=== PATIENT | male | born 1950 | race African-American/Black ===

== ENCOUNTER 2024-03-16 18:08 | Inpatient (IN) | payer OTHER ==
--- OUTSIDE RECORDS SUMMARY | 2024-03-16 22:11 | XMS REPORT | Continuity of Care Document ---
Author Name Unknown Address [address] [facility] [place] [address] [facility] Address [address] [facility] [place] [address] Care Team Providers Care Custom Designer Name Role Phone PCP, PATIENT DOES NOT HAVE A Primary Care Physic kevin Unavailable DIMITRIS PERALES Attending Clinician Unavailable ALMA ROSA BRAMBILA Attending Clinician Unavailable ROCIO SHAY K.HPurvi Attending Clinician Unavailnatacha Shay MD, Rocio K.HPurvi Attending Clinician [phone] Doctor Unassigned, [place] Attending Clinician U inessaailGLEN Mendes Attending Clinician Unavailable Glen Moncada Attending Clinician [phone] [facility]_Se[facility]_S Attending Clinician Unavailable Eula Mac RN Attending Clinician Unavailable Chester Alonzo Attending Clinician [phone] LYUDMILA PEDRO Attending Clinician Unavailable Breana Rabago DO Attending Clinician [phone] Erick CHAN, Johan Avendano Attending Clinician [phone] Luci CHAN, Edwin Attending Clinician [phone] Nereyda Lewis MD Attending Clinician [phone] Emmett CHAN, Josue Avendano Attending Clinician Lyudmila Pedro MD Attending Clinician [phone] Ulysses CHAN, Premal G Attending Clinician [phone] Chirag CHAN, Jayme Brooks Attending Clinician [phone] JEREMY PUENTES Admitting Clinician Unavailable [facility]_Seiter_S Admitting Clinician Unavailable JAYME PINEDA Admitting Clinician Unavailab jazzy Pineda MD, Jayme Brooks Admitting Clinician [phone] Payers Payer Name Policy Type Policy Number Effective Date Expirati on Date Source [facility] [id number] 2023 00:00:00 [facility] MEDICARE ADV HMO [id number] 2023 00:00:00 [facility] (MEDICARE REPLACEMENT/ADVANTA GE - PPO) [id number] Problems Condition Name Condition Details Condition Category Status Onset Date Resolution Date Last Treatment Date Treating Clinician Comments Source Hypertensi ve disorder Hypertensi ve Disorder Problem Active 5- 00:00: 00 [facility] Atrial fibrillati on Atrial Fibrillati on Problem Active 5- 00:00: 00 [facility] Gastroesop hageal reflux disease Gastroesop hageal Reflux Disease Problem Active 5- 00:00: 00 [facility] History of cerebrovas cular accident History of Cerebrovas cular Accident Problem Active - 00:00: 00 [facility] History of fall History of Fall Problem Active 5- 00:00: 00 [facility] History of SARS-CoV-2 History of SARS-CoV-2 Problem Active 5- 00:00: 00 [facility] COVID-19 virus infection COVID-19 virus infection Disease Active - 00:00: 00 Overview: Formattin g of this note is different from the original. SARS-CoV- 2 Rapid ID NOW (no units) Date Value Positive (A) [facility] Delirium Delirium Disease Active - 00:00: 00 [facility] Fever due to COVID-19 Fever due to COVID-19 Disease Active - 00:00: 00 [facility] History of stroke History of stroke Disease Active 10-21 00:00: 00 Overview: Formattin g of this note might be different from the original. ?? 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 10/20/20M ultiple areas of moderate to high-grad e stenosis in the distal leftcervi aicha vertebral artery. There are several areas of moderate stenosis ofthe left intracere bral vertebral artery.?M ild to moderate stenosis in the right middle cerebral artery and mildsteno sis of left middle cerebral artery.? [facility] Demand ischemia Demand ischemia Disease Active 10-21 00:00: 00 [facility] YAMILETH (acute kidney injury) YAMILETH (acute kidney injury) Disease Active 10-20 00:00: 00 Overview: Formattin g of this note is different from the original. CREATININ E (mg/dL) Date Value 1 1.59 (H) 1 1.75 (H) Serum creatinin e: 1.59 mg/dL (H) 10/21/20 0316Estim ated creatinin e clearance : 55 mL/min (A) [facility] Pneumonia due to COVID-19 virus Pneumonia due to COVID-19 virus Disease Active 10-20 00:00: 00 [facility] Allergies, Adverse Reactions, Alerts Allergy Name Allergy Type Status Severity Reaction(s) Onset Date Inactive Date Treating Clinician Comments Source NO KNOWN ALLERGIE S Drug Class Active [facility] Social History Social Habit Start Date Stop Date Quantity Comments Source History of tobacco use Passive smoker [facility] Gender identity [facility] Exposure to SARS-CoV-2 (event) Not sure [facility] History of Social function 2023-06-30 00:00:00 2023-06-30 00:00:00 [facility] Tobacco use and exposure 2023-06-30 00:00:00 2023-06-30 00:00:00 Smokeless tobacco non-user [facility] Alcohol intake 2023-06-30 00:00:00 2023-06-30 00:00:00 .29 /d [facility] Sex Ass[birth year] At 1950 00:00:00 1950 00:00:00 [facility] Smoking Status Start Date Stop Date Source Never Smoker [facility] Ex-smoker 2023-06-30 00:00:00 2023-06-30 [facility]00[facility]00 [facility] Ordered Medication Name Filled Medication Name Start Date Stop Date Current Medication? Ordering Clinician Indication Dosage Frequency Signature (SIG) Comments Components Source apixaban 5 mg tablet 07-22 00:00: 00 Yes [id number] 5mg Take 1 tablet by mouth in the morning and 1 tablet in the evening. Indication s: prevention of thromboemb olism in paroxysmal atrial fibrillati on [facility] warfarin 5 mg tablet 2022-07 08:52: 10 Yes [id number] 5mg Take 1 tablet by mouth. 1.5tabs on Mondays 1tab 6x/week [facility] metFORMIN 500 mg 24 hr tablet 2022-07 08:52: 10 Yes [id number] 500mg Take 1 tablet by mouth daily with breakfast. [facility] cloNIDine 0.1 mg tablet 2022-07 08:52: 10 Yes [id number] .1mg Take 1 tablet by mouth in the morning and 1 tablet in the evening. [facility] losartan-hy drochloroth iazide 100-25 mg per tablet 2022-07 08:52: 10 Yes [id number] 1{tbl} Take 1 tablet by mouth in the morning. [facility] hydralAZINE (APRESOLINE ) injection 10 mg 01-27 17:15: 00 01-27 18:20 :00 No 10mg 10 mg, Slow IV Push, ONCE, 1 dose, On Wed01/27/23 at 1215, SAÚL [facility] cloNIDine (CATAPRES) tablet 0.1 mg 01-27 17:15: 00 01-27 18:19 :00 No .1mg 0.1 mg, Oral, ONCE, 1 dose, On Wed01/27/23 at 1215, STAT [facility] aspirin 81 mg chewable tablet 11-09 00:00: 00 Yes [id number] 81mg Take 1 tablet by mouth daily. [facility] diltiazem XR 180 mg 24 hr capsule 11-09 00:00: 00 Yes [id number] 180mg Take 1 capsule by mouth daily. [facility] aspirin 81 mg chewable tablet 11-08 19:01: 15 11-08 00:00 :00 No 81mg Take 81 mg by mouth daily. [facility] diltiazem XR (DILT-XR) capsule 180 mg 11-08 14:00: 00 Yes 180mg 180 mg, Oral, DAILY, First dose (after last modificati on) on Wed11/08/20 at 0900, Until Discontinu ed, Routine [facility] foLIC acid (FOLATE) tablet 1 mg 11-08 14:00: 00 Yes 1mg 1 mg, Oral, DAILY, First dose (after last modificati on) on Wed11/08/20 at 0900, Until Discontinu ed, Routine [facility] aspirin chewable tablet 81 mg 11-08 14:00: 00 Yes 81mg 81 mg, Oral, DAILY, First dose (after last modificati on) on Wed11/08/20 at 0900, Until Discontinu ed, Routine [facility] lactated ringers IV infusion 1,000 mL 11-08 13:30: 00 11-08 13:54 :00 No 1000mL at 200 mL/hr, 1,000 mL, Intravenou s, ONCE, 1 dose, Wed11/08/20 at 0830, Routine [facility] apixaban (ELIQUIS) tablet 5 mg 11-08 01:00: 00 Yes 5mg 5 mg, Oral, BID, First dose (after last modificati on) on [place] 11/07/20 at 2000, Until Discontinu ed, Routine [facility] atorvastati n 80 mg tablet 11-08 00:00: 00 Yes [id number] 80mg Take 1 tablet by mouth at bedtime. [facility] carvediloL 25 mg tablet 11-08 00:00: 00 Yes [id number] 25mg Take 1 tablet by mouth every 12 (twelve) hours. [facility] hydrALAZINE 100 mg tablet 11-08 00:00: 00 Yes [id number] 100mg Take 1 tablet by mouth every 8 (eight) hours. [facility] pantoprazol e 40 mg EC tablet 11-08 00:00: 00 Yes [id number] 40mg Take 1 tablet by mouth 2 (two) times daily. [facility] apixaban 5 mg tablet 11-08 00:00: 00 07-22 00:00 :00 No [id number] 5mg Take 1 tablet by mouth 2 (two) times daily. Indication s: prevention of thromboemb olism in paroxysmal atrial fibrillati on [facility] hydrALAZINE (APRESOLINE ) tablet 100 mg 11-07 19:00: 00 Yes 100mg 100 mg, Oral, Q8H, First dose (after last modificati on) on Wed11/07/20 at 1400, Until Discontinu ed, Routine [facility] lactated ringers IV infusion 1,500 mL 11-07 14:00: 00 11-07 14:51 :00 No 1500mL at 150 mL/hr, 1,500 mL, Intravenou s, ONCE, 1 dose, Wed11/07/20 at 0900, Routine [facility] polyethylen e glycol 3350 powder 17 g 11-06 14:00: 00 Yes 17g 17 g, Oral, DAILY, First dose (after last modificati on) on Wed11/06/20 at 0900, Until Discontinu ed, Routine [facility] atorvastati n (LIPITOR) tablet 80 mg 11-06 02:00: 00 11-07 16:40 :03 No 80mg 80 mg, Enteral, QHS, First dose (after last modificati on) on Wed11/05/20 at 2100, Until Discontinu ed, Routine [facility] amino acids 4.25%-elect rolytes-aicha cium-dextro se 5% (CLINIMIX-E 4.25%/D5W SULF FREE) IV infusion 1,992 mL 11-05 22:00: 00 11-05 21:39 :00 No 1992mL at 83 mL/hr, 1,992 mL, IV Infusion, TPNCONTINU OUS, 1 dose, First dose (after last reorder) on Wed11/05/20 at 1700, Routine [facility] fat emulsion (INTRALIPID ) 20 % infusion 250 mL 11-05 22:00: 00 11-05 21:39 :00 No 250mL at 11 mL/hr, IV Infusion, TPNCONTINU OUS, 1 dose, First dose (after last reorder) on Wed11/05/20 at 1700, Routine [facility] hydrALAZINE (APRESOLINE ) tablet 100 mg 11-05 19:00: 00 11-07 16:40 :03 No 100mg 100 mg, Enteral, Q8H, First dose (after last modificati on) on Wed11/05/20 at 1400, Until Discontinu ed, Routine [facility] diltiazem (CARDIZEM) tablet 60 mg 11-05 17:00: 00 11-07 16:40 :02 No 60mg 60 mg, Enteral, Q6H, First dose (after last modificati on) on Wed11/05/20 at 1200, Until Discontinu ed, Routine [facility] magnesium sulfate in water 2 gram/50 mL (4 %) infusion 2 g 11-05 16:15: 00 11-05 15:23 :00 No 2g 2 g, IV Piggyback, ONCE, 1 dose, Wed11/05/20 at 1115, Routine [facility] KCL (POTASSIUM CHLORIDE) 40 mEq in NaCl 0.9% (NS) piggyback 11-05 16:15: 00 11-05 17:14 :00 No 40meq 40 mEq, IV Piggyback, ONCE, 1 dose, Wed11/05/20 at 1115, 250 mL [facility] foLIC acid (FOLATE) tablet 1 mg 11-05 14:00: 00 11-07 16:40 :03 No 1mg 1 mg, Enteral, DAILY, First dose (after last modificati on) on Wed11/05/20 at 0900, Until Discontinu ed, Routine [facility] aspirin chewable tablet 81 mg 11-05 14:00: 00 11-07 16:40 :03 No 81mg 81 mg, Enteral, DAILY, First dose (after last modificati on) on Wed11/05/20 at 0900, Until Discontinu ed, Routine [facility] apixaban (ELIQUIS) tablet 5 mg 11-05 13:00: 00 11-07 16:40 :03 No 5mg 5 mg, Enteral, BID, First dose (after last modificati on) on Wed11/05/20 at 0800, Until Discontinu ed, Routine [facility] fat emulsion (INTRALIPID ) 20 % infusion 250 mL 11-04 22:00: 00 11-04 22:00 :00 No 250mL at 11 mL/hr, IV Infusion, TPNCONTINU OUS, 1 dose, First dose (after last reorder) on Wed11/04/20 at 1700, Routine [facility] amino acids 4.25%-elect rolytes-aicha cium-dextro se 5% (CLINIMIX-E 4.25%/D5W SULF FREE) IV infusion 1,992 mL 11-04 22:00: 00 11-04 22:00 :00 No 1992mL at 83 mL/hr, 1,992 mL, IV Infusion, TPNCONTINU OUS, 1 dose, First dose (after last reorder) on Wed11/04/20 at 1700, Routine [facility] metoprolol (LOPRESSOR) injection 5 mg 11-04 15:51: 22 Yes 5mg 5 mg, Slow IV Push, PRN, Starting 11/04/20 at 1051, Until Discontinu ed, Routine, For HR > 110, please notify team w/ administra tion. [facility] melatonin (MELATIN) tablet 3 mg 11-04 02:00: 00 Yes 3mg 3 mg, Oral, QHS, First dose on Wed11/03/20 at 2100, Until Discontinu ed, Routine [facility] fat emulsion (INTRALIPID ) 20 % infusion 250 mL 11-03 22:00: 00 11-03 21:56 :00 No 250mL at 11 mL/hr, IV Infusion, TPNCONTINU OUS, 1 dose, First dose (after last reorder) on [place] 11/03/20 at 1700, Routine [facility] amino acids 4.25%-elect rolytes-aicha cium-dextro se 5% (CLINIMIX-E 4.25%/D5W SULF FREE) IV infusion 2,000 mL 11-03 22:00: 00 11-03 22:17 :00 No 2000mL at 83 mL/hr, 2,000 mL, IV Infusion, TPNCONTINU OUS, 1 dose, First dose (after last reorder) on [place] 11/03/20 at 1700, Routine [facility] pantoprazol e (PROTONIX) 40 mg in NaCl 0.9% (NS) 100 mL MINI-BAG 11-03 01:00: 00 11-08 18:02 :26 No 40mg 40 mg, IV Piggyback, Q12H, First dose on 11/02/20 at 2000, Until Discontinu ed, 100 mL [facility] fat emulsion (INTRALIPID ) 20 % infusion 250 mL 11-02 22:00: 00 11-02 20:20 :00 No 250mL at 11 mL/hr, IV Infusion, TPNCONTINU OUS, 1 dose, First dose (after last reorder) on [facility] 11/02/20 at 1700, Routine [facility] amino acids 4.25%-elect rolytes-aicha cium-dextro se 5% (CLINIMIX-E 4.25%/D5W SULF FREE) IV infusion 2,000 mL 11-02 22:00: 00 11-02 20:21 :00 No 2000mL at 83 mL/hr, 2,000 mL, IV Infusion, TPNCONTINU OUS, 1 dose, First dose on Wed11/02/20 at 1700, Routine [facility] hydrALAZINE (APRESOLINE ) tablet 100 mg 11-02 19:00: 00 11-05 11:42 :47 No 100mg 100 mg, Oral, Q8H, First dose (after last modificati on) on Wed11/02/20 at 1400, Until Discontinu ed, Routine [facility] amino acid 4.25%-detro se 5% (CLINIMIX 4.25%/D5W SULFIT FREE) IV infusion 2,000 mL 11-01 22:00: 00 11-02 23:11 :00 No 2000mL at 83 mL/hr, 2,000 mL, IV Infusion, TPNCONTINU OUS, 1 dose, First dose on Wed11/01/20 at 1700, Routine [facility] fat emulsion (INTRALIPID ) 20 % infusion 250 mL 11-01 22:00: 00 11-01 23:10 :00 No 250mL at 11 mL/hr, IV Infusion, TPNCONTINU OUS, 1 dose, First dose on Wed11/01/20 at 1700, Routine [facility] hydrALAZINE (APRESOLINE ) tablet 50 mg 11-01 19:00: 00 11-02 12:52 :42 No 50mg 50 mg, Oral, Q8H, First dose (after last modificati on) on Wed11/01/20 at 1400, Until Discontinu ed, Routine [facility] magnesium sulfate in water 2 gram/50 mL (4 %) infusion 2 g 11-01 15:45: 00 11-01 15:29 :00 No 2g 2 g, IV Piggyback, ONCE, 1 dose, Wed11/01/20 at 1045, Routine [facility] KCL (POTASSIUM CHLORIDE) 40 mEq in NaCl 0.9% (NS) 250 mL piggyback 11-01 13:00: 00 11-01 14:09 :00 No 40meq 40 mEq, IV Piggyback, Q4H, 1 dose, First dose on Wed11/01/20 at 0800, 250 mL [facility] hydrALAZINE (APRESOLINE ) tablet 20 mg 11-01 03:00: 00 11-01 15:37 :30 No 20mg 20 mg, Oral, Q8H, First dose (after last modificati on) on Wed10/31/20 at 2200, Until Discontinu ed, Routine [facility] lactated ringers IV infusion 1,000 mL 10-31 13:30: 00 10-31 15:09 :00 No 1000mL at 75 mL/hr, 1,000 mL, Intravenou s, ONCE, 1 dose, Wed10/31/20 at 0830, Routine [facility] hydrALAZINE (APRESOLINE ) tablet 10 mg 10-30 19:00: 00 10-31 20:51 :57 No 10mg 10 mg, Oral, Q8H, First dose on Wed10/30/20 at 1400, Until Discontinu ed, Routine [facility] diltiazem (CARDIZEM) tablet 60 mg 10-30 17:00: 00 11-05 11:42 :47 No 60mg 60 mg, Oral, Q6H, First dose (after last modificati on) on Wed10/30/20 at 1200, Until Discontinu ed, Routine [facility] diltiazem (CARDIZEM) tablet 30 mg 10-30 14:45: 00 10-30 14:14 :00 No 30mg 30 mg, Oral, ONCE, 1 dose, Wed10/30/20 at 0945, Routine [facility] lisinopriL (PRINIVIL,Z ESTRIL) tablet 10 mg 10-30 14:00: 00 10-30 15:10 :13 No 10mg 10 mg, Oral, DAILY, First dose on Wed10/30/20 at 0900, Until Discontinu ed, Routine [facility] lactated ringers IV infusion 1,000 mL 10-30 13:00: 00 10-30 12:53 :00 No 1000mL at 150 mL/hr, 1,000 mL, Intravenou s, ONCE, 1 dose, Wed10/30/20 at 0800, Routine [facility] thiamine (VITAMIN B1) tablet 500 mg 10-29 19:00: 00 Yes 500mg 500 mg, Oral, TID, First dose on Wed10/29/20 at 1400, Until Discontinu ed, Routine [facility] chlorthalid one (HYGROTON) tablet 25 mg 10-29 16:45: 00 11-05 11:42 :47 No 25mg 25 mg, Oral, DAILY, First dose on Wed10/29/20 at 1145, Until Discontinu ed, Routine [facility] chlorthalid one (HYGROTON) tablet 25 mg 10-28 22:00: 00 10-28 22:48 :00 No 25mg 25 mg, Oral, ONCE, 1 dose, Wed10/28/20 at 1700, Routine [facility] apixaban (ELIQUIS) tablet 5 mg 10-28 17:00: 00 11-05 11:42 :47 No 5mg 5 mg, Oral, BID, First dose on Wed10/28/20 at 1200, Until Discontinu ed, Routine [facility] diltiazem (CARDIZEM) tablet 60 mg 10-28 17:00: 00 10-30 12:14 :18 No 60mg 60 mg, Oral, Q6H, First dose (after last modificati on) on Wed10/28/20 at 1200, Until Discontinu ed, Routine [facility] foLIC acid (FOLATE) tablet 1 mg 10-28 14:00: 00 2021- 04-27 11:42 :47 No 1mg 1 mg, Oral, DAILY, First dose (after last modificati on) on Wed10/28/20 at 0900, Until Discontinu ed, Routine [facility] aspirin chewable tablet 81 mg 10-28 14:00: 00 11-05 11:42 :47 No 81mg 81 mg, Oral, DAILY, First dose (after last modificati on) on Wed10/28/20 at 0900, Until Discontinu ed, Routine [facility] thiamine (VITAMIN B1) tablet 100 mg 10-28 14:00: 00 10-29 14:50 :39 No 100mg 100 mg, Oral, DAILY, First dose (after last modificati on) on Wed10/28/20 at 0900, Until Discontinu ed, Routine [facility] atorvastati n (LIPITOR) tablet 80 mg 10-28 02:00: 00 11-05 11:42 :47 No 80mg 80 mg, Oral, QHS, First dose (after last modificati on) on Wed10/27/20 at 2100, Until Discontinu ed, [facility] carvediloL (COREG) [facility] 25 mg 10-28 01:00: 00 Yes 25mg 25 mg, Oral, Q12H, First dose (after last modificati on) on Wed10/27/20 at 2000, Until Discontinu ed, Routine [facility] NaCl 0.45% (1/2NS) IV infusion 1,000 mL 10-27 22:00: 00 10-28 12:24 :48 No 1000mL at 125 mL/hr, 1,000 mL, IV Infusion, CONTINUOUS , Starting Wed10/27/20 at 1715, Until Wed10/28/20 at 0724, SAÚL [facility] diltiazem (CARDIZEM) tablet 30 mg 10-27 17:00: 00 10-28 12:26 :09 No 30mg 30 mg, Oral, Q6H, First dose on Wed10/27/20 at 1200, Until Discontinu ed, Routine [facility] D5W IV infusion 1,000 mL 10-27 11:45: 00 10-28 12:24 :48 No 1000mL at 150 mL/hr, IV Infusion, CONTINUOUS , Starting 10/27/20 at 0645, Until 10/28/20 at 0724, Routine [facility] thiamine (VITAMIN B1) tablet 100 mg 10-26 14:00: 00 10-27 14:34 :23 No 100mg 100 mg, Enteral, DAILY, First dose (after last modificati on) on 10/26/20 at 0900, Until Discontinu ed, Routine [facility] foLIC acid (FOLATE) tablet 1 mg 10-26 14:00: 00 10-27 14:34 :23 No 1mg 1 mg, Enteral, DAILY, First dose (after last modificati on) on 10/26/20 at 0900, Until Discontinu ed, Routine [facility] aspirin chewable tablet 81 mg 10-26 14:00: 00 10-27 14:34 :23 No 81mg 81 mg, Enteral, DAILY, First dose (after last modificati on) on 10/26/20 at 0900, Until Discontinu ed, Routine [facility] amLODIPine (NORVASC) tablet 10 mg 10-26 14:00: 00 10-27 14:12 :20 No 10mg 10 mg, Enteral, DAILY, First dose (after last modificati on) on 10/26/20 at 0900, Until Discontinu ed, Routine [facility] lactated ringers IV infusion 1,000 mL 10-26 12:45: 00 10-27 11:34 :58 No 1000mL at 100 mL/hr, 1,000 mL, IV Infusion, CONTINUOUS , Starting 10/26/20 at 0745, Until [place] 10/27/20 at 0634, Routine [facility] sodium bicarbonate 150 mEq in D5W 1,000 mL IV Solution 10-26 02:15: 00 10-26 11:40 :16 No IV Infusion, CONTINUOUS , Starting Wed10/25/20 at 2115, Until Wed10/26/20 at 0640, 1,000 mL, at 100 mL/hr [facility] atorvastati n (LIPITOR) tablet 80 mg 10-26 02:00: 00 10-27 14:34 :23 No 80mg 80 mg, Enteral, QHS, First dose (after last modificati on) on Wed10/25/20 at 2100, Until Discontinu ed, Routine [facility] carvediloL (COREG) tablet 25 mg 10-25 22:00: 00 10-27 11:53 :09 No 25mg 25 mg, Oral, BID MEALS, First dose on Wed10/25/20 at 1700, Until Discontinu ed, Routine [facility] sodium bicarbonate 150 mEq in D5W 1,000 mL IV Solution 10-25 20:00: 00 10-26 02:07 :46 No IV Infusion, CONTINUOUS , Starting Wed10/25/20 at 1500, Until Wed10/25/20 at 2107, 1,000 mL, at 150 mL/hr [facility] heparin 25,000 Units/250 mL (Premixed Bag) in 0.45 % NS 10-25 19:53: 54 10-28 16:35 :07 No 1000U/h 1,000 Units/hr (10 mL/hr), IV Infusion, TITRATE, Parameters in Admin. Instr., Starting Wed10/25/20 at 1453
CA UTION - If LMWH given in ER, AVOID bolus and start next dose/drip 12 hrs after ER dosage.&nb sp; M ust program rate using programmab le infusion pump.&nbsp ; Jennifer ck with the ordering provider first prior to any administra tion should the patient be on existing/a dditional anticoagul ant therapy. Rang e, Dosing and Testing: &nbs p;FOR [facility] AND [facility] ONLY &nbs p; - aPTT < 35: & nbsp;Bolus 5000 units, increase rate 300 units/hr&n bsp; - aPTT 35-44:&nbs p; Wood ronna 3000 units, increase rate 200 units/hr&n bsp; - aPTT 45-54:&nbs p; In crease rate 100 units/hr&n bsp; - aPTT 55-85:&nbs p;&nbs p;NO CHANGE&nbs p; - aPTT 86-95:&nbs p; De crease rate 100 units/hr&n bsp; - aPTT 96-120:&nb sp; H old 30 minutes, decrease rate 150 units/hr&n bsp; - aPTT > 120: Hold 60 minutes, decrease rate 200 units/hr&n bsp; Check aPTT 6 hours after initiation , then Q6H after every change, aPTT Q12H once therapeuti c levels are reached.&n bsp; &nbs p; __ &n bsp;FOR [facility] ONLY - aPTT < 40: & nbsp;Bolus 5000 units, increase rate 300 units/hr&n bsp; - aPTT 40-49:&nbs p; Wood ronna 3000 units, increase rate 200 units/hr&n bsp; - aPTT 50-59:&nbs p; In crease rate 100 units/hr&n bsp; - aPTT 60-85:&nbs p; NO CHANGE&nbs p; - aPTT 86-95:&nbs p;&nbs p;Decrease rate 100 units/hr&n bsp; - aPTT 96-120:&nb sp; H old 30 minutes, decrease rate 150 units/hr&n bsp; - aPTT > 120: Hold 60 minutes, decrease rate 200 units/hr&n bsp; Check aPTT 6 hours after initiation , then Q6H after every change, aPTT Q12H once therapeuti c levels are reached.&n bsp; DO NOT ADJUST INITIAL BOLUS OR INITIAL INFUSION RATE.
[facility] metoprolol (LOPRESSOR) injection 5 mg 10-25 19:00: 00 10-25 17:56 :00 No 5mg 5 mg, IV Push, ONCE, 1 dose, Wed10/25/20 at 1400, Routine [facility] NaCl 0.9% (NS) injection 10 mL 10-25 18:54: 32 Yes 10mL 10 mL, Slow IV Push, PRN, Starting Wed10/25/20 at 1354, Until Discontinu ed, Routine, line maintenanc e [facility] lidocaine 1% (PF) (XYLOCAINE) injection 5 mL 10-25 18:54: 32 Yes 5mL 5 mL, Subcutaneo us, PRN, Starting Wed10/25/20 at 1354, Until Discontinu ed, Routine, Local anesthesia [facility] heparin (1,000 unit/mL, 10 mL vial) for Rebolusing 10-25 18:53: 54 10-28 16:35 :01 No 3000U FOR REBOLUSING , Starting Wed10/25/20 at 1353, Until Wed10/28/20 at 1135, Routine
Dosing based on aPTT testing parameters (refer to continuous heparin drip order).
[facility] metoprolol (LOPRESSOR) injection 5 mg 10-25 17:48: 00 10-26 04:32 :00 No 5mg 5 mg, IV Push, PRN, 2 doses, Starting Wed10/25/20 at 1248, Until Wed10/25/20 at 2332, Routine, As directed by physician verbally [facility] NaCl 0.9% (NS) bolus infusion 500 mL 10-25 17:30: 00 10-25 17:23 :00 No 500mL at 999 mL/hr, 500 mL, IV Piggyback, ONCE, 1 dose, Wed10/25/20 at 1230, STAT [facility] amLODIPine (NORVASC) tablet 5 mg 10-25 17:30: 00 10-25 17:24 :00 No 5mg 5 mg, Oral, ONCE, 1 dose, Wed10/25/20 at 1230, Routine [facility] dexamethaso ne (DECADRON PHOSPHATE) 6 mg in NaCl 0.9% (NS) 50 mL piggyback 10-25 17:00: 00 10-30 13:39 :54 No 6mg 6 mg, IV Piggyback, QNOON, First dose on Wed10/25/20 at 1200, Until Discontinu ed, 50 mL [facility] Saline Bubble Study 10-25 15:00: 00 Yes [id number] 6mL 6 mL, Injection, SEE-INSTRU CTIONS, 2 doses, Starting Wed10/25/20 at 1000, Until Discontinu ed, Routine [facility] enoxaparin (LOVENOX) injection 30 mg 10-25 14:00: 00 10-25 19:01 :45 No 30mg 30 mg, Subcutaneo us, DAILY, First dose (after last modificati on) on Wed10/25/20 at 0900, Until Discontinu ed, Routine [facility] amLODIPine (NORVASC) tablet 5 mg 10-25 14:00: 00 10-25 16:16 :43 No 5mg 5 mg, Oral, DAILY, First dose on Wed10/25/20 at 0900, Until Discontinu ed, Routine [facility] thiamine (VITAMIN B1) tablet 100 mg 10-25 14:00: 00 10-25 20:13 :07 No 100mg 100 mg, Oral, DAILY, First dose on Wed10/25/20 at 0900, Until Discontinu ed, Routine [facility] carvediloL (COREG) tablet 12.5 mg 10-24 22:00: 00 10-25 19:51 :30 No 12.5mg 12.5 mg, Oral, BID MEALS, First dose (after last modificati on) on Wed10/24/20 at 1700, Until Discontinu ed, Routine [facility] enoxaparin (LOVENOX) injection 30 mg 10-24 14:00: 00 10-24 15:21 :44 No 30mg 30 mg, Subcutaneo us, DAILY, First dose (after last modificati on) on Wed10/24/20 at 0900, Until Discontinu ed, Routine [facility] NaCl 0.9% (NS) IV infusion 1,000 mL 10-24 13:45: 00 10-24 17:53 :52 No 1000mL at 150 mL/hr, IV Infusion, CONTINUOUS , Starting Wed10/24/20 at 0845, Until Wed10/24/20 at 1253, Routine [facility] atorvastati n (LIPITOR) tablet 80 mg 10-24 02:00: 00 10-25 20:13 :07 No 80mg 80 mg, Oral, QHS, First dose (after last modificati on) on Wed10/23/20 at 2100, Until Discontinu ed, Routine [facility] albuterol (VENTOLIN) inhaler 1 Puff 10-23 21:29: 55 Yes 1{puff} 1 Puff, Inhalation , Q4HPRN, Starting Wed10/23/20 at 1629, Until Discontinu ed, Routine, Wheezing, Shortness of Breath
Is this order for a patient with suspected or confirmed COVID-19 infection? Yes [facility] NaCl 0.9% (NS) bolus infusion 2,000 mL 10-23 17:15: 00 10-23 16:45 :00 No 2000mL at 150 mL/hr, 2,000 mL, IV Piggyback, ONCE, 1 dose, Wed10/23/20 at 1215, STAT [facility] thiamine (VITAMIN B1) 500 mg in NaCl 0.9% (NS) piggyback 10-23 01:00: 00 10-23 16:45 :00 No 500mg IV Piggyback, Q12H, 2 doses, First dose on Wed10/22/20 at 2000, Last dose on Wed10/23/20 at 0800, 50 mL [facility] NaCl 0.9% (NS) bolus infusion 500 mL 10-22 15:30: 00 10-22 17:50 :00 No 500mL at 75 mL/hr, 500 mL, IV Piggyback, ONCE, 1 dose, Wed10/22/20 at 1030, Routine [facility] azithromyci n (ZITHROMAX) tablet 250 mg 10-22 02:30: 00 10-25 02:23 :00 No 250mg 250 mg, Oral, Q24H, 4 doses, First dose on Wed10/21/20 at 2130, Last dose on Wed10/24/20 at 2130, SAÚL
Re ason for Anti-Infec tive: Empiric Therapy for Suspected Infection< br>Empiric Therapy Site: Respirator y
Durat ion of therapy: 72 hours [facility] melatonin (MELATIN) tablet 3 mg 10-22 02:00: 00 11-03 17:40 :22 No 3mg 3 mg, Oral, QHS, First dose on Wed10/21/20 at 2100, Until Discontinu ed, Routine [facility] albuterol (VENTOLIN) inhaler 2 Puff 10-21 23:00: 00 11-06 13:04 :44 No 2{puff} 2 Puff, Inhalation , Q6H, First dose (after last modificati on) on Wed10/21/20 at 1800, Until Discontinu ed, Routine
Is this order for a patient with suspected or confirmed COVID-19 infection? Yes [facility] carvediloL (COREG) tablet 6.25 mg 10-21 22:00: 00 10-24 18:24 :35 No 6.25mg 6.25 mg, Oral, BID MEALS, First dose on Wed10/21/20 at 1700, Until Discontinu ed, Routine [facility] foLIC acid (FOLATE) tablet 1 mg 10-21 14:00: 00 10-25 20:13 :07 No 1mg 1 mg, Oral, DAILY, First dose on Wed10/21/20 at 0900, Until Discontinu ed, Routine [facility] aspirin chewable tablet 81 mg 10-21 14:00: 00 10-25 20:13 :07 No 81mg 81 mg, Oral, DAILY, First dose on Wed10/21/20 at 0900, Until Discontinu ed, Routine [facility] enoxaparin (LOVENOX) injection 40 mg 10-21 14:00: 00 10-24 12:40 :40 No 40mg 40 mg, Subcutaneo us, DAILY, First dose on Wed10/21/20 at 0900, Until Discontinu ed, Routine [facility] thiamine (VITAMIN B1) tablet 100 mg 10-21 14:00: 00 10-22 14:25 :06 No 100mg 100 mg, Oral, DAILY, First dose on Wed10/21/20 at 0900, Until Discontinu ed, Routine [facility] NaCl 0.9% (NS) bolus infusion 1,000 mL 10-21 13:30: 00 10-21 13:24 :00 No 1000mL at 125 mL/hr, 1,000 mL, IV Piggyback, ONCE, 1 dose, Wed10/21/20 at 0830, Routine [facility] famotidine (PEPCID AC) tablet 20 mg 10-21 13:00: 00 11-02 14:09 :56 No 20mg 20 mg, Oral, BID, First dose on Wed10/21/20 at 0800, Until Discontinu ed, Routine [facility] atorvastati n (LIPITOR) tablet 20 mg 10-21 05:15: 00 10-23 12:07 :21 No 20mg 20 mg, Oral, QHS, First dose on Wed10/21/20 at 0015, Until Discontinu ed, Routine [facility] oxazepam (SERAX) capsule 15 mg 10-21 05:13: 30 10-30 14:20 :24 No 15mg 15 mg, Oral, Q4HPRN, Starting Wed10/21/20 at 0013, Until Wed10/30/20 at 0920, Routine, Only while awake for DBP equal to or greater than 100, HR equal to or greater than 100. [facility] ipratropium (ATROVENT HFA) inhaler 1 Puff 10-21 05:00: 00 Yes 1{puff} 1 Puff, Inhalation , Q6H, First dose on Wed10/21/20 at 0000, Until Discontinu ed, Routine
Is this order for a patient with suspected or confirmed COVID-19 infection? Yes [facility] albuterol (VENTOLIN) inhaler 2 Puff 10-21 05:00: 00 10-21 20:45 :46 No 2{puff} 2 Puff, Inhalation , Q4H, First dose on Wed10/21/20 at 0000, Until Discontinu ed, Routine
Is this order for a patient with suspected or confirmed COVID-19 infection? Yes [facility] NaCl 0.9% (NS) bolus infusion 500 mL 10-21 04:15: 00 10-21 06:00 :00 No 500mL at 999 mL/hr, 500 mL, IV Piggyback, ONCE, 1 dose, 10/20/20 at 2315, STAT [facility] azithromyci n (ZITHROMAX) tablet 500 mg 10-21 02:45: 00 10-21 03:32 :00 No 500mg 500 mg, Oral, ONCE, 1 dose, 10/20/20 at 2145, SAÚL
Re ason for Anti-Infec tive: Empiric Therapy for Suspected Infection< br>Empiric Therapy Site: Respirator y
Durat ion of therapy: 72 hours [facility] acetaminoph en (TYLENOL) tablet 650 mg 10-21 02:22: 07 Yes 650mg 650 mg, Oral, Q6HPRN, Starting 10/20/20 at 2122, Until Discontinu ed, Routine, Pain (scale 1-3) [facility] vancomycin 1500 mg in NS 500 mL IV Piggyback RTU 1,500 mg 10-20 23:00: 00 10-21 00:48 :00 No 15mg/kg 1,500 mg (rounded from 1,531.5 mg = 15 mg/kg ?102.1 kg), IV Piggyback, ONCE, 1 dose, 10/20/20 at 1800
Re ason for Anti-Infec tive: Empiric Therapy for Suspected Infection< br>Empiric Therapy Site: Respirator y
Durat ion of therapy: 72 hours [facility] piperacilli n-tazobacta m (ZOSYN) 3.375 g in NaCl 0.9% (NS) 100 mL MINI-BAG 10-20 23:00: 00 10-20 22:42 :00 No 3.375g 3.375 g, IV Piggyback, ONCE, 1 dose, 10/20/20 at 1800, 100 mL
Reas on for Anti-Infec tive: Empiric Therapy for Suspected Infection< br>Empiric Therapy Site: Respirator y
Durat ion of therapy: 72 hours [facility] acetaminoph en (TYLENOL) tablet 650 mg 10-20 22:30: 00 10-20 21:23 :00 No 650mg 650 mg, Oral, ONCE, 1 dose, 10/20/20 at 1730, SAÚL [facility] aspirin chewable tablet 324 mg 10-20 22:30: 00 10-20 21:22 :00 No 324mg 324 mg, Oral, ONCE, 1 dose, 10/20/20 at 1730, Routine [facility] iohexol (OMNIPAQUE 350 BULK-75 mL) injection 100 mL 10-20 21:30: 00 10-20 21:16 :00 No [id number] 100mL 100 mL, Intravenou s, ONCE, 1 dose, [place] 10/20/20 at 1630, Routine [facility] aspirin 81 mg tablet,zoey yed release Take 1 tablet every day by oral route. aspirin 81 mg tablet,zoey yed release Take 1 tablet every day by oral route. No 1 Q1D aspirin 81 mg tablet,del ayed release Take 1 tablet every day by oral route. [facility] diltiazem ER 180 mg capsule,24 hr,extended release Take 1 capsule every day by oral route. diltiazem ER 180 mg capsule,24 hr,extended release Take 1 capsule every day by oral route. No 1capsul e(s) Q1D diltiazem ER 180 mg capsule,24 hr,extende d release Take 1 capsule every day by oral route. [facility] Eliquis 5 mg tablet TAKE 1 TABLET BY MOUTH TWICE DAILY Eliquis 5 mg tablet TAKE 1 TABLET BY MOUTH TWICE DAILY No Eliquis 5 mg tablet TAKE 1 TABLET BY MOUTH TWICE [facility]ILY [facility] Sign[facility] Vital Name Observation Time Observation Value Comments S ource Systolic blood pressure 2023-06-30 14:53:00 159 mm[Hg] [facility] Diastolic blood pressure 2023-06-30 14:53:00 75 mm[Hg] [facility] Heart rate 2023-06-30 14:53:00 58 /min [facility] Oxygen saturation in Arterial blood by Pulse oximetry 2023-06-30 14:53:00 98 /min [facility] Respiratory rate 2023-06-30 14:52:00 18 /min [facility] Body height 2023-06-30 14:52:00 182.9 cm [facility] Body weight 2023-06-30 14:52:00 119.069 kg [facility] BMI 2023-06-30 14:52:00 35.60 kg/m2 [facility] Systolic blood pressure 2023-01-27 19:45:00 162 mm[Hg] [facility] Diastolic blood pressure 2023-01-27 19:45:00 89 mm[Hg] [facility] Heart rate 2023-01-27 19:45:00 62 /min [facility] Respiratory rate 2023-01-27 19:45:00 22 /min [facility] Oxygen saturation in Arterial blood by Pulse oximetry 2023-01-27 19:45:00 100 /min [facility] Body temperature 2023-01-27 16:04:00 37.22 Lucy [facility] Body weight 2023-01-27 16:04:00 118.389 kg [facility] BMI 2023-01-27 16:04:00 35.40 kg/m2 [facility] BP Diastolic 2020-11-11 00:00:00 70 mm[Hg] [facility] Height 2020-11-11 00:00:00 72 [in_i] [facility] BMI (Body Mass Index) 2020-11-11 00:00:00 30.5 kg/m2 [facility] BP Systolic 2020-11-11 00:00:00 134 mm[Hg] [facility] Body Weight 2020-11-11 00:00:00 3600 [oz_av] [facility] Heart rate 2020-11-08 17:59:00 61 /min [facility] Respiratory rate 2020-11-08 17:59:00 16 /min [facility] Oxygen saturation in Arterial blood by Pulse oximetry 2020-11-08 17:59:00 98 /min [facility] Systolic blood pressure 2020-11-08 16:29:00 150 mm[Hg] [facility] Diastolic blood pressure 2020-11-08 16:29:00 66 mm[Hg] [facility] Body temperature 2020-11-08 16:29:00 36.5 Lucy [facility] Body weight 2020-10-21 18:00:00 102.1 kg [facility] BMI 2020-10-21 18:00:00 30.53 kg/m2 [facility] Body height 2020-10-21 06:07:00 182.9 cm [facility] Procedures Procedure Date / Time Performed Performing Clinician Source EXTERNAL PROVIDER - [facility] 2023-07-13 06:01:00 Doctor Unassigned, [place] [facility] EXTERNAL PROVIDER - [facility] 2023-07-02 06:01:00 Doctor Unassigned, [place] [facility] AUTHORIZATION TO RELEASE PHI TO [facility] 2023-06-30 06:01:00 Doctor Unassigned, [place] [facility] REFERRAL- REQUEST/RESPONSE 2023-06-24 06:01:00 Doctor Unassigned, [place] [facility] HB ECG ROUTINE & RHYTHM STRIP 2023-01-27 17:56:07 Glen Reynolds [facility] BASIC METABOLIC PANEL (NA, K , CL, CO2, GLUCOSE, BUN, CREATININE, CA) 2023-01-27 17:39:00 Glen Reynolds [facility] CBC WITH DIFF 2023-01-27 17:39:00 Glen Reynolds [facility] NOTICE OF PRIVACY PRACTICES 2023-01-27 15:49:12 Doctor Unassigned, [place] [facility] CONSENT/REFUSAL FOR DIAGNOSI S AND TREATMENT 2023-01-27 15:47:19 Doctor Unassigned, [place] [facility] AUTHORIZATION FOR RELEASE OF PHI 2021-03-12 05:01:00 Doctor Unassigned, [place] [facility] MAGNESIUM 2020-11-08 09:02:00 Mohinder Churchill [facility] BASIC METABOLIC PANEL (NA, K , CL, CO2, GLUCOSE, BUN, CREATININE, CA) 2020-11-08 09:02:00 Mohinder Churchill [facility] POCT GLUCOSE (AUTOMATED) 2020-11-07 17:09:00 Johan Suarez [facility] POCT GLUCOSE (AUTOMATED) 2020-11-07 11:05:00 Johan Suarez [facility] PHOSPHORUS 2020-11-07 10:26:00 Mohinder Churchill [facility] BASIC METABOLIC PANEL (NA, K , CL, CO2, GLUCOSE, BUN, CREATININE, CA) 2020-11-07 10:26:00 Johan Dixon [facility] POCT GLUCOSE (AUTOMATED) 2020-11-07 05:06:00 Johan Suarez [facility] PHOSPHORUS 2020-11-06 09:13:00 Mohinder Churchill [facility] MAGNESIUM 2020-11-06 09:13:00 Emily Amanda [facility] BASIC METABOLIC PANEL (NA, K , CL, CO2, GLUCOSE, BUN, CREATININE, CA) 2020-11-06 09:13:00 Emily Amanda [facility] XR KUB 2020-11-05 12:55:00 Emily Amanda [facility] PHOSPHORUS 2020-11-05 10:31:00 Mohinder Churchill [facility] MAGNESIUM 2020-11-05 10:31:00 Emily Amanda [facility] BASIC METABOLIC PANEL (NA, K , CL, CO2, GLUCOSE, BUN, CREATININE, CA) 2020-11-05 10:31:00 Emily Amanda [facility] BASIC METABOLIC PANEL (NA, K , CL, CO2, GLUCOSE, BUN, CREATININE, CA) 2020-11-04 17:57:00 Johan Dixon [facility] XR KUB 2020-11-04 11:02:00 Emily Amanda [facility] PHOSPHORUS 2020-11-03 08:57:00 Mohinder Churchill [facility] MAGNESIUM 2020-11-03 08:57:00 Mohinder Churchill [facility] BASIC METABOLIC PANEL (NA, K , CL, CO2, GLUCOSE, BUN, CREATININE, CA) 2020-11-03 08:57:00 Mohinder Churchill [facility] XR KUB 2020-11-02 16:45:00 Mohinder Churchill [facility] MAGNESIUM 2020-11-02 15:42:00 Mohinder Churchill [facility] BASIC METABOLIC PANEL (NA, K , CL, CO2, GLUCOSE, BUN, CREATININE, CA) 2020-11-02 15:42:00 Mohinder Churchill [facility] CBC WITH DIFF 2020-11-02 15:42:00 Mohinder Churchill [facility] XR KUB 2020-11-01 10:43:36 Emily Amanda [facility] PHOSPHORUS 2020-11-01 07:32:00 Emily Amanda [facility] MAGNESIUM 2020-11-01 07:32:00 Emily Amanda [facility] BASIC METABOLIC PANEL (NA, K , CL, CO2, GLUCOSE, BUN, CREATININE, CA) 2020-11-01 07:32:00 Mohinder Churchill [facility] XR KUB 2020-10-31 11:41:00 Mohinder Churchill [facility] MAGNESIUM 2020-10-31 09:26:00 Mohinder Churchill [facility] BASIC METABOLIC PANEL (NA, K , CL, CO2, GLUCOSE, BUN, CREATININE, CA) 2020-10-31 09:26:00 Mohinder Churchill [facility] CT ABDOMEN PELVIS WO CONTRAST 2020-10-30 21:53:45 Emily Amanda [facility] XR KUB 2020-10-30 15:19:23 Mohinder Churchill [facility] XR KUB 2020-10-30 11:10:00 Nigel [facility] PHOSPHORUS 2020-10-30 09:39:00 Mohinder Churchill [facility] BASIC METABOLIC PANEL (NA, K , CL, CO2, GLUCOSE, BUN, CREATININE, CA) 2020-10-30 09:39:00 [facility] XR KUB 2020-10-30 07:25:[facility] 2020-10-30 02:57:41 [facility] XR ABDOMEN 1 VW 2020-10-30 00:01:27 [facility] XR KUB 2020-10-29 10:55:00 Emily Amanda [facility] PHOSPHORUS 2020-10-29 09:55:00 Mohinder Churchill [facility] MAGNESIUM 2020-10-29 09:55:00 Emily Amanda [facility] BASIC METABOLIC PANEL (NA, K , CL, CO2, GLUCOSE, BUN, CREATININE, CA) 2020-10-29 09:55:00 Emily Amanda [facility] XR KUB 2020-10-28 19:20:00 Emily Amanda [facility] PHOSPHORUS 2020-10-28 09:32:00 Mohinder Churchill [facility] BASIC METABOLIC PANEL (NA, K , CL, CO2, GLUCOSE, BUN, CREATININE, CA) 2020-10-28 04:48:00 Emily Amanda [facility] ACTIVATED PARTIAL THRMPLAS JESUS 2020-10-28 04:48:00 Mohinder Churchill [facility] BASIC METABOLIC PANEL (NA, K , CL, CO2, GLUCOSE, BUN, CREATININE, CA) 2020-10-27 21:31:00 Emily Amanda [facility] ACTIVATED PARTIAL THRMPLAS JESUS 2020-10-27 21:31:00 Mohinder Churchill [facility] US ABDOMEN LIMITED 2020-10-27 18:28:31 Mohinder Churchill [facility] XR KUB 2020-10-27 14:45:00 Emily Amanda [facility] PHOSPHORUS 2020-10-27 08:45:00 Mohinder Churchill [facility] MAGNESIUM 2020-10-27 08:45:00 Mohinder Churchill [facility] BASIC METABOLIC PANEL (NA, K , CL, CO2, GLUCOSE, BUN, CREATININE, CA) 2020-10-27 08:45:00 Mohinder Churchill [facility] ACTIVATED PARTIAL THRMPLAS JESUS 2020-10-27 08:45:00 Mohinder Churchill [facility] EXTRA TUBE LAV 2020-10-27 08:45:00 Josue Christine [facility] BASIC METABOLIC PANEL (NA, K , CL, CO2, GLUCOSE, BUN, CREATININE, CA) 2020-10-26 20:23:00 Mohinder Churchill [facility] ACTIVATED PARTIAL THRMPLAS JESUS 2020-10-26 20:23:00 Mohinder Churchill [facility] XR KUB 2020-10-26 10:38:00 Emily Amanda [facility] PHOSPHORUS 2020-10-26 09:11:00 Mohinder Churchill [facility] MAGNESIUM 2020-10-26 09:11:00 Mohinder Churchill [facility] BASIC METABOLIC PANEL (NA, K , CL, CO2, GLUCOSE, BUN, CREATININE, CA) 2020-10-26 09:11:00 Mohinder Churchill [facility] CBC WITH DIFF 2020-10-26 09:11:00 Mohinder Churchill [facility] ACTIVATED PARTIAL THRMPLAS JESUS 2020-10-26 09:11:00 Mohinder Churchill [facility] CT HEAD WO CONTRAST 2020-10-26 02:57:00 Alexx Allred [facility] ACTIVATED PARTIAL THRMPLAS JESUS 2020-10-26 02:16:00 Mohinder Churchill [facility] BASIC METABOLIC PANEL (NA, K , CL, CO2, GLUCOSE, BUN, CREATININE, CA) 2020-10-25 23:29:00 Pinky Montalvo [facility] CLOSTRIDIUM DIFFICILE TOXIN 2020-10-25 21:34:00 Emily Amanda [facility] MAGNESIUM 2020-10-25 19:20:00 Mohinder Churchill [facility] TROPONIN I 2020-10-25 19:20:00 Mohinder Churchill [facility] BASIC METABOLIC PANEL (NA, K , CL, CO2, GLUCOSE, BUN, CREATININE, CA) 2020-10-25 19:20:00 Mohinder Churchill [facility] PROTHROMBIN TIME / INR 2020-10-25 19:20:00 Mohinder Churchill [facility] D-DIMER 2020-10-25 19:20:00 Mohinder Churchill [facility] ACTIVATED PARTIAL THRMPLAS JESUS 2020-10-25 19:20:00 Mohinder Churchill [facility] AC PANEL 20 + LACTIC ACID 2020-10-25 19:17:00 Mohinder Churchill [facility] XR ABDOMEN 1 VW 2020-10-25 19:03:25 Mohinder Churchill [facility] HB ECG ROUTINE & RHYTHM STRIP 2020-10-25 17:59:59 Mohinder Churchill [facility] TRANSTHORACIC ECHO (TTE) COMPLETE 2020-10-25 14:58:00 Mohinder Churchill [facility] AC PANEL 20 + LACTIC ACID 2020-10-25 14:36:00 Emily Amanda [facility] XR KUB 2020-10-25 13:47:35 Mohinder Churchill [facility] BLOOD CULTURE SCREEN 2020-10-25 13:39:00 Emily Amanda [facility] BLOOD CULTURE SCREEN 2020-10-25 13:30:00 Emily Amanda [facility] PHOSPHORUS 2020-10-25 10:50:00 Mohinder Churchill [facility] MAGNESIUM 2020-10-25 10:50:00 Mohinder Churchill [facility] BASIC METABOLIC PANEL (NA, K , CL, CO2, GLUCOSE, BUN, CREATININE, CA) 2020-10-25 10:50:00 Mohinder Churchill [facility] POCT GLUCOSE (AUTOMATED) 2020-10-25 02:05:00 Johan Suarez [facility] RPR (QUANTITATIVE) 2020-10-24 21:46:00 [facility] PROCALCITONIN 2020-10-24 21:46:00 Mohinder Churchill [facility] POCT GLUCOSE (AUTOMATED) 2020-10-24 20:47:00 Johan Suarez [facility] POCT GLUCOSE (AUTOMATED) 2020-10-24 16:48:00 Johan Suarez [facility] D-DIMER 2020-10-24 14:03:00 Mohinder Churchill [facility] POCT GLUCOSE (AUTOMATED) 2020-10-24 13:29:00 Johan Suarez [facility] PHOSPHORUS 2020-10-24 10:31:00 Mohinder Churchill [facility] MAGNESIUM 2020-10-24 10:31:00 Emily Amanda [facility] HEPATIC FUNCTION PANEL ([id number]) (ALB,T.PRO,BILI T,BU/BC,ALT,AST,ALK PHOS) 2020-10-24 10:31:00 Mohinder Churchill [facility] BASIC METABOLIC PANEL (NA, K , CL, CO2, GLUCOSE, BUN, CREATININE, CA) 2020-10-24 10:31:00 Emily Amanda [facility] POCT GLUCOSE (AUTOMATED) 2020-10-24 03:01:00 Johan Suarez [facility] POCT GLUCOSE (AUTOMATED) 2020-10-23 22:16:00 Johan Suarez [facility] POCT GLUCOSE (AUTOMATED) 2020-10-23 16:23:00 Johan Suarez [facility] URINALYSIS 2020-10-23 13:42:00 Mohinder Churchill [facility] CREATININE, URINE RANDOM 2020-10-23 13:42:00 Mohinder Churchill [facility] SODIUM, URINE RANDOM 2020-10-23 13:42:00 Mohinder Churchill [facility] POCT GLUCOSE (AUTOMATED) 2020-10-23 13:35:00 Johan Suarez [facility] PHOSPHORUS 2020-10-23 10:12:00 Mohinder Churchill [facility] MAGNESIUM 2020-10-23 10:12:00 [facility]ABOLIC PANEL (NA, K , CL, CO2, GLUCOSE, BUN, CREATININE, CA) 2020-10-23 10:12:00 Mohinder Churchill [facility] CBC WITH DIFF 2020-10-23 10:12:00 [facility] D, 25-OH 2020-10-23 10:12:00 Yung Perea [facility] POCT GLUCOSE (AUTOMATED) 2020-10-23 01:33:00 Johan Suarez [facility] MR BRAIN WO CONTRAST 2020-10-22 23:55:22 Edwin Verma [facility] POCT GLUCOSE (AUTOMATED) 2020-10-22 22:07:00 Johan Suarez [facility] POCT GLUCOSE (AUTOMATED) 2020-10-22 17:27:00 Johan Suarez [facility] POCT GLUCOSE (AUTOMATED) 2020-10-22 13:27:00 Johan Suarez [facility] POCT GLUCOSE (AUTOMATED) 2020-10-22 01:25:00 Johan Suarez [facility] POCT GLUCOSE (AUTOMATED) 2020-10-21 21:48:00 Johan Suarez [facility] HB ECG ROUTINE & RHYTHM STRIP 2020-10-21 18:55:20 Mohinder Churchill [facility] POCT GLUCOSE (AUTOMATED) 2020-10-21 17:49:00 Johan Suarez [facility] POCT GLUCOSE (AUTOMATED) 2020-10-21 13:13:00 Johan Suarez [facility] MAGNESIUM 2020-10-21 08:16:00 Arabella Sinha [place] TROPONIN I 2020-10-21 08:16:00 Mohinder Churchill [facility] BASIC METABOLIC PANEL (NA, K , CL, CO2, GLUCOSE, BUN, CREATININE, CA) 2020-10-21 08:16:00 Arabella Sinha [place] GLYCOSYLATED HEMOGLOBIN (A1C) 2020-10-21 08:16:00 Arabella Sinha [place] LEGIONELLA URINARY ANTIGEN TST 2020-10-21 06:41:00 Arabella Sinha [place] CREATININE, URINE RANDOM 2020-10-21 06:41:00 Arabella Sinha [place] UREA NITROGEN, URINE RANDOM 2020-10-21 06:41:00 Arabella Sinha [place] SODIUM, URINE RANDOM 2020-10-21 06:41:00 Arabella Sinha [place] PNEUMOCOCCAL ANTIGEN 2020-10-21 06:40:00 Keyshawn De La Vega [facility] US RETROPERITONEAL LIMITED 2020-10-21 04:27:53 Arabella Sinha [place] PHOSPHORUS 2020-10-21 02:55:00 Arabella Sinha [place] LACTATE DEHYDROGENASE 2020-10-21 02:55:00 Arabella Sinha [place] FERRITIN SERUM 2020-10-21 02:55:00 Arabella Sinha [place] VITAMIN B12, LEVEL 2020-10-21 02:55:00 Arabella Sinha [place] C-REACTIVE PROTEIN 2020-10-21 02:55:00 Keyshawn De La Vega [facility] TROPONIN I 2020-10-21 02:55:00 Arabella Sinha [place] LIPID PANEL (32537)(TOTAL CHOLESTEROL, TRIGLYCERIDES, HDL) 2020-10-21 02:55:00 Arabella Sinha [place] INTACT PTH CALCIUM GROUP 2020-10-21 02:55:00 Keyshawn De La Vega [facility] ETHANOL 2020-10-21 02:55:00 Arabella Sinha [place] D-DIMER 2020-10-21 02:55:00 Arabella Sinha [place] PROCALCITONIN 2020-10-21 02:55:00 Arabella Sinha [place] HIV 1/2 AG-AB WITH REFLEX 2020-10-21 02:55:00 Arabella Sinha [place] LACTIC ACID WHOLE BLOOD 2020-10-21 02:54:00 Arabella Sinha [place] ELECTROENCEPHALOGRAM 2020-10-21 00:00:00 Arabella Sinha [place] URINALYSIS 2020-10-20 22:11:00 Breana Rabago [facility] BLOOD CULTURE SCREEN 2020-10-20 22:10:00 Breana Rabago [facility] BLOOD CULTURE SCREEN 2020-10-20 21:40:00 Breana Rabago [facility] CT ANGIOGRAM HEAD 2020-10-20 21:26:51 Breana Rabago [facility] CT ANGIOGRAM NECK 2020-10-20 21:26:51 Breana Rabago [facility] CT HEAD WO CONTRAST 2020-10-20 21:09:59 Breana Rabago [facility] XR CHEST 1 VW 2020-10-20 20:51:03 Breana Rabago [facility] COVID-19 (ID NOW RAPID TESTING) 2020-10-20 20:30:00 Breana Rabago [facility] LAB ONLY COVID INTERPRETATION 2020-10-20 20:30:00 Breana Rabago [facility] LIPASE 2020-10-20 20:27:00 Breana Rabago [facility] MAGNESIUM 2020-10-20 20:27:00 Breana Rabago [facility] TROPONIN I 2020-10-20 20:27:00 Breana Rabago [facility] THYROID STIMULATING HORMONE 2020-10-20 20:27:00 Breana Rabago [facility] HEPATIC FUNCTION PANEL (90313) (ALB,T.PRO,BILI T,BU/BC,ALT,AST,ALK PHOS) 2020-10-20 20:27:00 Breana Rabago [facility] BASIC METABOLIC PANEL (NA, K , CL, CO2, GLUCOSE, BUN, CREATININE, CA) 2020-10-20 20:27:00 Breana Rabago [facility] CBC WITH DIFF 2020-10-20 20:27:00 Breana Rabago [facility] PROTHROMBIN TIME / INR 2020-10-20 20:27:00 Breana Rabago [facility] ACTIVATED PARTIAL THRMPLAS JESUS 2020-10-20 20:27:00 Breana Rabago [facility] N-TERMINAL PRO-BNP 2020-10-20 20:27:00 Breana Rabago [facility] LACTIC ACID WHOLE BLOOD 2020-10-20 20:26:00 Breana Rabago [facility] HB ECG ROUTINE & RHYTHM STRIP 2020-10-20 20:23:07 Breana Rabago [facility] POCT GLUCOSE (AUTOMATED) 2020-10-20 20:22:00 Breana Rabago [facility] NOTICE OF PRIVACY PRACTICES 2020-10-20 20:16:40 Doctor Unassigned, [place] [facility] CONSENT/REFUSAL FOR DIAGNOSI S AND TREATMENT 2020-10-20 20:12:50 Doctor Unassigned, [place] [facility] HOSPITAL ADMISSION 2020-10-20 05:01:00 Doctor Unassigned, [place] [facility] Encounters Start Date/Time End Date/Time Encounter Type Admission Type Attending [facility] Care Facility Care Department Encounter ID Source 2024-04-11 09:30:00 2024-04-11 09:30:00 Outpatient DIMITRIS PERALES [facility] [id number] [facility] 2024-03-13 07:18:00 2024-03-16 20:35:00 Inpatient ALMA ROSA SANTAM[facility] [id number] [address] [place] [address] 2023-08-31 10:00:00 2023-08-31 10:00:00 Outpatient ROCIO CHANDLER [facility] [id number] [facility] 2023-07-29 08:30:00 2023-07-29 08:30:00 Outpatient R ROCIO SHAY [facility] [id number] [facility] 2023-07-15 00:00:00 2023-07-15 00:00:00 Telephone Rocio Shay [facility] [id number] 350.1.13.10 4.2.7.2.686 [id number] [facility] 2023-07-13 00:00:00 2023-07-13 00:00:00 Orders Only Doctor Unassigned, [place] [id number] 350.1.13.10 4.2.7.2.686 [id number] [facility] 2023-07-02 00:00:00 2023-07-02 00:00:00 Telephone Rocio Shay [facility] [id number] 350.1.13.10 4.2.7.2.686 [id number] [facility] 2023-07-02 00:00:00 2023-07-02 00:00:00 Orders Only Doctor Unassigned, [place] [id number] 350.1.13.10 4.2.7.2.686 [id number] [facility] 2023-06-30 09:00:00 2023-06-30 11:24:26 Outpatient R ROCIO SHAY [facility] [id number] [facility] 2023-06-30 09:00:00 2023-06-30 11:24:26 [facility] 1.2.114 350.1.13.10 4.2.7.2.686 [id number] [facility] 2023-06-30 00:00:00 2023-06-30 00:00:00 Orders Only Doctor Unassigned, [place] [facility] 1.0.114 350.1.13.10 4.2.7.2.686 [id number] [facility] 2023-06-24 00:00:00 2023-06-24 00:00:00 Orders Only Doctor Unassigned, [place] [facility] 1..114 350.1.13.10 4.2.7.2.686 [id number] [facility] 2023-01-27 11:05:00 2023-01-27 15:00:00 Emergency X [facility] ERT [id number] [facility] 2023-01-27 11:05:00 2023-01-27 15:00:00 Emergency Glen Reynolds [facility] 1.84.114 350.1.13.10 4.2.7.2.686 [id number] [facility] 2023-01-27 00:00:00 2023-01-27 00:00:00 Orders Only Doctor Unassigned, [place] [facility] 1.20.114 350.1.13.10 4.2.7.2.686 [id number] [facility] 2021-03-12 00:00:00 2021-03-12 00:00:00 Orders Only Doctor Unassigned, [place] [facility] 1.20.114 350.1.13.10 4.2.7.2.686 [id number] [facility] 2020-11-19 11:54:00 2020-11-19 11:54:00 Outpatient [facility] PRIV [id number] [facility] 2020-11-14 01:14:00 2020-11-14 01:14:00 Outpatient [facility] PRIV [id number] [facility] 2020-11-13 09:32:00 2020-11-13 09:32:00 Outpatient [facility] PRIV [id number] [facility] 2020-11-11 11:21:00 2020-11-11 11:21:00 Outpatient [facility] PRIV [id number] [facility] 2020-11-11 00:00:00 2020-11-11 00:00:00 Transition of Care Eula Mac [id number] 350.1.13.10 4.2.7.2.686 [id number] [facility] 2020-11-11 00:00:00 2020-11-11 00:00:00 Chester Alonzo PA: [address] , [address], [place] [address] , Ph. [facility] [id number] [facility] 2020-11-11 00:00:00 2020-11-11 00:00:00 Outpatient Chester Alonzo [facility] PRIV [id number] 2020-11-10 05:58:00 2020-11-10 05:58:00 Outpatient [facility] PRIV [id number] [facility] 2020-10-20 15:10:00 2020-11-08 16:30:00 Inpatient X LYUDMILA PEDRO [facility] [id number] [facility] 2020-10-20 15:10:00 2020-11-08 16:30:00 Hospital Encounter Sam, Breana Suarez, Johan Verma, Edwin Lewis, Nereyda Christine, Josue Avendano Mayela, Lyudmila Arora, Siena Pineda, [facility] 1.2.840.114 350.1.13.10 4.2.7.2.686 [id number] [facility] 2020-11-08 11:09:00 2020-11-08 11:09:00 Outpatient [facility] PRIV [id number] [facility] 2020-11-06 04:37:00 2020-11-06 04:37:00 Outpatient [facility] PRIV [id number] [facility] Results Test Description Test Time Test Comments Results Resul t Comments Source XR KUB 2020-10-12 0 14:35:05 The bowel contains gas from one end to the other but is not distended orabnormal.. Preliminary Report Dictated by Resident: Brissa Mccarthy I reviewed the study and have major modifications. ISohail MD., have reviewed this study and agree with theabove report.EXAM: XR KUB HISTORY: 69 years-old Male presenting with abdominal distension COMPARISON: Multiple abdomen radiographs with the most recent date11/04/2020 TECHNIQUE: Frontal views of the abdomen and pelvis were obtained. FINDINGS: The enteric feeding tube terminates at the gastric body. Small bowel loopscontain air but are not distended or obstructed. No abnormal calcificationsor radiopaque stones identified within the field of view. Corticated bonefragments adjacent to the right femur lesser trochanter are unchangedcompared to the prior imaging and likely represent a chronic process. [facility], Radiant Results Inft User - 11/08/2020 9:36 AM CDTEXAM: XR KUBHISTORY: 69 years-old Male presenting with abdominal distension COMPARISON: Multiple abdomen radiographs with the most recent date11/04/2020TECHNIQ UE: Frontal views of the abdomen and pelvis were obtained.FINDINGS:The enteric feeding tube terminates at the gastric body. Small bowel loopscontain air but are not distended or obstructed. No abnormal calcificationsor radiopaque stones identified within the field of view. Corticated bonefragments adjacent to the right femur lesser trochanter are unchangedcompared to the prior imaging and likely represent a chronic process.IMPRESSIONThe bowel contains gas from one end to the other but is not distended orabnormal..Prelimina ry Report Dictated by Resident: Brissa Martinez reviewed the study and have major modifications.Sohail Mandel MD., have reviewed this study and agree with theabove report. [facility]:43:44* Test Item Value Reference Range Interpretation Comme nts MAGNESIUM (test code = 9173429375) 2.0 mg/dL 1.7-2.4 Lab Interpretation (test cod e = 41831-7) [facility]07 17:33:56* Test Item Value Reference Range Interpretation Comme nts POCT GLU (test code = 7475128205) 148 mg/dL 70-110 H Lab Interpretation (test cod e = 96187-9) [facility]normal [facility] [id number] 15:09:34Interval mild improvement of the air distended small bowel loops suggestiveof ileus. Preliminary Report Dictated by Resident: Brissa Mccarthy I reviewed this study and agree. Sohail Mandel MD.,have reviewed this study and agree with theabove report.EXAM: XR KUB HISTORY: 69 years-old Male presenting with abdominal distension COMPARISON: Abdomen radiographs with the most recent 11/02/2020 TECHNIQUE: Frontal views of the abdomen and pelvis were obtained. FINDINGS: The enteric feeding tube terminates at the proximal stomach. Interval mildimprovement of the air distended small bowel loops. No acute osseousabnormality. [facility], Radiant Results Inft User - 11/07/2020 10:10 AM CDTEXAM: XR KUBHISTORY: 69 years-old Male presenting with abdominal distension COMPARISON: Abdomen radiographs with the most recent 11/02/2020TECHNIQUE: Frontal views of the abdomen and pelvis were obtained.FINDINGS:Theenteric feeding tube terminates at the proximal stomach. Interval mildimprovement of the air distend ed small bowel loops. No acute osseousabnormality.IMPRESSIONInterval mild improvement of the air distended small bowel loops suggestiveof ileus.Preliminary Report Dictated by Resident: Brissa Martinez reviewed this study and agree.Sohail Mandel MD., have reviewed this study and agree with theabove report.[facility] [id number] 14:53:53 Findings suggestive of persistent adynamic ileus. Preliminary Report Dictated by Resident: Brissa Mccarthy I reviewed this study and agree. Sohail Mandel MD., have reviewed this study and agreewith theabove report.EXAM: XR KUB HISTORY: 69 years-old Male presenting with Monitoring Ileus COMPARISON: Abdomen radiographs with the most recent dated 11/01/2020 TECHNIQUE: Frontal views of the abdomen and pelvis were obtained. FINDINGS: Bibasilar lung opacities compatible with the patient's history of Covid 19.An enteric feeding tube with the tip and sidehole terminates at theproximal stomach. Persistent distention of multiple small bowel loops thatproject over the mid abdomen. No acute osseous abnormality. Surgical clipprojects over the left lower quadrant. [facility], Radiant Results Inft User - 11/07/2020 9:55 AM CDTEXAM: XR KUBHISTORY: 69 years-old Male presenting with Monitoring Ileus COMPARISON: Abdomen radiographs with the most recent dated 11/01/2020TECHNIQUE: Frontal views of the abdomen and pelvis were obtained.FINDINGS:Bibasilar lung opacities compatible with the patient's history of Covid 19.An enteric feeding tube with the tip and sidehole terminates at theproximal stomach. Persistent distention of multiple small bowel loops thatproject over the mid abdomen. No acute osseousabnormality. Surgical clipprojects over the left lower quadrant.IMPRESSIONFindings suggestive of per sistent adynamic ileus.Preliminary Report Dictated by Resident: Brissa Martinez reviewed this study and agree.Sohail Mandel MD., have reviewed this study and agree with theabove report.[facility] [id number] 11:31:50* Test Item Value Reference Range Interpretation Comme nts PHOSPHORUS (test code = 3559374621) 3.6 mg/dL 2.5-5.0 Lab Interpretation (test cod e = 98553-4) [facility] (NA, K, CL, CO2, GLUCOSE, BUN, CREATININE, CA)2020-11-07 11:31:50* Test Item Value Reference Range Interpretation Comme nts NA (test code = 9471949353) 133 mmol/L 135-145 L K (test code = 3377008458) 5.1 mmol/L 3.5-5.0 H CL (test code = 4038111820) 99 mmol/L 98-108 CO2 TOTAL (test code = 3366074979) 26 mmol/L 23-31 AGAP (test code = 5481207078) 2-16 BUN (test code = 3031803407) 33 mg/dL 7-23 H GLUCOSE (test code = 6747080446) 116 mg/dL 70-110 H CREATININE (test code = 5042364645) 1.62 mg/dL 0.60-1.25 H CALCIUM (test code = 1313088896) 8.5 mg/dL 8.6-10.6 L eGFR (test code = 3263571213) mL/min/1.73m2 SUDHAKAR (test code = SUDHAKAR) Association of Glomerular Filtration Rate (GFR) and Staging of Kidney Disease* + --+ --+ ------+| GFR (mL/min/1.73 m2) ?| With Kidney Damage ?| ?Without Kidney Damage+ --------+ --------+ +| ?>90 ?| ?Stage one ?| ? Normal ?+ ---+ ---+ -------+| ?60-89 ?| ?Stage two ?| ? Decreased GFR ? + --+ --+ ------+| ?30-59 ?| ?Stage three ?| ? Stage three ? + --+ --+ ------+| ?15-29 ?| ?Stage four ? | ? Stage four ?+ ---+ ---+ -------+| ?<15 (or dialysis) ? ?| ?Stage five ? | ? Stage five ?+ ---+ ---+ -------+ *Each stage assumes the associated GFR level has been in effect for at least three months. ?Stages 1 to 5, with or without kidney disease, indicate chronic kidney disease. Notes: Determination of stages one and two (with eGFR >59mL/min/1.73 m2) requires estimation of kidney damage for at least three months as defined by structural or functional abnormalities of the kidney, manifested by either:Pathological abnormalities or Markers of kidney damage (including abnormalities in the composition of the blood or urine or abnormalities in imaging tests). Lab Interpretation (test code = 02064-8) Abnormal [facility] GLUCOSE (AUTOMATED)2020-11-07 11:06:50* Test Item Value Reference Range Interpretation Comme [facility] POCT GLU (test code = 9188897143) 121 mg/dL 70-110 H Lab Interpretation (test cod e = 85235-8) Abnormal [facility] GLUCOSE (AUTOMATED)2020-11-07 05:06:49* Test Item Value Reference Range Interpretation Comme [facility] POCT GLU (test code = 2297833958) 131 mg/dL 70-110 H Lab Interpretation (test cod e = 07850-7) Abnormal [facility] METABOLIC PANEL (NA, K, CL, CO2, GLUCOSE, BUN, CREATININE, CA)2020-11-06 09:58:59* Test Item Value Reference Range Interpretation Comme [facility] NA (test code = 8156264786) 132 mmol/L 135-145 L K (test code = 5541640694) 4.7 mmol/L 3.5-5.0 CL (test code = 3572712653) 100 mmol/L 98-108 CO2 TOTAL (test code = 7887279215) 26 mmol/L 23-31 AGAP (test code = 8886114745) 2-16 BUN (test code = 6028729498) 32 mg/dL 7-23 H GLUCOSE (test code = 2431722083) 119 mg/dL 70-110 H CREATININE (test code = 0006617072) 1.30 mg/dL 0.60-1.25 H CALCIUM (test code = 3518872859) 8.3 mg/dL 8.6-10.6 L eGFR (test code = 4150389974) mL/min/1.73m2 SUDHAKAR (test code = SUDHAKAR) Association of Glomerular Filtration Rate (GFR) and Staging of Kidney Disease* + --+ --+ ------+| GFR (mL/min/1.73 m2) ?| With Kidney Damage ?| ?Without Kidney Damage+ --------+ --------+ +| ?>90 ?| ?Stage one ?| ? Normal ?+ ---+ ---+ -------+| ?60-89 ?| ?Stage two ?| ? Decreased GFR ? + --+ --+ ------+| ?30-59 ?| ?Stage three ?| ? Stage three ? + --+ --+ ------+| ?15-29 ?| ?Stage four ? | ? Stage four ?+ ---+ ---+ -------+| ?<15 (or dialysis) ? ?| ?Stage five ? | ? Stage five ?+ ---+ ---+ -------+ *Each stage assumes the associated GFR level has been in effect for at least three months. ?Stages 1 to 5, with or without kidney disease, indicate chronic kidney disease. Notes: Determination of stages one and two (with eGFR >59mL/min/1.73 m2) requires estimation of kidney damage for at least three months as defined by structural or functional abnormalities of the kidney, manifested by either:Pathological abnormalities or Markers of kidney damage (including abnormalities in the composition of the blood or urine or abnormalities in imaging tests). Lab Interpretation (test code = 58863-8) [facility] 09:56:27* Test Item Value Reference Range Interpretation Comme nts PHOSPHORUS (test code = 3568200381) 3.8 mg/dL 2.5-5.0 Lab Interpretation (test cod e = 97809-0) [facility]28 09:56:27* Test Item Value Reference Range Interpretation Comme nts MAGNESIUM (test code = 5770357244) 2.2 mg/dL 1.7-2.4 Lab Interpretation (test cod e = 28768-3) [facility] (NA, K, CL, CO2, GLUCOSE, BUN, CREATININE, CA)2020-11-05 12:21:23* Test Item Value Reference Range Interpretation Comme nts NA (test code = 5702753018) 133 mmol/L 135-145 L K (test code = 0204137146) 3.6 mmol/L 3.5-5.0 CL (test code = 6847188953) 99 mmol/L 98-108 CO2 TOTAL (test code = 2416868380) 25 mmol/L 23-31 AGAP (test code = 7432667330) 2-16 BUN (test code = 0575461524) 33 mg/dL 7-23 H GLUCOSE (test code = 5979752757) 119 mg/dL 70-110 H CREATININE (test code = 4662640518) 1.34 mg/dL 0.60-1.25 H CALCIUM (test code = 4878239828) 8.1 mg/dL 8.6-10.6 L eGFR (test code = 9899970523) mL/min/1.73m2 SUDHAKAR (test code = SUDHAKAR) Association of Glomerular Filtration Rate (GFR) and Staging of Kidney Disease* + --+ --+ ------+| GFR (mL/min/1.73 m2) ?| With Kidney Damage ?| ?Without Kidney Damage+ --------+ --------+ +| ?>90 ?| ?Stage one ?| ? Normal ?+ ---+ ---+ -------+| ?60-89 ?| ?Stage two ?| ? Decreased GFR ? + --+ --+ ------+| ?30-59 ?| ?Stage three ?| ? Stage three ? + --+ --+ ------+| ?15-29 ?| ?Stage four ? | ? Stage four ?+ ---+ ---+ -------+| ?<15 (or dialysis) ? ?| ?Stage five ? | ? Stage five ?+ ---+ ---+ -------+ *Each stage assumes the associated GFR level has been in effect for at least three months. ?Stages 1 to 5, with or without kidney disease, indicate chronic kidney disease. Notes: Determination of stages one and two (with eGFR >59mL/min/1.73 m2) requires estimation of kidney damage for at least three months as defined by structural or functional abnormalities of the kidney, manifested by either:Pathological abnormalities or Markers of kidney damage (including abnormalities in the composition of the blood or urine or abnormalities in imaging tests). Lab Interpretation (test code = 49700-8) [facility]normal [facility] 12:21:23* Test Item Value Reference Range Interpretation Comme nts MAGNESIUM (test code = 1068227997) 1.9 mg/dL 1.7-2.4 Lab Interpretation (test cod e = 40413-7) [facility] 11:14:14* Test Item Value Reference Range Interpretation Comme nts PHOSPHORUS (test code = 8164785153) 3.6 mg/dL 2.5-5.0 Lab Interpretation (test cod e = 17722-1) [facility] (NA, K, CL, CO2, GLUCOSE, BUN, CREATININE, CA)2020-11-04 18:25:44* Test Item Value Reference Range Interpretation Comme nts NA (test code = 4499760101) 132 mmol/L 135-145 L K (test code = 0258459793) 3.9 mmol/L 3.5-5.0 CL (test code = 4422301770) 98 mmol/L 98-108 CO2 TOTAL (test code = 5666940321) 28 mmol/L 23-31 AGAP (test code = 2744450674) 2-16 BUN (test code = 1996979427) 35 mg/dL 7-23 H GLUCOSE (test code = 6888780755) 122 mg/dL 70-110 H CREATININE (test code = 5155453024) 1.37 mg/dL 0.60-1.25 H CALCIUM (test code = 9887565304) 8.5 mg/dL 8.6-10.6 L eGFR (test code = 4571078469) mL/min/1.73m2 SUDHAKAR (test code = SUDHAKAR) Association of Glomerular Filtration Rate (GFR) and Staging of Kidney Disease* + --+ --+ ------+| GFR (mL/min/1.73 m2) ?| With Kidney Damage ?| ?Without Kidney Damage+ --------+ --------+ +| ?>90 ?| ?Stage one ?| ? Normal ?+ ---+ ---+ -------+| ?60-89 ?| ?Stage two ?| ? Decreased GFR ? + --+ --+ ------+| ?30-59 ?| ?Stage three ?| ? Stage three ? + --+ --+ ------+| ?15-29 ?| ?Stage four ? | ? Stage four ?+ ---+ ---+ -------+| ?<15 (or dialysis) ? ?| ?Stage five ? | ? Stage five ?+ ---+ ---+ -------+ *Each stage assumes the associated GFR level has been in effect for at least three months. ?Stages 1 to 5, with or without kidney disease, indicate chronic kidney disease. Notes: Determination of stages one and two (with eGFR >59mL/min/1.73 m2) requires estimation of kidney damage for at least three months as defined by structural or functional abnormalities of the kidney, manifested by either:Pathological abnormalities or Markers of kidney damage (including abnormalities in the composition of the blood or urine or abnormalities in imaging tests). Lab Interpretation (test code = 65024-0) [facility] [id number] 15:45:29FINDINGS / IMPRESSION: An enteric feeding tube curves back upon itself and ends in the body of thestomach. Preliminary Report Dictated by Resident: Brissa Mccarthy I reviewed the study and have major modifications. Sohail Mandel MD., have reviewed this study and agree with theabove report.EXAM: XR KUB HISTORY: 69 years-old Male presenting with NG tube advanced. COMPARISON: Abdomen radiographs most recent earlier today TECHNIQUE: Single abdominal view. [facility], Radiant Results Inft User - 11/04/2020 10:46 AM CDTEXAM: XR KUBHISTORY: 69 years-old Male presenting with NG tube advanced.COMPARISON: Abdomen radiographs most recent earlier todayTECHNIQUE: Single abdominal view.IMPRESSIONFINDINGS/ IMPRESSION:An enteric feeding tube curves back upon itself and ends in the body of thestomach.Preliminary Report Dictated by Resident: Brissa Martinez reviewed the study and have major modifications.Sohail Mandel MD., have reviewed this study and agree with theabove report.[facility] [id number] 15:36:27Findings consistent with generalized adynamic ileus. Preliminary Report Dictated by Resident: LydiaDawood I reviewed this study and agree with minor modifications (no call needed tothe referring physician). Sohail Mandel MD., have reviewed this study and agree with theabove report.EXAM: XR KUB HISTORY: 69 years-old Male presenting with monitoring ileus COMPARISON: Abdomen radiograph most recent 10/30/2020, CT abdomen and pelvis10/30/2020 TECHNIQUE: Frontal views of the abdomen and pelvis were obtained. FINDINGS: An enteric tube tip terminates at the distal esophagus and just enters thestomach.. Multiple dilated small bowel loops project over the mid abdomen.Radiopaque object projects over the left lower quadrant that could be asurgical clip. [facility], Radiant Results Inft User - 11/04/2020 10:37 AM CDTEXAM: XR KUBHISTORY: 69 years-old Male presenting with monitoring ileus COMPARISON: Abdomen radiograph most recent 10/30/2020, CT abdomen and pelvis10/30/2020TECHNIQUE: Frontal views of the abdomen and pelvis were obtained.FINDINGS:An enteric tube tip terminates at the distal esophagus and just enters thestomach.. Multiple dilated small bowel loops project over the mid abdomen.Radiopaque object projects over the left lower quadrant that could be asurgical clip.IMPRESSIONFindings consistent with generalized adynamic ileus.Preliminary Report Dictated by Resident: Brissa Martinez reviewed this study and agree with minor modifications (no call needed tothe referring physician).ISohail MD., have reviewed this study and agree with theabove report.[facility] (NA, K, CL, CO2, GLUCOSE, BUN, CREATININE, CA)2020-11-03 09:56:41* Test Item Value Reference Range Interpretation Comme nts NA (test code = 9228112440) 130 mmol/L 135-145 L K (test code = 6635458036) 4.1 mmol/L 3.5-5.0 Slight hemolysis CL (test code = 3860325765) 101 mmol/L 98-108 CO2 TOTAL (test code = 0446668437) 24 mmol/L 23-31 AGAP (test code = 7733090310) 2-16 BUN (test code = 2966772762) 35 mg/dL 7-23 H Slight hemolysis GLUCOSE (test code = 0326410892) 125 mg/dL 70-110 H CREATININE (test code = 4280492676) 1.30 mg/dL 0.60-1.25 H CALCIUM (test code = 5958071186) 8.0 mg/dL 8.6-10.6 L eGFR (test code = 4777854072) mL/min/1.73m2 SUDHAKAR (test code = SUDHAKAR) Association of Glomerular Filtration Rate (GFR) and Staging of Kidney Disease* + -----+ --------+ +| GFR (mL/min/1.73 m2) ?| With Kidney Damage ?| ?Without Kidney Damage+ +------- +---- --+| ?>90 ?| ?Stage one ?| ? Normal ?+ ------+ ---------+--------- +| ?60-89 ?| ?Stage two ?| ? Decreased GFR ? + -----+ --------+ +| ?30-59 ?| ?Stage three ?| ? Stage three ? + -----+ --------+ +| ?15-29 ?| ?Stage four ? | ? Stage four ?+ ------+ ---------+--------- +| ?<15 (or dialysis) ? ?| ?Stage five ? | ? Stage five ?+ ------+ ---------+--------- + *Each stage assumes the associated GFR level has been in effect for at least three months. ?Stages 1 to 5, with or without kidney disease, indicate chronic kidney disease. Notes: Determination of stages one and two (with eGFR >59mL/min/1.73 m2) requires estimation of kidney damage for at least three months as defined by structural or functional abnormalities of the kidney, manifested by either:Pathological abnormalities or Markers of kidney damage (including abnormalities in the composition of the blood or urine or abnormalities in imaging tests). Lab Interpretation (test code = 63671-7) [facility] 09:56:41* Test Item Value Reference Range Interpretation Comme nts MAGNESIUM (test code = 5321599549) 1.8 mg/dL 1.7-2.4 Slight hemolysis Lab Interpretation (test code = 50678-6) Normal [facility]21-[facility]-25 09:56:41* Test Item Value Reference Range Interpretation Comme nts PHOSPHORUS (test code = 1625587196) 3.8 mg/dL 2.5-5.0 Slight hemolysis Lab Interpretation (test code = 72240-8) Normal [facility] METABOLIC PANEL (NA, K, CL, CO2, GLUCOSE, BUN, CREATININE, CA)2020-11-02 16:07:29* Test Item Value Reference Range Interpretation Comme nts NA (test code = 6874843201) 131 mmol/L 135-145 L K (test code = 9326255024) 3.8 mmol/L 3.5-5.0 CL (test code = 2715667252) 97 mmol/L 98-108 L CO2 TOTAL (test code = 4363624574) 28 mmol/L 23-31 AGAP (test code = 1858042601) 2-16 BUN (test code = 9856519760) 33 mg/dL 7-23 H GLUCOSE (test code = 9244801026) 140 mg/dL 70-110 H CREATININE (test code = 5996503518) 1.29 mg/dL 0.60-1.25 H CALCIUM (test code = 8264154569) 8.4 mg/dL 8.6-10.6 L eGFR (test code = 8751906084) mL/min/1.73m2 SUDHAKAR (test code = SUDHAKAR) Association of Glomerular Filtration Rate (GFR) and Staging of Kidney Disease* + --+ --+ ------+| GFR (mL/min/1.73 m2) ?| With Kidney Damage ?| ?Without Kidney Damage+ --------+ --------+ +| ?>90 ?| ?Stage one ?| ? Normal ?+ ---+ ---+ -------+| ?60-89 ?| ?Stage two ?| ? Decreased GFR ? + --+ --+ ------+| ?30-59 ?| ?Stage three ?| ? Stage three ? + --+ --+ ------+| ?15-29 ?| ?Stage four ? | ? Stage four ?+ ---+ ---+ -------+| ?<15 (or dialysis) ? ?| ?Stage five ? | ? Stage five ?+ ---+ ---+ -------+ *Each stage assumes the associated GFR level has been in effect for at least three months. ?Stages 1 to 5, with or without kidney disease, indicate chronic kidney disease. Notes: Determination of stages one and two (with eGFR >59mL/min/1.73 m2) requires estimation of kidney damage for at least three months as defined by structural or functional abnormalities of the kidney, manifested by either:Pathological abnormalities or Markers of kidney damage (including abnormalities in the composition of the blood or urine or abnormalities in imaging tests). Lab Interpretation (test code = 96310-9) [facility]normal [facility] 16:07:29* Test Item Value Reference Range Interpretation Comme nts MAGNESIUM (test code = 9802919913) 1.7 mg/dL 1.7-2.4 Lab Interpretation (test cod e = 35867-0) Normal [facility] WITH [id number] 15:54:31* Test Item Value Reference Range Interpretation Comme nts WBC (test code = 6690-2) See_Comment H [Automated message] The system which generated this result transmitted reference range: 4.20 - 10.70 10*3/?L. The reference range was not used to interpret this result as normal/abnormal. RBC (test code = 789-8) See_Comment [Automated message] The system which generated this result transmitted reference range: 4.26 - 5.52 10*6/?L. The reference range was not used to interpret this result as normal/abnormal. HGB (test code = 718-7) 15.0 g/dL 12.2-16.4 HCT (test code = 4544-3) 44.1 % 38.4-49.3 MCV (test code = 787-2) 92.5 fL 81.7-95.6 MCH (test code = 785-6) 31.4 pg 26.1-32.7 MCHC (test code = 786-4) 34.0 g/dL 31.2-35.0 RDW-SD (test code = 51209-5) 40.8 fL 38.5-51.6 RDW-CV (test code = 788-0) 11.9 % 12.1-15.4 L PLT (test code = 777-3) See_Comment [Automated message] The system which generated this result transmitted reference range: 150 - 328 10*3/?L. The reference range was not used to interpret this result as normal/abnormal. MPV (test code = 11912-7) 10.0 fL 9.8-13.0 NRBC/100 WBC (test code = 5353150024) See_Comment [Automated message] The system which generated this result transmitted reference range: 0.0 - 10.0 /100 WBCs. The reference range was not used to interpret this result as normal/abnormal. NRBC x10^3 (test code = 7223962380) <0.01 See_Comment [Automated message] The system which generated this result transmitted reference range: 10*3/?L. The reference range was not used to interpret this result as normal/abnormal. GRAN MAT (NEUT) % (test code = 770-8) 80.1 % IMM GRAN % (test code = 8311440021) 0.60 % LYMPH % (test code = 736-9) 9.7 % MONO % (test code = 5905-5) 8.4 % EOS % (test code = 713-8) 1.1 % BASO % (test code = 706-2) 0.1 % GRAN MAT x10^3(ANC) (test code = 5679669195) 10.53 10*3/uL 1.99-6.95 H IMM GRAN x10^3 (test code = 1073109185) 0.08 10*3/uL 0.00-0.06 H LYMPH x10^3 (test code = 731-0) 1.27 10*3/uL 1.09-3.23 MONO x10^3 (test code = 742-7) 1.11 10*3/uL 0.36-1.02 H EOS x10^3 (test code = 711-2) 0.14 10*3/uL 0.06-0.53 BASO x10^3 (test code = 704-7) <0.03 0.01-0.09 Lab Interpretation (test code = 34009-7) [facility]normal [facility] [id number] 19:06:23No significant interval change in the multiple dilated small bowel loopssuggestive of ileus. Preliminary Report Dictated by Resident: Brissa Mccarthy I, Cami Rios MD., have reviewed this study and agree with theabove report.EXAM: XR KUB HISTORY: 69 years-old Male presenting with distended abdomen COMPARISON: Abdomen radiograph 10/31/2020, 10/30/2020. CT abdomen and pelvis10/30/2020 TECHNIQUE: Frontal views of the abdomen and pelvis were obtained. FINDINGS: An enteric tube tip terminatesjust distal to GE junction with the sideholelikely at the distal esophagus. No significant intervalchanges in themultiple dilated small bowel loops. [facility], Radiant Results Inft User - 11/01/2020 2:07PM CDTEXAM: XR KUBHISTORY: 69 years-old Male presenting with distended abdomen COMPARISON: Abdomen radiograph 10/31/2020, 10/30/2020. CT abdomen and pelvis10/30/2020TECHNIQUE: Frontal views of the abdomen and pelvis were obtained.FINDINGS:An enteric tube tip terminates just distal to GE junction with the sideholelikely at the distal esophagus. No significant interval changes in themultiple dilated small bowel loops. IMPRESSIONNo significant interval change in the multiple dilated small bowel loopssuggestive of ileus.Preliminary Report Dictated by Resident: Brissa Martinez, Cami Rios MD., have reviewed this study and agree with theabove report.[facility] [id number] 13:46:05* Test Item Value Reference Range Interpretation Comme nts MAGNESIUM (test code = 6443991418) 1.7 mg/dL 1.7-2.4 Lab Interpretation (test cod e = 03302-9) Normal [facility]21-[facility]-23 13:46:05* Test Item Value Reference Range Interpretation Comme nts PHOSPHORUS (test code = 5177517142) 3.4 mg/dL 2.5-5.0 Lab Interpretation (test cod e = 85344-2) [facility]OL[facility] (NA, K, CL, CO2, GLUCOSE, BUN, CREATININE, CA)2020-11-01 08:03:01* Test Item Value Reference Range Interpretation Comme nts NA (test code = 9397608860) 137 mmol/L 135-145 K (test code = 1263836968) 3.6 mmol/L 3.5-5.0 CL (test code = 0697594523) 105 mmol/L 98-108 CO2 TOTAL (test code = 7729088071) 27 mmol/L 23-31 AGAP (test code = 3741371333) 2-16 BUN (test code = 9174752896) 37 mg/dL 7-23 H GLUCOSE (test code = 6151559767) 99 mg/dL 70-110 CREATININE (test code = 7296791475) 1.37 mg/dL 0.60-1.25 H CALCIUM (test code = 0043918833) 7.9 mg/dL 8.6-10.6 L eGFR (test code = 5170666568) mL/min/1.73m2 SUDHAKAR (test code = SUDHAKAR) Association of Glomerular Filtration Rate (GFR) and Staging of Kidney Disease* + --+ --+ ------+| GFR (mL/min/1.73 m2) ?| With Kidney Damage ?| ?Without Kidney Damage+ --------+ --------+ +| ?>90 ?| ?Stage one ?| ? Normal ?+ ---+ ---+ -------+| ?60-89 ?| ?Stage two ?| ? Decreased GFR ? + --+ --+ ------+| ?30-59 ?| ?Stage three ?| ? Stage three ? + --+ --+ ------+| ?15-29 ?| ?Stage four ? | ? Stage four ?+ ---+ ---+ -------+| ?<15 (or dialysis) ? ?| ?Stage five ? | ? Stage five ?+ ---+ ---+ -------+ *Each stage assumes the associated GFR level has been in effect for at least three months. ?Stages 1 to 5, with or without kidney disease, indicate chronic kidney disease. Notes: Determination of stages one and two (with eGFR >59mL/min/1.73 m2) requires estimation of kidney damage for at least three months as defined by structural or functional abnormalities of the kidney, manifested by either:Pathological abnormalities or Markers of kidney damage (including abnormalities in the composition of the blood or urine or abnormalities in imaging tests). Lab Interpretation (test code = 56586-5) [facility] [id number] 22:24:201. ?Diffuse dilation of the small bowel loops with no definite transitionpoint. No evidence of mechanical obstruction. ?Findings are suggestive ofileus. Possibility of partial obstruction is less likely. Follow-up withabdominal radiograph is recommended. 2. ?Scattered diverticulosis. 3. ?Cardiomegaly. 4. ?Prostatomegaly. 5. ?Lung opacities compatible with known history of Covid 19 pneumonia. Preliminary Report Dictated by Resident: Darline Guerrreo ?MD Daisha., have reviewed this study and agree with theabove report.EXAM" CT ABDOMEN PELVIS WO CONTRAST HISTORY:69 years-old; Male; bowel obstruction suspected. Please performwith oral contrast, and please do NOT use IV contrastCOMPARISON: Abdominal radiograph 10/31/2019. TECHNIQUE AND FINDINGS: Contiguous axial imaging from the level of the lungbases through the pubic symphysis was performed after oral contrast,without the intravenous administration of contrast. Coronal and sagittalreconstructions were obtained. ? FINDINGS: LINES/TUBES: LOWER THORAX: Multifocal patchy groundglass basilar lung opacities greateston the right compatible with known history of Covid 19 pneumonia. LIVER: No focal hepatic lesions. ?Normal liver contour. GALLBLADDER AND BILIARY TREE: No biliary ductal dilation. ?No gallbladderwall thickening. SPLEEN: No splenomegaly. A subcentimeter splenule anterior to the spleen(3:35) PANCREAS: No ductal dilation or masses. ADRENAL GLANDS: No adrenal nodules. KIDNEYS: No hydronephrosis, stones. A subcentimeter hypodensity ininterpolar right kidney too small to characterize but may represent cyst. PERITONEUM AND RETROPERITONEUM: No free air or fluid. LYMPH NODES: No lymphadenopathy. GI TRACT: The tip of the enteric tube terminates in the duodenal bulb. Arectal tube is noted. The oral contrast is seen in the mid small bowelloops. Small sliding hiatal hernia.Diffuse distention of the jejunal and ileal loops. Gas and fluid is seen incolon and rectum. ?No abrupt transition point is noted. Scattere ddiverticulosis in the descending colon. PELVIS/BLADDER: Distended bladder. Prostatomegaly, measuring 6.2 cm in APdiameter. VESSELS: Scattered punctated calcification of the aortoiliac arteries. BONES AND SOFT TISSUES: No suspicious lytic or sclerotic bony lesions.Anterolateral bridging osteophytesalong the right lower thoracic vertebralbodies, suggestive of DISH. Spondylotic changes of the thoracolumbar spine,which is most conspicuous is at the level of L5-S1 with anterior bridgingosteophytesand disc height loss. Moderate fatty replacement of the rightpsoas muscle. Calcification/ossification of right psoas muscle tendon.Diastasis recti. Small fat-containing bilateral inguinal hernia. [facility], Radiant Results Inft User - 10/31/2020 5:[address]" [address] ABDOMEN PELVIS WO CONTRASTHISTORY:69 years-old; Male; bowel obstruction suspected. Please performwith oral contrast, and please do NOT useIV contrast COMPARISON: Abdominal radiograph 10/31/2019.TECHNIQUE AND FINDINGS: Contiguous axial imaging from the level of the lungbases through the pubic symphysis was performed after oral contrast,without the intravenous administration of contrast. Coronal and sagittalreconstructions were obtained. FINDINGS:LINES/TUBES: LOWER THORAX: Multifocal patchy groundglass basilar lung opacities greateston the right compatible with known history of Covid 19 pneumonia. LIVER: No focal hepatic lesions. Normal liver contour.GALLBLADDER AND BILIARY TREE: No biliary ductal dilation. No gallbladderwall thickening.SPLEEN: No splenomegaly. A subcentimeter splenule anterior to the spleen(3:35)PANCREAS: No ductal dilation or masses.ADRENAL GLANDS: No adrenal nodules.KIDNEYS: No hydronephrosis, stones. A subcentimeter hypodensity ininterpolar right kidney too small to characterize but may represent cyst.PERITONEUM AND RETROPERITONEUM: No free air or fluid.LYMPH NODES: No lymphadenopathy.GI TRACT: The tipof the enteric tube terminates in the duodenal bulb. Arectal tube is noted. The oral contrast is see n in the mid small bowelloops. Small sliding hiatal hernia.Diffuse distention of the jejunal and ileal loops. Gas and fluid is seen incolon and rectum. No abrupt transition point is noted. Scattereddiverticulosis in the descending colon.PELVIS/BLADDER: Distended bladder. Prostatomegaly, measuring 6.2 cm in APdiameter.VESSELS: Scattered punctated calcification of the aortoiliac arteries.BONES AND SOFT TISSUES: No suspicious lytic or sclerotic bony lesions.Anterolateral bridging osteophytes alongthe right lower thoracic vertebralbodies, suggestive of DISH. Spondylotic changes of the thoracolumbar spine,which is most conspicuous is at the level of L5-S1 with anterior bridgingosteophytes and disc height loss. Moderate fatty replacement of the rightpsoas muscle. Calcification/ossification of right psoas muscle tendon.Diastasis recti. Small fat-containing bilateral inguinal hernia.IMPRESSION1. Diffuse dilation of the small bowel loops with no definite transitionpoint. No evidence of mechanical obstruction. Findings are suggestive ofileus. Possibility of partial obstruction is less likely. Follow-up withabdominal radiograph is recommended.2. Scattered diverticulosis.3. Cardiomegaly.4. Prostatomegaly.5. Lung opacities compatible with known history of Covid 19 pneumonia.Preliminary Report Dictated by Resident: Jerardo Lux, Darline Ashton MD., have reviewed this study and agree with theabove report.[facility] - To confirm nasogastric tube placement.2020-10-31 16:57:231. ?Abdominal radiographs over progression of NG tube advancement, asdetailed above. Poorly seen onfinal image due to motion but likely withinstomach. 2. ?Extensive small bowel gaseous distension with dilated gas-distendedsmall bowel throughout. Preliminary Report Dictated by Resident: Melania Cerda I, Anjali Jenkins MD., have reviewed this study and agree with the abovereport.EXAM: XR ABDOMEN 1 VW, XR KUB, XR KUB HISTORY: NG tube confirmation S/SX, Dx: ?To confirm nasogastric tube tubepl acement. COMPARISON: Radiographs on 10/28/2020 TECHNIQUE: Frontal radiographs of the abdomen and pelvis obtained at 2136hours on 10/29/2020 and at 0219 hours and 0604 hours on 10/31/2019 FINDINGS: Multiple radiographs of the abdomen taken for NG tube placement. NG tube entering thestomach and coiling back on itselfwith sidehole in the lower esophagus; tip in esophagus superiorly, out offield of view. Repositioned, with the tip and sidehole of an NG tubealongthe lateral, greater gastric curvature. Poor visualization of NG tube due to motion. Locationindeterminate but likely within stomach as sidehole not visualized at thesegment visualized within the esophagus. Dilated gas-distended small and large bowel consistent throughout theabdomen. [facility], Radiant Results Inft User - 10/31/2020 11:58 AM CDTEXAM: XR ABDOMEN 1 VW, XR KUB, XR KUBHISTORY: NG tube confirmation S/SX, Dx: To confirm nasogastric tube tubeplacement.COMPARISON: Radiographs on 10/28/2020TECHNIQUE: Frontal radiographs of the abdomen and pelvis obtained at 2136hours on 10/29/2020 and at 0219 hours and 0604 hours on 10/31/2019FINDINGS:Multiple radiographs of the abdomen taken for NG tube placement. NG tube entering the stomach and coiling back on itselfwith sidehole in the lower esophagus; tip in esophagus superiorly, out offield of view. Repositioned, with the tip and sidehole of an NG tubealong the lateral, greater gastric cur vature. Poor visualization of NG tube due to motion. Locationindeterminate but likely within stomach as sidehole not visualized at thesegment visualized within the esophagus.Dilated gas-distended small and large bowel consistent throughout theabdomen.IMPRESSION1. Abdominal radiographs over progression of NG tube advancement, asdetailed above. Poorly seen on final image due to motion but likely withinstomach. 2. Extensive small bowel gaseous distension with dilated gas-distendedsmall bowel throughout. Preliminary Report Dictated by Resident: Anjali Sarah MD., have reviewed this study and agree with the abovereport.[facility] [id number] 16:57:231. ?Abdominal radiographs over progression of NG tube advancement, asdetailed above. Poorly seen onfinal image due to motion but likely withinstomach. 2. ?Extensive small bowel gaseous distension with dilated gas-distendedsmall bowel throughout. Preliminary Report Dictated by Resident: Anjali Rainey MD., have reviewed this study and agree with the abovereport.EXAM: XR ABDOMEN 1 VW, XR KUB, XR KUB HISTORY: NG tube confirmation S/SX, Dx: ?To confirm nasogastric tube tubeplacement. COMPARISON: Radiographs on 10/28/2020 TECHNIQUE: Frontal radiographs of the abdomen and pelv is obtained at 2136hours on 10/29/2020 and at 0219 hours and 0604 hours on 10/31/2019 FINDINGS: Multiple radiographs of the abdomen taken for NG tube placement. NG tube entering thestomach and coiling back on itselfwith sidehole in the lower esophagus; tip in esophagus superiorly, out offield of view. Repositioned, with the tip and sidehole of an NG tubealongthe lateral, greater gastric curvature. Poor visualization of NG tube due to motion. Locationindeterminate but likely within stomach as sidehole not visualized at thesegment visualized within the esophagus. Dilated gas-distended small and large bowel consistent throughout theabdomen. [facility], Radiant Results Inft User - 10/31/2020 11:58 AM CDTEXAM: XR ABDOMEN 1 VW, XR KUB, XR KUBHISTORY: NG tube confirmation S/SX, Dx: To confirm nasogastric tube tubeplacement.COMPARISON: Radiographs on 10/28/2020TECHNIQUE: Frontal radiographs of the abdomen and pelvis obtained at 2136hours on 10/29/2020 and at 0219 hours and 0604 hours on 10/31/2019FINDINGS:Multiple radiographs of the abdomen taken for NG tube placement. NG tube entering the stomach and coiling back on itselfwith sidehole in the lower esophagus; tip in esophagus superiorly, out offield of view. Repositioned, with the tip and sidehole of an NG tubealong the lateral, greater gastric cur vature. Poor visualization of NG tube due to motion. Locationindeterminate but likely within stomach as sidehole not visualized at thesegment visualized within the esophagus.Dilated gas-distended small and large bowel consistent throughout theabdomen.IMPRESSION1. Abdominal radiographs over progression of NG tube advancement, asdetailed above. Poorly seen on final image due to motion but likely withinstomach. 2. Extensive small bowel gaseous distension with dilated gas-distendedsmall bowel throughout. Preliminary Report Dictated by Resident: Anjali Sarah MD., have reviewed this study and agree with the abovereport.[facility] [id number] 16:57:231. ?Abdominal radiographs over progression of NG tube advancement, asdetailed above. Poorly seen onfinal image due to motion but likely withinstomach. 2. ?Extensive small bowel gaseous distension with dilated gas-distendedsmall bowel throughout. Preliminary Report Dictated by Resident: Melania Cerda I, Anjali Jenkins MD., have reviewed this study and agree with the abovereport.EXAM: XR ABDOMEN 1 VW, XR KUB, XR KUB HISTORY: NG tube confirmation S/SX, Dx: ?To confirm nasogastric tube tubeplacement. COMPARISON: Radiographs on 10/28/2020 TECHNIQUE: Frontal radiographs of the abdomen and pelv is obtained at 2136hours on 10/29/2020 and at 0219 hours and 0604 hours on 10/31/2019 FINDINGS: Multiple radiographs of the abdomen taken for NG tube placement. NG tube entering thestomach and coiling back on itselfwith sidehole in the lower esophagus; tip in esophagus superiorly, out offield of view. Repositioned, with the tip and sidehole of an NG tubealongthe lateral, greater gastric curvature. Poor visualization of NG tube due to motion. Locationindeterminate but likely within stomach as sidehole not visualized at thesegment visualized within the esophagus. Dilated gas-distended small and large bowel consistent throughout theabdomen. [facility], Radiant Results Inft User - 10/31/2020 11:58 AM CDTEXAM: XR ABDOMEN 1 VW, XR KUB, XR KUBHISTORY: NG tube confirmation S/SX, Dx: To confirm nasogastric tube tubeplacement.COMPARISON: Radiographs on 10/28/2020TECHNIQUE: Frontal radiographs of the abdomen and pelvis obtained at 2136hours on 10/29/2020 and at 0219 hours and 0604 hours on 10/31/2019FINDINGS:Multiple radiographs of the abdomen taken for NG tube placement. NG tube entering the stomach and coiling back on itselfwith sidehole in the lower esophagus; tip in esophagus superiorly, out offield of view. Repositioned, with the tip and sidehole of an NG tubealong the lateral, greater gastric cur vature. Poor visualization of NG tube due to motion. Locationindeterminate but likely within stomach as sidehole not visualized at thesegment visualized within the esophagus.Dilated gas-distended small and large bowel consistent throughout theabdomen.IMPRESSION1. Abdominal radiographs over progression of NG tube advancement, asdetailed above. Poorly seen on final image due to motion but likely withinstomach. 2. Extensive small bowel gaseous distension with dilated gas-distendedsmall bowel throughout. Preliminary Report Dictated by Resident: Anjali Sarah MD., have reviewed this study and agree with the abovereport.[facility] BASIC METABOLIC PANEL (NA, K, CL, CO2, GLUCOSE, BUN, CREATININE, CA)2020-10-31 10:14:35* Test Item Value Reference Range Interpretation Comme nts NA (test code = 9063412245) 138 mmol/L 135-145 K (test code = 3038884376) 3.9 mmol/L 3.5-5.0 CL (test code = 4018567234) 105 mmol/L 98-108 CO2 TOTAL (test code = 0203918747) 26 mmol/L 23-31 AGAP (test code = 5292858758) 2-16 BUN (test code = 4658881580) 47 mg/dL 7-23 H GLUCOSE (test code = 8110436430) 101 mg/dL 70-110 CREATININE (test code = 5099746051) 1.60 mg/dL 0.60-1.25 H CALCIUM (test code = 7748621943) 8.4 mg/dL 8.6-10.6 L eGFR (test code = 8826177313) mL/min/1.73m2 SUDHAKAR (test code = SUDHAKAR) Association of Glomerular Filtration Rate (GFR) and Staging of Kidney Disease* + --+ --+ ------+| GFR (mL/min/1.73 m2) ?| With Kidney Damage ?| ?Without Kidney Damage+ --------+ --------+ +| ?>90 ?| ?Stage one ?| ? Normal ?+ ---+ ---+ -------+| ?60-89 ?| ?Stage two ?| ? Decreased GFR ? + --+ --+ ------+| ?30-59 ?| ?Stage three ?| ? Stage three ? + --+ --+ ------+| ?15-29 ?| ?Stage four ? | ? Stage four ?+ ---+ ---+ -------+| ?<15 (or dialysis) ? ?| ?Stage five ? | ? Stage five ?+ ---+ ---+ -------+ *Each stage assumes the associated GFR level has been in effect for at least three months. ?Stages 1 to 5, with or without kidney disease, indicate chronic kidney disease. Notes: Determination of stages one and two (with eGFR >59mL/min/1.73 m2) requires estimation of kidney damage for at least three months as defined by structural or functional abnormalities of the kidney, manifested by either:Pathological abnormalities or Markers of kidney damage (including abnormalities in the composition of the blood or urine or abnormalities in imaging tests). Lab Interpretation (test code = 65261-4) [facility]normal [facility]2021-[facility]-22 10:14:35* Test Item Value Reference Range Interpretation Comme nts MAGNESIUM (test code = 7565379406) 2.0 mg/dL 1.7-2.4 Lab Interpretation (test cod e = 67695-1) Normal [facility] [id number] 16:16:56EXAM: XR KUB HISTORY: for NGT adjustment confirmation COMPARISON: None. FINDINGS: The nasogastric tube passes through the stomach and into the second portionof the duodenum. Gas fills loops of large and small bowel throughout theabdomen. ? [facility], Radiant Results Inft User - 10/30/2020 11:18 AM CDTEXAM: XR KUBHISTORY: for NGT adjustment confirmation COMPARISON: None.FINDINGS:The nasogastric tube passes through the stomach and into the second portionof the duodenum. Gas fills loops of large and small bowel throughout theabdomen.[facility] [id number] 14:01:33* Test Item Value Reference Range Interpretation Comme nts Blood Culture-Aerobic (test code = 60627-0) No organisms isolated No growth Previous preliminary verified result was Culture In Progress on 10/25/2020 at 1201 CDTPrevious preliminary verified result was No growth at 24 hours on 10/26/2020 at 0901 CDTPrevious preliminary verified result was No growth at 48 hours on 10/27/2020 at [facility] [place] CDTPrevious preliminary verified result was No growth at 72 hours on 10/28/[address] [place] [address] Blood Culture-Anaerobic (test code = 08367-4) No organisms isolated No growth Previous preliminary verified result was Culture In Progress on 10/25/2020 at [facility] CDTPrevious preliminary verified result was No growth at 24 hours on 10/26/2020 at [facility] [place] CDTPrevious preliminary verified result was No growth at 48 hours on 10/27/2020 at [facility] [place] CDTPrevious preliminary verified result was No growth at 72 hours on 10/28/[address] [place] [address] Lab Interpretation (test code = 08345-5) Normal [facility] [id number] 14:01:33* Test Item Value Reference Range Interpretation Comme nts Blood Culture-Aerobic (test code = 45003-1) No organisms isolated No growth Previous preliminary verified result was Culture In Progress on 10/25/2020 at [facility] CDTPrevious preliminary verified result was No growth at 24 hours on 10/26/2020 at [facility] [place] CDTPrevious preliminary verified result was No growth at 48 hours on 10/27/2020 at [facility] [place] CDTPrevious preliminary verified result was No growth at 72 hours on 10/28/[address] [place] [address] Blood Culture-Anaerobic (test code = 44059-3) No organisms isolated No growth Previous preliminary verified result was Culture In Progress on 10/25/2020 at [facility] CDTPrevious preliminary verified result was No growth at 24 hours on 10/26/2020 at [facility] [place] CDTPrevious preliminary verified result was No growth at 48 hours on 10/27/2020 at [facility] [place] CDTPrevious preliminary verified result was No growth at 72 hours on 10/28/[address] [place], [place] [address]T Lab Interpretation (test code = 42528-7) Normal [facility] MET[facility]OLIC PANEL (NA, K, CL, CO2, GLUCOSE, BUN, CREATININE, CA)2020-10-30 10:44:39* Test Item Value Reference Range Interpretation Comme nts NA (test code = 6543031219) 140 mmol/L 135-145 K (test code = 4797553571) 4.3 mmol/L 3.5-5.0 CL (test code = 0354688871) 109 mmol/L 98-108 H CO2 TOTAL (test code = 7030780522) 26 mmol/L 23-31 AGAP (test code = 2761450047) 2-16 BUN (test code = 9548538745) 53 mg/dL 7-23 H GLUCOSE (test code = 9393643267) 127 mg/dL 70-110 H CREATININE (test code = 7399586202) 1.89 mg/dL 0.60-1.25 H CALCIUM (test code = 7389877847) 8.4 mg/dL 8.6-10.6 L eGFR (test code = 3895048450) mL/min/1.73m2 SUDHAKAR (test code = SUDHAKAR) Association of Glomerular Filtration Rate (GFR) and Staging of Kidney Disease* + --+ --+ ------+| GFR (mL/min/1.73 m2) ?| With Kidney Damage ?| ?Without Kidney Damage+ --------+ --------+ +| ?>90 ?| ?Stage one ?| ? Normal ?+ ---+ ---+ -------+| ?60-89 ?| ?Stage two ?| ? Decreased GFR ? + --+ --+ ------+| ?30-59 ?| ?Stage three ?| ? Stage three ? + --+ --+ ------+| ?15-29 ?| ?Stage four ? | ? Stage four ?+ ---+ ---+ -------+| ?<15 (or dialysis) ? ?| ?Stage five ? | ? Stage five ?+ ---+ ---+ -------+ *Each stage assumes the associated GFR level has been in effect for at least three months. ?Stages 1 to 5, with or without kidney disease, indicate chronic kidney disease. Notes: Determination of stages one and two (with eGFR >59mL/min/1.73 m2) requires estimation of kidney damage for at least three months as defined by structural or functional abnormalities of the kidney, manifested by either:Pathological abnormalities or Markers of kidney damage (including abnormalities in the composition of the blood or urine or abnormalities in imaging tests). Lab Interpretation (test code = 93124-0) [facility]normal [facility]2021-[facility]-21 10:44:39* Test Item Value Reference Range Interpretation Comme nts PHOSPHORUS (test code = 0995504955) 4.6 mg/dL 2.5-5.0 Lab Interpretation (test cod e = 27279-4) Normal [facility] ([facility]ANTITATIVE)2020-10-29 21:41:32* Test Item Value Reference Range Interpretation Comme nts RPR (Quantitative) (test cod e = 49231-9) Nonreactive Nonreactive Lab Interpretation (test cod e = 77408-3) Normal [facility] [id number] 16:14:27FINDINGS / IMPRESSION: No significant interval change in the air distended small and large bowelloops. An obstructive cause cannot be excluded. CT abdomen and pelvis isrecommended for further evaluation. Preliminary Report Dictated by Resident: Brissa Mccarthy I reviewed this study and agree. Sohail Mandel MD., have reviewed this study and agree with theabove report.EXAM: XR KUB HISTORY: 69 years-old Male presenting with abdominal distention COMPARISON: Multiple abdomen plain films with the most recent date10/28/2020 TECHNIQUE: Frontal views of the abdomen and pelvis were obtained. [facility], Radiant Results Inft User - 10/29/2020 11:15 AM CDTEXAM: XR KUBHISTORY: 69 years-old Male presenting with abdominal distention COMPARISON: Multiple abdomen plain films with the most recent date10/28/2020TECHNIQUE: Frontal views of the abdomen and pelvis were obtained.IMPRESSIONFINDINGS / IMPRESSION:No significant interval change in the air distended small and large bowelloops. An obstructive cause cannot be excluded. CT abdomen and pelvis isrecommended for further evaluation.Preliminary ReportDictated by Resident: Brissa Martinez reviewed this study and agree.Sohail Mandel MD., have reviewed this study and agree with theabove report.[facility] [id number] 15:53:41No significant interval changes in the air distended large and small bowelloops. Adynamic ileus is suspected. Preliminary Report Dictated by Resident: Brissa Mccarthy I reviewed this study and agree. Sohail Mandel MD., have reviewed this study and agree with theabove report.EXAM: XR KUB HISTORY: 69 years-old Male presenting with distended bowel COMPARISON: Multiple abdomen plain films with the most recent date10/27/2020 TECHNIQUE: Frontal views of the abdomen and pelvis were obtained. FINDINGS: Air distended large and small bowel. No abnormal calcifications orradiopaque stones are identified. No acute bony abnormalities are noted.Soft tissues are unremarkable. [facility], Radiant Results Inft User - 10/29/2020 10:54 AM CDTEXAM: XR KUBHISTORY: 69 years-old Male presenting with distended bowel COMPARISON: Multiple abdomen plain films with the most recent date10/27/2020TECHNIQUE: Frontal views of the abdomen and pelvis were obtained.FINDINGS:Air distended large and small bowel. No abnormal calcifications orradiopaque stones are identified. No acute bony abnormalities are noted.Soft tissues are unremarkable.IMPRESSIONNo significant interval changes in the air distended large and smallbowelloops. Adynamic ileus is suspected.Preliminary Report Dictated by Resident: Brissa Martinez reviewed this study and agree.Sohail Mandel MD., have reviewed this study and agree with theabove report.[facility] [id number] 15:47:33 FINDINGS / IMPRESSION: Interval removal of the enteric tube. Interval mild improvement of thedistended large bowel loops now measuring 6 cm. Air distended small bowelloops. No abnormal calcificationsor radiopaque calculi identified. Noacute osseous abnormality. Adynamic ileus may be responsible. Preliminary Report Dictated by Resident: Brissa Mccarthy I reviewed this study and agree with minor modifications (no call needed tothe referring physician). Sohail Mandel MD., have reviewed thisstudy and agree with theabove report.EXAM: XR KUB HISTORY: 69 years-old Male presenting with bowel distension COMPARISON: Abdominal plain films dated 10/26/2020, 10/25/2020 TECHNIQUE: Frontal views of the abdomen and pelvis were obtained. [facility], Radiant Results Inft User - 10/29/2020 10:48 AM CDTEXAM:XR KUBHISTORY: 69 years-old Male presenting with bowel distension COMPARISON: Abdominal plain filmsdated 10/26/2020, 10/25/2020TECHNIQUE: Frontal views of the abdomen and pelvis were obtained.IMPRESSIONFINDINGS / IMPRESSION:Interval removal of the enteric tube. Interval mild improvement of thedistended large bowel loops now measuring 6 cm. Air distended small bowelloops. No abnormal calcificationsor radiopaque calculi identified. Noacute osseous abnormality.Adynamic ileus may be responsible.Preliminary Report Dictated by Resident: Brissa Martinez reviewed this study and agree with minor modifications (no call needed tothe referring physician).I, Sohail Lopez MD., have reviewed this study and agree with theabove report.[facility] METABOLIC PANEL (NA, K, CL, CO2, GLUCOSE, BUN, CREATININE, CA)2020-10-29 10:52:11* Test Item Value Reference Range Interpretation Comme nts NA (test code = 2059820281) 143 mmol/L 135-145 K (test code = 2880186476) 4.5 mmol/L 3.5-5.0 Slight hemolysis CL (test code = 2038815744) 112 mmol/L 98-108 H CO2 TOTAL (test code = 1889660661) 24 mmol/L 23-31 AGAP (test code = 6299415074) 2-16 BUN (test code = 5563409561) 48 mg/dL 7-23 H Slight hemolysis GLUCOSE (test code = 1249555472) 131 mg/dL 70-110 H CREATININE (test code = 4243467858) 1.75 mg/dL 0.60-1.25 H CALCIUM (test code = 2073211593) 8.2 mg/dL 8.6-10.6 L eGFR (test code = 8631886073) mL/min/1.73m2 SUDHAKAR (test code = SUDHAKAR) Association of Glomerular Filtration Rate (GFR) and Staging of Kidney Disease* + -----+ --------+ +| GFR (mL/min/1.73 m2) ?| With Kidney Damage ?| ?Without Kidney Damage+ +------- +---- --+| ?>90 ?| ?Stage one ?| ? Normal ?+ ------+ ---------+--------- +| ?60-89 ?| ?Stage two ?| ? Decreased GFR ? + -----+ --------+ +| ?30-59 ?| ?Stage three ?| ? Stage three ? + -----+ --------+ +| ?15-29 ?| ?Stage four ? | ? Stage four ?+ ------+ ---------+--------- +| ?<15 (or dialysis) ? ?| ?Stage five ? | ? Stage five ?+ ------+ ---------+--------- + *Each stage assumes the associated GFR level has been in effect for at least three months. ?Stages 1 to 5, with or without kidney disease, indicate chronic kidney disease. Notes: Determination of stages one and two (with eGFR >59mL/min/1.73 m2) requires estimation of kidney damage for at least three months as defined by structural or functional abnormalities of the kidney, manifested by either:Pathological abnormalities or Markers of kidney damage (including abnormalities in the composition of the blood or urine or abnormalities in imaging tests). Lab Interpretation (test code = 80170-5) [facility]normal [facility]2021-[facility]-20 10:52:11* Test Item Value Reference Range Interpretation Comme nts MAGNESIUM (test code = 7586678086) 2.4 mg/dL 1.7-2.4 Lab Interpretation (test cod e = 79830-4) Normal [facility]2021-[facility]-20 10:52:11* Test Item Value Reference Range Interpretation Comme nts PHOSPHORUS (test code = 2595101160) 4.4 mg/dL 2.5-5.0 Lab Interpretation (test cod e = 73418-7) Normal [facility] [id number] 19:38:51Findings suggestive of early/partial obstruction or ileus. Preliminary Report Dictated by Resident: Tien Robbins ?MD. Greyson, have reviewed this study and agree withthe above report.EXAM: XR KUB HISTORY: 69 years-old Male presenting with distended bowel COMPARISON: Abdomen plain film dated 10/25/2020 TECHNIQUE: Frontal views of the abdomen and pelvis were obtained. FINDINGS: An enteric tube terminates at the distal stomach. Large bowel dilatation with air. No abnormal calcifications or radiopaquestones are identified. No acute bony abnormalities are noted. Soft tissuesare unremarkable. [facility], Radiant Results Inft User - 10/28/2020 2:39 PM CDTEXAM: XR KUBHISTORY: 69 years-old Male presenting with distended bowel COMPARISON: Abdomen plain film dated 10/25/2020TECHNIQUE: Frontal views of the abdomen and pelvis were obtained.FINDINGS:An enteric tube terminates at the distal stomach.Large bowel dilatation with air. No abnormal calcifications or radiopaquestones are identified. No acute bony abnormalities are noted. Soft tissuesare unremarkable.IMPRESSIONFindings suggestive of early/partial obstruction or ileus.Preliminary Report Dictated by Resident: Tien Mcadams MD., have reviewed this study and agree withthe above report.[facility] ABDOMEN LIMITED 2020-10-28 15:25:43Hypoechoic liver with prominent portal triad predominantly at the leftliver is of unclear clinical significance, could potentially represent asmall amount of periportal edema versus underlying hepatic parenchymaldisease. Recommend correlation with LFTs. I, Shilpa Del Real MD., have reviewed this study and agree with the abovereport.EXAM: US ABDOMEN LIMITED HISTORY: 69 years-old Male with evaluate for cirrhosis . TECHNIQUE: Limited abdominal ultrasound was performed focused on the liver,biliary system, pancreas and spleen. Main portal vein was evaluated withcolor and spectral Doppler imaging. Signal Integrity Engineer images were obtained forthe record. COMPARISON: None FINDINGS: Limited exam due to the patient's medical condition. LIVER: Length: 17 cm.Parenchyma: Slight hypoechoic of the liver. Prominent portal triad is notedpredominantly at the left liver. No focal lesion is detected.Portal vein: Hepatopetal flow present in the main portal vein.MPV diameter: 1.1 cm.MPV velocity: 36.9 cm/s. GALLBLADDER:No cholelithiasis. The gallbladder is contracted.Normal gallbladder wall thickness, 3 mm.Negative Godfrey's sign.. BILE DUCTS:No intra- or extrahepatic biliary dilatation..Common Duct diameter: 5 mm. PANCREAS: Limited visualization due to shadowing from bowel gas.. SPLEEN: The spleen was not visualized in this exam. AORTA:Obscured by bowel gas. OTHER: Imaged portions of the right kidney are u nremarkable. [facility], Radiant Results Inft User - 10/28/2020 10:26 AM CDTEXAM: US ABDOMEN LIMITEDHISTORY: 69 years-old Male with evaluate for cirrhosis .TECHNIQUE: Limited abdominal ultrasound was performed focused on the liver,biliary system, pancreas and spleen. Main portal vein was evaluated withcolor and spectral Doppler imaging. Signal Integrity Engineer images were obtained forthe record.COMPARISON: NoneFINDINGS:Limited exam due to the patient's medical condition.LIVER: Length: 17 cm.Parenchyma: Slighthypoechoic of the liver. Prominent portal triad is notedpredominantly at the left liver. No focal lesion is detected.Portal vein: Hepatopetal flow present in the main portal vein.MPV diameter: 1.1 cm.MPV velocity: 36.9 cm/s.GALLBLADDER:No cholelithiasis. The gallbladder is contracted.Normal gallbladder wall thickness, 3 mm.Negative Godfrey's sign..BILE DUCTS:No intra- or extrahepatic biliary dilatation..Common Duct diameter: 5 mm.PANCREAS: Limited visualization due to shadowing from bowel gas..SPLEEN: The spleen was not visualized in this exam. AORTA:Obscured by bowel gas. OTHER: Imaged portions of the right kidney are unremarkable.IMPRESSIONHypoechoic liver with prominent portal triad predom inantly at the leftliver is of unclear clinical significance, could potentially represent asmall amount of periportal edema versus underlying hepatic parenchymaldisease. Recommend correlation with LFTs.I, Shilpa Del Real MD., have reviewed this study and agree with the abovereport.[facility] 10:01:54* Test Item Value Reference Range Interpretation Comme nts PHOSPHORUS (test code = 6056676545) 3.4 mg/dL 2.5-5.0 Slight hemolysis Lab Interpretation (test code = 68682-4) Normal [facility]OL[facility] (NA, K, CL, CO2, GLUCOSE, BUN, CREATININE, CA)2020-10-28 05:12:08* Test Item Value Reference Range Interpretation Comme nts NA (test code = 9893748333) 143 mmol/L 135-145 K (test code = 5071809203) 4.2 mmol/L 3.5-5.0 CL (test code = 9412583834) 112 mmol/L 98-108 H CO2 TOTAL (test code = 1160421285) 25 mmol/L 23-31 AGAP (test code = 9344617959) 2-16 BUN (test code = 2758322097) 51 mg/dL 7-23 H GLUCOSE (test code = 0948590712) 172 mg/dL 70-110 H CREATININE (test code = 7111426562) 1.85 mg/dL 0.60-1.25 H CALCIUM (test code = 8931927390) 7.9 mg/dL 8.6-10.6 L eGFR (test code = 8962435412) mL/min/1.73m2 SUDHAKAR (test code = SUDHAKAR) Association of Glomerular Filtration Rate (GFR) and Staging of Kidney Disease* + --+ --+ ------+| GFR (mL/min/1.73 m2) ?| With Kidney Damage ?| ?Without Kidney Damage+ --------+ --------+ +| ?>90 ?| ?Stage one ?| ? Normal ?+ ---+ ---+ -------+| ?60-89 ?| ?Stage two ?| ? Decreased GFR ? + --+ --+ ------+| ?30-59 ?| ?Stage three ?| ? Stage three ? + --+ --+ ------+| ?15-29 ?| ?Stage four ? | ? Stage four ?+ ---+ ---+ -------+| ?<15 (or dialysis) ? ?| ?Stage five ? | ? Stage five ?+ ---+ ---+ -------+ *Each stage assumes the associated GFR level has been in effect for at least three months. ?Stages 1 to 5, with or without kidney disease, indicate chronic kidney disease. Notes: Determination of stages one and two (with eGFR >59mL/min/1.73 m2) requires estimation of kidney damage for at least three months as defined by structural or functional abnormalities of the kidney, manifested by either:Pathological abnormalities or Markers of kidney damage (including abnormalities in the composition of the blood or urine or abnormalities in imaging tests). Lab Interpretation (test code = 71371-3) [facility]2020-[facility]28 05:04:06* Test Item Value Reference Range Interpretation Comme nts APTT Patient (test code = 3173-2) See_Comment H [Automated (In)Touch Networka ge] The system which generated this result transmitted reference range: 26 - 36 Seconds. The reference range was not used to interpret this result as normal/abnormal. Lab Interpretation (test code = 71898-1) [facility] Heparin Drip[facility]2020-10-27 21:59:46* Test Item Value Reference Range Interpretation Comme [facility] APTT Patient (test code = 3173-2) See_Comment H [Automated messa ge] The system which generated this result transmitted reference range: 26 - 36 Seconds. The reference range was not used to interpret this result as normal/abnormal. Lab Interpretation (test code = 86719-5) Abnormal [facility] METABOLIC PANEL (NA, K, CL, CO2, GLUCOSE, BUN, CREATININE, CA)2020-10-27 21:53:48* Test Item Value Reference Range Interpretation Comme [facility] NA (test code = 3829535328) 143 mmol/L 135-145 K (test code = 6185573357) 4.3 mmol/L 3.5-5.0 CL (test code = 7284322793) 110 mmol/L 98-108 H CO2 TOTAL (test code = 9132896587) 26 mmol/L 23-31 AGAP (test code = 4280418736) 2-16 BUN (test code = 7254981537) 54 mg/dL 7-23 H GLUCOSE (test code = 1316632357) 193 mg/dL 70-110 H CREATININE (test code = 4859615110) 1.89 mg/dL 0.60-1.25 H CALCIUM (test code = 7466273489) 8.0 mg/dL 8.6-10.6 L eGFR (test code = 9499428740) mL/min/1.73m2 SUDHAKAR (test code = SUDHAKAR) Association of Glomerular Filtration Rate (GFR) and Staging of Kidney Disease* + --+ --+ ------+| GFR (mL/min/1.73 m2) ?| With Kidney Damage ?| ?Without Kidney Damage+ --------+ --------+ +| ?>90 ?| ?Stage one ?| ? Normal ?+ ---+ ---+ -------+| ?60-89 ?| ?Stage two ?| ? Decreased GFR ? + --+ --+ ------+| ?30-59 ?| ?Stage three ?| ? Stage three ? + --+ --+ ------+| ?15-29 ?| ?Stage four ? | ? Stage four ?+ ---+ ---+ -------+| ?<15 (or dialysis) ? ?| ?Stage five ? | ? Stage five ?+ ---+ ---+ -------+ *Each stage assumes the associated GFR level has been in effect for at least three months. ?Stages 1 to 5, with or without kidney disease, indicate chronic kidney disease. Notes: Determination of stages one and two (with eGFR >59mL/min/1.73 m2) requires estimation of kidney damage for at least three months as defined by structural or functional abnormalities of the kidney, manifested by either:Pathological abnormalities or Markers of kidney damage (including abnormalities in the composition of the blood or urine or abnormalities in imaging tests). Lab Interpretation (test code = 98163-8) Abnormal [facility] METABOLIC PANEL (NA, K, CL, CO2, GLUCOSE, BUN, CREATININE, CA)2020-10-27 09:26:43* Test Item Value Reference Range Interpretation Comme nts NA (test code = 8088135044) 147 mmol/L 135-145 H K (test code = 8529718892) 4.1 mmol/L 3.5-5.0 CL (test code = 2994303117) 112 mmol/L 98-108 H CO2 TOTAL (test code = 6866234550) 28 mmol/L 23-31 AGAP (test code = 0764840470) 2-16 BUN (test code = 7518134636) 59 mg/dL 7-23 H GLUCOSE (test code = 3670523613) 148 mg/dL 70-110 H CREATININE (test code = 8397864983) 1.94 mg/dL 0.60-1.25 H CALCIUM (test code = 0570729714) 7.8 mg/dL 8.6-10.6 L eGFR (test code = 5353419711) mL/min/1.73m2 SUDHAKAR (test code = SUDHAKAR) Association of Glomerular Filtration Rate (GFR) and Staging of Kidney Disease* + --+ --+ ------+| GFR (mL/min/1.73 m2) ?| With Kidney Damage ?| ?Without Kidney Damage+ --------+ --------+ +| ?>90 ?| ?Stage one ?| ? Normal ?+ ---+ ---+ -------+| ?60-89 ?| ?Stage two ?| ? Decreased GFR ? + --+ --+ ------+| ?30-59 ?| ?Stage three ?| ? Stage three ? + --+ --+ ------+| ?15-29 ?| ?Stage four ? | ? Stage four ?+ ---+ ---+ -------+| ?<15 (or dialysis) ? ?| ?Stage five ? | ? Stage five ?+ ---+ ---+ -------+ *Each stage assumes the associated GFR level has been in effect for at least three months. ?Stages 1 to 5, with or without kidney disease, indicate chronic kidney disease. Notes: Determination of stages one and two (with eGFR >59mL/min/1.73 m2) requires estimation of kidney damage for at least three months as defined by structural or functional abnormalities of the kidney, manifested by either:Pathological abnormalities or Markers of kidney damage (including abnormalities in the composition of the blood or urine or abnormalities in imaging tests). Lab Interpretation (test code = 75979-6) [facility] 09:26:43* Test Item Value Reference Range Interpretation Comme nts MAGNESIUM (test code = 8968668045) 2.9 mg/dL 1.7-2.4 H Lab Interpretation (test cod e = 68282-1) [facility]normal [facility] 09:26:43* Test Item Value Reference Range Interpretation Comme nts PHOSPHORUS (test code = 6422277035) 3.4 mg/dL 2.5-5.0 Lab Interpretation (test cod e = 09825-6) [facility] use with Heparin Drip[facility]2020-10-27 09:09:02* Test Item Value Reference Range Interpretation Comme nts APTT Patient (test code = 3173-2) See_Comment H [Automated [employer]] The system which generated this result transmitted reference range: 26 - 36 Seconds. The reference range was not used to interpret this result as normal/abnormal. Lab Interpretation (test code = 72848-6) [facility]normal [facility] use with Heparin Drip[facility]2020-10-26 20:45:20* Test Item Value Reference Range Interpretation Comme nts APTT Patient (test code = 3173-2) See_Comment H [Automated (In)Touch Networka ge] The system which generated this result transmitted reference range: 26 - 36 Seconds. The reference range was not used to interpret this result as normal/abnormal. Lab Interpretation (test code = 74321-0) Abnormal [facility] METABOLIC PANEL (NA, K, CL, CO2, GLUCOSE, BUN, CREATININE, CA)2020-10-26 20:43:18* Test Item Value Reference Range Interpretation Comme [facility] NA (test code = 5991694342) 144 mmol/L 135-145 K (test code = 4950735758) 4.3 mmol/L 3.5-5.0 CL (test code = 9204697968) 110 mmol/L 98-108 H CO2 TOTAL (test code = 8895842846) 28 mmol/L 23-31 AGAP (test code = 4960514401) 2-16 BUN (test code = 7977621122) 64 mg/dL 7-23 H GLUCOSE (test code = 8879640668) 150 mg/dL 70-110 H CREATININE (test code = 9877412385) 2.12 mg/dL 0.60-1.25 H CALCIUM (test code = 5614625089) 7.6 mg/dL 8.6-10.6 L eGFR (test code = 1111745803) mL/min/1.73m2 SUDHAKAR (test code = SUDHAKAR) Association of Glomerular Filtration Rate (GFR) and Staging of Kidney Disease* + --+ --+ ------+| GFR (mL/min/1.73 m2) ?| With Kidney Damage ?| ?Without Kidney Damage+ --------+ --------+ +| ?>90 ?| ?Stage one ?| ? Normal ?+ ---+ ---+ -------+| ?60-89 ?| ?Stage two ?| ? Decreased GFR ? + --+ --+ ------+| ?30-59 ?| ?Stage three ?| ? Stage three ? + --+ --+ ------+| ?15-29 ?| ?Stage four ? | ? Stage four ?+ ---+ ---+ -------+| ?<15 (or dialysis) ? ?| ?Stage five ? | ? Stage five ?+ ---+ ---+ -------+ *Each stage assumes the associated GFR level has been in effect for at least three months. ?Stages 1 to 5, with or without kidney disease, indicate chronic kidney disease. Notes: Determination of stages one and two (with eGFR >59mL/min/1.73 m2) requires estimation of kidney damage for at least three months as defined by structural or functional abnormalities of the kidney, manifested by either:Pathological abnormalities or Markers of kidney damage (including abnormalities in the composition of the blood or urine or abnormalities in imaging tests). Lab Interpretation (test code = 90043-4) [facility]normal [facility]FF[facility] [id number] 15:05:11 * Test Item Value Reference Range Interpretation Comme nts Clostridioides (Clostridium) difficile (test code = 27017-2) Negative Negative Lab Interpretation (test cod e = 64381-0) Normal [facility] WITH [id number] 10:18:28* Test Item Value Reference Range Interpretation Comme nts WBC (test code = 6690-2) See_Comment [Automated [employer]] The system which generated this result transmitted reference range: 4.20 - 10.70 10*3/?L. The reference range was not used to interpret this result as normal/abnormal. RBC (test code = 789-8) See_Comment [Automated [employer]] The system which generated this result transmitted reference range: 4.26 - 5.52 10*6/?L. The reference range was not used to interpret this result as normal/abnormal. HGB (test code = 718-7) 14.1 g/dL 12.2-16.4 HCT (test code = 4544-3) 43.0 % 38.4-49.3 MCV (test code = 787-2) 96.2 fL 81.7-95.6 H MCH (test code = 785-6) 31.5 pg 26.1-32.7 MCHC (test code = 786-4) 32.8 g/dL 31.2-35.0 RDW-SD (test code = 40535-2) 47.6 fL 38.5-51.6 RDW-CV (test code = 788-0) 13.2 % 12.1-15.4 PLT (test code = 777-3) See_Comment H [Automated messa ge] The system which generated this result transmitted reference range: 150 - 328 10*3/?L. The reference range was not used to interpret this result as normal/abnormal. MPV (test code = 21203-0) 10.5 fL 9.8-13.0 NRBC/100 WBC (test code = 2454864577) See_Comment [Automated me ssage] The system which generated this result transmitted reference range: 0.0 - 10.0 /100 WBCs. The reference range was not used to interpret this result as normal/abnormal. NRBC x10^3 (test code = 5619168700) <0.01 See_Comment [Automated messa ge] The system which generated this result transmitted reference range: 10*3/?L. The reference range was not used to interpret this result as normal/abnormal. GRAN MAT (NEUT) % (test code = 770-8) 81.7 % IMM GRAN % (test code = 1038667267) 0.10 % LYMPH % (test code = 736-9) 12.3 % MONO % (test code = 5905-5) 5.6 % EOS % (test code = 713-8) 0.0 % BASO % (test code = 706-2) 0.3 % GRAN MAT x10^3(ANC) (test code = 5691096376) 5.80 10*3/uL 1.99-6.95 IMM GRAN x10^3 (test code = 4430859540) <0.03 0.00-0.06 LYMPH x10^3 (test code = 731-0) 0.87 10*3/uL 1.09-3.23 L MONO x10^3 (test code = 742-7) 0.40 10*3/uL 0.36-1.02 EOS x10^3 (test code = 711-2) <0.03 0.06-0.53 L BASO x10^3 (test code = 704-7) <0.03 0.01-0.09 Lab Interpretation (test code = 26493-7) [facility] 10:10:29* Test Item Value Reference Range Interpretation Comme nts PHOSPHORUS (test code = 6218241573) 4.8 mg/dL 2.5-5.0 Lab Interpretation (test cod e = 37949-7) Normal [facility] METABOLIC PANEL (NA, K, CL, CO2, GLUCOSE, BUN, CREATININE, CA)2020-10-26 10:10:28* Test Item Value Reference Range Interpretation Comme nts NA (test code = 3805861152) 142 mmol/L 135-145 K (test code = 5982116222) 4.3 mmol/L 3.5-5.0 CL (test code = 6088294575) 109 mmol/L 98-108 H CO2 TOTAL (test code = 1348897069) 24 mmol/L 23-31 AGAP (test code = 8003052184) 2-16 BUN (test code = 8671249190) 70 mg/dL 7-23 H GLUCOSE (test code = 4066120466) 193 mg/dL 70-110 H CREATININE (test code = 2115284830) 2.35 mg/dL 0.60-1.25 H CALCIUM (test code = 0535100441) 7.6 mg/dL 8.6-10.6 L eGFR (test code = 4761329781) mL/min/1.73m2 SUDHAKAR (test code = SUDHAKAR) Association of Glomerular Filtration Rate (GFR) and Staging of Kidney Disease* + --+ --+ ------+| GFR (mL/min/1.73 m2) ?| With Kidney Damage ?| ?Without Kidney Damage+ --------+ --------+ +| ?>90 ?| ?Stage one ?| ? Normal ?+ ---+ ---+ -------+| ?60-89 ?| ?Stage two ?| ? Decreased GFR ? + --+ --+ ------+| ?30-59 ?| ?Stage three ?| ? Stage three ? + --+ --+ ------+| ?15-29 ?| ?Stage four ? | ? Stage four ?+ ---+ ---+ -------+| ?<15 (or dialysis) ? ?| ?Stage five ? | ? Stage five ?+ ---+ ---+ -------+ *Each stage assumes the associated GFR level has been in effect for at least three months. ?Stages 1 to 5, with or without kidney disease, indicate chronic kidney disease. Notes: Determination of stages one and two (with eGFR >59mL/min/1.73 m2) requires estimation of kidney damage for at least three months as defined by structural or functional abnormalities of the kidney, manifested by either:Pathological abnormalities or Markers of kidney damage (including abnormalities in the composition of the blood or urine or abnormalities in imaging tests). Lab Interpretation (test code = 89054-9) [facility]normal [facility] 10:10:28* Test Item Value Reference Range Interpretation Comme [facility] MAGNESIUM (test code = 9186721587) 3.0 mg/dL 1.7-2.4 H Lab Interpretation (test cod e = 75208-3) [facility]normal [facility] use with Heparin Drip[facility]2020-10-26 10:01:52* Test Item Value Reference Range Interpretation Comme nts APTT Patient (test code = 3173-2) See_Comment H [Automated [employer]] The system which generated this result transmitted reference range: 26 - 36 Seconds. The reference range was not used to interpret this result as normal/abnormal. Lab Interpretation (test code = 65753-2) [facility]normal [facility] WO [id number] 03:47:47Subacute 1.4 cm left periatrial white matter infarct. No hemorrhagictransformation. CT HEAD WO CONTRAST HISTORY: Stroke, follow up COMPARISON: 10/20/2020. MRI 10/22/2020. TECHNIQUE: Routine unenhanced brain CT. ? FINDINGS: No acute intracranial hemorrhage, extracerebral fluid collection, midlineshiftor mass effect. Subacute left periatrial infarct. Probable chronic ischemic changes of thewhite matter. Intracranial atherosclerosis. Chronic right cerebellarinfarct. Chronic left basal ganglia lacunar infarct.Ventricles are normal. Cerebral volume is age appropriate. No depressed calvarial fracture. Visualized orbits are unremarkable. Trace paranasal sinus mucosal thickening. Nasal route tube. [facility], Radiant Results Inft User - 10/25/2020 10:48 PM CDTCT HEAD WO CONTRASTHISTORY: Stroke, follow up COMPARISON: 10/20/2020. MRI 10/22/2020. TECHNIQUE: Routine unenhanced brain CT. FINDINGS:No acute intracranial hemorrhage, extracerebral fluid collection, midlineshift or mass effect. Subacute left periatrial infarct. Probable chronic ischemic changes of thewhite matter. Intracranial atherosclerosis. Chronic right cerebellarinfarct. Chronic left basal ganglia lacunar infarct.Ventricles are normal.Cerebral volume is age appropriate. No depressed calvarial fracture. Visualized orbits are unremarka ble. Trace paranasal sinus mucosal thickening. Nasal route tube. IMPRESSIONSubacute 1.4 cm left periatrial white matter infarct. No hemorrhagictransformation.[facility] use with Heparin Drip)2020-10-26 02:46:57* Test Item Value Reference Range Interpretation Comme [facility] APTT Patient (test code = 3173-2) See_Comment H [Automated (In)Touch Networka [employer]] The system which generated this result transmitted reference range: 26 - 36 Seconds. The reference range was not used to interpret this result as normal/abnormal. Lab Interpretation (test code = 17762-4) Abnormal [facility] METABOLIC PANEL (NA, K, CL, CO2, GLUCOSE, BUN, CREATININE, CA)2020-10-26 00:46:56* Test Item Value Reference Range Interpretation Comme [facility] NA (test code = 8244633041) 141 mmol/L 135-145 K (test code = 3169596029) 4.4 mmol/L 3.5-5.0 CL (test code = 9543911959) 111 mmol/L 98-108 H CO2 TOTAL (test code = 0189045416) 18 mmol/L 23-31 L AGAP (test code = 9767272786) 2-16 BUN (test code = 3118096799) 75 mg/dL 7-23 H GLUCOSE (test code = 6878933877) 210 mg/dL 70-110 H CREATININE (test code = 3607422617) 2.77 mg/dL 0.60-1.25 H CALCIUM (test code = 1300264884) 7.7 mg/dL 8.6-10.6 L eGFR (test code = 9569638029) mL/min/1.73m2 SUDHAKAR (test code = SUDHAKAR) Association of Glomerular Filtration Rate (GFR) and Staging of Kidney Disease* + --+ --+ ------+| GFR (mL/min/1.73 m2) ?| With Kidney Damage ?| ?Without Kidney Damage+ --------+ --------+ +| ?>90 ?| ?Stage one ?| ? Normal ?+ ---+ ---+ -------+| ?60-89 ?| ?Stage two ?| ? Decreased GFR ? + --+ --+ ------+| ?30-59 ?| ?Stage three ?| ? Stage three ? + --+ --+ ------+| ?15-29 ?| ?Stage four ? | ? Stage four ?+ ---+ ---+ -------+| ?<15 (or dialysis) ? ?| ?Stage five ? | ? Stage five ?+ ---+ ---+ -------+ *Each stage assumes the associated GFR level has been in effect for at least three months. ?Stages 1 to 5, with or without kidney disease, indicate chronic kidney disease. Notes: Determination of stages one and two (with eGFR >59mL/min/1.73 m2) requires estimation of kidney damage for at least three months as defined by structural or functional abnormalities of the kidney, manifested by either:Pathological abnormalities or Markers of kidney damage (including abnormalities in the composition of the blood or urine or abnormalities in imaging tests). Lab Interpretation (test code = 05317-8) [facility]normal [facility]wall[facility] [id number] 23:01:12* Test Item Value Reference Range Interpretation Comme nts Blood Culture-Aerobic (test code = 17848-4) No organisms isolated No growth Previous preliminary verified result was Culture In Progress on 10/20/2020 at 2101 CDTPrevious preliminary verified result was No growth at 24 hours on 10/21/2020 at 1801 CDTPrevious preliminary verified result was No growth at 48 hours on 10/22/2020 at 1801 CDTPrevious preliminary verified result was No growth at 72 hours on 10/23/2020 at 1801 CDT Blood Culture-Anaerobic (test code = 16432-6) No organisms isolated No growth Previous preliminary verified result was Culture In Progress on 10/20/2020 at 2101 CDTPrevious preliminary verified result was No growth at 24 hours on 10/21/2020 at 1801 CDTPrevious preliminary verified result was No growth at 48 hours on 10/22/2020 at 1801 CDTPrevious preliminary verified result was No growth at 72 hours on 10/23/2020 at 1801 CDT Lab Interpretation (test code = 33219-3) Normal [facility] [id number] 23:01:12* Test Item Value Reference Range Interpretation Comme nts Blood Culture-Aerobic (test code = 94421-6) No organisms isolated No growth Previous preliminary verified result was Culture In Progress on 10/20/2020 at 2101 CDTPrevious preliminary verified result was No growth at 24 hours on 10/21/2020 at 1801 CDTPrevious preliminary verified result was No growth at 48 hours on 10/22/2020 at 1801 CDTPrevious preliminary verified result was No growth at 72 hours on 10/23/2020 at 1801 CDT Blood Culture-Anaerobic (test code = 42897-4) No organisms isolated No growth Previous preliminary verified result was Culture In Progress on 10/20/2020 at 2101 CDTPrevious preliminary verified result was No growth at 24 hours on 10/21/2020 at 1801 CDTPrevious preliminary verified result was No growth at 48 hours on 10/22/2020 at 1801 CDTPrevious preliminary verified result was No growth at 72 hours on 10/23/2020 at 1801 CDT Lab Interpretation (test code = 03452-7) Normal [facility] 20:58:42* Test Item Value Reference Range Interpretation Comme nts MAGNESIUM (test code = 8146156608) 3.3 mg/dL 1.7-2.4 H Slight hemolysis Lab Interpretation (test code = 39900-5) [facility] (NA, K, CL, CO2, GLUCOSE, BUN, CREATININE, CA)2020-10-25 20:58:17* Test Item Value Reference Range Interpretation Comme nts NA (test code = 5390137116) 141 mmol/L 135-145 K (test code = 5450050710) 5.0 mmol/L 3.5-5.0 Slight hemolysis CL (test code = 5416047352) 111 mmol/L 98-108 H CO2 TOTAL (test code = 7384127671) 19 mmol/L 23-31 L AGAP (test code = 3335175345) 2-16 BUN (test code = 3697268762) 78 mg/dL 7-23 H Slight hemolysis GLUCOSE (test code = 9915323649) 134 mg/dL 70-110 H CREATININE (test code = 6307074692) 2.81 mg/dL 0.60-1.25 H CALCIUM (test code = 9575528861) 7.8 mg/dL 8.6-10.6 L eGFR (test code = 4322811769) mL/min/1.73m2 SUDHAKAR (test code = SUDHAKAR) Association of Glomerular Filtration Rate (GFR) and Staging of Kidney Disease* + -----+ --------+ +| GFR (mL/min/1.73 m2) ?| With Kidney Damage ?| ?Without Kidney Damage+ +------- +---- --+| ?>90 ?| ?Stage one ?| ? Normal ?+ ------+ ---------+--------- +| ?60-89 ?| ?Stage two ?| ? Decreased GFR ? + -----+ --------+ +| ?30-59 ?| ?Stage three ?| ? Stage three ? + -----+ --------+ +| ?15-29 ?| ?Stage four ? | ? Stage four ?+ ------+ ---------+--------- +| ?<15 (or dialysis) ? ?| ?Stage five ? | ? Stage five ?+ ------+ ---------+--------- + *Each stage assumes the associated GFR level has been in effect for at least three months. ?Stages 1 to 5, with or without kidney disease, indicate chronic kidney disease. Notes: Determination of stages one and two (with eGFR >59mL/min/1.73 m2) requires estimation of kidney damage for at least three months as defined by structural or functional abnormalities of the kidney, manifested by either:Pathological abnormalities or Markers of kidney damage (including abnormalities in the composition of the blood or urine or abnormalities in imaging tests). Lab Interpretation (test code = 82371-4) [facility] - To confirm nasogastric tube placement.2020-10-25 20:36:49FINDINGS / IMPRESSION: Esophogastric tube tip projects over the stomach fundus. Side-port projectsover the fundus as well. Redemonstration of partially visualized gaseousdistention of small bowel (dil ated up to 4.8 cm in left upper quadrant). Preliminary Report Dictated by Resident: Harpreet Robbins MD., have reviewed this study and agree with theabove report.EXAM: XR ABDOMEN 1VW HISTORY: 69 years-old Male presenting with NGT placement COMPARISON: Abdomen plain film earlier today. TECHNIQUE: Frontal views of the abdomen and pelvis were obtained. Note:Left upper and lower quadrants are within [id number]. [facility], Radiant Results Inft User - 10/25/2020 3:38 PM CDTEXAM: XR ABDOMEN 1 VWHISTORY: 69 years-old Male presenting with NGT placement COMPARISON: Abdomen plain film earlier today.TECHNIQUE: Frontal views of the abdomen and pelvis were obtained. Note:Left upper and lower quadrants are within [id number].IMPRESSIONFINDINGS / IMPRESSION:Esophogastric tube tip projects over the stomach fundus. Side-port projectsover the fundus as well. Redemonstration of partially visualized gaseousdistention of small bowel (dilated up to 4.8 cm in left upper quadrant).Preliminary Report Dictated by Resident: Harpreet Mcadams MD., have reviewed this study andagree with theabove report. [facility]wallMAVISTERESA [id number] 20:19:08* Test Item Value Reference Range Interpretation Comme nts TROPONIN I (test code = 1319961211) 0.044 ng/mL See_Comment H [Automated message] The system which generated this result transmitted reference range: <=0.034. The reference range was not used to interpret this result as normal/abnormal. SUDHAKAR (test code = SUDHAKAR) Equal or Less than 0.034 ng/ml---Normal ?Note: Cardiac troponin begins to rise 3-4 hours after the onset of ischemia. Repeat in 4-6 hours if the sample was drawn within 3-4 hours of the onset of the symptom and found normal. Between 0.035 and 0.120 ng/mL--- Borderline. Questionable myocardial injury or necrosis ? ?Note: Serial measurement may be necessary to confirm or exclude the diagnosis of myocardial injury or necrosis; Clinical correlation (symptoms, EKGs, imaging studies, and others) required; Repeat in 4-6 hours if clinically indicated. ? Equal or Higher than 0.121 ng/mL---Abnormal. Myocardial Injury or Necrosis Likely ? Biotin has been reported to cause a negative bias, interpret results relative to patient's use of biotin. ? Lab Interpretation (test code = 21623-7) [id number] 19:54:04* Test Item Value Reference Range Interpretation Comments D-DIMER (test code = 5648258149) See_Comment H [Automated message] The system which generated this result transmitted reference range: <0.50 ?g/mL (FEU). The reference range was not used to interpret this result as normal/abnormal. SUDHAKAR (test code = SUDHAKAR) This test may be used in conjunction with a clinical pretest probability (PTP) assessment model to exclude venous thromboembolism (VTE) in patients suspected of deep venous thrombosis (DVT) and pulmonary embolism (PE) A D-Dimer value less than 0.50 ?g/ml (FEU) has a negative predicative value of 96 to 100% (95% CI)and 97 to 100% (95% CI) as an aid in the diagnosis of deep vein thrombosis (DVT) and pulmonary embolism when there is low or moderate pretest probability of PE or DVT. D-Dimer values are expressed in initial fibrinogen equivalent units (FEU)" The assay results should be used with other information, including the clinical context, in forming a diagnosis. Lab Interpretation (test code = 73949-8) Abnormal [facility]wall[facility]OMBIN [facility] / [id number] 19:54:04* Test Item Value Reference Range Interpretation Comme nts PROTIME PATIENT (test code = 5964-2) See_Comment H [Automated messa ge] The system which generated this result transmitted reference range: 10.1 - 12.6 Seconds. The reference range was not used to interpret this result as normal/abnormal. INR (test code = 6301-6) Normal INR <1.1; Warfarin Therapeutic range 2.0 to 3.0 or 2.5 to 3.5, depending upon the indications. Lab Interpretation (test code = 01389-8) [facility]normal [facility]wallACTIV[facility] PARTIAL THRMPLAS [id number] 19:54:04* Test Item Value Reference Range Interpretation Comme [facility] APTT Patient (test code = 3173-2) See_Comment [Automated messa ge] The system which generated this result transmitted reference range: 26 - 36 Seconds. The reference range was not used to interpret this result as normal/abnormal. Lab Interpretation (test code = 98040-5) Normal [facility] 20 + LACTIC [id number] 19:24:59* Test Item Value Reference Range Interpretation Comme nts PH (test code = 2) 7.35-7.45 L PCO2 (test code = 1145645486) See_Comment L [Automated messa ge] The system which generated this result transmitted reference range: 35 - 45 mmHg. The reference range was not used to interpret this result as normal/abnormal. PO2 (test code = 5450940859) See_Comment [Automated messa ge] The system which generated this result transmitted reference range: 80 - 100 mmHg. The reference range was not used to interpret this result as normal/abnormal. HCO3 (test code = 3306316948) See_Comment L [Automated messa ge] The system which generated this result transmitted reference range: 22 - 26 mEq/L. The reference range was not used to interpret this result as normal/abnormal. BE (test code = 1509386449) See_Comment L [Automated messa ge] The system which generated this result transmitted reference range: -3.0 - 3.0 mEq/L. The reference range was not used to interpret this result as normal/abnormal. THB (test code = 1185020369) 14.7 g/dL 13.5-18.0 %O2HB (test code = 9210851888) 95.8 % 94.0-99.0 %COHB ART (test code = 2299872766) 0.4 % 0.0-1.5 %METHB ART (test code = 3116983397) 0.0 % 0.4-1.5 L VOL%O2 ART (test code = 7059657330) 19.9 % 15.0-23.0 NA (test code = 4911822154) 140 mmol/L 135-145 K+ (test code = 5702783641) 4.4 mmol/L 3.5-5.0 AC CA IONZ (test code = 8135278303) 4.70 mg/dL 4.50-5.30 GLUCOSE (test code = 9618121357) 143 mg/dL 70-110 H LACTIC ACID (test code = 9876903700) 1.16 mmol/L 0.50-2.20 Lab Interpretation (test code = 39294-8) [facility]normal [facility]wallXR [id number] 18:37:15Air distended multiple small and large bowel loops may indicate early/partial obstruction or ileus.Follow-up imaging is recommended. Preliminary Report Dictated by Resident: Brissa Mccarthy I, Cami Rios MD., have reviewed this study and agree with theabove report.EXAM: XR KUB HISTORY: 69 years-old Male presenting with abdominal distention COMPARISON: No prior studies available for comparison. TECHNIQUE: Frontal views of the abdomen and pelvis were obtained. FINDINGS: Air distended multiple small and large bowel loops. No abnormalcalcifications or radiopaque stones are identified. No acute bonyabnormalities are noted. Marked degenerative changes affect the lowerlumbar spine. Softtissues are unremarkable. [facility], Radiant Results Inft User - 10/25/2020 1:38 PM CDTEXAM: XR KUBHISTORY: 69 years-old Male presenting with abdominal distention COMPARISON: No prior studies available for comparison. TECHNIQUE: Frontal views of the abdomen and pelvis were obtained.FINDINGS:Air distended multiple small and large bowel loops. No abnormalcalcifications or radiopaque stones are identified. No acute bonyabnormalities are noted. Marked degenerative changes affect the lowerlumbar spine. Soft tissues are unremarkable.IMPRESSIONAir distended multiple small and large bowel loops may indicate early/partial obstruction or ileus. Follow-up imaging is recommended.Preliminary Report Dictatedby Resident: Brissa Martinez, Cami Rios MD., have reviewed this study and agree with theabove report.[facility] + LACTIC [id number] 14:46:01* Test Item Value Reference Range Interpretation Comme nts PH (test code = 2) 7.35-7.45 L PCO2 (test code = 8440210645) See_Comment [Automated [employer]] The system which generated this result transmitted reference range: 35 - 45 mmHg. The reference range was not used to interpret this result as normal/abnormal. PO2 (test code = 7091890862) See_Comment [Automated messa ge] The system which generated this result transmitted reference range: 80 - 100 mmHg. The reference range was not used to interpret this result as normal/abnormal. HCO3 (test code = 3514820739) See_Comment L [Automated messa ge] The system which generated this result transmitted reference range: 22 - 26 mEq/L. The reference range was not used to interpret this result as normal/abnormal. BE (test code = 1774868378) See_Comment L [Automated messa ge] The system which generated this result transmitted reference range: -3.0 - 3.0 mEq/L. The reference range was not used to interpret this result as normal/abnormal. THB (test code = 6941371834) 15.1 g/dL 13.5-18.0 %O2HB (test code = 1263807477) 95.9 % 94.0-99.0 %COHB ART (test code = 6954643552) 0.1 % 0.0-1.5 %METHB ART (test code = 5774240899) 0.0 % 0.4-1.5 L VOL%O2 ART (test code = 1758989183) 20.4 % 15.0-23.0 NA (test code = 9450759890) 139 mmol/L 135-145 K+ (test code = 6638179789) 4.1 mmol/L 3.5-5.0 AC CA IONZ (test code = 9037974480) 4.90 mg/dL 4.50-5.30 GLUCOSE (test code = 3547296337) 152 mg/dL 70-110 H LACTIC ACID (test code = 0548399440) 1.30 mmol/L 0.50-2.20 Lab Interpretation (test code = 95378-8) Abnormal [facility] METABOLIC PANEL (NA, K, CL, CO2, GLUCOSE, BUN, CREATININE, CA)2020-10-25 12:06:43* Test Item Value Reference Range Interpretation Comme nts NA (test code = 7203493485) 143 mmol/L 135-145 K (test code = 5639386988) 4.6 mmol/L 3.5-5.0 CL (test code = 1804813996) 112 mmol/L 98-108 H CO2 TOTAL (test code = 7363509348) 18 mmol/L 23-31 L AGAP (test code = 0955374766) 2-16 BUN (test code = 8140984386) 78 mg/dL 7-23 H GLUCOSE (test code = 6209496543) 117 mg/dL 70-110 H CREATININE (test code = 0242227177) 2.99 mg/dL 0.60-1.25 H CALCIUM (test code = 2807412780) 7.8 mg/dL 8.6-10.6 L eGFR (test code = 0206840680) mL/min/1.73m2 SUDHAKAR (test code = SUDHAKAR) Association of Glomerular Filtration Rate (GFR) and Staging of Kidney Disease* + --+ --+ ------+| GFR (mL/min/1.73 m2) ?| With Kidney Damage ?| ?Without Kidney Damage+ --------+ --------+ +| ?>90 ?| ?Stage one ?| ? Normal ?+ ---+ ---+ -------+| ?60-89 ?| ?Stage two ?| ? Decreased GFR ? + --+ --+ ------+| ?30-59 ?| ?Stage three ?| ? Stage three ? + --+ --+ ------+| ?15-29 ?| ?Stage four ? | ? Stage four ?+ ---+ ---+ -------+| ?<15 (or dialysis) ? ?| ?Stage five ? | ? Stage five ?+ ---+ ---+ -------+ *Each stage assumes the associated GFR level has been in effect for at least three months. ?Stages 1 to 5, with or without kidney disease, indicate chronic kidney disease. Notes: Determination of stages one and two (with eGFR >59mL/min/1.73 m2) requires estimation of kidney damage for at least three months as defined by structural or functional abnormalities of the kidney, manifested by either:Pathological abnormalities or Markers of kidney damage (including abnormalities in the composition of the blood or urine or abnormalities in imaging tests). Lab Interpretation (test code = 59013-6) [facility] 12:06[facility]* Test Item Value Reference Range Interpretation Comme nts MAGNESIUM (test code = 2705059660) 3.2 mg/dL 1.7-2.4 H Lab Interpretation (test cod e = 84532-5) [facility]normal [facility]2021-[facility]-16 12:06:43* Test Item Value Reference Range Interpretation Comme nts PHOSPHORUS (test code = 7506314267) 5.8 mg/dL 2.5-5.0 H Lab Interpretation (test cod e = 86737-2) [facility]normal [facility]2020-10-25 02:25:17* Test Item Value Reference Range Interpretation Comme nts POCT GLU (test code = 7947079415) 110 mg/dL 70-110 Lab Interpretation (test cod e = 54521-5) Normal [facility]wallPROCALCITONIN2021-04-15 23:09:36* Test Item Value Reference Range Interpretation Comme nts Procalcitonin (test code = 3107808334) 0.87 ng/mL <0.07 H SUDHAKAR (test code = SUDHAKAR) INTERPRETATION OF PROCALCITONIN RESULTS IN ADULTS >= 18 YEARS OF AGE Initiation and discontinuation of antibiotics on patients with suspected or confirmed Lower Respiratory Tract Infection in Adults >= 18 years of age. + +-------- --------+ + -----+|Procalcitonin |Interpretation ?|Antibiotic ? ? |Considerations ? |ng/mL ? | ?|recommendation | ? + +-------- --------+ + -----+| <0.1 ? | Bacterial ? ? ?| Strongly ? ? ?| ? | ?| infection very | discouraged ? | Overruling: ? | ?| unlikely ? ? ? | ? | ? Clinically unstable ? ? ? + +-------- --------+ + ? High risk for adverse ? ? | <0.25 ?| Bacterial ? ? ?| Discouraged ? | ? outcome ? | ?| infection ? ? ?| ? | ? SEE IMPORTANT NOTE ?| ?| unlikely ? ? ? | ? | ? + +-------- --------+ + -----+| >=0.25 ? ? ? | Bacterial ? ? ?| Encouraged ? ?| ? | ?| infection ? ? ?| ? | ? | ?| likely ? | ? | Consider treatment failure ?+ +------- ---------+ -+ if levels does not decrease | >0.5 ? | Bacterial ? ? ?| Strongly ? ? ?| appropriately ? | ?| infection very | encouraged ? ?| ? | ?| likely ? | ? | ? + +-------- --------+ + -----+ Discontinuation of antibiotics in high-acuity patients with suspected or confirmed sepsis in Adults >= 18 years of age. + +-------- --------+ + -----+|Procalcitonin |Interpretation ?|Antibiotic ? ? |Considerations ? |ng/mL ? | ?|recommendation | ? + +-------- --------+ + -----+| <0.25 ?| Bacterial ? ? ?| Strongly ? ? ?| ? | ?| infection very | discouraged ? | Overruling: ? | ?| unlikely ? ? ? | ? | ? Clinically unstable ? ? ? + +-------- --------+ + ? High risk for adverse ? ? | <0.5 or drop | Bacterial ? ? ?| Discouraged ? | ? outcome ? | >80% from ? ?| infection ? ? ?| ? | ? SEE IMPORTANT NOTE ?| highest PCT ?| unlikely ? ? ? | ? | ? | level ?| ?| ? | ? + +-------- --------+ + -----+| >=0.5 ?| Bacterial ? ? ?| Encouraged ? ?| ? | ?| infection ? ? ?| ? | ? | ?| likely ? | ? | Consider treatment failure ?+ +------- ---------+ -+ if levels does not decrease | >1.0 ? | Bacterial ? ? ?| Strongly ? ? ?| appropriately ? | ?| infection very | encouraged ? ?| ? | ?| likely ? | ? | ? + +-------- --------+ + -----+ Percentage of drop of Procalcitonin calculation for Discontinuation of antibiotics in high-acuity patients with suspected or confirmed sepsis in Adults >= 18 years of age. ? Procalcitonin highest{}-Procalcitonin current{}Delta Procalcitonin = x100% ? Procalcitonin current {} IMPORTANT NOTE: Procalcitonin may be elevated without bacterial infection by physiologic stress related to trauma, cordoba, chronic dialysis, metastatic cancer, surgery in the past seven days, malaria, some fungal infections, and some forms of vasculitis. The interpretation algorithm may not apply to patients with immunosuppression (equivalent of >10 mg of prednisone daily), HIV with CD4 cell count < 350 cells/mm3, active malignancy on systemic chemotherapy, solid organ transplant or hematopoietic stem cell transplantation, or hospital acquired pneumonia. Additionally, some clinical trials of procalcitonin have excluded patients with shock requiring vasopressor use, acute respiratory failure requiring mechanical ventilation, or those with known lung abscess/empyema. For further information please refer to:[email or web address] Lab Interpretation (test code = 57472-1) Abnormal [facility] GLUCOSE (AUTOMATED)2020-10-24 21:00:37* Test Item Value Reference Range Interpretation Comme nts POCT GLU (test code = 3802817998) 80 mg/dL 70-110 Lab Interpretation (test cod e = 64961-0) Normal [facility] GLUCOSE (AUTOMATED)2020-10-24 16:49:27* Test Item Value Reference Range Interpretation Comme nts POCT GLU (test code = 4797250538) 99 mg/dL 70-110 Lab Interpretation (test cod e = 64246-1) Normal [facility]wallD-[id number] 14:21:04* Test Item Value Reference Range Interpretation Comments D-DIMER (test code = 7817730075) See_Comment H [Automated message] The system which generated this result transmitted reference range: <0.50 ?g/mL (FEU). The reference range was not used to interpret this result as normal/abnormal. SUDHAKAR (test code = SUDHAKAR) This test may be used in conjunction with a clinical pretest probability (PTP) assessment model to exclude venous thromboembolism (VTE) in patients suspected of deep venous thrombosis (DVT) and pulmonary embolism (PE) A D-Dimer value less than 0.50 ?g/ml (FEU) has a negative predicative value of 96 to 100% (95% CI)and 97 to 100% (95% CI) as an aid in the diagnosis of deep vein thrombosis (DVT) and pulmonary embolism when there is low or moderate pretest probability of PE or DVT. D-Dimer values are expressed in initial fibrinogen equivalent units (FEU)" The assay results should be used with other information, including the clinical context, in forming a diagnosis. Lab Interpretation (test code = 31142-4) [facility]normal [facility] 14:20:49* Test Item Value Reference Range Interpretation Comme nts PHOSPHORUS (test code = 7619737547) 7.9 mg/dL 2.5-5.0 H Lab Interpretation (test cod e = 03940-0) [facility]normal [facility]wallHEPAT[facility] FUNCTION [facility] (34291) (ALB,T.PRO,BILI T,BU/BC,ALT,AST,ALK PHOS)2020-10-24 14:20:49* Test Item Value Reference Range Interpretation Comme nts TOTAL BILI (test code = 9128404521) 0.2 mg/dL 0.1-1.1 BILI UNCON (test code = 9948398245) 0.1 mg/dL 0.1-1.1 BILI CONJ (test code = 3491124856) 0.0 mg/dL 0.0-0.3 T PROTEIN (test code = 1231172233) 6.7 g/dL 6.3-8.2 ALBUMIN (test code = 6056546602) 3.3 g/dL 3.5-5.0 L ALK PHOS (test code = 4552036424) 56 U/L 34-122 ALTv (test code = 1742-6) 42 U/L 5-50 AST(SGOT) (test code = 5424395000) 60 U/L 13-40 H Lab Interpretation (test cod e = 59078-2) [facility]normal [facility]21-[facility]-15 14:20:49* Test Item Value Reference Range Interpretation Comme nts MAGNESIUM (test code = 6746401545) 3.2 mg/dL 1.7-2.4 H Lab Interpretation (test cod e = 63608-7) [facility]normal [facility]2020-10-24 13:31:14* Test Item Value Reference Range Interpretation Comme nts POCT GLU (test code = 3681638213) 87 mg/dL 70-110 Lab Interpretation (test cod e = 49831-1) [facility] ONLY COVID [id number] 11:17:59COVID DMT InterpretationInterpretation/Recommendations: Molecular NAAT Tests for Active Infection with the SARS-CoV-2 Virus: The current test result is positive for the SARS-CoV-2 virus that causes COVID-19 illness. In qdkd-xj-iaymmuvm illness, the patient may be considered no longer infectious when it has been after 10 days since symptom onset, the patient has been afebrile for 24 hours without the use of fever-reducing medications, AND other symptoms of COVID-19 are improving. However, in patients who have been severely ill with COVID-19 or are severely immunocompromised, isolation up to 20days after symptom onset is recommended. Asymptomatic patients are considered infectious for the first 10 days subsequent to the initial positive test result. From the onset of symptoms, if any, thisresult is likely to remain positive up to 2-4 weeks. Tests for IgM and/or IgG Antibodies to the SARS-CoV-2 Virus: ? Testing for IgM and IgG antibodies approximately 3 weeks after illness onset will likely indicate whether the patient has produced antibodies to the SARS-CoV-2 virus. However, some patients may take longer to develop detectable antibodies, while some patients who were infected with SARS-CoV-2 may never develop antibodies. While antibodies to SARS-CoV-2 may provide some degree of im munity, at this time the strength and duration of the antibody response is unknown. Interpretation Result Comments:These interpretation comments are based upon all COVID-19 testing the patient has had at [facility], including molecular NAAT testing (more commonly known as PCR testing and Rapid ID Now testing) and antibody testing.It does not take into account any testing that a patient has had outside of the [facility] medical record. [facility] LABORATORY SERVICESCOVID FtexjumWAMI-LxN-3 Rapid ID NOW (no units) ? ? Date ? Value ? 10/20/2020 ? Positive (A) ? [facility] SERVICESUnSt[facility] (NA, K, CL, CO2, GLUCOSE, BUN, CREATININE, CA) 2020-10-24 11:10:26* Test Item Value Reference Range Interpretation Comme nts NA (test code = 5269955073) 143 mmol/L 135-145 K (test code = 5988320287) 4.3 mmol/L 3.5-5.0 CL (test code = 2155225079) 111 mmol/L 98-108 H CO2 TOTAL (test code = 0653477430) 20 mmol/L 23-31 L AGAP (test code = 8868335896) 2-16 BUN (test code = 8378712091) 77 mg/dL 7-23 H GLUCOSE (test code = 5043891986) 108 mg/dL 70-110 CREATININE (test code = 3201435518) 3.45 mg/dL 0.60-1.25 H CALCIUM (test code = 2997336487) 8.0 mg/dL 8.6-10.6 L eGFR (test code = 9119719797) mL/min/1.73m2 SUDHAKAR (test code = SUDHAKAR) Association of Glomerular Filtration Rate (GFR) and Staging of Kidney Disease* + --+ --+ ------+| GFR (mL/min/1.73 m2) ?| With Kidney Damage ?| ?Without Kidney Damage+ --------+ --------+ +| ?>90 ?| ?Stage one ?| ? Normal ?+ ---+ ---+ -------+| ?60-89 ?| ?Stage two ?| ? Decreased GFR ? + --+ --+ ------+| ?30-59 ?| ?Stage three ?| ? Stage three ? + --+ --+ ------+| ?15-29 ?| ?Stage four ? | ? Stage four ?+ ---+ ---+ -------+| ?<15 (or dialysis) ? ?| ?Stage five ? | ? Stage five ?+ ---+ ---+ -------+ *Each stage assumes the associated GFR level has been in effect for at least three months. ?Stages 1 to 5, with or without kidney disease, indicate chronic kidney disease. Notes: Determination of stages one and two (with eGFR >59mL/min/1.73 m2) requires estimation of kidney damage for at least three months as defined by structural or functional abnormalities of the kidney, manifested by either:Pathological abnormalities or Markers of kidney damage (including abnormalities in the composition of the blood or urine or abnormalities in imaging tests). Lab Interpretation (test code = 26275-2) Abnormal [facility] GLUCOSE (AUTOMATED)2020-10-24 03:03:11* Test Item Value Reference Range Interpretation Comme [facility] POCT GLU (test code = 1287067193) 139 mg/dL 70-110 H Lab Interpretation (test cod e = 13909-9) Abnormal [facility] GLUCOSE (AUTOMATED)2020-10-23 22:18:53* Test Item Value Reference Range Interpretation Comme nts POCT GLU (test code = 1875976400) 126 mg/dL 70-110 H Lab Interpretation (test cod e = 42894-2) Abnormal [facility] GLUCOSE (AUTOMATED)2020-10-23 16:23:58* Test Item Value Reference Range Interpretation Comme nts POCT GLU (test code = 3958059151) 133 mg/dL 70-110 H Lab Interpretation (test cod e = 56493-6) [facility]normal [facility]20[facility]-14 16:05:15* Test Item Value Reference Range Interpretation Comme nts APPEARANCE (test code = 3845622055) Hazy Clear A COLOR (test code = 8743036306) Lisa Yellow A PH (test code = 7889974325) 4.8-8.0 SP GRAVITY (test code = 0935581562) 1.003-1.030 GLU U QUAL (test code = 3829821313) Normal Normal BLOOD (test code = 7524282955) 1+ Negative A KETONES (test code = 3987614113) Negative Negative PROTEIN (test code = 2887-8) 100 mg/dL Negative A UROBILIN (test code = 5286806409) Normal Normal BILIRUBIN (test code = 4462974234) Negative Negative NITRITE (test code = 9260803119) Negative Negative LEUK CHANDAN (test code = 2480200805) Negative Negative RBC/HPF (test code = 7069813937) See_Comment [Automated (In[employer]Touch Networka ge] The system which generated this result transmitted reference range: 0 - 3 HPF. The reference range was not used to interpret this result as normal/abnormal. WBC/HPF (test code = 5117690437) <1 See_Comment [Automated (In)[employer] Network[employer] ge] The system which generated this result transmitted reference range: 0 - 5 HPF. The reference range was not used to interpret this result as normal/abnormal. BACTERIA (test code = 5860099796) Negative Negative MUCOUS (test code = 7128338957) Slight Negative LPF A Lab Interpretation (test code = 82565-4) [facility]normal [facility]wall[facility]AT[facility], URINE [id number] 15:45:59* Test Item Value Reference Range Interpretation Comme nts CREAT U (test code = 3761876224) 246.3 mg/dL [facility]wallSODIUM, URINE [id number] 15:45:59* Test Item Value Reference Range Interpretation Comme nts NA URINE (test code = 4026549630) 31 mmol/L [facility])2020-10-23 13:36:03* Test Item Value Reference Range Interpretation Comme nts POCT GLU (test code = 9238105559) 139 mg/dL 70-110 H Lab Interpretation (test cod e = 48688-5) Abnormal [facility]wallVITAMIN D, [id number] 11:36:54* Test Item Value Reference Range Interpretation Comme nts VIT D 25OH (test code = 23067-7) 30 ng/mL 25-80 SUDHAKAR (test code = SUDHAKAR) Deficiency: <20 ng/mLInsufficiency : 20-24 ng/mLOptimal: 25-80 ng/mL Lab Interpretation (test code = 93246-6) Normal [facility] WITH [id number] 11:01:57* Test Item Value Reference Range Interpretation Comme nts WBC (test code = 6690-2) See_Comment [Automated messa ge] The system which generated this result transmitted reference range: 4.20 - 10.70 10*3/?L. The reference range was not used to interpret this result as normal/abnormal. RBC (test code = 789-8) See_Comment [Automated messa ge] The system which generated this result transmitted reference range: 4.26 - 5.52 10*6/?L. The reference range was not used to interpret this result as normal/abnormal. HGB (test code = 718-7) 15.0 g/dL 12.2-16.4 HCT (test code = 4544-3) 46.9 % 38.4-49.3 MCV (test code = 787-2) 97.1 fL 81.7-95.6 H MCH (test code = 785-6) 31.1 pg 26.1-32.7 MCHC (test code = 786-4) 32.0 g/dL 31.2-35.0 RDW-SD (test code = 10088-7) 47.3 fL 38.5-51.6 RDW-CV (test code = 788-0) 13.2 % 12.1-15.4 PLT (test code = 777-3) See_Comment H [Automated messa ge] The system which generated this result transmitted reference range: 150 - 328 10*3/?L. The reference range was not used to interpret this result as normal/abnormal. MPV (test code = 99558-9) 10.1 fL 9.8-13.0 NRBC/100 WBC (test code = 0303534355) See_Comment [Automated [employer] ssage] The system which generated this result transmitted reference range: 0.0 - 10.0 /100 WBCs. The reference range was not used to interpret this result as normal/abnormal. NRBC x10^3 (test code = 7080299483) <0.01 See_Comment [Automated messa ge] The system which generated this result transmitted reference range: 10*3/?L. The reference range was not used to interpret this result as normal/abnormal. GRAN MAT (NEUT) % (test code = 770-8) 76.4 % IMM GRAN % (test code = 8807022380) 0.40 % LYMPH % (test code = 736-9) 17.5 % MONO % (test code = 5905-5) 4.5 % EOS % (test code = 713-8) 0.6 % BASO % (test code = 706-2) 0.6 % GRAN MAT x10^3(ANC) (test code = 8499596132) 3.89 10*3/uL 1.99-6.95 IMM GRAN x10^3 (test code = 5400108288) <0.03 0.00-0.06 LYMPH x10^3 (test code = 731-0) 0.89 10*3/uL 1.09-3.23 L MONO x10^3 (test code = 742-7) 0.23 10*3/uL 0.36-1.02 L EOS x10^3 (test code = 711-2) 0.03 10*3/uL 0.06-0.53 L BASO x10^3 (test code = 704-7) 0.03 10*3/uL 0.01-0.09 Lab Interpretation (test code = 22748-7) Abnormal [facility] METABOLIC PANEL (NA, K, CL, CO2, GLUCOSE, BUN, CREATININE, CA)2020-10-23 10:54:10* Test Item Value Reference Range Interpretation Comme nts NA (test code = 9637135161) 140 mmol/L 135-145 K (test code = 9767012159) 4.5 mmol/L 3.5-5.0 CL (test code = 4905312083) 108 mmol/L 98-108 CO2 TOTAL (test code = 3655470903) 20 mmol/L 23-31 L AGAP (test code = 1407841646) 2-16 BUN (test code = 9723344994) 64 mg/dL 7-23 H GLUCOSE (test code = 2250786550) 157 mg/dL 70-110 H CREATININE (test code = 9409716423) 2.93 mg/dL 0.60-1.25 H CALCIUM (test code = 6535882210) 8.1 mg/dL 8.6-10.6 L eGFR (test code = 6978124524) mL/min/1.73m2 SUDHAKAR (test code = SUDHAKAR) Association of Glomerular Filtration Rate (GFR) and Staging of Kidney Disease* + --+ --+ ------+| GFR (mL/min/1.73 m2) ?| With Kidney Damage ?| ?Without Kidney Damage+ --------+ --------+ +| ?>90 ?| ?Stage one ?| ? Normal ?+ ---+ ---+ -------+| ?60-89 ?| ?Stage two ?| ? Decreased GFR ? + --+ --+ ------+| ?30-59 ?| ?Stage three ?| ? Stage three ? + --+ --+ ------+| ?15-29 ?| ?Stage four ? | ? Stage four ?+ ---+ ---+ -------+| ?<15 (or dialysis) ? ?| ?Stage five ? | ? Stage five ?+ ---+ ---+ -------+ *Each stage assumes the associated GFR level has been in effect for at least three months. ?Stages 1 to 5, with or without kidney disease, indicate chronic kidney disease. Notes: Determination of stages one and two (with eGFR >59mL/min/1.73 m2) requires estimation of kidney damage for at least three months as defined by structural or functional abnormalities of the kidney, manifested by either:Pathological abnormalities or Markers of kidney damage (including abnormalities in the composition of the blood or urine or abnormalities in imaging tests). Lab Interpretation (test code = 35716-2) [facility] 10:54:10* Test Item Value Reference Range Interpretation Comme nts MAGNESIUM (test code = 8209325051) 3.2 mg/dL 1.7-2.4 H Lab Interpretation (test cod e = 02607-0) [facility]normal [facility] 10:54:10* Test Item Value Reference Range Interpretation Comme nts PHOSPHORUS (test code = 4114491994) 8.2 mg/dL 2.5-5.0 H Lab Interpretation (test cod e = 53625-5) [facility]normal [facility]2020-10-23 01:52:56* Test Item Value Reference Range Interpretation Comme nts POCT GLU (test code = 1145470609) 114 mg/dL 70-110 H Lab Interpretation (test cod e = 35741-1) [facility]normal [facility]wallMR BRAIN WO [id number] 01:31:13Motion degraded exam. 1.4 cm left periatrial acute to subacute infarct.Additional punctate foci of acute to subacute ischemia in the bilateralcentrum semiovale and price radiata.EXAMINATION: MR BRAIN WO CONTRAST HISTORY: Neuro deficit, acute, stroke suspected Mental status change,unknown cause COMPARISON: ?10/20/20 CT. TECHNIQUE: Multiplanar and multisequence MRI imaging of the brain wasobtained without contrast. FINDINGS: Images degraded by motion artifacts.There are foci of increased T2/FLAIRsignal in the white matter which arenonspecific but likely sequelae of chronic ischemia.Small foci of abnormal susceptibility in the left basal ganglia and rightcorona radiata.The ventricles and sulci are prominent but within normal limits for age andnondisplaced. ?Chronic left basal ganglia lacunar infarct. Chronic right cerebellarinfarct. Scattered small foci of acute to subacute ischemia in the cerebralwhite matter in the bilateral centrum semiovale and price radiata withlargest focus left p eriatrial measuring 1.4 cm. The calvarium is normal. ?The orbits are unremarkable. Trace paranasalsinus mucosal thickening. [facility], Radiant Results Inft User - 10/22/2020 8:32 PM CDTEXAMINATION: MR BRAIN WO CONTRASTHISTORY: Neuro deficit, acute, stroke suspected Mental status change,unknown cause COMP ARISON: 10/20/20 CT.TECHNIQUE: Multiplanar and multisequence MRI imaging of the brain wasobtained without contrast.FINDINGS: Images degraded by motion artifacts.There are foci of increased T2/FLAIR signal in the white matter which arenonspecific but likely sequelae of chronic ischemia.Small foci of abnormal susceptibility in the left basal ganglia and rightcorona radiata.The ventricles and sulci are prominent but within normal limits for age andnondisplaced. Chronic left basal ganglia lacunar infarct. Chronic right cerebellarinfarct. Scattered small foci of acute to subacute ischemia in the cerebralwhite matter in the bilateral centrum semiovale and price radiata withlargest focus left periatrial measuring 1.4 cm.The calvarium is normal. The orbits are unremarkable. Trace paranasalsinus mucosal thickening.IMPRESSIONMotion degraded exam. 1.4 cm left periatrial acute to subacute infarct.Additional punctate foci of acute to subacute ischemia in the bilateralcentrum semiovale and price ra diata.[facility] GLUCOSE (AUTOMATED)2020-10-22 22:08:53* Test Item Value Reference Range Interpretation Comme nts POCT GLU (test code = 7848864629) 126 mg/dL 70-110 H Lab Interpretation (test cod e = 58329-9) Abnormal [facility] GLUCOSE (AUTOMATED)2020-10-22 17:47:42* Test Item Value Reference Range Interpretation Comme nts POCT GLU (test code = 1455353822) 102 mg/dL 70-110 Lab Interpretation (test cod e = 78098-5) Normal [facility] GLUCOSE (AUTOMATED)2020-10-22 13:28:14* Test Item Value Reference Range Interpretation Comme nts POCT GLU (test code = 6133938179) 100 mg/dL 70-110 Lab Interpretation (test cod e = 92238-1) Normal [facility] GLUCOSE (AUTOMATED)2020-10-22 01:45:26* Test Item Value Reference Range Interpretation Comme nts POCT GLU (test code = 1534155270) 123 mg/dL 70-110 H Lab Interpretation (test cod e = 73871-9) Abnormal [facility] GLUCOSE (AUTOMATED)2020-10-21 21:50:40* Test Item Value Reference Range Interpretation Comme nts POCT GLU (test code = 0207640378) 92 mg/dL 70-110 Lab Interpretation (test cod e = 03712-9) Normal [facility] GLUCOSE (AUTOMATED)2020-10-21 17:56:48* Test Item Value Reference Range Interpretation Comme nts POCT GLU (test code = 2117729023) 94 mg/dL 70-110 Lab Interpretation (test cod e = 43881-5) [id number]:02:37* Test Item Value Reference Range Interpretation Comme [facility] TROPONIN I (test code = 6685551586) 0.074 ng/mL See_Comment H [Automated message] The system which generated this result transmitted reference range: <=0.034. The reference range was not used to interpret this result as normal/abnormal. SUDHAKAR (test code = SUDHAKAR) Equal or Less than 0.034 ng/ml---Normal ?Note: Cardiac troponin begins to rise 3-4 hours after the onset of ischemia. Repeat in 4-6 hours if the sample was drawn within 3-4 hours of the onset of the symptom and found normal. Between 0.035 and 0.120 ng/mL--- Borderline. Questionable myocardial injury or necrosis ? ?Note: Serial measurement may be necessary to confirm or exclude the diagnosis of myocardial injury or necrosis; Clinical correlation (symptoms, EKGs, imaging studies, and others) required; Repeat in 4-6 hours if clinically indicated. ? Equal or Higher than 0.121 ng/mL---Abnormal. Myocardial Injury or Necrosis Likely ? Biotin has been reported to cause a negative bias, interpret results relative to patient's use of biotin. ? Lab Interpretation (test code = 67396-7) [facility]normal [facility]wall[facility]YCOSYLATED HEMOGLOBIN (A1C)2020-10-21 14:56:46* Test Item Value Reference Range Interpretation Comme [facility] HGB A1C (test code = 4548-4) 6.4 % 4.0-6.0 H Lab Interpretation (test cod e = 87160-7) Abnormal [facility]wallC-REACTIVE [id number] 14:21:54* Test Item Value Reference Range Interpretation Comme [facility] CRP (test code = 4623079285) 11.2 mg/dL <0.8 H Lab Interpretation (test cod e = 47941-3) Abnormal [facility]OM[facility])2020-10-21 13:33:30* Test Item Value Reference Range Interpretation Comme [facility] POCT GLU (test code = 1421179732) 96 mg/dL 70-110 Lab Interpretation (test cod e = 40447-4) Normal [facility]wallUS RETROPERITONEAL [id number] 13:33:10 Bilateral normal-appearing kidneys. Preliminary Report Dictated by Resident: Tien Mike MD., have reviewed this study and agree withthe above report.EXAM: US RETROPERITONEAL LIMITED HISTORY: r/o CKD TECHNIQUE: Multiple longitudinal and transverse grayscaleultrasonographic images were obtained of the kidneys. Images obtained byultrasound technologist. COMPARISON:None. FINDINGS: The kidneys demonstrate normal contour, shape and echogenicity. The rightkidney measures 10.9 x 4.1 x 3.7 cm and the left kidney measures 12 x 5.9 x5.6 cm. No perirenal collection or hydronephrosis identified. [facility], Radiant Results Inft User - 10/21/2020 8:34 AM CDTEXAM: US RETROPERITONEAL LIMITEDHISTORY: r/o CKD TECHNIQUE: Multiple longitudinal and transverse grayscaleultrasonographic images were obtained of the kidneys. Images obtained byultrasound technologist.COMPARISON: None.FINDINGS: The kidneys demonstrate normal contour, shape and echogenicity. The rightkidney arfbjwuq98.9 x 4.1 x 3.7 cm and the left kidney measures 12 x 5.9 x5.6 cm. No perirenal collection or hydronephrosis identified.IMPRESSIONBilateral normal-appearing kidneys.Preliminary Report Dictated by Resident: Tien Silvestre MD., have reviewed this study and agree withthe above report. [facility] Metabolic Panel (NA, K, CL, CO2, GLUCOSE, BUN, CREATININE, CA)2020-10-21 08:55:20* Test Item Value Reference Range Interpretation Comme nts NA (test code = 8144326692) 138 mmol/L 135-145 K (test code = 6542768275) 4.6 mmol/L 3.5-5.0 Slight hemolysis CL (test code = 4207125426) 105 mmol/L 98-108 CO2 TOTAL (test code = 5956430586) 24 mmol/L 23-31 AGAP (test code = 0014001063) 2-16 BUN (test code = 2362253410) 40 mg/dL 7-23 H Slight hemolysis GLUCOSE (test code = 3765447815) 106 mg/dL 70-110 CREATININE (test code = 4389440152) 1.59 mg/dL 0.60-1.25 H CALCIUM (test code = 6796952497) 7.5 mg/dL 8.6-10.6 L eGFR (test code = 1845959108) mL/min/1.73m2 SUDHAKAR (test code = SUDHAKAR) Association of Glomerular Filtration Rate (GFR) and Staging of Kidney Disease* + -----+ --------+ +| GFR (mL/min/1.73 m2) ?| With Kidney Damage ?| ?Without Kidney Damage+ +------- +---- --+| ?>90 ?| ?Stage one ?| ? Normal ?+ ------+ ---------+--------- +| ?60-89 ?| ?Stage two ?| ? Decreased GFR ? + -----+ --------+ +| ?30-59 ?| ?Stage three ?| ? Stage three ? + -----+ --------+ +| ?15-29 ?| ?Stage four ? | ? Stage four ?+ ------+ ---------+--------- +| ?<15 (or dialysis) ? ?| ?Stage five ? | ? Stage five ?+ ------+ ---------+--------- + *Each stage assumes the associated GFR level has been in effect for at least three months. ?Stages 1 to 5, with or without kidney disease, indicate chronic kidney disease. Notes: Determination of stages one and two (with eGFR >59mL/min/1.73 m2) requires estimation of kidney damage for at least three months as defined by structural or functional abnormalities of the kidney, manifested by either:Pathological abnormalities or Markers of kidney damage (including abnormalities in the composition of the blood or urine or abnormalities in imaging tests). Lab Interpretation (test code = 90158-1) Abnormal [facility]wallMagnesium [id number] 08:55:20* Test Item Value Reference Range Interpretation Comme nts MAGNESIUM (test code = 9761619237) 2.6 mg/dL 1.7-2.4 H Lab Interpretation (test cod e = 82882-5) Abnormal [facility]wallCREATININE, URINE [id number] 08:38:57* Test Item Value Reference Range Interpretation Comme nts CREAT U (test code = 7258870065) 159.6 mg/dL [facility] RockwallSODIUM, URINE [id number] 08:38:57* Test Item Value Reference Range Interpretation Comme nts NA URINE (test code = 0862386551) 46 mmol/L [facility] RockwallUREA NITROGEN, URINE [id number] 08:38:57 * Test Item Value Reference Range Interpretation Comme nts UREA N UR (test code = 1590931780) 1385 mg/dL [facility] RockwallLEGIONELLA URINARY ANTIGEN [id number] 07:50:23* Test Item Value Reference Range Interpretation Comme nts Legionella Urinary Antigen (test code = 6825425293) Negative Negative SUDHAKAR (test code = SUDHAKAR) Negative for L. pneumophilia serogroup I antigen in urine suggesting no recent or current infection. Infection due to Legionella cannot be ruled out since other serogroups and species may cause disease. Furthermore, antigens may not be present in urine during early stage of infection, or the level of antigen present in urine may be below the detection limit of the test. Lab Interpretation (test code = 10450-3) Normal [facility] RockwallPNEUMOCOCCAL [id number] 07:50:03* Test Item Value Reference Range Interpretation Comme nts S. pneumoniae antigen (test code = 8632956059) Negative Negative Lab Interpretation (test cod e = 95856-0) Normal [facility] RockwallHIV 1/2 AG-AB WITH [id number] 06:12:28* Test Item Value Reference Range Interpretation Comme nts HIV Semi-quantitative (test code = 11647-3) Negative Negative SUDHAKAR (test code = SUDHAKAR) Non-reactive for HIV-1 antigen and HIV-1/HIV-2 antibodies. ?No laboratory evidence of HIV infection. ?Repeat in 2-4 weeks if acute HIV infection is suspected. [facility] RockwallVITAMIN B12, [id number] 05:03:12* Test Item Value Reference Range Interpretation Comme nts VIT B12 (test code = 3128921040) >1000 240-930 H SUDHAKAR (test code = SUDHAKAR) Biotin has been reported to cause a positive bias, interpret results relative to patient's use of biotin. Lab Interpretation (test code = 61347-0) Abnormal [facility] RockwallFERRITIN [id number] 04:54:00* Test Item Value Reference Range Interpretation Comme nts FERRITIN (test code = 2398307071) 943.0 ng/mL 18.0-464.0 H SUDHAKAR (test code = SUDHAKAR) Biotin has been reported to cause a negative bias, interpret results relative to patient's use of biotin. Lab Interpretation (test code = 08180-0) Abnormal [facility] RockwallINTACT PTH CALCIUM [id number] 04:15:28* Test Item Value Reference Range Interpretation Comme nts PTH-INTACT (test code = 5509530809) 160.5 pg/mL 12.0-88.0 H PTH-CA Interpretation (test code = 7319450591) Further clinical data needed for interpretation. CALCIUM (test code = 7602212519) 7.9 mg/dL 8.6-10.6 L Lab Interpretation (test code = 15621-6) Abnormal [facility] RockwallPROCALCITONIN2021-04-12 04:14:02* Test Item Value Reference Range Interpretation Comme nts Procalcitonin (test code = 3487148096) 0.42 ng/mL <0.07 H SUDHAKAR (test code = SUDHAKAR) INTERPRETATION OF PROCALCITONIN RESULTS IN ADULTS >= 18 YEARS OF AGE Initiation and discontinuation of antibiotics on patients with suspected or confirmed Lower Respiratory Tract Infection in Adults >= 18 years of age. + +-------- --------+ + -----+|Procalcitonin |Interpretation ?|Antibiotic ? ? |Considerations ? |ng/mL ? | ?|recommendation | ? + +-------- --------+ + -----+| <0.1 ? | Bacterial ? ? ?| Strongly ? ? ?| ? | ?| infection very | discouraged ? | Overruling: ? | ?| unlikely ? ? ? | ? | ? Clinically unstable ? ? ? + +-------- --------+ + ? High risk for adverse ? ? | <0.25 ?| Bacterial ? ? ?| Discouraged ? | ? outcome ? | ?| infection ? ? ?| ? | ? SEE IMPORTANT NOTE ?| ?| unlikely ? ? ? | ? | ? + +-------- --------+ + -----+| >=0.25 ? ? ? | Bacterial ? ? ?| Encouraged ? ?| ? | ?| infection ? ? ?| ? | ? | ?| likely ? | ? | Consider treatment failure ?+ +------- ---------+ -+ if levels does not decrease | >0.5 ? | Bacterial ? ? ?| Strongly ? ? ?| appropriately ? | ?| infection very | encouraged ? ?| ? | ?| likely ? | ? | ? + +-------- --------+ + -----+ Discontinuation of antibiotics in high-acuity patients with suspected or confirmed sepsis in Adults >= 18 years of age. + +-------- --------+ + -----+|Procalcitonin |Interpretation ?|Antibiotic ? ? |Considerations ? |ng/mL ? | ?|recommendation | ? + +-------- --------+ + -----+| <0.25 ?| Bacterial ? ? ?| Strongly ? ? ?| ? | ?| infection very | discouraged ? | Overruling: ? | ?| unlikely ? ? ? | ? | ? Clinically unstable ? ? ? + +-------- --------+ + ? High risk for adverse ? ? | <0.5 or drop | Bacterial ? ? ?| Discouraged ? | ? outcome ? | >80% from ? ?| infection ? ? ?| ? | ? SEE IMPORTANT NOTE ?| highest PCT ?| unlikely ? ? ? | ? | ? | level ?| ?| ? | ? + +-------- --------+ + -----+| >=0.5 ?| Bacterial ? ? ?| Encouraged ? ?| ? | ?| infection ? ? ?| ? | ? | ?| likely ? | ? | Consider treatment failure ?+ +------- ---------+ -+ if levels does not decrease | >1.0 ? | Bacterial ? ? ?| Strongly ? ? ?| appropriately ? | ?| infection very | encouraged ? ?| ? | ?| likely ? | ? | ? + +-------- --------+ + -----+ Percentage of drop of Procalcitonin calculation for Discontinuation of antibiotics in high-acuity patients with suspected or confirmed sepsis in Adults >= 18 years of age. ? Procalcitonin highest{}-Procalcitonin current{}Delta Procalcitonin = x100% ? Procalcitonin current {} IMPORTANT NOTE: Procalcitonin may be elevated without bacterial infection by physiologic stress related to trauma, cordoba, chronic dialysis, metastatic cancer, surgery in the past seven days, malaria, some fungal infections, and some forms of vasculitis. The interpretation algorithm may not apply to patients with immunosuppression (equivalent of >10 mg of prednisone daily), HIV with CD4 cell count < 350 cells/mm3, active malignancy on systemic chemotherapy, solid organ transplant or hematopoietic stem cell transplantation, or hospital acquired pneumonia. Additionally, some clinical trials of procalcitonin have excluded patients with shock requiring vasopressor use, acute respiratory failure requiring mechanical ventilation, or those with known lung abscess/empyema. For further information please refer to:[email or web address] Lab Interpretation (test code = 12303-1) Abnormal [facility] RockwallBHARATI [id number] 03:47:02* Test Item Value Reference Range Interpretation Comme nts TROPONIN I (test code = 5516277215) 0.085 ng/mL See_Comment H [Automated message] The system which generated this result transmitted reference range: <=0.034. The reference range was not used to interpret this result as normal/abnormal. SUDHAKAR (test code = SUDHAKAR) Equal or Less than 0.034 ng/ml---Normal ?Note: Cardiac troponin begins to rise 3-4 hours after the onset of ischemia. Repeat in 4-6 hours if the sample was drawn within 3-4 hours of the onset of the symptom and found normal. Between 0.035 and 0.120 ng/mL--- Borderline. Questionable myocardial injury or necrosis ? ?Note: Serial measurement may be necessary to confirm or exclude the diagnosis of myocardial injury or necrosis; Clinical correlation (symptoms, EKGs, imaging studies, and others) required; Repeat in 4-6 hours if clinically indicated. ? Equal or Higher than 0.121 ng/mL---Abnormal. Myocardial Injury or Necrosis Likely ? Biotin has been reported to cause a negative bias, interpret results relative to patient's use of biotin. ? Lab Interpretation (test code = 89629-7) Abnormal [facility]wallETHANOL2021-04-12 03:36:45* Test Item Value Reference Range Interpretation Comme nts ALCOHOL (test code = 0338550065) <10 mg/dL SUDHAKAR (test code = SUDHAKAR) Toxic Greater than or equal to 80 mg/dL. NOTE: Whole blood values are approximately 10% to 15% lower than serum and plasma. [facility] RockwallD-[id number] 03:32:58* Test Item Value Reference Range Interpretation Comments D-DIMER (test code = 2622643709) See_Comment H [Automated message] The system which generated this result transmitted reference range: <0.50 ?g/mL (FEU). The reference range was not used to interpret this result as normal/abnormal. SUDHAKAR (test code = SUDHAKAR) This test may be used in conjunction with a clinical pretest probability (PTP) assessment model to exclude venous thromboembolism (VTE) in patients suspected of deep venous thrombosis (DVT) and pulmonary embolism (PE) A D-Dimer value less than 0.50 ?g/ml (FEU) has a negative predicative value of 96 to 100% (95% CI)and 97 to 100% (95% CI) as an aid in the diagnosis of deep vein thrombosis (DVT) and pulmonary embolism when there is low or moderate pretest probability of PE or DVT. D-Dimer values are expressed in initial fibrinogen equivalent units (FEU)" The assay results should be used with other information, including the clinical context, in forming a diagnosis. Lab Interpretation (test code = 72647-5) Abnormal [facility] RockwallLACTATE [id number] 03:31:58* Test Item Value Reference Range Interpretation Comme nts LDH (test code = 0685398266) 913 U/L 300-600 H Lab Interpretation (test cod e = 80872-3) [facility]normal [facility]wallPHOSPHORUS2021-04-12 03:31:58* Test Item Value Reference Range Interpretation Comme nts PHOSPHORUS (test code = 1691075944) 5.9 mg/dL 2.5-5.0 H Lab Interpretation (test cod e = 27831-5) Abnormal [facility] RockwallLIPID PANEL (40417)(TOTAL CHOLESTEROL, TRIGLYCERIDES, HDL)2020-10-21 03:31:58* Test Item Value Reference Range Interpretation Comme nts CHOL (test code = 0516912993) 222 mg/dL 120-200 H HDL (test code = 0125333702) 21 mg/dL >40 L HDLC RATIO (test code = 9916376526) See_Comment H [Automated [employer]] The system which generated this result transmitted reference range: <=5.0. The reference range was not used to interpret this result as normal/abnormal. TRIG (test code = 0857358652) 169 mg/dL 30-170 LDL CHOL (test code = 21948-9) 167 mg/dL See_Comment H [Automated [employer]] The system which generated this result transmitted reference range: <=160. The reference range was not used to interpret this result as normal/abnormal. VLDL (test code = 4894389500) 34 mg/dL 5-60 Lab Interpretation (test code = 79960-8) Abnormal [facility] RockwallLaaric Acid Whole [id number] 03:17:20* Test Item Value Reference Range Interpretation Comme nts LACTIC ACID (test code = 3361238335) 1.93 mmol/L 0.50-2.20 QUES Lab Interpretation (test cod e = 50879-5) Normal [facility] 1 [id number] 02:34:14Right lower lobe patchy airspace opacity likely represents pneumonia in theappropriate clinical setting. Preliminary Report Dictated by Resident: Jhoan Morales MD., have reviewed this study and agree with theabove report.EXAM: XR CHEST 1 VW CLINICAL INDICATION: AMS, hypoxia COMPARISON: None FINDINGS: The lungs are well-expanded with a patchy airspace opacity at the rightlung base which appears suspicious for pneumonia. No pleural effusion orpneumothorax. The cardiac silhouette is normal in size. No acute osseous abnormality. [facility], Radiant Results Inft User - 19:35 PM CDTEXAM: XR CHEST 1 VWCLINICAL INDICATION: AMS, hypoxia COMPARISON: NoneFINDINGS:The lungs a re well-expanded with a patchy airspace opacity at the rightlung base which appears suspicious for pneumonia. No pleural effusion orpneumothorax.The cardiac silhouette is normal in size. No acute osseous abnormality. IMPRESSIONRight lower lobe patchy airspace opacity likely represents pneumonia in theappropriate clinical setting.Preliminary Report Dictated by Resident: Jhoan Nash MD., have reviewed this study and agree with theabove report. [facility] - Duration of test: 20-60 mins; Release to patient: [id number] 00:00:00Date and Time of Procedure: 10/21/2020, 10:07:00-10:30:00 REPORT TECHNICAL SUMMARY: The EEG was recorded digitally. Electrodes were applied using the International 10/20 System of electrode placement.Eye movements, respiratory excursions and rhythm strip ECG were monitored on separate channels of the ongoing EEG recording. The occipital dominant rhythm consists of moderate amplitude 8-9 Hz activity. More anteriorly, similar as well as faster frequencies are present, including low amplitude 18-22 Hz activities in the anterior leads. There is an excessive amount of 4-8 Hz activity diffusely. The slowing is most prominent in the right temporal head region, where the frequencies are as slow as 2 Hz. Drowsiness and sleep does not reveal additional abnormalities. Photic stimulation does not elic it additional abnormalities. IMPRESSION: This EEG is abnormal due to:1) mild diffuse slowing, suggestive of a mild diffuse disturbance in cerebral function.2) focal slowing in the right temporal headregion, suggestive of a focal disturbance in the that region. No electrographic seizures or epileptiform abnormalities are seen. Khadar Pelletier Rai, MD Date of interpretation: 10/21/2020[facility] [id number] 22:55:26* Test Item Value Reference Range Interpretation Comme nts APPEARANCE (test code = 2902593179) Hazy Clear A COLOR (test code = 2953408622) Yellow Yellow PH (test code = 0107467532) 4.8-8.0 SP GRAVITY (test code = 3348371362) 1.003-1.030 H GLU U QUAL (test code = 2997647113) Normal Normal BLOOD (test code = 8127583790) 1+ Negative A KETONES (test code = 2036480629) Negative Negative PROTEIN (test code = 2887-8) 100 mg/dL Negative A UROBILIN (test code = 7254770169) Normal Normal BILIRUBIN (test code = 4828821199) Negative Negative NITRITE (test code = 9536892183) Negative Negative LEUK CHANDAN (test code = 6541826074) Negative Negative RBC/HPF (test code = 6130661195) See_Comment [Automated (In)Touch Networka ge] The system which generated this result transmitted reference range: 0 - 3 HPF. The reference range was not used to interpret this result as normal/abnormal. WBC/HPF (test code = 0004503539) See_Comment [Automated (In)Touch Networka ge] The system which generated this result transmitted reference range: 0 - 5 HPF. The reference range was not used to interpret this result as normal/abnormal. BACTERIA (test code = 6672729090) Few Negative A MUCOUS (test code = 5561381444) Moderate Negative LPF A SQ EPITH (test code = 3380456083) HPF Lab Interpretation (test code = 96689-4) Abnormal [facility] [id number] 22:32:04Multiple areas of moderate to high-grade stenosis in the distal leftcervical vertebral artery. There are several areas of moderate stenosis ofthe left intracerebral vertebral artery. Mild to moderatestenosis in the right middle cerebral artery and mildstenosis of left middle cerebral artery. No evidence for aneurysm or occlusion in the n[place] of [place]. Groundglass opacities in the bilateral upper lobes and partially visualizedright lower lobe consistent with a multifocal infectious/inflammatorypneumonitis. Correlate clinically. RL 4728 RING PHYSICIAN: BREANA RABAGO HISTORY: Stroke. COMPARISON: Head CT from same date TECHNIQUE: CT angiographic images of the head and neck with IV contrast. Standard and 3-D reconstructions p erformed. NASCET criteria used forevaluating stenosis. CT performed with ALARA (As Low As ReasonablyAchievable) principles. FINDINGS: Groundglass opacities in the upper lobes, right greater than left.Groundglass opacities also noted in the partially visualized right lowerlobe. Paranasal sinuses areunremarkable. Airways are normal. ?Glandularelements of the neck are normal. No soft tissue masses i dentified. Nopathologic lymphadenopathy. Osseous structures of the neck are withinnormal limits forpatient's age. ? Normal aortic arch. Normal great vessel takeoff. ?No significant stenosisin the right carotid arteries. ?No significant stenosis in the left carotidarteries. ?Right vertebral artery is normal. Multiple areas of moderate tohigh-grade stenosis in the distal left cervical vertebral artery. Intracranial carotid arteries normal. Normal anterior cerebral arteries. There are areas of wccu-sx-rkewcczn stenosis in the right middle cerebralartery. Mild stenosis in the left middle cerebral artery. Normal posteriorcerebral arteries. ?There are multiple areas of moderate stenosis of theleft intracerebral vertebral artery. Right vertebral artery and basilarartery are normal. [facility], Radiant Results Inft User - 10/20/2020 5:33 PM CDTORDERING PHYSICIAN: BREANA RABAGOHISTORY: Stroke.COMPARISON: Head CT from same dateTECHNIQUE: CT angiographic images of the head and neck with IV contrast. Standard and 3-D reconstructions performed. NASCET criteria used forevaluating stenosis. CT performed with ALARA (As Low As ReasonablyAchievable) principles.FINDINGS:Groundglass opacities in the upper lobes, right greater than left.Groundglass opacities also noted in the partially visualized right lowerlobe. Paranasal sinuses are unremarkable. Airways are normal. Glandularelements of the neck are normal. No soft tissue masses identified. Nopathologic lymphadenopathy. Osseous structures of the neck are withinnormal limits for patient's age. Normal aortic arch. Normal great vessel takeoff. No significant stenosisin the right carotid arteries. No significant stenosis in the left carotidarteries. Right vertebral artery is normal. Multiple areas of moderate tohigh-grade stenosis in the distal left cervical vertebral artery.Intracranial carotid arteries normal. Normal anterior cerebral arteries. There are areas of qqnz-kx-rjzknpxa stenosis in the right middle cerebralartery. Mild stenosis in the left middle cerebral artery. Normal posteriorcerebral arteries. There are multiple areas ofmoderate stenosis of theleft intracerebral vertebral artery. Right vertebral artery and basilarartery are normal.IMPRESSIONMultiple areas of moderate to high-grade stenosis in the distal leftcervicalvertebral artery. There are several areas of moderate stenosis ofthe left intracerebral vertebral artery.Mild to moderate stenosis in the right middle cerebral artery and mildstenosis of left middle cerebral artery.No evidence for aneurysm or occlusion in the [place] of [place].Groundglass opacities in the bilateral upper lobes and partially visualizedright lower lobe consistent with a multifocal infectious/inflammatorypneumonitis. Correlate clinically.RL [id number] signed by Nikko Jeong 10/20/2020 5:32 PMUnSt[facility] CenterCT ANGIOGRAM [id number] 22:32:04Multiple areas of moderate to high-grade stenosis in the distal leftcervical vertebral artery. There are several areas of moderate stenosis ofthe left intracerebral vertebral artery. Mild to moderatestenosis in the right middle cerebral artery and mildstenosis of left middle cerebral artery. No evidence for aneurysm or occlusion in the [place] of [place]. Groundglass opacities in the bilateral upper lobes and partially visualizedright lower lobe consistent with a multifocal infectious/inflammator ypneumonitis. Correlate clinically. RL 4728 RING PHYSICIAN: BREANA RABAGO HISTORY: Stroke. COMPARISON: Head CT from same date TECHNIQUE: CT angiographic images of the head and neck with IV contrast. Standard and 3-D reconstructions performed. NASCET criteria used forevaluating stenosis. CT performed with ALARA (As Low As ReasonablyAchievable) principles. FINDINGS: Groundglass opacities in the upper lobes, right greater than left.Groundglass opacities also noted in the partially visualized right lowerlobe. Paranasal sinuses areunremarkable. Airways are normal. ?Glandularelements of the neck are normal. No soft tissue masses i dentified. Nopathologic lymphadenopathy. Osseous structures of the neck are withinnormal limits forpatient's age. ? Normal aortic arch. Normal great vessel takeoff. ?No significant stenosisin the right carotid arteries. ?No significant stenosis in the left carotidarteries. ?Right vertebral artery is normal. Multiple areas of moderate tohigh-grade stenosis in the distal left cervical vertebral artery. Intracranial carotid arteries normal. Normal anterior cerebral arteries. There are areas of bxpu-js-qtznktib stenosis in the right middle cerebralartery. Mild stenosis in the left middle cerebral artery. Normal posteriorcerebral arteries. ?There are multiple areas of moderate stenosis of theleft intracerebral vertebral artery. Right vertebral artery and basilarartery are normal. [facility], Radiant Results Inft User - 10/20/2020 5:33 PM CDTORDERING PHYSICIAN: BREANA RABAGOHISTORY: Stroke.COMPARISON: Head CT from same dateTECHNIQUE: CT angiographic images of the head and neck with IV contrast. Standard and 3-D reconstructions performed. NASCET criteria used forevaluating stenosis. CT performed with ALARA (As Low As ReasonablyAchievable) principles.FINDINGS:Groundglass opacities in the upper lobes, right greater than left.Groundglass opacities also noted in the partially visualized right lowerlobe. Paranasal sinuses are unremarkable. Airways are normal. Glandularelements of the neck are normal. No soft tissue masses identified. Nopathologic lymphadenopathy. Osseous structures of the neck are withinnormal limits for patient's age. Normal aortic arch. Normal great vessel takeoff. No significant stenosisin the right carotid arteries. No significant stenosis in the left carotidarteries. Right vertebral artery is normal. Multiple areas of moderate tohigh-grade stenosis in the distal left cervical vertebral artery.Intracranial carotid arteries normal. Normal anterior cerebral arteries. There are areas of xeyz-dc-guqxhhmy stenosis in the right middle cerebralartery. Mild stenosis in the left middle cerebral artery. Normal posteriorcerebral arteries. There are multiple areas ofmoderate stenosis of theleft intracerebral vertebral artery. Right vertebral artery and basilarartery are normal.IMPRESSIONMultiple areas of moderate to high-grade stenosis in the distal leftcervicalvertebral artery. There are several areas of moderate stenosis ofthe left intracerebral vertebral artery.Mild to moderate stenosis in the right middle cerebral artery and mildstenosis of left middle cerebral artery.No evidence for aneurysm or occlusion in the [place] of [place].Groundglass opacities in the bilateral upper lobes and partially visualizedright lower lobe consistent with a multifocal infectious/inflammatorypneumonitis. Correlate clinically.RL [id number] signed by Nikko Jeong 10/20/2020 5:32 PMUnSt[address] Luke[facility] Medical CenterCT Head W/O [id number] 21:46:26No acute intracranial abnormality. Generalized cerebral atrophy and chronic microvascular ischemic d isease. Old right cerebellar infarct. RL 4728 CT HEAD WITHOUT ORDERING PHYSICIAN: BREANA RABAGO CLINICAL HISTORY: Alteration of awareness. TECHNIQUE: Multiple CT images of the head were obtained without contrast.CT performed with ALARA (As Low As Reasonably Achievable) principles. COMPARISON: None available. FINDINGS: There is no acuteintracranial hemorrhage. No extra axial fluidcollections. No midline shift. The ventricles and sulci are prominentcompatible with generalized cerebral atrophy. ?There is hypodensity in theperiventricular white matter compatible with chronic microvascular ischemicdisease. The quick-white matter differentiation is preserved. Old rightcerebellar infarct. The visualized paranasal sinuses and mastoid air cellsare clear. ?Osseous structures are unremarkable. ? [facility], Radiant Results Inft User - 10/20/2020 4:47 PM CDTCT HEAD WITHOUTORDERING PHYSICIAN: BREANA RABAGOCLINICAL HISTORY: Alteration of aw areness.TECHNIQUE: Multiple CT images of the head were obtained without contrast.CT performed with ALARA (As Low As Reasonably Achievable) principles.COMPARISON: None available.FINDINGS: There is no acute intracranial hemorrhage. No extra axial fluidcollections. No midline shift. The ventricles andsulci are prominentcompatible with generalized cerebral atrophy. There is hypodensity in theperiventricular white matter compatible with chronic microvascular ischemicdisease. The quick-white matter differentiation is preserved. Old rightcerebellar infarct. The visualized paranasal sinuses and mastoid air cellsare clear. Osseous structures are unremarkable. IMPRESSIONNo acute intracranial abnormality. Generalized cerebral atrophy and chronic microvascular ischemic disease.Old right cerebellar infarct.RL 4728 [facility] CenterTHYROID STIMULATING [id number] 21:29:59* Test Item Value Reference Range Interpretation Comme nts TSH (test code = 1120485329) See_Comment [Automated messa ge] The system which generated this result transmitted reference range: 0.45 - 4.70 mIU/L. The reference range was not used to interpret this result as normal/abnormal. Lab Interpretation (test code = 28779-5) Normal [facility]wallTroponin [id number] 21:11:38* Test Item Value Reference Range Interpretation Comme nts TROPONIN I (test code = 2337512365) 0.079 ng/mL See_Comment H [Automated message] The system which generated this result transmitted reference range: <=0.034. The reference range was not used to interpret this result as normal/abnormal. SUDHAKAR (test code = SUDHAKAR) Equal or Less than 0.034 ng/ml---Normal ?Note: Cardiac troponin begins to rise 3-4 hours after the onset of ischemia. Repeat in 4-6 hours if the sample was drawn within 3-4 hours of the onset of the symptom and found normal. Between 0.035 and 0.120 ng/mL--- Borderline. Questionable myocardial injury or necrosis ? ?Note: Serial measurement may be necessary to confirm or exclude the diagnosis of myocardial injury or necrosis; Clinical correlation (symptoms, EKGs, imaging studies, and others) required; Repeat in 4-6 hours if clinically indicated. ? Equal or Higher than 0.121 ng/mL---Abnormal. Myocardial Injury or Necrosis Likely ? Biotin has been reported to cause a negative bias, interpret results relative to patient's use of biotin. ? Lab Interpretation (test code = 18413-1) Abnormal [facility] RockwallaPTT2021-04-11 21:09:17* Test Item Value Reference Range Interpretation Comme nts APTT Patient (test code = 3173-2) See_Comment [Automated message] The system which generated this result transmitted reference range: 23 - 38 Seconds. The reference range was not used to interpret this result as normal/abnormal. SUDHAKAR (test code = SUDHAKAR) The [facility] patient population mean normal value for aPTT is 30 seconds. Lab Interpretation (test code = 59371-0) Normal [facility] RockwallN-TERMINAL [id number] 21:08:22* Test Item Value Reference Range Interpretation Comme [facility] NT-proBNP (test code = 4520435394) 117 pg/mL See_Comment [Automated message] The system which generated this result transmitted reference range: <=125. The reference range was not used to interpret this result as normal/abnormal. SUDHAKAR (test code = SUDHAKAR) Biotin has been reported to cause a negative bias, interpret results relative to patient's use of biotin. Lab Interpretation (test code = 02806-0) Normal [facility]wallProthrombin Time (PT) / [id number] 21:06:42 * Test Item Value Reference Range Interpretation Comme [facility] PROTIME PATIENT (test code = 5964-2) See_Comment [Automated messa ge] The system which generated this result transmitted reference range: 12.0 - 14.7 Seconds. The reference range was not used to interpret this result as normal/abnormal. INR (test code = 6301-6) Normal INR <1.1; Warfarin Therapeutic range 2.0 to 3.0 or 2.5 to 3.5, depending upon the indications. Lab Interpretation (test code = 58484-0) Normal [facility]wallMAGNESIUM2021-04-11 20:59:59* Test Item Value Reference Range Interpretation Comme nts MAGNESIUM (test code = 5409621629) 2.8 mg/dL 1.7-2.4 H Lab Interpretation (test cod e = 20721-6) Abnormal [facility]wallBasi Metabolic Panel (NA, K, CL, CO2, GLUCOSE, BUN, CREATININE, CA)2020-10-20 20:59:38* Test Item Value Reference Range Interpretation Comme nts NA (test code = 4065899785) 137 mmol/L 135-145 K (test code = 7266221691) 4.8 mmol/L 3.5-5.0 CL (test code = 8923493875) 100 mmol/L 98-108 CO2 TOTAL (test code = 1499798589) 28 mmol/L 23-31 AGAP (test code = 8772121141) 2-16 BUN (test code = 6658919908) 43 mg/dL 7-23 H GLUCOSE (test code = 0295343874) 128 mg/dL 70-110 H CREATININE (test code = 7169404380) 1.75 mg/dL 0.60-1.25 H CALCIUM (test code = 2159602401) 8.5 mg/dL 8.6-10.6 L eGFR (test code = 0088997425) mL/min/1.73m2 SUDHAKAR (test code = SUDHAKAR) Association of Glomerular Filtration Rate (GFR) and Staging of Kidney Disease* + --+ --+ ------+| GFR (mL/min/1.73 m2) ?| With Kidney Damage ?| ?Without Kidney Damage+ --------+ --------+ +| ?>90 ?| ?Stage one ?| ? Normal ?+ ---+ ---+ -------+| ?60-89 ?| ?Stage two ?| ? Decreased GFR ? + --+ --+ ------+| ?30-59 ?| ?Stage three ?| ? Stage three ? + --+ --+ ------+| ?15-29 ?| ?Stage four ? | ? Stage four ?+ ---+ ---+ -------+| ?<15 (or dialysis) ? ?| ?Stage five ? | ? Stage five ?+ ---+ ---+ -------+ *Each stage assumes the associated GFR level has been in effect for at least three months. ?Stages 1 to 5, with or without kidney disease, indicate chronic kidney disease. Notes: Determination of stages one and two (with eGFR >59mL/min/1.73 m2) requires estimation of kidney damage for at least three months as defined by structural or functional abnormalities of the kidney, manifested by either:Pathological abnormalities or Markers of kidney damage (including abnormalities in the composition of the blood or urine or abnormalities in imaging tests). Lab Interpretation (test code = 07297-0) Abnormal [facility]wall[facility]atic Function Panel (ALB, T.PRO, BILI T, BU/BC, ALT, AST, ALK PHOS)2020-10-20 20:59:38* Test Item Value Reference Range Interpretation Comme nts TOTAL BILI (test code = 9401719026) 0.7 mg/dL 0.1-1.1 BILI UNCON (test code = 5461590205) 0.4 mg/dL 0.1-1.1 BILI CONJ (test code = 1115217437) 0.0 mg/dL 0.0-0.3 T PROTEIN (test code = 5091845439) 7.9 g/dL 6.3-8.2 ALBUMIN (test code = 7974581605) 4.4 g/dL 3.5-5.0 ALK PHOS (test code = 9436348037) 68 U/L 34-122 ALTv (test code = 1742-6) 66 U/L 5-50 H AST(SGOT) (test code = 2061084274) 73 U/L 13-40 H Lab Interpretation (test cod e = 30560-2) Abnormal [facility] RockwallLipase [id number] 20:59:18* Test Item Value Reference Range Interpretation Comme nts LIPASE (test code = 0184911077) 453 U/L 0-220 H Lab Interpretation (test cod e = 83151-2) Abnormal [facility]wallCOVID-19 (ID NOW RAPID TESTING)2020-10-20 20:54:56* Test Item Value Reference Range Interpretation Comme nts SARS-CoV-2 Rapid ID NOW (test code = 51507-9) Positive Not Detected A SUDHAKAR (test code = SUDHAKAR) ID NOW COVID-19 As say is an isothermal nucleic acid amplification test intended for the qualitative detection of nucleic acid from SARS-CoV-2 viral RNA in nasopharyngeal (CHECK AND TRANSFER BEADER) specimens. It is used under Emergency Use Authorization (EUA) by FDA. The limit of detection (LOD) of the assay is 125 Genome Equivalents/mL. A positive result is indicative of the presence of SARS-CoV-2 RNA. ?Clinical correlation with patient history and other diagnostic information is necessary to determine patient infection status. A negative (Not Detected) result does not preclude SARS-CoV-2 infection. In patients with clinical symptoms and other tests that are consistent with SARS-CoV-2 infection, negative results should be treated as presumptive negative and a new specimen should be tested with alternative PCR molecular test. Invalid: Please collect a new specimen for repeat patient testing if clinically indicated. Lab Interpretation (test code = 50665-6) Abnormal [facility] with [id number] 20:54:01* Test Item Value Reference Range Interpretation Comme nts WBC (test code = 6690-2) See_Comment L [Automated messa ge] The system which generated this result transmitted reference range: 4.20 - 10.70 10*3/?L. The reference range was not used to interpret this result as normal/abnormal. RBC (test code = 789-8) See_Comment [Automated messa ge] The system which generated this result transmitted reference range: 4.26 - 5.52 10*6/?L. The reference range was not used to interpret this result as normal/abnormal. HGB (test code = 718-7) 15.7 g/dL 12.2-16.4 HCT (test code = 4544-3) 46.7 % 38.4-49.3 MCV (test code = 787-2) 94.0 fL 81.7-95.6 MCH (test code = 785-6) 31.6 pg 26.1-32.7 MCHC (test code = 786-4) 33.6 g/dL 31.2-35.0 RDW-SD (test code = 91478-3) 43.6 fL 38.5-51.6 RDW-CV (test code = 788-0) 12.6 % 12.1-15.4 PLT (test code = 777-3) See_Comment [Automated messa ge] The system which generated this result transmitted reference range: 150 - 328 10*3/?L. The reference range was not used to interpret this result as normal/abnormal. MPV (test code = 92523-4) 10.4 fL 9.8-13.0 NRBC/100 WBC (test code = 5087427355) See_Comment [Automated [employer] ssage] The system which generated this result transmitted reference range: 0.0 - 10.0 /100 WBCs. The reference range was not used to interpret this result as normal/abnormal. NRBC x10^3 (test code = 3848007421) <0.01 See_Comment [Automated messa ge] The system which generated this result transmitted reference range: 10*3/?L. The reference range was not used to interpret this result as normal/abnormal. GRAN MAT (NEUT) % (test code = 770-8) 66.3 % IMM GRAN % (test code = 0819689409) 0.30 % LYMPH % (test code = 736-9) 23.1 % MONO % (test code = 5905-5) 9.8 % EOS % (test code = 713-8) 0.0 % BASO % (test code = 706-2) 0.5 % GRAN MAT x10^3(ANC) (test code = 0612076109) 2.64 10*3/uL 1.99-6.95 IMM GRAN x10^3 (test code = 2850735540) <0.03 0.00-0.06 LYMPH x10^3 (test code = 731-0) 0.92 10*3/uL 1.09-3.23 L MONO x10^3 (test code = 742-7) 0.39 10*3/uL 0.36-1.02 EOS x10^3 (test code = 711-2) <0.03 0.06-0.53 L BASO x10^3 (test code = 704-7) <0.03 0.01-0.09 Lab Interpretation (test code = 60326-1) Abnormal [facility] RockwallLactic Acid Whole Zzlbo1414-07-36 20:34:23* Test Item Value Reference Range Interpretation Comme [facility] LACTIC ACID (test code = 4428714130) 2.30 mmol/L 0.50-2.20 H Lab Interpretation (test cod e = 22676-2) Abnormal [place] [facility] 20:25:25* Test Item Value Reference Range Interpretation Comme [facility] POCT GLU (test code = [id number]) 131 mg/dL 70-110 H Lab Interpretation (test cod e = [id number]) Abnormal [facility] Notes Date/Time Note Provider Source 2023-07-22 10:07:19 Addended by: SHEAVLY RN, MARCOS on: 07/22/2023 10:07 AM Modules accepted: Orders [facility] 2023-07-22 09:58:[address] Shay's recommendations with patient's caregiver. She would greatly appreciate if patient could get off warfarin since INR checks have been difficult since she is primary transportation. Will send a Rx to [facility] pharmacy for the Eliquis to see if any financial assistance can be provided. For now, patient will continue warfarin and will have INR checked after appointment for 07/29/23. [facility] 2023-07-21 21:33:30 Addended by: ROCIO SHAY on: 07/21/2023 09:33 PM Modules accepted: Orders [facility] IM-CARDIOVASCULAR DISEASE STAFF [facility] 2023-07-21 21:28:11 Noted. We will officially take over the management of the warfarin. Please see when they come to do the INR check to [facility], if they can come to the office and we can get the [employer] paperwork completed so that the [id number] INR can be approved if the insurance is acceptable with it. In that case he need not come to lab for getting the testing done frequently. Patient has upcoming appointment for echocardiogram/monitor 07/29/2023. Please also ask if they can run it by his insurance to see if Eliquis or Xarelto cost with his current insurance. Or we can send the prescription of Eliquis to [facility] to see it will be more cost effective. Currently as per my last office note, He is currently on warfarin 7.5 mg on Wednesday and 5 mg the rest of the week. During the office visit 07/29/2023, please ask him to get the INR labs to be done also after the completion of echocardiogram/monitor. Standing INR orders placed. Goal INR is to be between 2 and 3. [facility] 2023-07-21 10:55:49 Addended by: MARCOS GIBSON RN on: 07/21/2023 10:55 AM Modules accepted: Orders [facility] 2023-07-21 10:48:02 Returned call to Ms. Martin NP. She states she has been having trouble managing INR and requests that Dr. Shay take over management. Discussed this with patient's friend/primary contact, Ms. Boykin. She states the main concern is that she is Mr. 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 It will be difficult for her to take him to [place] for blood work, however, she is agreeable to try. Orders placed for INR to be done at [facility] lab. She verbalized understanding that for the time being the INR needs to be drawn at [facility]. Patient's current warfarin dose 7.5 mg on and 5 mg every other day of the week. Ms. Boykin states that she will plan to take him to have INR checked on Wednesday next week. [facility] 2023-07-20 16:34:08 Patient has underlying atrial fibrillation likely paroxysmal. Based upon my previous office note "Currently, the warfarin level is being managed by the PCPs office. I asked them to clarify if the PCPs office will manage the warfarin. If so, the refills for the warfarin should come from the PCPs office. if we are going to take care of the warfarin, and send him for a point of care INR testing and also further INR checks should be sent to us for evaluation so that we can manage and monitor the warfarin dosing" If the patient's PCPs office wants us to manage the INR, then the patient needs to get the INR check to be done in the [facility] lab until the [id number] INR testing is approved through his insurance so that we can adjust the warfarin dose going forward based upon the INR labs that may get so that we control the INR numbers and also the warfarin dose. During the last office visit patient/family members were asking for refills for warfarin but they wanted that patient PCPs to manage the INR and adjust the warfarin dose hence I refused to give warfarin refills. BILITATION NURSE IM-CARDIOVASCULAR DISEASE STAFF [facility] 2023-07-15 15:54:11 Abraham Carrington Jr. is a 72 year old male Pt PCP, Brianna Salazar NP calling she wants to speak to the Dr. Shay nurse about his visit. She wants to speak about pt Coumadin. She has been having issues with the pt. BILITATION NURSE Penelope Etienne [facility] 2023-07-14 09:05:57 Received more medical records from Dr. Reveles office will put in Dr. Quinn LAWRENCE folder for review. Montelongo MA [facility] 2023-07-02 15:21:25 Received medical records from Dr. Reveles office will put into Dr. Quinn LAWRENCE folder for review. Montelongo MA [facility] 2023-01-27 14:55:00 Formatting of this n ote might be different from the original. Pt given printed and verbal discharge instructions regarding HTN, encouraged hydration. 0 Prescriptions provided. Discussed ibuprofen and to take with food to avoid GI distress. Pt verbalized understanding of instructions, pt awake alert oriented, resp reg unlabored, skin w/d, color appropriate for race, moves all ext well,pt encouraged to follow up with pcp. Advised to seek medical attention for new/prolonged/worsening of symptoms, Symptoms improved. No adverse reaction to meds given in ER noted upon discharge PIV d'cd, dressing to site, catheter in tact. Awake, alert oriented, resp reg unlabored, skin w/d, pt leaving amb with steady gait, in no apparent distress. Bhumika Gold RN [facility] 2023-01-27 11:01:36 Formatting of this n ote might be different from the original. Pt arrived via private car with c/o htn. States he was at his pcp for a regular appointment and it was noticed that his BP was high. States he was given a clonidine at about 10am. Pt reports that he ran out of his medication for about 1 week, states that his pcp sent the refills. Pt states "oh I feel fine". Destinee Mead RN [facility]
[2024-03-16] MEDS ORDERED: ACETAMINOPHEN 500 MG TAB PO PRN (22:22)
[2024-03-16] MEDS ORDERED: MELATONIN 5 MG TABLET PO PRN (22:27)
[2024-03-16] MEDS ORDERED: DOCUSATE NA/SENNA CONC 1 TAB PO PRN (22:27)
[2024-03-16] MEDS ORDERED: TRAMADOL HCL 50 MG TAB PO PRN (22:27)
[2024-03-16] MEDS: carvediloL 25 MG TAB PO SCH (22:40)
[2024-03-16 23:57] VITALS: BMI 5506.8
[2024-03-17 05:47] LABS: Absolute Eosinophils 0.2 K/uL (0-0.5); Absolute Lymphocytes (CBC) 1.8 K/uL (0.7-4.9); Absolute Monocytes 0.8 K/uL (0.1-1.3); Basophils % 0.4 % (0-1.3); Eosinophils % 2.6 % (0-4.4); Hematocrit 40.6 % (39.6-49.0); Hemoglobin 13.7 g/dL (13.6-17.9); Lymphocytes % 22.9 % (15.3-44.8); MCH 32.7 pg (27.0-35.0); MCHC 33.9 g/dL (32.0-36.0); MCV 96.6 fL (80-100); MPV 7.7 fL (7.6-11.3); Monocytes % 9.8 % (3.3-12.3); Neutrophils % 64.3 % (41.7-73.7); Nucleated Red Blood Cells % 0.1 % (0-0); Platelets 167 thou/uL (152-406); Red Cell Distribution Width 13.9 % (12.1-15.2)
[2024-03-17 06:05] LABS: Albumin 2.9 g/dL (3.4-5.0); Anion Gap 10.4 mEq/L (5.0-15.0); Magnesium 2.1 mg/dL (1.6-2.4); Potassium 3.4 mEq/L (3.5-5.1); Prealbumin 15.8 mg/dL (20-40)
[2024-03-17] MEDS: INSULIN REGULAR (HUMAN) 100 UNIT/ML SQ SCH (07:02)
[2024-03-17] MEDS: APIXABAN 5 MG TABLET PO SCH (07:50)
[2024-03-17] MEDS: LOSARTAN POTASSIUM 50 MG TABLET PO SCH (07:50)
[2024-03-17] MEDS: ATORVASTATIN 80 MG TAB PO SCH (07:50)
[2024-03-17] MEDS: hydroCHLOROthiazide 12.5 MG CAP PO SCH (07:51)
[2024-03-17] MEDS: ASPIRIN EC 81 MG TAB PO SCH (07:51)
[2024-03-17] MEDS: SERTRALINE HCL 50 MG TAB PO SCH (07:51)
[2024-03-17] MEDS: METFORMIN HCL 500 MG TAB PO SCH (07:51)
[2024-03-17] MEDS: AMLODIPINE 5 MG TAB PO SCH (07:52)
[2024-03-17] MEDS: LIDOCAINE 4% PATCH TOP SCH (07:53)
--- NOTE | 2024-03-17 13:57 | P.RH.PN ---
Estimated Length of Stay: 21 Expected Discharge Date: 04/05/24 Discharge Disposition Plan: Home Family Support: Yes [facility] Goal: Mobility, Transfers, Self Care Vital Signs: Last Vital Signs Temp 96.8 F 03/17/24 07:13 Pulse 57 03/17/24 07:52 Resp 16 03/17/24 07:13 BP 128/69 03/17/24 07:52 Pulse Ox 95 03/17/24 07:13 Laboratory: Laboratory Last Values WBC 7.70 thou/uL (4.3-10.9) 03/17/24 05:00 RBC 4.20 M/uL (4.33-5.43) L 03/17/24 05:00 Hgb 13.7 g/dL (13.6-17.9) 03/17/24 05:00 Hct 40.6 % (39.6-49.0) 03/17/24 05:00 MCV 96.6 fL (80-100) 03/17/24 05:00 MCH 32.7 pg (27.0-35.0) 03/17/24 05:00 MCHC 33.9 g/dL (32.0-36.0) 03/17/24 05:00 RDW 13.9 % (12.1-15.2) 03/17/24 05:00 Plt Count 167 thou/uL (152-406) 03/17/24 05:00 MPV 7.7 fL (7.6-11.3) 03/17/24 05:00 Neutrophils % 64.3 % (41.7-73.7) 03/17/24 05:00 Lymphocytes % 22.9 % (15.3-44.8) 03/17/24 05:00 Monocytes % 9.8 % (3.3-12.3) 03/17/24 05:00 Eosinophils % 2.6 % (0-4.4) 03/17/24 05:00 Basophils % 0.4 % (0-1.3) 03/17/24 05:00 Absolute Neutrophils 5.0 K/uL (1.8-8.0) 03/17/24 05:00 Absolute Lymphocytes 1.8 K/uL (0.7-4.9) 03/17/24 05:00 Absolute Monocytes 0.8 K/uL (0.1-1.3) 03/17/24 05:00 Absolute Eosinophils 0.2 K/uL (0-0.5) 03/17/24 05:00 Absolute Basophils 0.0 K/uL (0-0.5) 03/17/24 05:00 Sodium 138 mEq/L (136-145) 03/17/24 05:00 Potassium 3.4 mEq/L (3.5-5.1) L 03/17/24 05:00 Chloride 106 mEq/L (98-107) 03/17/24 05:00 Carbon Dioxide 25 mEq/L (21-32) 03/17/24 05:00 Anion Gap 10.4 mEq/L (5.0-15.0) 03/17/24 05:00 BUN 32 mg/dL (7-18) H 03/17/24 05:00 Creatinine 1.94 mg/dL (0.70-1.30) H 03/17/24 05:00 Est GFR (CKD-EPI) 36 ml/min (=/>90) L 03/17/24 05:00 Glucose 100 mg/dL (74-106) 03/17/24 05:00 POC Glucose 120 mg/dL (65-120) 03/17/24 11:19 Hemoglobin A1c 6.1 % (4.2-6.3) 03/17/24 05:00 Calcium 8.5 mg/dL (8.5-10.1) 03/17/24 05:00 Magnesium 2.1 mg/dL (1.6-2.4) 03/17/24 05:00 Albumin 2.9 g/dL (3.4-5.0) L 03/17/24 05:00 Prealbumin 15.8 mg/dL (20-40) L 03/17/24 05:00 Weight: 282 lb Negative Pressure Wound Therapy Present: No Physician Update: Low prealbumin, Insurance Territory Manager 1.94. and low potassium. BIMS 10, SLUMS 9, severe dysarthria, dysphagia. Two person assist for transfers. Max assist with a ll ADLs. Flaccid on left upper ext. 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 Please see the Rehabilitation Signature page for all necessary signatures.
[2024-03-17] MEDS ORDERED: MAGNESIUM HYDROXIDE 8% 30 ML PO PRN (15:50)
[2024-03-17] MEDS: POTASSIUM CL SA 10 MEQ TAB PO ONE (16:15)
[2024-03-17] MEDS: DULOXETINE 30 MG CAP PO SCH (20:47)
[2024-03-17] MEDS: NEPRO SHAKE 237 ML CAN PO SCH (20:47)
[2024-03-18 07:51] LABS: Anion Gap 10.5 mEq/L (5.0-15.0); Potassium 3.5 mEq/L (3.5-5.1)
[2024-03-18] MEDS: POTASSIUM CL SA 10 MEQ TAB PO SCH (09:21)
[2024-03-19 02:29] LABS: Specific Gravity 1.021 (1.005-1.030); Sqamous Epithelial None Seen /HPF (None Seen); Urine Bacteria <20 /HPF (<20); Urine Bilirubin NEGATIVE (Negative); Urine Blood Negative (Negative); Urine Clarity Clear (Clear); Urine Color Yellow (Yellow); Urine Culture Reflex Order NOT NEEDED; Urine Glucose NEGATIVE (Negative); Urine Ketones NEGATIVE (Negative); Urine Micro Reflex YN NO BILL MICROSCOPIC; Urine Nitrite NEGATIVE (Negative); Urine Protein NEGATIVE (Negative); Urine RBC <5 /HPF (None Seen); Urine Urobilinogen Normal (Normal); Urine WBC <5 /HPF (<5)
[2024-03-19] MEDS: SIMETHICONE 80 MG CHEWABLE TAB PO PRN (17:52)
--- NOTE | 2024-03-19 20:02 | RAD REPORT ---
EXAM DESCRIPTION: RAD - Abdomen 1 View (KUB) - 03/19/2024 7:46 pm CLINICAL HISTORY: constipation Pain COMPARISON: No comparisons FINDINGS: There is significant air distention of large and small bowel loops which could represent a diffuse ileus. Early mechanical obstruction is also a possibility, but felt to be less likely given the relatively disorganized bowel-gas pattern. Advise follow-up radiographs in 24-48 hours to continu e to monitor. .
[2024-03-20 04:45] LABS: C.diff Antigen/Toxin Ag neg : Tox neg (NEG : NEG); CDIFF INTERNAL NEG CONTROL White Background (WHITE BKGD); STOOL CONSISTENCY Liquid/Semi-Solid
--- NOTE | 2024-03-20 08:15 | HP ---
Date of Admission: 03/16/2024 Time Of Service: 1:10 p.m. Chief Complaint: "I have had a stroke." History Of Present Illness: Mr. Carrington is a 73-year-old, right-handed patient with a history of hypertension and prior stroke that affected his left upper and lower extremities. He has multiple risk factors of stroke including atrial fibrillation, myocardial infarction, hypertension, and who had a code stroke called where he was last known well around 7 p.m. on the day prior to going to bed and woke up around 7 a.m., not feeling well. His common-law provided information of the patient along with the sister. At the time he woke up, he was unable to open a pill bottle with his left hand, which was a stronger hand. At the time of arrival to the emergency room, his blood pressure was 185/120, blood sugar 143, Glass Glaucoma Scale of 15, NIH Scale was 5 for left facial drift, mild left hand weakness, and decreased sensation and visual perception of left upper extremity and severe dysarthria. CT scan of the head showed a wedge-shaped area of low density with loss of quick matter differentiation in the right precentral gyrus indicating a small recent infarct. CT angiogram showed a small partially occlusive calcified embolic thrombus in the proximal M3 branch of the anterior division of the right middle cerebral artery on the insula and there was severe stenosis along the P1 and P2 segments. He was not a candidate for TNKs as the event onset was greater than 4-1/2 hours. Furthermore, he is also on Eliquis, which made it contraindicated. Brain MRI subsequently confirmed a right MCA distribution infarct. Etiology of the infarct is likely atrial fibrillation with incomplete anticoagulation. Common-law had indicated at one point he appeared to be on Eliquis and Coumadin and that was stopped at some point. In event after his stroke, the Eliquis was restarted on the 15 of March and his blood pressures were carefully lowered. He did continue aspirin and statin. Since the stroke, the patient has had some difficulty with controlling emotions where he would cry and had difficulty stopping crying. These changes were consistent with pseudobulbar affect. He did have diabetes mellitus, on insulin sliding scale in place. In addition, he has a BMI of 35 and would require changes in diet to help reduce risk of stroke from dietitian. He was evaluated by the therapy service, found to have oral dysphagia, facial weakness with dysarthria and significant pocketing of food in the left face. In addition, he did require around max assist for some ordinary activities of daily living, transferring, mobilizing, and taking care of his activities of daily living. Due to his complicated comorbid conditions and his stroke, he is determined to be an appropriate candidate for inpatient rehabilitation to help him return towards his prior level of functioning and decrease risk of rehospitalization. Admission to a intermediate facility would likely result in the patient worsening and therefore he is more appropriate for aggressive inpatient rehabilitation. Past Medical History: Myocardial infarction, atrial fibrillation, hypertension, previous stroke with right-sided deficits. Imaging: On 03/13/2024, CT scan of the brain showed wedge-shaped area of low density with loss of quick-white matter differentiation in the right precentral gyrus indicating recent infarct. There is focal extra-axial calcification along the right insula suggestive of calcified thrombus from the proximal embolism. There is chronic infarct in the left basal ganglia, old infarcts in the inferior right cerebellar and left occipital lobes. MRI on 03/13/2024, showed right MCA territory acute subacute infarct involving the right lateral frontal region and precentral gyrus. There is left basal ganglia old infarct. There is chronic blood products and lamina necrosis also identified. In addition to the right cerebellar encephalomalacia gliosis from prior vascular insults and presumed sequelae of supratentorial white matter chronic ischemic microvascular disease. Chest x-ray on 03/13/2024, showed no acute abnormalities. CT angiogram of the head and neck showed small partially occlusive calcified embolic thrombus in the proximal anterior division of the right MCA along the insula. There is a short segment severe stenosis of the left P1, P2 junction that represent a nonocclusive thrombus and there was no significant atheromatous stenosis. Allergies: NO KNOWN DRUG ALLERGIES. Medications: Extra-strength Tylenol 500 mg every 6 hours as needed, Norvasc 5 mg daily, Eliquis 5 mg twice daily, aspirin 81 mg daily, Lipitor 10 mg at bedtime, Coreg 25 mg twice daily, Cymbalta 30 mg at bedtime, Nepro shake 237 mL twice daily, hydrochlorothiazide 25 mg daily, Lidocaine patch apply topically daily to the left lower extremity, Cozaar 100 mg daily, milk of mag 30 mL daily as needed, melatonin 5 mg at bedtime, metformin 500 mg twice daily, potassium 10 meq daily, Senokot-S 2 at bedtime, sertraline 25 mg daily, Ultram 50 mg daily. Family History: Noncontributory. Social History: The patient lives with family. No alcohol, tobacco, or IV drug use. He is full code status. Laboratory Studies: White blood cell count 7.7, hemoglobin 13.7, platelets 167. Sodium 138, potassium 3.4, chloride 106, carbon dioxide 25, creatinine 1.94, glucose ranged from 97-120. Hemoglobin A1c 6.1, calcium 8.5, magnesium 2.1, albumin 2.9, prealbumin 15.8. Review of Systems: As noted, he has significant weakness more on the left where he is unable to hold his right hand up. he Has more weakness on the left lower extremity compared to the right side. He has decreased sensation in the left compared to right side and stocking-glove loss. Current Level Of Functioning: eating, oral hygiene moderate assistance. Toileting, maximum assist; bathing, maximal assistance; upper body dressing, moderate assistance; lower body dressing, maximum assistance, donning and doffing footwear, maximal assistance; rolling [id number], [id number], moderate assistance. Lying to sitting on side of the bed, moderate assistance. [id number], moderate assistance. Transfer from bed to chair to toilet, moderate assist. Ambulation, moderate assistance with a rolling walker. Physical Examination: Vital Signs: Blood pressure 161/77, down to 128/69, pulse 78, respiratory rate 16, temperature 96.8, O2 saturation 95%. General: Mr. Carrington is sitting on a chair beside the bed. He does appear to have decreased left nasolabial fold. He does appear to have a depressed mood. HEENT: He is otherwise normocephalic, atraumatic. Sclerae are anicteric. Oropharynx moist. Neck: Supple. Chest: Clear. Heart: Irregularly irregular. Abdomen: Nondistended. Extremities: No significant edema, cyanosis. Neurological: Decreased left nasolabial fold, very dense paresis of the left upper extremity, very little appreciable movement in the shoulder, biceps, triceps, finger flexion and extension on the left. Sensation decreased in the left upper and lower compared to right upper and lower extremities. Coordination on the right is slightly decreased, but present, unable to do any coordination activity with the left hand because of complete weakness. Rehab And Medical Assessment And Plan: Mr. Carrington is a 73-year-old patient, admitted to the inpatient rehabilitation unit with impairment category 01 stroke. Impairment group code is 01.1 left body involvement right brain. Etiologic diagnosis, right MCA infarct. His comorbidities are decreased physical functioning, decreased mobility, hypertension, dyslipidemia, coronary artery disease, atrial fibrillation, renal insufficiency, obesity, BMI of 35, diabetes mellitus type 2, prior stroke with left and right-sided weakness, incoordination, gait difficulties. He his depression. Plan: 1. He will have physical, occupational, and speech therapy for 3.5 hours, 5 of 7 days. 2. Tramadol for pain, Zoloft, and Cymbalta for depression. He has Senokot for constipation, potassium replacement with potassium 10 mEq daily. For diabetes mellitus, metformin 500 mg twice daily, melatonin for insomnia, milk of magnesia for constipation, Cozaar to control his blood pressure along with hydrochlorothiazide, Nepro shake for protein paucity and given his renal insufficiency. Coreg also for heart rate and blood pressure control, Lipitor for dyslipidemia, aspirin 81 mg daily for stroke risk reduction, Eliquis 5 mg daily for stroke risk reduction along with DVT risk reduction. Comorbidities That Are Impacting Rehabilitation: He has had multiple strokes with bilateral lower extremity weakness and he requires total assistance x2 persons for transfer. It may be difficult for him to go back home with family unless there is significant help and 24 hours a day supervision to reduce his risk of falling and further injury. He is depressed and we will continue antidepressants. Mr. Carrington will have physical, occupational, and speech therapy as noted. He will have 24 hours a day, 7 days a week skilled rehabilitation nursing for recording the acute changes in his current condition and to inform physician of the patient's changes such as if there is any fever, there is changes in blood pressure, changes in respiratory condition, and any risk of an infection. He will have physician evaluation on a daily basis to integrate his therapy along with medical management and optimize his rehabilitation. He will have social service evaluation for his discharge planning, home equipment, and to continue with his therapy. If need be, additional help will be sought from the hospitalist service, the Respiratory service, and Cardiology Service. Given his risk of complications and the need for aggressive therapy, rehabilitation can be safely and affectively performed at a lower level facility such as intermediate. Barriers to discharge: He requires two people for safe transfers at this point, making it very difficult for him to go back home with family and they are not likely able to help manage him on their own; however, he may be able to recover well enough to assist with transfers such that one person may be able to transfer him safely. Family teaching will be encouraged. Prognosis: Fair. Length Of Stay: 21 days expected. Rehab Specific Plan: 1. Mr. Carrington will have physical, occupational, and speech therapy 3.5 hours, 5/7 days to improve his ability to transfer from bed to chair to toilet to shower. 2. His ability to mobilize at least with a wheelchair to go around household distances and then beyond and able to 250 feet with a wheelchair. He may be able to stand and ambulate with a rolling walker, it may be difficult. At least transfers, stand pivot transfers and if he can 10 feet, 20 feet, and up to household distances of 50 feet. 3. He will have a speech therapy to help address his risk of aspiration pneumonia, to help with his articulation, to help with his cognitive issues. 4. Mr. Carrington and his common-law admitted understanding of the process of admission to inpatient rehabilitation facility and how it will benefit him. By signing this document, I acknowledge I personally performed a full physical examination on Mr. Carrington no later than 24 hours after his admission to the inpatient rehabilitation facility and determined that he is able to tolerate the above course of treatment at an intensive level for a reasonable period of time. A detailed individualized plan of care for him will be completed by hospital day 4 based on the preadmission screen, history and physical, and therapy evaluations. PAUL Voice ID: [id number] LOREN
--- NOTE | 2024-03-20 10:39 | P.CNS ---
Date of Consult: 03/20/24 Reason for Consult: Paiinful toenails Allergies No Known Allergies Allergy (Unverified 03/16/24 22:21) Home Medications: Amlodipine [Norvasc] 5 mg PO DAILY 03/16/24 Apixaban [Eliquis] 5 mg PO BID 03/16/24 Aspirin 81 mg PO DAILY 03/16/24 Atorvastatin Calcium [Lipitor] 80 mg PO DAILY 03/16/24 Losartan Potassium 100 mg PO DAILY 03/16/24 Metformin HCl [Glucophage] 500 mg PO BIDWM 03/16/24 Sertraline [Zoloft] 50 mg PO DAILY 03/16/24 carvediloL [Coreg] 25 mg PO BID 03/16/24 hydroCHLOROthiazide [Hydrodiuril] 25 mg PO DAILY 03/16/24 - Past Medical/Surgical History Diabetic: Yes -: htn -: hld -: shaista -: afib -: dm -: cad -: ckd -: obesity -: cva -: mi - Social History Alcohol use: No CD- Drugs: No Caffeine use: Yes Place of Residence: Home Review of Systems 10-point ROS is otherwise unremarkable Physical Examination Temp Pulse Resp BP Pulse Ox 97.2 F 52 16 134/67 95 03/20/24 06:32 03/20/24 07:10 03/20/24 06:32 03/20/24 07:10 03/20/24 06:32 General: Alert, In no apparent distress, Oriented x3 Cardiovascular: No edema, Abnormal pulses (0/4 dp and pt pulses bilateral) Capillary refill: >2 Seconds Musculoskeletal: No clubbing, No swelling, No contractures, No erythema, No tenderness, No warmth Integumentary: Other (Thickened hypertrophic nails with subungual debris x 10, absent hair growth bilateral) Neurological: Abnormal sensation - Problems (1) Tinea unguium Current Visit: Yes Status: Acute (2) custodial (current) use of anticoagulants Current Visit: Yes Status: Acute (3) Generalized atherosclerosis Current Visit: Yes Status: Acute Conclusions/Impression: Mechanical debridment of nails at bedside
[2024-03-20] MEDS: ENSURE CLEAR 200 ML CAN PO SCH (20:00)
--- NOTE | 2024-03-20 20:18 | PN ---
Date of Progress Note: 03/20/2024 Time Of Service: 1:20 p.m. Subjective: Mr. Carrington is resting in bed. Family is at the bedside. He uses a few words, however, tries his best to follow commands and he has the appearance of somewhat depressed after a stroke, oth erwise he denies any issues in terms of new findings or worsening weakness. Objective: No fevers or chills. No nausea, vomiting, myalgias, arthralgias. Nurse did indicate maury t she was addressing the perineal area, there were some spots of blood on his undergarment. There ar e no obvious areas of skin breakdown. She indicated it potentially could be a scratch and the patien tulio's fingernails are long in the right side that has mobility that is the right upper extremity. The family was instructed to help him with filing of the nails. He did have Dr. Vernon Desai on the [facility] come by today to address the toenails and those were debrided at the bedside. Otherwise , on his review of systems, no fevers, chills, nausea, vomiting. No myalgias, arthralgias. No other complaints. Physical Examination: Vital Signs: Blood pressure 140/70, pulse is 51, respiratory rate 16, temperature 97.2, oxygen satur ation 95%. General: Mr. Carrington is lying in bed. He is in no acute distress. HEENT: He is normocephalic, atraumatic. Sclerae anicteric. Oropharynx is moist. Neck: Supple. Chest: Good air movement. Extremities: No significant edema or cyanosis. Neurologic: Left nasolabial fold decrease. There is little movement of excursion there, but there i s some as he tries to smile, very difficult for him to move the left corner of his face and his mouth . His left arm has no movement detected proximally and distally, perhaps a trace as he tries triceps extension, but none on finger flexion, extension, wrist flexion, extension. No biceps movement note d. No deltoid movement noted on the left. On the right side, he has 5/5 strength. In the lower ext remity on the left, he has around 3+ out of 5 proximally and distally. On the right side of the lowe r extremity, 5/5 sensation and stocking-glove loss noted. Laboratory Studies: Complete blood count with differential from the 6th was normal. Blood sugars ra nged from 94 to 113 and blood sugar testing will be held back just 1 to 2 times a day. Urinalysis fr om the 8th is completely normal and he did have C. difficile toxin test that was negative. Progress Made With Physical And Occupational Along With Speech Therapy: Today on physical therapy, camden gonzales did ambulate with a corrina-walker 7 feet with maximum two-person assist, then another 8 to 10 feet 3 times in the parallel bars with maximum assistance, wheelchair following. Wheelchair mobilization, camden gonzales covered 40 feet 3 times with maximum assistance. With his occupational therapy, to shower moderate assistance needed to wash all parts, use of long-handled sponge, difficulty washing both feet, perin eal area, and under arms, lower body dressing required maximum assistance. Febqej-wf-spe transfer to edge of bed maximum assistance required. With speech therapy, he did have pocketing in the left cor ner of the mouth and had a large amount of food there removed as the therapist was assisting him. Di et was downgraded to pureed diet due to consistent pocketing without ability to remove it independent ly. He did complete 8 of 10 oral motor exercises, 10 steps with 60% accuracy. Mr. Carrington is making fair progress with physical and occupational therapy. Speech also fair, but per haps not as effective and not as good as with physical therapy. Still has significant pocketing as d iet has been downgraded due to that. Assessment: Mr. Carrington is a 73-year-old patient in the rehabilitation unit with a right MCA infarct and dense paresis of the left upper more than lower extremity along with facial involvement, dysarthr ia, dysphagia. He has depression, likely secondary to his stroke. He also has dyslipidemia, hyperte nsion, he is on metformin 500 mg twice daily with very good blood sugar control. He does have tramad ol for pain, Mylicon for gas, Zoloft for his depression, potassium replacement on board as well. Plan: He will continue with physical, occupational, and speech therapy for 3.5 hours, 5 of 7 days. We will continue all medications for his comorbid conditions including tramadol, Mylicon, Zoloft, Sen okot, potassium replacement. Continue with Glucophage, melatonin, milk of magnesia, Cozaar, lidocain e patch, does have a mild insulin sliding scale, hydrochlorothiazide for fluid management, Ensure Carl ar to decrease the risk of GI upset. He uses Cymbalta for depression and Lipitor for dyslipidemia, a spirin for stroke risk reduction Eliquis for stroke and DVT risk reduction, has Norvasc and aspirin a nd Tylenol on board. Comorbidities That Are Impacting Rehabilitation: His big issue is of course stroke and some depressi on that followed. In addition, he has pocketing of food in the left corner of the mouth and high ris k of aspiration and he is recovering in a slow pace in terms of his return to his prior level of func tioning, which may be very difficult for him to return to. The patient may not necessarily be able t o be at home independently for a long extended period and may have to go to custodial. TALAT/CLAUDE Voice ID: [id number] Report ID: [id number]
[2024-03-21] MEDS: INSULIN REGULAR (HUMAN) 100 UNIT/ML SQ SCH (07:12)
[2024-03-21] MEDS: DULOXETINE 20 MG CAP PO SCH (20:15)
--- NOTE | 2024-03-21 23:57 | PN ---
Date of Progress Note: 03/21/2024 Time Of Service: 1:20 p.m. Subjective: Mr. Carrington is resting in the room. He is making very poor eye contact. Does appear to be depressed related to the stroke where he has dense paresis of the left upper extremity; still pare sis of the lower extremity on the left, but less so. There is some decrease of left nasolabial fold. Some difficulty holding food in the mouth. Nursing staff says he does communicate much better when his girlfriend is present, but much less so when staff is present. Objective: No complaints of fevers, chills. He does not complain of myalgias and arthralgias in the left hand, which is densely paretic. No rash. There will be an evaluation to see if there are any more issues of bleeding from the lower back, and none was obvious at this time when the nurse did jeremiah luate the patient. Physical Examination: Vital Signs: Blood pressure 172/91, pulse 70, respiratory rate 18, temperature 97.5, oxygen saturati on 94%. Weight 283 pounds, height 6 feet, BMI 38.4. General: Mr. Carrington again is resting in bed. He appears to be somewhat depressed of mood. HEENT: He is otherwise normocephalic, atraumatic. Sclerae anicteric. Oropharynx is moist. Neck: Supple. Chest: Clear. Heart: Regular. Extremities: No significant edema in the extremities. Laboratory Studies: No new laboratory studies except blood sugars ranged from 113 to 126. From the 9, that is yesterday, C difficile toxin was negative. X-ray/imaging: No new x-rays or imaging. Progress Made With Physical, Occupational, And Speech Therapy: Today, nzzecr-qo-bfh transfers, maxim um assistance. Qkt-oh-kwmhp transfers, required maximum assistance. Mobilized wheelchair 50 feet wi th minimum assistance for help maneuvering with the right lower extremity. With his occupational the rapy, supine to sit at edge of bed, maximum assistance. Tolerated upright sitting for about 5 minute s, holding onto the bed rail. Still requires maximum assistance times 2, transfer from bed to a whee lchair. With speech, he was able to recall 3 of 3 unrelated items independently after a 5-minute del ay. Did need minimum assistance for using visual aids for temporal and spatial orientation skills. Did have work on the orals, the lingual sweep and oral sweeping for pocketing in the left corner of h is mouth and cheek, where the stroke is affecting his ability to sense what is in the mouth. Mr. Carrington is making slow progress in his recovery after the stroke, especially with his speech and h is occupational therapy. Mobilizing better with a wheelchair. Assessment: Mr. Carrington is a 73-year-old patient in the rehabilitation unit with a right middle cereb ral artery infarct and dense paresis in the left upper extremity more than left lower extremity. Has dysarthria; dysphagia, pocketing on the left; and depression. His Cymbalta was adjusted. Additiona l comorbidities: Dyslipidemia, hypertension, diabetes mellitus with good blood sugar control. He do es have hypokalemia with potassium replacement on board. Plan: 1.Continue with physical, occupational, and speech therapy. 2.Continue with all other medications as noted above with an adjustment of his Cymbalta to help with his depression. Continue with aspirin. Continue with Tylenol for pain, Norvasc for blood pressure control. Eliquis 5 mg twice daily for stroke and DVT risk reduction, for his fibrillation. Lipitor for dyslipidemia. Coreg . The nursing staff did indicate he had a poor appetite. We may consider Megace to help with appetite stimulation. Continue melatonin, Senokot, Zoloft, Mylicon, and tramadol. LB/MODL Voice ID: [id number] Report ID: [id number]
[2024-03-22] MEDS: NA CHLORIDE 0.9% 1,000 ML IV SCH (14:18)
[2024-03-22] MEDS: SIMETHICONE 125 MG TAB PO SCH (14:20)
--- NOTE | 2024-03-22 14:54 | RAD REPORT ---
EXAM DESCRIPTION: RAD - Abdomen 1 View (KUB) - 03/22/2024 2:47 pm CLINICAL HISTORY: Abdomen pain FINDINGS: Small bowel caliber has increased since the prior exam. There is also present within colon . These findings could represent an obstruction or ileus.
[2024-03-22] MEDS: carvediloL 12.5 MG TAB PO ONE (18:28)
--- NOTE | 2024-03-22 18:28 | RAD REPORT ---
EXAM DESCRIPTION: CT - Abdomen Pelvis Wo Contrast - 03/22/2024 5:49 pm CLINICAL HISTORY: Abdominal pain COMPARISON: Abdomen x-ray March 22, 2024 TECHNIQUE: Computed axial tomography of the abdomen and pelvis was obtained. IV and oral contrast we re not requested. All CT scans are performed using dose optimization technique as appropriate and may include automated exposure control or mA/KV adjustment according to patient size. FINDINGS: The evaluation of solid organs, vessels and bowel is limited secondary to the lack of con trast administration. The liver, spleen, pancreas, adrenals and kidneys appear grossly normal. The distal sigmoid and rectum are decompressed. Most of the remainder of the sigmoid colon is mildly dilated. 1.8 centimeter apparent soft tissue structure proximal sigmoid colon. Most of the descending colon is decompressed. Most of the remainder of the colon is decompressed. The cecum is upper limits normal caliber. Most of the small bowel is mildly to moderately dilated. Stomach normal caliber. Spondylosis lumbar spine resulting spinal stenosis. Prostate gland is moderately to markedly enlarged. No free air IMPRESSION: 1.8 centimeter possible soft tissue structure proximal sigmoid colon may represent a ma ss or incomplete distention. Sigmoidoscopy would be helpful for further evaluation The dilated large and small bowel probably an adynamic ileus. A closed loop colonic obstruction is co nsidered less likely. Followup abdominal plain film series however is recommended
[2024-03-22] MEDS: LOSARTAN POTASSIUM 50 MG TABLET PO SCH (20:32)
[2024-03-22] MEDS: ATORVASTATIN 80 MG TAB PO SCH (20:33)
[2024-03-23] MEDS: carvediloL 12.5 MG TAB PO SCH (05:31)
[2024-03-23 06:08] LABS: Absolute Eosinophils 0.1 K/uL (0-0.5); Absolute Lymphocytes (CBC) 1.7 K/uL (0.7-4.9); Absolute Monocytes 1.2 K/uL (0.1-1.3); Absolute Neutrophil 6.1 K/uL (1.8-8.0); Basophils % 0.5 % (0-1.3); Eosinophils % 0.9 % (0-4.4); Hematocrit 39.2 % (39.6-49.0); Hemoglobin 12.9 g/dL (13.6-17.9); Lymphocytes % 18.4 % (15.3-44.8); MCH 32.3 pg (27.0-35.0); MCHC 32.9 g/dL (32.0-36.0); MCV 98.2 fL (80-100); Monocytes % 13.4 % (3.3-12.3); Neutrophils % 66.8 % (41.7-73.7); Platelets 198 thou/uL (152-406); RBC Red Blood Cell Count 3.99 M/uL (4.33-5.43); Red Cell Distribution Width 14.4 % (12.1-15.2)
[2024-03-23 06:36] LABS: Albumin 2.9 g/dL (3.4-5.0); Magnesium 2.4 mg/dL (1.6-2.4); Prealbumin 13.6 mg/dL (20-40)
[2024-03-23] MEDS: hydroCHLOROthiazide 12.5 MG CAP PO SCH (08:00)
[2024-03-23] MEDS: NA CHLORIDE 0.9% 1,000 ML IV SCH (08:40)
[2024-03-23 20:41] VITALS: BP 150/77; TEMP 98.2
--- NOTE | 2024-03-23 22:57 | PN ---
Date of Progress Note: 03/23/2024 Time Of Service: 1:35 p.m. Subjective: Mr. Carrington is resting in bed. He still appears to make poor eye contact. Does appear d epressed following the stroke. Does have the distended abdomen, likely related to a bowel obstructio n. He was seen by Dr. Marie and the plan is for him to have a proctoscope and potential surgery to [place]. The patient will be discharged to the floor tonight under the care of hospitalist and Dr. Baljit bauer will perform procedure in the morning. Objective: No fevers or chills. Again, some abdominal distention, abdominal pain, mild myalgias, ar thralgias. Physical Examination: Vital Signs: Blood pressure 117/63, pulse 53, respiratory rate 18, temperature 97.2, O2 saturation 9 4%. General: Mr. Carrington is resting in bed. Again, few words. He does not make good eye contact. Neurologic: He does have the drooping in the left face and dense paresis of the left arm, which is i n a sling for his chest. He is stronger in the lower extremity one left, but still significant weakn ess around 3/5 on the right side. Fully strong in the upper and lower extremities. Laboratory Studies: White blood cell count 9.1, hemoglobin 12.9, platelets 198. His sodium 138, pot assium 4.0 chloride 108, his BUN 77, creatinine 4.13, which is a significant increase from 2.48, and BUN increased from 53 to 77. His prealbumin is 13.6, albumin 2.9, magnesium 2.4, calcium 8.3, glucos e ranged from 86 to 116. Note, he is receiving IV hydration with normal saline and should be on his third liter. He is not ye t seen by the Renal Service, but once on the floor, likely will require renal evaluation. X-ray imaging: As noted yesterday, a CT scan of the abdomen and pelvis was done. The study identifi ed a 1.8 cm possible soft tissue structure in the proximal sigmoid colon, may represent a mass or inc omplete distention and as noted, sigmoidoscopy might be helpful. There is dilated large and small lalo wel noted to be in a probable be an adynamic ileus. A closed-loop colonic obstruction is considered less likely. Medications: Eliquis 5 mg twice daily, Norvasc 5 mg daily, aspirin 81 mg daily, Lipitor 80 mg at bed time, Coreg 12.5 mg twice daily, Cymbalta 40 mg twice daily, Ensure High Protein 237 mL twice daily, hydrochlorothiazide 12.5 mg daily, Cozaar 50 mg twice daily, melatonin 5 mg at bedtime, metformin 500 mg twice daily, potassium 10 mEq daily, Senokot-S 2 at bedtime, Zoloft 25 mg daily. He is receiving normal saline and tramadol. Progress Made With Physical, Occupational, Along With Speech Therapy: With his physical therapy, he required maximal assistance for bed mobilization, supine to sit maximal assistance, multiple stand-to -pivot transfers done with maximum assistance. Wheelchair mobilization, 20 feet, maximum assistance. With occupational therapy, he was in bed. He easily aroused with the therapist. [id number]-gh-ysmvznczcx transfer, fmxlz-rv-wkmiy transfer done. Did work with 2-pound weights for right upper extremity whi le seated on the chair beside the bed. He is of course n.p.o. with IV fluids, to be further evaluate d by Dr. Marie back in the morning. He was with speech oriented to temporal and spatial concepts w ith 75% accuracy and minimum assistance. He completed oral motor exercises, 10 repetitions each. Di d have difficulty with labial, lingual, and guttural sounds with 70% accurate with moderate assistanc e. Assessment: Mr. Carrington is making slow progress with his physical and therapy given his dense paresis . He has a recurrent worsening renal failure at this point and he is on IV hydration. The abdomen h as apparent instruction and will be seen by Dr. Marie. The patient will be discharged to the floor in preparation for him being evaluated in the morning. We will attempt to involve the renal service have the hospitalist be involved to help manage the renal situation. 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 He has dysarthria, dysphagia, depression, hypokalemia, dyslipidemia, diabetes melli tus. Plan: 1.He will continue with physical, occupational, and speech therapy until he is discharged. 2.He will be followed up by the hospitalist service, by the Surgery service. He will likely require Renal involvement to help with his acute renal insufficiency. We wi ll contact the hospitalist. PAUL Voice ID: [id number] Report ID: [id number]
== END 2024-03-23 23:50 | disposition short-term general hospital (02) | DRG 57 ==
LOC: 5TH 21:55
PROVIDERS: ADMIT Psychiatry & Neurology Neurology with Special Qualifications in Child Neurology; ATTEND Psychiatry & Neurology Neurology with Special Qualifications in Child Neurology
DX: I69.351 Hemiplegia and hemiparesis following cerebral infarction affecting right dominant side (principal); I69.321 Dysphasia following cerebral infarction; I69.322 Dysarthria following cerebral infarction; I69.398 Other sequelae of cerebral infarction; R13.11 Dysphagia, oral phase; B35.1 Tinea unguium; I48.91 Unspecified atrial fibrillation; E87.6 Hypokalemia; R26.89 Other abnormalities of gait and mobility; I10 Essential (primary) hypertension; E78.5 Hyperlipidemia, unspecified; I25.10 Atherosclerotic heart disease of native coronary artery without angina pectoris; E66.9 Obesity, unspecified; E11.9 Type 2 diabetes mellitus without complications; I70.91 Generalized atherosclerosis; F32.A Depression, unspecified; I25.2 Old myocardial infarction; Z68.38 Body mass index [BMI] 38.0-38.9, adult; Z79.01 Long term (current) use of anticoagulants
CPT/HCPCS: 36415; 74018; 74176; 80048; 81001; 82040; 82947; 83036; 83735; 84134; 85025; 87077; 87086; 87088; 87186; 87324; 92523; 92526; 92610; 97110; 97112; 97116; 97129; 97163; 97165; 97530; 97542; J2001; J7030

== ENCOUNTER 2024-04-28 10:40 | Inpatient (IN) | payer OTHER ==
--- OUTSIDE RECORDS SUMMARY | 2024-04-28 10:49 | XMS REPORT | Continuity of Care Document ---
Author Name Unknown Address [address] [facility]. [address] [place] [address] [facility] Address [address] [facility] [address]. [address] [place] [address] Care Team Providers Care Rectifying Attendant Name Role Phone PCP, PATIENT DOES NOT HAVE A Primary Care Physic kevin Unavailable DIMITRIS PERALES Attending Clinician Unavailable DAMIEN HOWARD Attending Clinician Unavailable Damien Howard Attending Clinician ROCIO SHAY K.HPurvi Attending Clinician Unavailnatacha Shay MD, Rocio K.H. Attending Clinician [phone] Doctor Unassigned, [place] Attending Clinician U navailable GLEN REYNOLDS S Attending Clinician Unavailable Glen Moncada S Attending Clinician [phone] _[facility]_Seiter_S Attending Clinician Unavailable Eula Mac RN Attending Clinician Unavailable Chester Alonzo Attending Clinician [phone] LYUDMILA PEDRO Attending Clinician Unavailable Breana Rabago DO Attending Clinician [phone] Erick CHAN, Johan Avendano Attending Clinician [phone] Luci CHAN, Edwin Attending Clinician [phone] Nereyda Lewis MD Attending Clinician [phone] Josue Christine MD Attending Clinician Lyudmila Pedro MD Attending Clinician [phone] Ulysses CHAN, Gerardoal G Attending Clinician [phone] Chirag CHAN, Jayme Brooks Attending Clinician [phone] JEREMY FOSTER Admitting Clinician Unavailable Jeremy Foster Admitting Clinician [phone] GC_BAHC_Seiter_S Admitting Clinician Unavailable JAYME PINEDA Admitting Clinician Unavailab Desiree CHAN, Jayme Brooks Admitting Clinician [phone] Payers Payer Name Policy Type Policy Number Effective Date Expirati on Date Source [facility] [id number] 2023 00:00:00 [facility] MEDICARE ADV HMO [id number] 2023 00:00:00 [facility] (MEDICARE REPLACEMENT/ADVANTA GE - PPO) [id number] Problems Condition Name Condition Details Condition Category Status Onset Date Resolution Date Last Treatment Date Treating Clinician Comments Source STROKE STROKE Active 03/13/[facility] Active 03-13 00:00: 00 2024-03-13 07:44:00 Marciano HICKS BILLING JHOAN BILLING Active [facility] Active 03-13 00:00: 00 2024-03-13 07:46:00 Marciano Reese ACUTE ISCHEMIC STROKE ACUTE ISCHEMIC STROKE Active [facility]/13/[facility] Active 03-13 00:00: 00 2024-03-21 22:00:00 Marciano Reese Atrial fibrillati on Atrial Fibrillati on Problem Active - 00:00: 00 [facility] Gastroesop hageal reflux disease Gastroesop hageal Reflux Disease Problem Active - 00:00: 00 [facility] History of cerebrovas cular accident History of Cerebrovas cular Accident Problem Active - 00:00: 00 [facility] History of fall History of Fall Problem Active - 00:00: 00 [facility] History of SARS-CoV-2 History of SARS-CoV-2 Problem Active - 00:00: 00 [facility] COVID-19 virus infection COVID-19 virus infection Disease Active 10-21 00:00: 00 Overview: Formattin g of this note is different from the original. SARS-CoV- 2 Rapid ID NOW (no units) Date Value 1 Positive (A) [facility] Delirium Delirium Disease Active 10-21 00:00: 00 [facility] Fever due to COVID-19 Fever due to COVID-19 Disease Active 10-21 00:00: 00 [facility] History of stroke History of stroke Disease Active 10-21 00:00: 00 Overview: Formattin g of this note might be different from the original. ?? 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 [facility] Stenosis of left vertebral artery Stenosis of [...] mildsteno sis of left middle cerebral artery.? [facility] Demand ischemia Demand ischemia Disease Active 10-21 00:00: 00 [facility] YAMILETH (acute kidney injury) YAMILETH (acute kidney injury) Disease Active 10-20 00:00: 00 Overview: Formattin g of this note is different from the original. CREATININ E (mg/dL) Date Value 1 1.59 (H) 1 1.75 (H) Serum creatinin e: 1.59 mg/dL (H) 10/21/20 0316Estim ated creatinin e clearance : 55 mL/min (A) [facility] Pneumonia due to COVID-19 virus Pneumonia due to COVID-19 virus Disease Active 10-20 00:00: 00 [facility] Coronary arterioscl erosis (disorder) Coronary arterioscl erosis (disorder) Active Problem 03/19/2024 [facility] Problem Active 2024-03-19 04:24:59 Marciano Reese Hypertensi ve disorder, systemic arterial (disorder) Hypertensi ve disorder, systemic arterial (disorder) Active Problem 03/19/2024 [facility] Problem Active 2024-03-19 04:24:59 Marciano Reese CEREBRAL INFARCTION , UNSPECIFIE D CEREBRAL INFARCTION , UNSPECIFIE D [facility] Active 2024-03-21 22:00:00 Marciano Reese Allergies, Adverse Reactions, Alerts Allergy Name Allergy Type Status Severity Reaction(s) Onset Date Inactive Date Treating Clinician Comments Source NO KNOWN ALLERGIE S Drug Class Active [facility] Social History Social Habit Start Date Stop Date Quantity Comments Source History of tobacco use Passive smoker [facility] Gender identity [facility] Sexual orientation [facility] Exposure to SARS-CoV-2 (event) Not sure [facility] History of Social function 2023-06-30 00:00:00 2023-06-30 00:00:00 [facility] Tobacco use and exposure 2023-06-30 00:00:00 2023-06-30 00:00:00 Smokeless tobacco non-user [facility] Alcohol intake 2023-06-30 00:00:00 2023-06-30 00:00:00 .29 /d [facility] Sex Ass[birth year] At 1950 00:00:00 1950 00:00:00 [facility] Smoking Status Start Date Stop Date Source Tobacco smoking status Ashley rikjackie Reese Ex-smoker 2023-06-30 00:00:00 2023-06-30 00:00:00 [facility] Medications Ordered Medication Name Filled Medication Name Start Date Stop Date Current Medication? Ordering Clinician Indication Dosage Frequency Signature (SIG) Comments Components Source losartan 50 mg oral tablet 03-16 16:25: 00 Yes 100 mg = 2 tab, PO, Daily, 0 Refill(s) Marciano Reese hydrochloro thiazide 25 mg oral tablet 03-16 16:25: 00 Yes 25 mg = 1 tab, PO, Daily, 0 Refill(s) Marciano Reese sertraline 25 mg oral tablet 03-16 16:25: 00 Yes 25 mg = 1 tab, PO, Daily, 0 Refill(s) Marciano Reese carvedilol 25 mg oral tablet 03-13 16:06: 00 Yes 25 mg = 1 tab, PO, BID, # 180 tab, 0 Refill(s) Marciano Reese metFORMIN 03-13 16:03: 00 Yes 500 mg, PO, BID, 0 Refill(s) Marciano Reese amLODIPine 03-13 16:03: 00 Yes 5 mg, PO, Daily, 0 Refill(s) Marciano Reese atorvastati n 80 mg oral tablet 03-13 16:03: 00 Yes 80 mg = 1 tab, PO, Daily, # 90 tab, 3 Refill(s) Marciano Reese Eliquis 5 mg oral tablet 03-13 16:01: 00 Yes 5 mg, PO, Q12H, tab, 0 Refill(s), For Atrial Fibrilatio n Marciano Reese aspirin 03-13 16:01: 00 Yes 81 mg, PO, Daily, 0 Refill(s) Marciano Reese apixaban 5 mg tablet 07-22 00:00: 00 Yes [id number] 5mg Take 1 tablet by mouth in the morning and 1 tablet in the evening. Indication s: prevention of thromboemb olism in paroxysmal atrial fibrillati on [facility] warfarin 5 mg tablet 2022-07 08:52: 10 Yes [id number] 5mg Take 1 tablet by mouth. 1.5tabs on Mondays 1tab 6x/week [facility] metFORMIN 500 mg 24 hr tablet 2022-07 08:52: 10 Yes [id number] 500mg Take 1 tablet by mouth daily with breakfast. [facility] cloNIDine 0.1 mg tablet 2022-07 08:52: 10 Yes [id number] .1mg Take 1 tablet by mouth in the morning and 1 tablet in the evening. [facility] losartan-hy drochloroth iazide 100-25 mg per tablet 2023-1 2-20 08:52: 10 Yes [id number] 1{tbl} Take 1 tablet by mouth in the morning. [facility] hydralAZINE (APRESOLINE ) injection 10 mg 01-27 17:15: 00 01-27 18:20 :00 No 10mg 10 mg, Slow IV Push, ONCE, 1 dose, On Wed01/27/23 at 1215, SAÚL [facility] cloNIDine (CATAPRES) tablet 0.1 mg 01-27 17:15: 00 01-27 18:19 :00 No .1mg 0.1 mg, Oral, ONCE, 1 dose, On Wed01/27/23 at 1215, STAT [facility] aspirin 81 mg chewable tablet 11-09 00:00: 00 Yes [id number] 81mg Take 1 tablet by mouth daily. [facility] diltiazem XR 180 mg 24 hr capsule 11-09 00:00: 00 Yes [id number] 180mg Take 1 capsule by mouth daily. [facility] aspirin 81 mg chewable tablet 11-08 19:01: 15 11-08 00:00 :00 No 81mg Take 81 mg by mouth daily. [facility] diltiazem XR (DILT-XR) capsule 180 mg 11-08 14:00: 00 Yes 180mg 180 mg, Oral, DAILY, First dose (after last modificati on) on Wed11/08/20 at 0900, Until Discontinu ed, Routine [facility] foLIC acid (FOLATE) tablet 1 mg 11-08 14:00: 00 Yes 1mg 1 mg, Oral, DAILY, First dose (after last modificati on) on Wed11/08/20 at 0900, Until Discontinu ed, Routine [facility] aspirin chewable tablet 81 mg 11-08 14:00: 00 Yes 81mg 81 mg, Oral, DAILY, First dose (after last modificati on) on Wed11/08/20 at 0900, Until Discontinu ed, Routine [facility] lactated ringers IV infusion 1,000 mL 11-08 13:30: 00 11-08 13:54 :00 No 1000mL at 200 mL/hr, 1,000 mL, Intravenou s, ONCE, 1 dose, Wed11/08/20 at 0830, Routine [facility] atorvastati n (LIPITOR) tablet 80 mg 11-08 02:00: 00 Yes 80mg 80 mg, Oral, QHS, First dose (after last modificati on) on Wed11/07/20 at 2100, Until Discontinu ed, Routine [facility] apixaban (ELIQUIS) tablet 5 mg 11-08 01:00: 00 Yes 5mg 5 mg, Oral, BID, First dose (after last modificati on) on Wed11/07/20 at 2000, Until Discontinu ed, Routine [facility] atorvastati n 80 mg tablet 11-08 00:00: 00 Yes [id number] 80mg Take 1 tablet by mouth at bedtime. [facility] carvediloL 25 mg tablet 11-08 00:00: 00 Yes [id number] 25mg Take 1 tablet by mouth every 12 (twelve) hours. [facility] hydrALAZINE 100 mg tablet 11-08 00:00: 00 Yes [id number] 100mg Take 1 tablet by mouth every 8 (eight) hours. [facility] pantoprazol e 40 mg EC tablet 11-08 00:00: 00 Yes [id number] 40mg Take 1 tablet by mouth 2 (two) times daily. [facility] apixaban 5 mg tablet 11-08 00:00: 00 07-22 00:00 :00 No [id number] 5mg Take 1 tablet by mouth 2 (two) times daily. Indication s: prevention of thromboemb olism in paroxysmal atrial fibrillati on [facility] hydrALAZINE (APRESOLINE ) tablet 100 mg 11-07 19:00: 00 Yes 100mg 100 mg, Oral, Q8H, First dose (after last modificati on) on Wed11/07/20 at 1400, Until Discontinu ed, [facility] 1,500 mL 11-07 14:00: 00 11-07 14:51 :00 No 1500mL at 150 mL/hr, 1,500 mL, Intravenou s, ONCE, 1 dose, Wed11/07/20 at 0900, Routine [facility] polyethylen e glycol 3350 powder 17 g 11-06 14:00: 00 Yes 17g 17 g, Oral, DAILY, First dose (after last modificati on) on Wed11/06/20 at 0900, Until Discontinu ed, Routine [facility] atorvastati n (LIPITOR) tablet 80 mg 11-06 02:00: 00 11-07 16:40 :03 No 80mg 80 mg, Enteral, QHS, First dose (after last modificati on) on Wed11/05/20 at 2100, Until Discontinu ed, Routine [facility] amino acids 4.25%-elect rolytes-aicha cium-dextro se 5% (CLINIMIX-E 4.25%/D5W SULF FREE) IV infusion 1,992 mL 11-05 22:00: 00 11-05 21:39 :00 No 1992mL at 83 mL/hr, 1,992 mL, IV Infusion, TPNCONTINU OUS, 1 dose, First dose (after last reorder) on Wed11/05/20 at 1700, Routine [facility] fat emulsion (INTRALIPID ) 20 % infusion 250 mL 11-05 22:00: 00 11-05 21:39 :00 No 250mL at 11 mL/hr, IV Infusion, TPNCONTINU OUS, 1 dose, First dose (after last reorder) on Wed11/05/20 at 1700, Routine [facility] hydrALAZINE (APRESOLINE ) tablet 100 mg 11-05 19:00: 00 11-07 16:40 :03 No 100mg 100 mg, Enteral, Q8H, First dose (after last modificati on) on Wed11/05/20 at 1400, Until Discontinu ed, Routine [facility] diltiazem (CARDIZEM) tablet 60 mg 11-05 17:00: 00 11-07 16:40 :02 No 60mg 60 mg, Enteral, Q6H, First dose (after last modificati on) on Wed11/05/20 at 1200, Until Discontinu ed, Routine [facility] magnesium sulfate in water 2 gram/50 mL (4 %) infusion 2 g 11-05 16:15: 00 11-05 15:23 :00 No 2g 2 g, IV Piggyback, ONCE, 1 dose, Wed11/05/20 at 1115, Routine [facility] KCL (POTASSIUM CHLORIDE) 40 mEq in NaCl 0.9% (NS) piggyback 11-05 16:15: 00 11-05 17:14 :00 No 40meq 40 mEq, IV Piggyback, ONCE, 1 dose, Wed11/05/20 at 1115, 250 mL [facility] foLIC acid (FOLATE) tablet 1 mg 11-05 14:00: 00 11-07 16:40 :03 No 1mg 1 mg, Enteral, DAILY, First dose (after last modificati on) on Wed11/05/20 at 0900, Until Discontinu ed, Routine [facility] aspirin chewable tablet 81 mg 11-05 14:00: 00 11-07 16:40 :03 No 81mg 81 mg, Enteral, DAILY, First dose (after last modificati on) on Wed11/05/20 at 0900, Until Discontinu ed, Routine [facility] apixaban (ELIQUIS) tablet 5 mg 11-05 13:00: 00 11-07 16:40 :03 No 5mg 5 mg, Enteral, BID, First dose (after last modificati on) on Wed11/05/20 at 0800, Until Discontinu ed, Routine [facility] fat emulsion (INTRALIPID ) 20 % infusion 250 mL 11-04 22:00: 00 11-04 22:00 :00 No 250mL at 11 mL/hr, IV Infusion, TPNCONTINU OUS, 1 dose, First dose (after last reorder) on Wed11/04/20 at 1700, Routine [facility] amino acids 4.25%-elect rolytes-aicha cium-dextro se 5% (CLINIMIX-E 4.25%/D5W SULF FREE) IV infusion 1,992 mL 11-04 22:00: 00 11-04 22:00 :00 No 1992mL at 83 mL/hr, 1,992 mL, IV Infusion, TPNCONTINU OUS, 1 dose, First dose (after last reorder) on Wed11/04/20 at 1700, Routine [facility] metoprolol (LOPRESSOR) injection 5 mg 11-04 15:51: 22 Yes 5mg 5 mg, Slow IV Push, PRN, Starting Wed11/04/20 at 1051, Until Discontinu ed, Routine, For HR > 110, please notify team w/ administra tion. [facility] melatonin (MELATIN) tablet 3 mg 11-04 02:00: 00 Yes 3mg 3 mg, Oral, QHS, First dose on Wed11/03/20 at 2100, Until Discontinu ed, Routine [facility] fat emulsion (INTRALIPID ) 20 % infusion 250 mL 11-03 22:00: 00 11-03 21:56 :00 No 250mL at 11 mL/hr, IV Infusion, TPNCONTINU OUS, 1 dose, First dose (after last reorder) on Wed11/03/20 at 1700, Routine [facility] amino acids 4.25%-elect rolytes-aicha cium-dextro se 5% (CLINIMIX-E 4.25%/D5W SULF FREE) IV infusion 2,000 mL 11-03 22:00: 00 11-03 22:17 :00 No 2000mL at 83 mL/hr, 2,000 mL, IV Infusion, TPNCONTINU OUS, 1 dose, First dose (after last reorder) on Wed11/03/20 at 1700, Routine [facility] pantoprazol e (PROTONIX) 40 mg in NaCl 0.9% (NS) 100 mL MINI-BAG 11-03 01:00: 00 11-08 18:02 :26 No 40mg 40 mg, IV Piggyback, Q12H, First dose on 11/02/20 at 2000, Until Discontinu ed, 100 mL [facility] fat emulsion (INTRALIPID ) 20 % infusion 250 mL 11-02 22:00: 00 11-02 20:20 :00 No 250mL at 11 mL/hr, IV Infusion, TPNCONTINU OUS, 1 dose, First dose (after last reorder) on Wed11/02/20 at 1700, Routine [facility] amino acids 4.25%-elect rolytes-aicha cium-dextro se 5% (CLINIMIX-E 4.25%/D5W SULF FREE) IV infusion 2,000 mL 11-02 22:00: 00 11-02 20:21 :00 No 2000mL at 83 mL/hr, 2,000 mL, IV Infusion, TPNCONTINU OUS, 1 dose, First dose on Wed11/02/20 at 1700, Routine [facility] hydrALAZINE (APRESOLINE ) tablet 100 mg 11-02 19:00: 00 11-05 11:42 :47 No 100mg 100 mg, Oral, Q8H, First dose (after last modificati on) on Wed11/02/20 at 1400, Until Discontinu ed, Routine [facility] amino acid 4.25%-detro se 5% (CLINIMIX 4.25%/D5W SULFIT FREE) IV infusion 2,000 mL 11-01 22:00: 00 11-02 23:11 :00 No 2000mL at 83 mL/hr, 2,000 mL, IV Infusion, TPNCONTINU OUS, 1 dose, First dose on Wed11/01/20 at 1700, Routine [facility] fat emulsion (INTRALIPID ) 20 % infusion 250 mL 11-01 22:00: 00 11-01 23:10 :00 No 250mL at 11 mL/hr, IV Infusion, TPNCONTINU OUS, 1 dose, First dose on Wed11/01/20 at 1700, Routine [facility] hydrALAZINE (APRESOLINE ) tablet 50 mg 11-01 19:00: 00 11-02 12:52 :42 No 50mg 50 mg, Oral, Q8H, First dose (after last modificati on) on Wed11/01/20 at 1400, Until Discontinu ed, Routine [facility] magnesium sulfate in water 2 gram/50 mL (4 %) infusion 2 g 11-01 15:45: 00 11-01 15:29 :00 No 2g 2 g, IV Piggyback, ONCE, 1 dose, Wed11/01/20 at 1045, Routine [facility] KCL (POTASSIUM CHLORIDE) 40 mEq in NaCl 0.9% (NS) 250 mL piggyback 11-01 13:00: 00 11-01 14:09 :00 No 40meq 40 mEq, IV Piggyback, Q4H, 1 dose, First dose on Wed11/01/20 at 0800, 250 mL [facility] hydrALAZINE (APRESOLINE ) tablet 20 mg 11-01 03:00: 00 11-01 15:37 :30 No 20mg 20 mg, Oral, Q8H, First dose (after last modificati on) on Wed10/31/20 at 2200, Until Discontinu ed, Routine [facility] lactated ringers IV infusion 1,000 mL 10-31 13:30: 00 10-31 15:09 :00 No 1000mL at 75 mL/hr, 1,000 mL, Intravenou s, ONCE, 1 dose, Wed10/31/20 at 0830, Routine [facility] hydrALAZINE (APRESOLINE ) tablet 10 mg 10-30 19:00: 00 10-31 20:51 :57 No 10mg 10 mg, Oral, Q8H, First dose on Wed10/30/20 at 1400, Until Discontinu ed, Routine [facility] diltiazem (CARDIZEM) tablet 60 mg 10-30 17:00: 00 11-05 11:42 :47 No 60mg 60 mg, Oral, Q6H, First dose (after last modificati on) on Wed10/30/20 at 1200, Until Discontinu ed, Routine [facility] diltiazem (CARDIZEM) tablet 30 mg 10-30 14:45: 00 10-30 14:14 :00 No 30mg 30 mg, Oral, ONCE, 1 dose, Wed10/30/20 at 0945, Routine [facility] lisinopriL (PRINIVIL,Z ESTRIL) tablet 10 mg 10-30 14:00: 00 10-30 15:10 :13 No 10mg 10 mg, Oral, DAILY, First dose on Wed10/30/20 at 0900, Until Discontinu ed, Routine [facility] lactated ringers IV infusion 1,000 mL 10-30 13:00: 00 10-30 12:53 :00 No 1000mL at 150 mL/hr, 1,000 mL, Intravenou s, ONCE, 1 dose, Wed10/30/20 at 0800, Routine [facility] thiamine (VITAMIN B1) tablet 500 mg 10-29 19:00: 00 Yes 500mg 500 mg, Oral, TID, First dose on Wed10/29/20 at 1400, Until Discontinu ed, Routine [facility] chlorthalid one (HYGROTON) tablet 25 mg 10-29 16:45: 00 11-05 11:42 :47 No 25mg 25 mg, Oral, DAILY, First dose on Wed10/29/20 at 1145, Until Discontinu ed, Routine [facility] chlorthalid one (HYGROTON) tablet 25 mg 10-28 22:00: 00 10-28 22:48 :00 No 25mg 25 mg, Oral, ONCE, 1 dose, Wed10/28/20 at 1700, Routine [facility] apixaban (ELIQUIS) tablet 5 mg 10-28 17:00: 00 11-05 11:42 :47 No 5mg 5 mg, Oral, BID, First dose on Wed10/28/20 at 1200, Until Discontinu ed, Routine [facility] diltiazem (CARDIZEM) tablet 60 mg 10-28 17:00: 00 10-30 12:14 :18 No 60mg 60 mg, Oral, Q6H, First dose (after last modificati on) on Wed10/28/20 at 1200, Until Discontinu ed, Routine [facility] foLIC acid (FOLATE) tablet 1 mg 10-28 14:00: 00 11-05 11:42 :47 No 1mg 1 mg, Oral, DAILY, First dose (after last modificati on) on Wed10/28/20 at 0900, Until Discontinu ed, Routine [facility] aspirin chewable tablet 81 mg 10-28 14:00: 00 11-05 11:42 :47 No 81mg 81 mg, Oral, DAILY, First dose (after last modificati on) on Wed10/28/20 at 0900, Until Discontinu ed, Routine [facility] thiamine (VITAMIN B1) tablet 100 mg 10-28 14:00: 00 10-29 14:50 :39 No 100mg 100 mg, Oral, DAILY, First dose (after last modificati on) on Wed10/28/20 at 0900, Until Discontinu ed, Routine [facility] atorvastati n (LIPITOR) tablet 80 mg 10-28 02:00: 00 11-05 11:42 :47 No 80mg 80 mg, Oral, QHS, First dose (after last modificati on) on Wed10/27/20 at 2100, Until Discontinu ed, Routine [facility] carvediloL (COREG) tablet 25 mg 10-28 01:00: 00 Yes 25mg 25 mg, Oral, Q12H, First dose (after last modificati on) on [place] 10/27/20 at 2000, Until Discontinu ed, Routine [facility] NaCl 0.45% (1/2NS) IV infusion 1,000 mL 10-27 22:00: 00 10-28 12:24 :48 No 1000mL at 125 mL/hr, 1,000 mL, IV Infusion, CONTINUOUS , Starting 10/27/20 at 1715, Until 10/28/20 at 0724, SAÚL [facility] diltiazem (CARDIZEM) tablet 30 mg 10-27 17:00: 00 10-28 12:26 :09 No 30mg 30 mg, Oral, Q6H, First dose on [place] 10/27/20 at 1200, Until Discontinu ed, Routine [facility] D5W IV infusion 1,000 mL 10-27 11:45: 00 10-28 12:24 :48 No 1000mL at 150 mL/hr, IV Infusion, CONTINUOUS , Starting [place] 10/27/20 at 0645, Until 10/28/20 at 0724, Routine [facility] thiamine (VITAMIN B1) tablet 100 mg 10-26 14:00: 00 10-27 14:34 :23 No 100mg 100 mg, Enteral, DAILY, First dose (after last modificati on) on [facility] 10/26/20 at 0900, Until Discontinu ed, Routine [facility] foLIC acid (FOLATE) tablet 1 mg 10-26 14:00: 00 10-27 14:34 :23 No 1mg 1 mg, Enteral, DAILY, First dose (after last modificati on) on 10/26/20 at 0900, Until Discontinu ed, Routine [facility] aspirin chewable tablet 81 mg 10-26 14:00: 00 10-27 14:34 :23 No 81mg 81 mg, Enteral, DAILY, First dose (after last modificati on) on 10/26/20 at 0900, Until Discontinu ed, Routine [facility] amLODIPine (NORVASC) tablet 10 mg 10-26 14:00: 00 10-27 14:12 :20 No 10mg 10 mg, Enteral, DAILY, First dose (after last modificati on) on 10/26/20 at 0900, Until Discontinu ed, Routine [facility] lactated ringers IV infusion 1,000 mL 10-26 12:45: 00 10-27 11:34 :58 No 1000mL at 100 mL/hr, 1,000 mL, IV Infusion, CONTINUOUS , Starting 10/26/20 at 0745, Until Wed10/27/20 at 0634, Routine [facility] sodium bicarbonate 150 mEq in D5W 1,000 mL IV Solution 10-26 02:15: 00 10-26 11:40 :16 No IV Infusion, CONTINUOUS , Starting Wed10/25/20 at 2115, Until 10/26/20 at 0640, 1,000 mL, at 100 mL/hr [facility] atorvastati n (LIPITOR) tablet 80 mg 10-26 02:00: 00 10-27 14:34 :23 No 80mg 80 mg, Enteral, QHS, First dose (after last modificati on) on Wed10/25/20 at 2100, Until Discontinu ed, Routine [facility] carvediloL (COREG) tablet 25 mg 10-25 22:00: 00 10-27 11:53 :09 No 25mg 25 mg, Oral, BID MEALS, First dose on Wed10/25/20 at 1700, Until Discontinu ed, Routine [facility] sodium bicarbonate 150 mEq in D5W 1,000 mL IV Solution 10-25 20:00: 00 10-26 02:07 :46 No IV Infusion, CONTINUOUS , Starting Wed10/25/20 at 1500, Until Wed10/25/20 at 2107, 1,000 mL, at 150 mL/hr [facility] heparin 25,000 Units/250 mL (Premixed Bag) [...] Rang e, Dosing and Testing: &nbs p;FOR [place], [facility], AND [facility] ONLY &nbs p; - aPTT < 35: [...] ADJUST INITIAL BOLUS OR INITIAL INFUSION RATE.
[facility] metoprolol (LOPRESSOR) injection 5 mg 10-25 19:00: 00 10-25 17:56 :00 No 5mg 5 mg, IV Push, ONCE, 1 dose, Wed10/25/20 at 1400, Routine [facility] NaCl 0.9% (NS) injection 10 mL 10-25 18:54: 32 Yes 10mL 10 mL, Slow IV Push, PRN, Starting Wed10/25/20 at 1354, Until Discontinu ed, Routine, line paul gonzales [facility] [facility] lidocaine 1% (PF) (XYLOCAINE) injection 5 mL 10-25 18:54: 32 Yes 5mL 5 mL, Subcutaneo us, PRN, Starting Wed10/25/20 at 1354, Until Discontinu ed, Routine, Local anesthesia [facility] heparin (1,000 unit/mL, 10 mL vial) for Rebolusing 10-25 18:53: 54 10-28 16:35 :01 No 3000U FOR REBOLUSING , Starting Wed10/25/20 at 1353, Until Wed10/28/20 at 1135, Routine
Dosing based on aPTT testing parameters (refer to continuous heparin drip order).
[facility] metoprolol (LOPRESSOR) injection 5 mg 10-25 17:48: 00 10-26 04:32 :00 No 5mg 5 mg, IV Push, PRN, 2 doses, Starting Wed10/25/20 at 1248, Until Wed10/25/20 at 2332, Routine, As directed by physician verbally [facility] NaCl 0.9% (NS) bolus infusion 500 mL 10-25 17:30: 00 10-25 17:23 :00 No 500mL at 999 mL/hr, 500 mL, IV Piggyback, ONCE, 1 dose, Wed10/25/20 at 1230, STAT [facility] amLODIPine (NORVASC) tablet 5 mg 10-25 17:30: 00 10-25 17:24 :00 No 5mg 5 mg, Oral, ONCE, 1 dose, Wed10/25/20 at 1230, Routine [facility] dexamethaso ne (DECADRON PHOSPHATE) 6 mg in NaCl 0.9% (NS) 50 mL piggyback 10-25 17:00: 00 10-30 13:39 :54 No 6mg 6 mg, IV Piggyback, QNOON, First dose on Wed10/25/20 at 1200, Until Discontinu ed, 50 mL [facility] Saline Bubble Study 10-25 15:00: 00 Yes [id number] 6mL 6 mL, Injection, SEE-INSTRU CTIONS, 2 doses, Starting Wed10/25/20 at 1000, Until Discontinu ed, Routine [facility] enoxaparin (LOVENOX) injection 30 mg 10-25 14:00: 00 10-25 19:01 :45 No 30mg 30 mg, Subcutaneo us, DAILY, First dose (after last modificati on) on Wed10/25/20 at 0900, Until Discontinu ed, Routine [facility] amLODIPine (NORVASC) tablet 5 mg 10-25 14:00: 00 10-25 16:16 :43 No 5mg 5 mg, Oral, DAILY, First dose on Wed10/25/20 at 0900, Until Discontinu ed, Routine [facility] thiamine (VITAMIN B1) tablet 100 mg 10-25 14:00: 00 10-25 20:13 :07 No 100mg 100 mg, Oral, DAILY, First dose on Wed10/25/20 at 0900, Until Discontinu ed, Routine [facility] carvediloL (COREG) tablet 12.5 mg 10-24 22:00: 00 10-25 19:51 :30 No 12.5mg 12.5 mg, Oral, BID MEALS, First dose (after last modificati on) on Wed10/24/20 at 1700, Until Discontinu ed, Routine [facility] enoxaparin (LOVENOX) injection 30 mg 10-24 14:00: 00 10-24 15:21 :44 No 30mg 30 mg, Subcutaneo us, DAILY, First dose (after last modificati on) on Wed10/24/20 at 0900, Until Discontinu ed, Routine [facility] NaCl 0.9% (NS) IV infusion 1,000 mL 10-24 13:45: 00 10-24 17:53 :52 No 1000mL at 150 mL/hr, IV Infusion, CONTINUOUS , Starting Wed10/24/20 at 0845, Until Wed10/24/20 at 1253, Routine [facility] atorvastati n (LIPITOR) tablet 80 mg 10-24 02:00: 00 10-25 20:13 :07 No 80mg 80 mg, Oral, QHS, First dose (after last modificati on) on Wed10/23/20 at 2100, Until Discontinu ed, Routine [facility] albuterol (VENTOLIN) inhaler 1 Puff 10-23 21:29: 55 Yes 1{puff} 1 Puff, Inhalation , Q4HPRN, Starting Wed10/23/20 at 1629, Until Discontinu ed, Routine, Wheezing, Shortness of Breath
Is this order for a patient with suspected or confirmed COVID-19 infection? Yes [facility] NaCl 0.9% (NS) bolus infusion 2,000 mL 10-23 17:15: 00 10-23 16:45 :00 No 2000mL at 150 mL/hr, 2,000 mL, IV Piggyback, ONCE, 1 dose, Wed10/23/20 at 1215, STAT [facility] thiamine (VITAMIN B1) 500 mg in NaCl 0.9% (NS) piggyback 10-23 01:00: 00 10-23 16:45 :00 No 500mg IV Piggyback, Q12H, 2 doses, First dose on Wed10/22/20 at 2000, Last dose on Wed10/23/20 at 0800, 50 mL [facility] NaCl 0.9% (NS) bolus infusion 500 mL 10-22 15:30: 00 10-22 17:50 :00 No 500mL at 75 mL/hr, 500 mL, IV Piggyback, ONCE, 1 dose, Wed10/22/20 at 1030, Routine [facility] azithromyci n (ZITHROMAX) tablet 250 mg 10-22 02:30: 00 10-25 02:23 :00 No 250mg 250 mg, Oral, Q24H, 4 doses, First dose on Wed10/21/20 at 2130, Last dose on Wed10/24/20 at 2130, SAÚL
Re ason for Anti-Infec tive: Empiric Therapy for Suspected Infection< br>Empiric Therapy Site: Respirator y
Durat ion of therapy: 72 hours [facility] melatonin (MELATIN) tablet 3 mg 10-22 02:00: 00 11-03 17:40 :22 No 3mg 3 mg, Oral, QHS, First dose on Wed10/21/20 at 2100, Until Discontinu ed, Routine [facility] albuterol (VENTOLIN) inhaler 2 Puff 10-21 23:00: 00 11-06 13:04 :44 No 2{puff} 2 Puff, Inhalation , Q6H, First dose (after last modificati on) on Wed10/21/20 at 1800, Until Discontinu ed, Routine
Is this order for a patient with suspected or confirmed COVID-19 infection? Yes [facility] carvediloL (COREG) tablet 6.25 mg 10-21 22:00: 00 10-24 18:24 :35 No 6.25mg 6.25 mg, Oral, BID MEALS, First dose on Wed10/21/20 at 1700, Until Discontinu ed, Routine [facility] foLIC acid (FOLATE) tablet 1 mg 10-21 14:00: 00 10-25 20:13 :07 No 1mg 1 mg, Oral, DAILY, First dose on Wed10/21/20 at 0900, Until Discontinu ed, Routine [facility] aspirin chewable tablet 81 mg 10-21 14:00: 00 10-25 20:13 :07 No 81mg 81 mg, Oral, DAILY, First dose on Wed10/21/20 at 0900, Until Discontinu ed, Routine [facility] enoxaparin (LOVENOX) injection 40 mg 10-21 14:00: 00 10-24 12:40 :40 No 40mg 40 mg, Subcutaneo us, DAILY, First dose on Wed10/21/20 at 0900, Until Discontinu ed, Routine [facility] thiamine (VITAMIN B1) tablet 100 mg 10-21 14:00: 00 10-22 14:25 :06 No 100mg 100 mg, Oral, DAILY, First dose on Wed10/21/20 at 0900, Until Discontinu ed, Routine [facility] NaCl 0.9% (NS) bolus infusion 1,000 mL 10-21 13:30: 00 10-21 13:24 :00 No 1000mL at 125 mL/hr, 1,000 mL, IV Piggyback, ONCE, 1 dose, Wed10/21/20 at 0830, Routine [facility] famotidine (PEPCID AC) tablet 20 mg 10-21 13:00: 00 11-02 14:09 :56 No 20mg 20 mg, Oral, BID, First dose on Wed10/21/20 at 0800, Until Discontinu ed, Routine [facility] atorvastati n (LIPITOR) tablet 20 mg 10-21 05:15: 00 10-23 12:07 :21 No 20mg 20 mg, Oral, QHS, First dose on Wed10/21/20 at 0015, Until Discontinu ed, Routine [facility] oxazepam (SERAX) capsule 15 mg 10-21 05:13: 30 10-30 14:20 :24 No 15mg 15 mg, Oral, Q4HPRN, Starting Wed10/21/20 at 0013, Until Wed10/30/20 at 0920, Routine, Only while awake for DBP equal to or greater than 100, HR equal to or greater than 100. [facility] ipratropium (ATROVENT HFA) inhaler 1 Puff 10-21 05:00: 00 Yes 1{puff} 1 Puff, Inhalation , Q6H, First dose on Wed10/21/20 at 0000, Until Discontinu ed, Routine
Is this order for a patient with suspected or confirmed COVID-19 infection? Yes [facility] albuterol (VENTOLIN) inhaler 2 Puff 10-21 05:00: 00 10-21 20:45 :46 No 2{puff} 2 Puff, Inhalation , Q4H, First dose on 10/21/20 at 0000, Until Discontinu ed, Routine
Is this order for a patient with suspected or confirmed COVID-19 infection? Yes [facility] NaCl 0.9% (NS) bolus infusion 500 mL 10-21 04:15: 00 10-21 06:00 :00 No 500mL at 999 mL/hr, 500 mL, IV Piggyback, ONCE, 1 dose, 10/20/20 at 2315, STAT [facility] azithromyci n (ZITHROMAX) tablet 500 mg 10-21 02:45: 00 10-21 03:32 :00 No 500mg 500 mg, Oral, ONCE, 1 dose, 10/20/20 at 2145, SAÚL
Re ason for Anti-Infec tive: Empiric Therapy for Suspected Infection< br>Empiric Therapy Site: Respirator y
Durat ion of therapy: 72 hours [facility] acetaminoph en (TYLENOL) tablet 650 mg 10-21 02:22: 07 Yes 650mg 650 mg, Oral, Q6HPRN, Starting 10/20/20 at 2122, Until Discontinu ed, Routine, Pain (scale 1-3) [facility] vancomycin 1500 mg in NS 500 mL IV Piggyback RTU 1,500 mg 10-20 23:00: 00 10-21 00:48 :00 No 15mg/kg 1,500 mg (rounded from 1,531.5 mg = 15 mg/kg ?102.1 kg), IV Piggyback, ONCE, 1 dose, 10/20/20 at 1800
Re ason for Anti-Infec tive: Empiric Therapy for Suspected Infection< br>Empiric Therapy Site: Respirator y
Durat ion of therapy: 72 hours [facility] piperacilli n-tazobacta m (ZOSYN) 3.375 g in NaCl 0.9% (NS) 100 mL MINI-BAG 10-20 23:00: 00 10-20 22:42 :00 No 3.375g 3.375 g, IV Piggyback, ONCE, 1 dose, [place] 10/20/20 at 1800, 100 mL
Reas on for Anti-Infec tive: Empiric Therapy for Suspected Infection< br>Empiric Therapy Site: Respirator y
Durat ion of therapy: 72 hours [facility] acetaminoph en (TYLENOL) tablet 650 mg 10-20 22:30: 00 10-20 21:23 :00 No 650mg 650 mg, Oral, ONCE, 1 dose, [place] 10/20/20 at 1730, SAÚL [facility] aspirin chewable tablet 324 mg 10-20 22:30: 00 10-20 21:22 :00 No 324mg 324 mg, Oral, ONCE, 1 dose, [place] 10/20/20 at 1730, Routine [facility] iohexol (OMNIPAQUE 350 BULK-75 mL) injection 100 mL 10-20 21:30: 00 10-20 21:16 :00 No [id number] 100mL 100 mL, Intravenou s, ONCE, 1 dose, [place] 10/20/20 at 1630, Routine [facility] aspirin 81 mg tablet,zoey yed release Take 1 tablet every day by oral route. aspirin 81 mg tablet,zoey yed release Take 1 tablet every day by oral route. No 1 Q1D aspirin 81 mg tablet,del ayed release Take 1 tablet every day by oral route. [facility] diltiazem ER 180 mg capsule,24 hr,extended release Take 1 capsule every day by oral route. diltiazem ER 180 mg capsule,24 hr,extended release Take 1 capsule every day by oral route. No 1capsul e(s) Q1D diltiazem ER 180 mg capsule,24 hr,extende d release Take 1 capsule every day by oral route. [facility] Vital Signs Vital Name Observation Time Observation Value Comments S rey Systolic blood pressure 2023-06-30 14:53:00 159 mm[Hg] [facility] Diastolic blood pressure 2023-06-30 14:53:00 75 mm[Hg] [facility] Heart rate 2023-06-30 14:53:00 58 /min [facility] Oxygen saturation in Arterial blood by Pulse oximetry 2023-06-30 14:53:00 98 /min [facility] Respiratory rate 2023-06-30 14:52:00 18 /min [facility] Body height 2023-06-30 14:52:00 182.9 cm [facility] Body weight 2023-06-30 14:52:00 119.069 kg [facility] BMI 2023-06-30 14:52:00 35.60 kg/m2 [facility] Systolic blood pressure 2023-01-27 19:45:00 162 mm[Hg] [facility] Diastolic blood pressure 2023-01-27 19:45:00 89 mm[Hg] [facility] Heart rate 2023-01-27 19:45:00 62 /min [facility] Respiratory rate 2023-01-27 19:45:00 22 /min [facility] Oxygen saturation in Arterial blood by Pulse oximetry 2023-01-27 19:45:00 100 /min [facility] Body temperature 2023-01-27 16:04:00 37.22 Lucy [facility] Body weight 2023-01-27 16:04:00 118.389 kg [facility] BMI 2023-01-27 16:04:00 35.40 kg/m2 [facility] BP Diastolic 2020-11-11 00:00:00 70 mm[Hg] [facility] Height 2020-11-11 00:00:00 72 [in_i] [facility] BMI (Body Mass Index) 2020-11-11 00:00:00 30.5 kg/m2 [facility] BP Systolic 2020-11-11 00:00:00 134 mm[Hg] [facility] Body Weight 2020-11-11 00:00:00 3600 [oz_av] [facility] Heart rate 2020-11-08 17:59:00 61 /min [facility] Respiratory rate 2020-11-08 17:59:00 16 /min [facility] Oxygen saturation in Arterial blood by Pulse oximetry 2020-11-08 17:59:00 98 /min [facility] Systolic blood pressure 2020-11-08 16:29:00 150 mm[Hg] [facility] Diastolic blood pressure 2020-11-08 16:29:00 66 mm[Hg] [facility] Body temperature 2020-11-08 16:29:00 36.5 Lucy [facility] Body weight 2020-10-21 18:00:00 102.1 kg [facility] BMI 2020-10-21 18:00:00 30.53 kg/m2 [facility] Body height 2020-10-21 06:07:00 182.9 cm [facility] Temperature Oral (F) 2024-03-17 00:18:20 98.2 F [facility] Systolic (mm Hg) 2024-03-16 23:00:00 [facility] [place] Diastolic (mm Hg) 2024-03-16 23:00:00 [facility] [place] Temperature Oral (F) 2024-03-16 16:19:30 98.4 F [facility] Height 2024-03-13 18:21:00 6 [ft_i] [facility] Weight 2024-03-13 18:21:00 [facility] BMI Calculated 2024-03-13 18:21:00 [facility] [place] Heart Rate 2024-03-13 11:26:00 [facility] Procedures Procedure Date / Time Performed Performing Clinician Source EXTERNAL PROVIDER - [facility] CARDIOLOG[facility] 2023-07-13 06:01:00 Doctor Unassigned, [place] [facility] EXTERNAL PROVIDER - [facility] CARDI[facility] 2023-07-02 06:01:00 Doctor Unassigned, [place] [facility] AUTHORIZATION TO RELEASE PHI TO [facility] 2023-06-30 06:01:00 Doctor Unassigned, [place] [facility] REFERRAL- REQUEST/RESPONSE 2023-06-24 06:01:00 Doctor Unassigned, [place] [facility] HB ECG ROUTINE & RHYTHM STRIP 2023-01-27 17:56:07 Glen Reynolds [facility] BASIC METABOLIC PANEL (NA, K , CL, CO2, GLUCOSE, BUN, CREATININE, CA) 2023-01-27 17:39:00 Glen Reynolds [facility] CBC WITH DIFF 2023-01-27 17:39:00 Glen Reynolds [facility] NOTICE OF PRIVACY PRACTICES 2023-01-27 15:49:12 Doctor Unassigned, [place] [facility] CONSENT/REFUSAL FOR DIAGNOSI S AND TREATMENT 2023-01-27 15:47:19 Doctor Unassigned, [place] [facility] AUTHORIZATION FOR RELEASE OF PHI 2021-03-12 05:01:00 Doctor Unassigned, [place] [facility] MAGNESIUM 2020-11-08 09:02:00 Mohinder Churchill [facility] BASIC METABOLIC PANEL (NA, K , CL, CO2, GLUCOSE, BUN, CREATININE, CA) 2020-11-08 09:02:00 Mohinder Churchill [facility] POCT GLUCOSE (AUTOMATED) 2020-11-07 17:09:00 Johan Suarez [facility] POCT GLUCOSE (AUTOMATED) 2020-11-07 11:05:00 Johan Suarez [facility] PHOSPHORUS 2020-11-07 10:26:00 Mohinder Churchill [facility] BASIC METABOLIC PANEL (NA, K , CL, CO2, GLUCOSE, BUN, CREATININE, CA) 2020-11-07 10:26:00 Johan Dixon [facility] POCT GLUCOSE (AUTOMATED) 2020-11-07 05:06:00 Johan Suarez [facility] PHOSPHORUS 2020-11-06 09:13:00 Mohinder Churchill [facility] MAGNESIUM 2020-11-06 09:13:00 Emily Amanda [facility] BASIC METABOLIC PANEL (NA, K , CL, CO2, GLUCOSE, BUN, CREATININE, CA) 2020-11-06 09:13:00 Emily Amanda [facility] XR KUB 2020-11-05 12:55:00 Emily Amanda [facility] PHOSPHORUS 2020-11-05 10:31:00 Mohinder Churchill [facility] MAGNESIUM 2020-11-05 10:31:00 Emily Amanda [facility] BASIC METABOLIC PANEL (NA, K , CL, CO2, GLUCOSE, BUN, CREATININE, CA) 2020-11-05 10:31:00 Emily Amanda [facility] BASIC METABOLIC PANEL (NA, K , CL, CO2, GLUCOSE, BUN, CREATININE, CA) 2020-11-04 17:57:00 Johan Dixon [facility] XR KUB 2020-11-04 11:02:00 Emily Amanda [facility] PHOSPHORUS 2020-11-03 08:57:00 Mohinder Churchill [facility] MAGNESIUM 2020-11-03 08:57:00 Mohinder Churchill [facility] BASIC METABOLIC PANEL (NA, K , CL, CO2, GLUCOSE, BUN, CREATININE, CA) 2020-11-03 08:57:00 Mohinder Churchill [facility] XR KUB 2020-11-02 16:45:00 Mohinder Churchill [facility] MAGNESIUM 2020-11-02 15:42:00 Mohinder Churchill [facility] BASIC METABOLIC PANEL (NA, K , CL, CO2, GLUCOSE, BUN, CREATININE, CA) 2020-11-02 15:42:00 Mohinder Churchill [facility] CBC WITH DIFF 2020-11-02 15:42:00 Mohinder Churchill [facility] XR KUB 2020-11-01 10:43:36 Emily Amanda [facility] PHOSPHORUS 2020-11-01 07:32:00 Emily Amanda [facility] MAGNESIUM 2020-11-01 07:32:00 Emily Amanda [facility] BASIC METABOLIC PANEL (NA, K , CL, CO2, GLUCOSE, BUN, CREATININE, CA) 2020-11-01 07:32:00 Mohinder Churchill [facility] XR KUB 2020-10-31 11:41:00 Mohinder Churchill [facility] MAGNESIUM 2020-10-31 09:26:00 Mohinder Churchill [facility] BASIC METABOLIC PANEL (NA, K , CL, CO2, GLUCOSE, BUN, CREATININE, CA) 2020-10-31 09:26:00 Mohinder Churchill [facility] CT ABDOMEN PELVIS WO CONTRAST 2020-10-30 21:53:45 Emily Amanda [facility] XR KUB 2020-10-30 15:19:23 Mohinder Churchill [facility] XR KUB 2020-10-30 11:10:00 Awilda Manning [facility] PHOSPHORUS 2020-10-30 09:39:00 Mohinder Churchill [facility] BASIC METABOLIC PANEL (NA, K , CL, CO2, GLUCOSE, BUN, CREATININE, CA) 2020-10-30 09:39:00 [facility] XR KUB 2020-10-30 07:25:00 Awilda Manning [facility] XR KUB 2020-10-30 02:57:41 [facility] XR ABDOMEN 1 VW 2020-10-30 00:01:27 [facility] XR KUB 2020-10-29 10:55:00 Emily Amanda [facility] PHOSPHORUS 2020-10-29 09:55:00 Mohinder Churchill [facility] MAGNESIUM 2020-10-29 09:55:00 Emily Amanda [facility] BASIC METABOLIC PANEL (NA, K , CL, CO2, GLUCOSE, BUN, CREATININE, CA) 2020-10-29 09:55:00 Emily Amanda [facility] XR KUB 2020-10-28 19:20:00 Emily Amanda [facility] PHOSPHORUS 2020-10-28 09:32:00 Mohinder Churchill [facility] BASIC METABOLIC PANEL (NA, K , CL, CO2, GLUCOSE, BUN, CREATININE, CA) 2020-10-28 04:48:00 Emily Amanda [facility] ACTIVATED PARTIAL THRMPLAS JESUS 2020-10-28 04:48:00 Mohinder Churchill [facility] BASIC METABOLIC PANEL (NA, K , CL, CO2, GLUCOSE, BUN, CREATININE, CA) 2020-10-27 21:31:00 Emily Amanda [facility] ACTIVATED PARTIAL THRMPLAS JESUS 2020-10-27 21:31:00 Mohinder Churchill [facility] US ABDOMEN LIMITED 2020-10-27 18:28:31 Mohinder Churchill [facility] XR KUB 2020-10-27 14:45:00 Emily Amanda [facility] PHOSPHORUS 2020-10-27 08:45:00 Mohinder Churchill [facility] MAGNESIUM 2020-10-27 08:45:00 Mohinder Churchill [facility] BASIC METABOLIC PANEL (NA, K , CL, CO2, GLUCOSE, BUN, CREATININE, CA) 2020-10-27 08:45:00 Mohinder Churchill [facility] ACTIVATED PARTIAL THRMPLAS JESUS 2020-10-27 08:45:00 Mohinder Churchill [facility] EXTRA TUBE LAV 2020-10-27 08:45:00 Josue Christine [facility] BASIC METABOLIC PANEL (NA, K , CL, CO2, GLUCOSE, BUN, CREATININE, CA) 2020-10-26 20:23:00 Mohinder Churchill [facility] ACTIVATED PARTIAL THRMPLAS JESUS 2020-10-26 20:23:00 Mohinder Churchill [facility] XR KUB 2020-10-26 10:38:00 Emily Amanda [facility] PHOSPHORUS 2020-10-26 09:11:00 Mohinder Churchill [facility] MAGNESIUM 2020-10-26 09:11:00 Mohinder Churchill [facility] BASIC METABOLIC PANEL (NA, K , CL, CO2, GLUCOSE, BUN, CREATININE, CA) 2020-10-26 09:11:00 Mohinder Churchill [facility] CBC WITH DIFF 2020-10-26 09:11:00 Mohinder Churchill [facility] ACTIVATED PARTIAL THRMPLAS JESUS 2020-10-26 09:11:00 Mohinder Churchill [facility] CT HEAD WO CONTRAST 2020-10-26 02:57:00 Alexx Allred [facility] ACTIVATED PARTIAL THRMPLAS JESUS 2020-10-26 02:16:00 Mohinder Churchill [facility] BASIC METABOLIC PANEL (NA, K , CL, CO2, GLUCOSE, BUN, CREATININE, CA) 2020-10-25 23:29:00 Pinky Montalvo [facility] CLOSTRIDIUM DIFFICILE TOXIN 2020-10-25 21:34:00 Emily Amanda [facility] MAGNESIUM 2020-10-25 19:20:00 Mohinder Churchill [facility] TROPONIN I 2020-10-25 19:20:00 Mohinder Churchill [facility] BASIC METABOLIC PANEL (NA, K , CL, CO2, GLUCOSE, BUN, CREATININE, CA) 2020-10-25 19:20:00 Mohinder Churchill [facility] PROTHROMBIN TIME / INR 2020-10-25 19:20:00 Mohinder Churchill [facility] D-DIMER 2020-10-25 19:20:00 Mohinder Churchill [facility] ACTIVATED PARTIAL THRMPLAS JESUS 2020-10-25 19:20:00 Mohinder Churchill [facility] AC PANEL 20 + LACTIC ACID 2020-10-25 19:17:00 Mohinder Churchill [facility] XR ABDOMEN 1 VW 2020-10-25 19:03:25 Mohinder Churchill [facility] HB ECG ROUTINE & RHYTHM STRIP 2020-10-25 17:59:59 Mohinder Churchill [facility] TRANSTHORACIC ECHO (TTE) COMPLETE 2020-10-25 14:58:00 Mohinder Churchill [facility] AC PANEL 20 + LACTIC ACID 2020-10-25 14:36:00 Emily Amanda [facility] XR KUB 2020-10-25 13:47:35 Mohinder Churchill [facility] BLOOD CULTURE SCREEN 2020-10-25 13:39:00 Emily Amanda [facility] BLOOD CULTURE SCREEN 2020-10-25 13:30:00 Emily Amanda [facility] PHOSPHORUS 2020-10-25 10:50:00 Mohinder Churchill [facility] MAGNESIUM 2020-10-25 10:50:00 Mohinder Churchill [facility] BASIC METABOLIC PANEL (NA, K , CL, CO2, GLUCOSE, BUN, CREATININE, CA) 2020-10-25 10:50:00 Mohinder Churchill [facility] POCT GLUCOSE (AUTOMATED) 2020-10-25 02:05:00 Johan Suarez [facility] RPR (QUANTITATIVE) 2020-10-24 21:46:00 [facility] PROCALCITONIN 2020-10-24 21:46:00 Mohinder Churchill [facility] POCT GLUCOSE (AUTOMATED) 2020-10-24 20:47:00 Johan Suarez [facility] POCT GLUCOSE (AUTOMATED) 2020-10-24 16:48:00 Erick [facility] D-DIMER 2020-10-24 14:03[facility]00 [facility] 2020-10-24 13:29:00 Johan Suarez [facility] PHOSPHORUS 2020-10-24 10:31:00 Mohinder Churchill [facility] MAGNESIUM 2020-10-24 10:31:00 Emily Amanda [facility] HEPATIC FUNCTION PANEL ([id number]) (ALB,T.PRO,BILI T,BU/BC,ALT,AST,ALK PHOS) 2020-10-24 10:31:00 Mohinder Churchill [facility] BASIC METABOLIC PANEL (NA, K , CL, CO2, GLUCOSE, BUN, CREATININE, CA) 2020-10-24 10:31:00 Emily Amanda [facility] POCT GLUCOSE (AUTOMATED) 2020-10-24 03:01:00 Johan Suarez [facility] POCT GLUCOSE (AUTOMATED) 2020-10-23 22:16:00 Johan Suarez [facility] POCT GLUCOSE (AUTOMATED) 2020-10-23 16:23:00 Johan Suarez [facility] URINALYSIS 2020-10-23 13:42:00 [facility], URINE RANDOM 2020-10-23 13:42:00 [facility] SODI[facility], URINE RANDOM 2020-10-23 13:42:00 Mohinder Churchill [facility] POCT GLUCOSE (AUTOMATED) 2020-10-23 13:35:00 Johan Suarez [facility] PHOSPHORUS 2020-10-23 10:12:00 Mohinder Churchill [facility] MAGNESIUM 2020-10-23 10:12:00 Mohinder Churchill [facility] BASIC METABOLIC PANEL (NA, K , CL, CO2, GLUCOSE, BUN, CREATININE, CA) 2020-10-23 10:12:00 Mohinder Churchill [facility] CBC WITH DIFF 2020-10-23 10:12:00 Mohinder Churchill [facility] VITAMIN D, 25-OH 2020-10-23 10:12:00 Yung Perea [facility] POCT GLUCOSE (AUTOMATED) 2020-10-23 01:33:00 Johan Suarez [facility] MR BRAIN WO CONTRAST 2020-10-22 23:55:22 Edwin Verma [facility] POCT GLUCOSE (AUTOMATED) 2020-10-22 22:07:00 Johan Suarez [facility] POCT GLUCOSE (AUTOMATED) 2020-10-22 17:27:00 Johan Suarez [facility] POCT GLUCOSE (AUTOMATED) 2020-10-22 13:27:00 Johan Suarez [facility] POCT GLUCOSE (AUTOMATED) 2020-10-22 01:25:00 Johan Suarez [facility] POCT GLUCOSE (AUTOMATED) 2020-10-21 21:48:00 Johan Suarez [facility] HB ECG ROUTINE & RHYTHM STRIP 2020-10-21 18:55:20 Mohinder Churchill [facility] POCT GLUCOSE (AUTOMATED) 2020-10-21 17:49:00 Johan Suarez [facility] POCT GLUCOSE (AUTOMATED) 2020-10-21 13:13:00 Johan Suarez [facility] MAGNESIUM 2020-10-21 08:16:00 Keyshawn De La Vega [facility] TROPONIN I 2020-10-21 08:16:00 Mohinder Churchill [facility] BASIC METABOLIC PANEL (NA, K , CL, CO2, GLUCOSE, BUN, CREATININE, CA) 2020-10-21 08:16:[address] [facility] GLYCOSYLATED HEMOGLOBIN (A1C) 2020-10-21 08:16:[address] [facility] LEGIONELLA URINARY ANTIGEN TST 2020-10-21 06:41:[address] [facility] CREATININE, URINE RANDOM 2020-10-21 06:41:[address] [facility] UREA NITROGEN, URINE RANDOM 2020-10-21 06:41:[address] [facility] SODIUM, URINE RANDOM 2020-10-21 06:41:[address] [facility] PNEUMOCOCCAL ANTIGEN 2020-10-21 06:40:[address] [facility] US RETROPERITONEAL LIMITED 2020-10-21 04:27:[address] [facility] PHOSPHORUS 2020-10-21 02:55:[address] [facility] LACTATE DEHYDROGENASE 2020-10-21 02:55:[address] [facility] FERRITIN SERUM 2020-10-21 02:55:[address] [facility] VITAMIN B12, LEVEL 2020-10-21 02:55:[address] [facility] C-REACTIVE PROTEIN 2020-10-21 02:55:[address] [facility] TROPONIN I 2020-10-21 02:55:[address] [facility] LIPID PANEL (14662)(TOTAL CHOLESTEROL, TRIGLYCERIDES, HDL) 2020-10-21 02:55:[address] [facility] INTACT PTH CALCIUM GROUP 2020-10-21 02:55:[address] [facility] ETHANOL 2020-10-21 02:55:[address] [facility] D-DIMER 2020-10-21 02:55:[address] [facility] PROCALCITONIN 2020-10-21 02:55:[address] [facility] HIV 1/2 AG-AB WITH REFLEX 2020-10-21 02:55:[address] [facility] LACTIC ACID WHOLE BLOOD 2020-10-21 02:54:[address] [facility] ELECTROENCEPHALOGRAM 2020-10-21 00:00:[address] [facility] URINALYSIS 2020-10-20 22:11:00 Breana Rabago [facility] BLOOD CULTURE SCREEN 2020-10-20 22:10:00 Breana Rabago [facility] BLOOD CULTURE SCREEN 2020-10-20 21:40:00 Breana Rabago [facility] CT ANGIOGRAM HEAD 2020-10-20 21:26:51 Breana Rabago [facility] CT ANGIOGRAM NECK 2020-10-20 21:26:51 Breana Rabago [facility] CT HEAD WO CONTRAST 2020-10-20 21:09:59 Breana Rabago [facility] XR CHEST 1 VW 2020-10-20 20:51:03 Breana Rabago [facility] COVID-19 (ID NOW RAPID TESTING) 2020-10-20 20:30:00 Breana Rabago [facility] LAB ONLY COVID INTERPRETATION 2020-10-20 20:30:00 Breana Rabago [facility] LIPASE 2020-10-20 20:27:00 Breana Rabago [facility] MAGNESIUM 2020-10-20 20:27:00 Breana Rabago [facility] TROPONIN I 2020-10-20 20:27:00 Breana Rabago [facility] THYROID STIMULATING HORMONE 2020-10-20 20:27:00 Breana Rabago [facility] HEPATIC FUNCTION PANEL (78271) (ALB,T.PRO,BILI T,BU/BC,ALT,AST,ALK PHOS) 2020-10-20 20:27:00 Breana Rabago [facility] BASIC METABOLIC PANEL (NA, K , CL, CO2, GLUCOSE, BUN, CREATININE, CA) 2020-10-20 20:27:00 Breana Rabago [facility] CBC WITH DIFF 2020-10-20 20:27:00 Breana Rabago [facility] PROTHROMBIN TIME / INR 2020-10-20 20:27:00 Breana Rabago [facility] ACTIVATED PARTIAL THRMPLAS JESUS 2020-10-20 20:27:00 Breana Rabago [facility] N-TERMINAL PRO-BNP 2020-10-20 20:27:00 Breana Rabago [facility] LACTIC ACID WHOLE BLOOD 2020-10-20 20:26:00 Breana Rabago [facility] HB ECG ROUTINE & RHYTHM STRIP 2020-10-20 20:23:07 Breana Rabago [facility] POCT GLUCOSE (AUTOMATED) 2020-10-20 20:22:00 Breana Rabago [facility] NOTICE OF PRIVACY PRACTICES 2020-10-20 20:16:40 Doctor Unassigned, [place] [facility] CONSENT/REFUSAL FOR DIAGNOSI S AND TREATMENT 2020-10-20 20:12:50 Doctor Unassigned, [place] [facility] HOSPITAL ADMISSION 2020-10-20 05:01:00 Doctor Unassigned, [place] [facility] Encounters Start Date/Time End Date/Time Encounter Type Admission Type Attending [facility] Care Facility Care Department Encounter ID Source 2024-04-11 09:30:00 2024-04-11 09:30:00 Outpatient DIMITRIS PERALES [facility] [id number] [facility] 2024-03-13 07:18:00 2024-03-16 20:35:00 Inpatient E DAMIEN HOWARD [facility] [id number] [address] [address] 2024-03-13 06:26:00 2024-03-16 20:35:00 Outpatient Damien Howard [facility] [id number] 2023-08-31 10:00:00 2023-08-31 10:00:00 Outpatient ROCIO CHANDLER [facility] [id number] [facility] 2023-07-29 08:30:00 2023-07-29 08:30:00 Outpatient R ROCIO SHAY [facility] [id number] [facility] 2023-07-15 00:00:00 2023-07-15 00:00:00 Telephone Rocoi Shay [facility] [id number] 350.1.13.10 4.2.7.2.686 [id number] [facility] 2023-07-13 00:00:00 2023-07-13 00:00:00 Orders Only Doctor Unassigned, [place] [facility] 1.2840.114 350.1.13.10 4.2.7.2.686 [id number] [facility] 2023-07-02 00:00:00 2023-07-02 00:00:00 Telephone Rocio Shay [facility] 1.2.840.114 350.1.13.10 4.2.7.2.686 [id number] [facility] 2023-07-02 00:00:00 2023-07-02 00:00:00 Orders Only Doctor Unassigned, [place] [facility] 1.2840.114 350.1.13.10 4.2.7.2.686 [id number] [facility] 2023-06-30 09:00:00 2023-06-30 11:24:26 Outpatient R ROCIO SHAY [facility] [id number] [facility] 2023-06-30 09:00:00 2023-06-30 11:24:26 Office Visit Rocio Shay [facility] 1.2.840.114 350.1.13.10 4.2.7.2.686 [id number] [facility] 2023-06-30 00:00:00 2023-06-30 00:00:00 Orders Only Doctor Unassigned, [place] [facility] 1.2.840.114 350.1.13.10 4.2.7.2.686 [id number] [facility] 2023-06-24 00:00:00 2023-06-24 00:00:00 Orders Only Doctor Unassigned, [place] [facility] 1.2.840.114 350.1.13.10 4.2.7.2.686 [id number] [facility] 2023-01-27 11:05:00 2023-01-27 15:00:00 Emergency X GLEN REYNOLDS [facility] ERT [id number] [facility] 2023-01-27 11:05:00 2023-01-27 15:00:00 Emergency Glen Reynolds [facility] 1.2.840.114 350.1.13.10 4.2.7.2.686 [id number] [facility] 2023-01-27 00:00:00 2023-01-27 00:00:00 Orders Only Doctor Unassigned, [place] [facility] 1.2.840.114 350.1.13.10 4.2.7.2.686 [id number] [facility] 2021-03-12 00:00:00 2021-03-12 00:00:00 Orders Only Doctor Unassigned, [place] [facility] 1.2.840.114 350.1.13.10 4.2.7.2.686 [id number] [facility] 2020-11-19 11:54:00 2020-11-19 11:54:00 Outpatient [facility] PRIV PRIV [id number] [facility] 2020-11-14 01:14:00 2020-11-14 01:14:00 Outpatient [facility] PRIV PRIV [id number] [facility] 2020-11-13 09:32:00 2020-11-13 09:32:00 Outpatient [facility] PRIV PRIV [id number] [facility] 2020-11-11 11:21:00 2020-11-11 11:21:00 Outpatient [facility] PRIV PRIV [id number] [facility] 2020-11-11 00:00:00 2020-11-11 00:00:00 Transition of Care Eula Mac 1..840.114 350.1.13.10 4.2.7.2.686 [id number] [facility] 2020-11-11 00:00:00 2020-11-11 00:00:00 Chester Alonzo, PA: [address] , [address], [place] [address] , Ph. [facility] - [facility] Home [id number] [facility] 2020-11-11 00:00:00 2020-11-11 00:00:00 Outpatient Chester Alonzo [facility] [id number] 2020-11-10 05:58:00 2020-11-10 05:58:00 Outpatient [facility]S [facility] [id number] [facility] 2020-10-20 15:10:00 2020-11-08 16:30:00 Inpatient LYUDMILA MORSE [facility] [id number] [facility] 2020-10-20 15:10:00 2020-11-08 16:30:00 Hospital Encounter Breana Rabago, Johan Verma, Edwin Lewis, Nereyda Christine, Josue Pedro, Lyudmila Arora, Siena Pineda, [facility] ..840.114 350.1.13.10 4.2.7.2.686 [id number] [facility] 2020-11-08 11:09:00 2020-11-08 11:09:00 Outpatient [facility] PRIV PRIV [id number] [facility] Medical 2020-11-06 04:37:00 2020-11-06 04:37:00 Outpatient [facility]S PRIV PRIV [id number] [facility] Medical Results Test Description Test Time Test Comments Results Result Co mments Source [facility]2024-09-05 16:18:00* Test Item Value Reference Range Interpretation Comme nts Glucose POC (test code = Glucose POC) 116 70-99 [facility]604[facility]74-05 05:18:00* Test Item Value Reference Range Interpretation Comme nts WBC (test code = WBC) 7.53 3.92-10.07 [facility]KyenwfzXLAPNZSJG6738-61-39 12:13:00* Test Item Value Reference Range Interpretation Comme nts Magnesium Lvl (test code = M agnesium Lvl) 1.92 1.60-2.60 [facility]2024-09-02 21:36:00* Test Item Value Reference Range Interpretation Comme nts Gluc POC Comment 2 (test cod e = Gluc POC Comment 2) Sent to lab [place] [id number] 18:20:41* Test Item Value Reference Range Interpretation Comme nts RADRPT (test code = RADRPT) EXAM: MRI BRAIN WITHOUT CONTRASTDATE: 03/13/2024INDICATION: - R ischemic stroke. COMPARISON: CT brain and CTA brain/neck 03/13/2024.TECHNIQUE: Multiplanar, multisequence MRI of the brain without contrast. IV contrast: None.UT SECTION: NeuroFINDINGS:There is diffusion restriction within the right precentral gyrus and right lateral frontal region consistent with acute/subacute ischemic infarct.Prior left occipital lobe infarct with focal area of diffusion restriction (series 201, image 64) which may represent a more recent component. Encephalomalacia in the right inferior cerebellum and left basal ganglia. The left basal ganglia infarct shows corresponding hypointensity on gradient echo images that may represent chronic blood products. Intrinsic T1 hyperintensity seen in this region that may represent laminar necrosis and/or component of petechial hemorrhages.Nonspecific supratentorial white matter FLAIR hyperintensities are noted that could represent sequela of chronic ischemic microvascular disease.The major intracranial flow voids appear unremarkable.IMPRESSION:1. Right MCA territory acute/subacute infarct with involvement of the right lateral frontal region and precentral gyrus.2. A relatively poor infarct in the left occipital region with adjoining focus of restricted diffusion that may represent a more recent component of ischemia.3. Left basal ganglia old infarct. Corresponding susceptibility and intrinsic T1 hyperintensity that may represent petechial hemorrhages, chronic blood products and/are laminar necrosis.4. Right cerebellar encephalomalacia/gliosis from prior vascular insult.5. Presumed sequela of supratentorial white matter chronic ischemic microvascular disease.Critical finding of acute stroke was communicated to and acknowledged by Dougie Koenig MD via telephone at 03/13/2024 13:45 by Brandy Uribe RES. [facility] HospitalTzjunweZBGYKWUOB7283-95-48 13:11:00* Test Item Value Reference Range Interpretation Comme nts ALANINE AMINOTRANSFERASE (te st code = ALANINE AMINOTRANSFERASE) 26 7-40 [facility] HospitalXkrrbjtWLBUQKWIA9685-60-00 12:49:00* Test Item Value Reference Range Interpretation Comme nts Chol (test code = Chol) 175 [facility]AlriktqSFZDRSYEON5217-65-38 12:49:00* Test Item Value Reference Range Interpretation Comme nts PT (test code = PT) 16.1 s 12.0-14.7 [facility] AND BRQPF5611-26-87 12:43:00* Test Item Value Reference Range Interpretation Comme nts UA Glucose (test code = UA Glucose) 50mg/dl [facility] HospitalNnlxgkfUBGXJEDUT2751-87-20 12:43:00* Test Item Value Reference Range Interpretation Comme nts U Amph Scr (test code = U Amph Scr) Negative (03/13/24 7:43 AM) [place] [id number] 12:31:52* Test Item Value Reference Range Interpretation Comme nts RADRPT (test code = RADRPT) EXAM: CTA BRAINEXAM: CTA NECKDATE: 03/13/2024 6:30INDICATION: - r/o StrokeCOMPARISON: Contemporaneous noncontrast head CT.TECHNIQUE: Rapid acquisition spiral CT images of the brain and neck were obtained between the aortic arch and the cranial vertex during intravenous infusion of iodinated contrast for the purposes of CT angiography. 3-D CT angiographic images are created using MIP technique at the acquisition workstation. The source images are also presented for interpretation. Viz.ai was used in the care of this patient. Viz[employer]ai was used in the care of this patient. IV contrast: Refer to the technologist notes.FINDINGS:NECK CTA:Aortic arch: Common origin of the left common carotid artery and brachiocephalic artery. Minimal atheromatous calcification at the origin of the left subclavian artery. No origin stenosis is identified. The vertebral artery origins are patent bilaterally.Carotid arteries: The cervical common carotid arteries and cervical internal carotid arteries have a normal course, caliber, and contour. There are areas of calcification at the carotid bifurcations. No hemodynamically significant stenosis of the carotid bifurcations or internal carotid arteries is present by NASCET criteria. Prominent tortuosity of the internal carotid arteries. There is no evidence of vascular injury.Vertebral arteries: The vertebral arteries have a normal course, caliber and contour.The soft tissues of the neck and other incidental structures are normal.BRAIN CTA:No focal calcification is seen along the mid right insula and this indicates a calcified embolus in the proximal M3 branch of the anterior division of the right MCA (series 4 image 60). Distal to this, the branch is opacified with contrast. This is suggestive of partial occlusion.Focal short segment severe stenosis is seen in the left P1 segment at the P1 and P2 junction (series 904 image 117). No other large or medium vessel occlusion identified.The deep cerebral veins and major venous sinuses are normal.The brain parenchyma and other incidental structures are unremarkable.IMPRESSION: * Small partially occlusive calcified embolic thrombus in a proximal M3 branch of the anterior division of the right MCA along the insula.* Short segment severe stenosis at the left P1-P2 junction. This could represent a nonocclusive thrombus.* No significant atheromatous stenosis in the carotid bulbs.(All qualitative and quantitative assessments of carotid bifurcation and proximal internal carotid artery stenosis are made referencing the distal internal carotid artery {NASCET criteria}.) [facility] CenterBofjnvtSPZAIU9507-09-03 12:24:49* Test Item Value Reference Range Interpretation Comme nts RADRPT (test code = RADRPT) EXAM: XR CHEST 1 VIEWDATE: 03/13/2024 7:15INDICATION: - L sided weaknessCOMPARISON: NoneTECHNIQUE: AP chestFINDINGS: Lines and tubes: None.Lungs and Pleura: Lung volumes are slightly low and there is mild bronchovascular crowding. No harvinder consolidation or other pulmonary or pleural based abnormality is identified. Heart and mediastinum: Unremarkable for acute abnormality.Chest wall: Unremarkable.Bones: No acute bony abnormality is identified.IMPRESSION: No acute abnormality. [facility] AtlantaVpgwdlcXQILOA3212-66-63 11:48:45* Test Item Value Reference Range Interpretation Comme [facility] RADRPT (test code = RADRPT) EXAM: CT BRAIN WITHOUT CONTRASTDATE: 03/13/2024INDICATION: - L side weakness and slurred speech.COMPARISON: Same day CTA head and neckTECHNIQUE: Axial CT images of the brain were obtained. Sagittal and coronal reformats.IV contrast: NoneDLP: Refer to CT protocol formFINDINGS: Subtle loss of quick-white matter differentiation involving the right precentral gyrus (series 903 image 20-22).ASPECTS: 8Laterality: rightCaudate: normalInternal capsule: normalLenticular: normalInsula: normalM1: normal M2: abnormal M3: normalM4: abnormal M5: normal M6: normalFocal calcification along the right insula (series 903 image 13) is suggestive of a calcified embolus.There is no hemorrhage, mass lesion or other acute intracranial abnormality. Intracranial atherosclerosis. Chronic appearing lacunar infarct involving the left insula (series 903 image 14). Chronic encephalomalacia involving the right cerebellar tonsil and the left occipital lobe. Periventricular white matter hypodensities suggesting chronic microvascular ischemic change.The skull base, calvarium, and included facial bones are unremarkable. The paranasal sinuses are predominantly clear.IMPRESSION:1. Wedge-shaped area of low-density with loss of quick-white matter differentiation in the right precentral gyrus indicates a small recent infarct.2. Focal extra-axial calcification along the right insula is suggestive of a calcified thrombus (from proximal embolism).3. Chronic infarct involving the left basal ganglia.4. Old infarcts in the inferior right cerebellar and left occipital lobe.UT SECTION: NeuroSignificant finding of concern for acute ischemia was communicated to and acknowledged by Dr. Tomlin via telephone at 03/13/2024 7:01 by Laurel Wilson RES. [facility] CenterCldavzmWRVBRLWHU9425-72-20 11:31:00* Test Item Value Reference Range Interpretation Comme nts Total CK (test code = Total CK) 389 62-302 [facility] Atlanta[facility] [id number] 14:35:05The bowel contains gas from one end to [...] body. Small bowel loopscontain air but are notdistended or obstructed. No abnormal calcificationsor radiopaque stones identified within the fieldof view. Corticated bonefragments adjacent to the right femur lesser trochanter are unchangedcompared to the prior imaging and likely represent a chronic process. [facility], Radiant Results Inft User - 11/08/2020 9:36 AM CDTEXAM: XR KUBHISTORY: 69 years-old Male presenting with abdominal distension COMPARISON: Multiple abdomen radiographs with the most recent date11/04/2020TECHNIQUE: Frontal views of the abdomen and pelvis [...] to the other but is not distended orabnormal..Preliminary Report Dictated by Resident: Brissa Martinez reviewed the study and have major modifications.Sohail Mandel MD., have reviewed this study and agree with theabove report.[facility] (NA, K, CL, CO2, GLUCOSE, BUN, CREATININE, CA)2020-11-08 09:48:12* Test Item Value Reference Range Interpretation Comme nts NA (test code = 0974818004) 133 mmol/L 135-145 L K (test code = 6121845699) 4.4 mmol/L 3.5-5.0 CL (test code = 4378964424) 102 mmol/L 98-108 CO2 TOTAL (test code = 9096548368) 23 mmol/L 23-31 AGAP (test code = 5061146686) 2-16 BUN (test code = 3643080414) 36 mg/dL 7-23 H GLUCOSE (test code = 5911417698) 119 mg/dL 70-110 H CREATININE (test code = 4060949408) 1.79 mg/dL 0.60-1.25 H CALCIUM (test code = 5016787214) 8.4 mg/dL 8.6-10.6 L eGFR (test code = 8244885940) mL/min/1.73m2 SUDHAKAR (test code = SUDHAKAR) Association [...] imaging tests). Lab Interpretation (test code = 54076-0) Abnormal [facility] 09:43:44* Test Item Value Reference Range Interpretation Comme nts MAGNESIUM (test code = 0946970409) 2.0 mg/dL 1.7-2.4 Lab Interpretation (test cod e = 41035-4) Normal [facility]2020-11-07 17:33:56* Test Item Value Reference Range Interpretation Comme nts POCT GLU (test code = 2791856043) 148 mg/dL 70-110 H Lab Interpretation (test cod e = 85170-3) Abnormal [facility] [id number] 15:09:34Interval mild improvement of the air distended [...] reviewed this study and agree with theabove report.[facility] JMV7002-05-74 14:53:53 Findings suggestive of persistent adynamic ileus. [...] Surgical clipprojects over the left lower quadrant. [facility], Radiant Results Inft User - 11/07/2020 9:55 [...] reviewed this study and agree with theabove report.[facility] RRXHVHJOTZ3639-60-78 11:31:50* Test Item Value Reference Range Interpretation Comme nts PHOSPHORUS (test code = 8432543860) 3.6 mg/dL 2.5-5.0 Lab Interpretation (test cod e = 19829-2) Normal [facility]OLIC PANEL (NA, K, CL, CO2, GLUCOSE, BUN, CREATININE, CA)2020-11-07 11:31:50* Test Item Value Reference Range Interpretation Comme nts NA (test code = 4659612076) 133 mmol/L 135-145 L K (test code = 3218694520) 5.1 mmol/L 3.5-5.0 H CL (test code = 3020734884) 99 mmol/L 98-108 CO2 TOTAL (test code = 1389397391) 26 mmol/L 23-31 AGAP (test code = 8249114465) 2-16 BUN (test code = 3424112220) 33 mg/dL 7-23 H GLUCOSE (test code = 0484945515) 116 mg/dL 70-110 H CREATININE (test code = 1213718064) 1.62 mg/dL 0.60-1.25 H CALCIUM (test code = 2549477715) 8.5 mg/dL 8.6-10.6 L eGFR (test code = 9172272636) mL/min/1.73m2 SUDHAKAR (test code = SUDHAKAR) Association [...] imaging tests). Lab Interpretation (test code = 73699-8) Abnormal [facility] GLUCOSE (AUTOMATED)2020-11-07 11:06:50* Test Item Value Reference Range Interpretation Comme [facility] POCT GLU (test code = 3016766449) 121 mg/dL 70-110 H Lab Interpretation (test cod e = 27703-3) Abnormal [facility] GLUCOSE (AUTOMATED)2020-11-07 05:06:49* Test Item Value Reference Range Interpretation Comme [facility] POCT GLU (test code = 9837457208) 131 mg/dL 70-110 H Lab Interpretation (test cod e = 10744-5) Abnormal [facility] METABOLIC PANEL (NA, K, CL, CO2, GLUCOSE, BUN, CREATININE, CA)2020-11-06 09:58:59* Test Item Value Reference Range Interpretation Comme [facility] NA (test code = 4834383153) 132 mmol/L 135-145 L K (test code = 1408312521) 4.7 mmol/L 3.5-5.0 CL (test code = 1349447410) 100 mmol/L 98-108 CO2 TOTAL (test code = 4290196259) 26 mmol/L 23-31 AGAP (test code = 1332185970) 2-16 BUN (test code = 4460016443) 32 mg/dL 7-23 H GLUCOSE (test code = 8059659808) 119 mg/dL 70-110 H CREATININE (test code = 6087232623) 1.30 mg/dL 0.60-1.25 H CALCIUM (test code = 3628920887) 8.3 mg/dL 8.6-10.6 L eGFR (test code = 4704058107) mL/min/1.73m2 SUDHAKAR (test code = SUDHAKAR) Association [...] imaging tests). Lab Interpretation (test code = 66106-5) Abnormal [facility]PH[facility]2021-04-28 09:56:27* Test Item Value Reference Range Interpretation Comme nts PHOSPHORUS (test code = 7306785476) 3.8 mg/dL 2.5-5.0 Lab Interpretation (test cod e = 11634-8) Normal [facility]2021-04-28 09:56:27* Test Item Value Reference Range Interpretation Comme nts MAGNESIUM (test code = 7768310461) 2.2 mg/dL 1.7-2.4 Lab Interpretation (test cod e = 88043-7) Normal [facility]OLIC PANEL (NA, K, CL, CO2, GLUCOSE, BUN, CREATININE, CA)2020-11-05 12:21:23* Test Item Value Reference Range Interpretation Comme nts NA (test code = 1529925816) 133 mmol/L 135-145 L K (test code = 3770372854) 3.6 mmol/L 3.5-5.0 CL (test code = 9908391081) 99 mmol/L 98-108 CO2 TOTAL (test code = 8377047758) 25 mmol/L 23-31 AGAP (test code = 8454137466) 2-16 BUN (test code = 7536589123) 33 mg/dL 7-23 H GLUCOSE (test code = 3946620120) 119 mg/dL 70-110 H CREATININE (test code = 1775405639) 1.34 mg/dL 0.60-1.25 H CALCIUM (test code = 5128605156) 8.1 mg/dL 8.6-10.6 L eGFR (test code = 3759500896) mL/min/1.73m2 SUDHAKAR (test code = SUDHAKAR) Association [...] imaging tests). Lab Interpretation (test code = 59206-5) [facility] 12:21:23* Test Item Value Reference Range Interpretation Comme nts MAGNESIUM (test code = 2184833085) 1.9 mg/dL 1.7-2.4 Lab Interpretation (test cod e = 45080-0) [facility] 11:14:14* Test Item Value Reference Range Interpretation Comme nts PHOSPHORUS (test code = 0243215026) 3.6 mg/dL 2.5-5.0 Lab Interpretation (test cod e = 74007-7) Normal [facility] METABOLIC PANEL (NA, K, CL, CO2, GLUCOSE, BUN, CREATININE, CA)2020-11-04 18:25:44* Test Item Value Reference Range Interpretation Comme nts NA (test code = 8202077115) 132 mmol/L 135-145 L K (test code = 5353853174) 3.9 mmol/L 3.5-5.0 CL (test code = 9334988207) 98 mmol/L 98-108 CO2 TOTAL (test code = 6837912289) 28 mmol/L 23-31 AGAP (test code = 9321278729) 2-16 BUN (test code = 8946401336) 35 mg/dL 7-23 H GLUCOSE (test code = 4859130646) 122 mg/dL 70-110 H CREATININE (test code = 4398720017) 1.37 mg/dL 0.60-1.25 H CALCIUM (test code = 4524699474) 8.5 mg/dL 8.6-10.6 L eGFR (test code = 9702295645) mL/min/1.73m2 SUDHAKAR (test code = SUDHAKAR) Association [...] imaging tests). Lab Interpretation (test code = 20989-8) [facility] [id number] 15:45:29FINDINGS / IMPRESSION: An enteric feeding tube [...] recent earlier today TECHNIQUE: Single abdominal view. [facility], Radiant Results Inft User - 11/04/2020 10:46 [...] reviewed this study and agree with theabove report.[facility] [id number] 15:36:27Findings consistent with generalized adynamic ileus. Preliminary Report Dictated by Resident: Deisi Mandel reviewed this study and agree with minor [...] lower quadrant that could be asurgical clip. [facility], Radiant Results Inft User - 11/04/2020 10:37 [...] reviewed this study and agree with theabove report.[facility] (NA, K, CL, CO2, GLUCOSE, BUN, CREATININE, CA)2020-11-03 09:56:41* Test Item Value Reference Range Interpretation Comme nts NA (test code = 8616446391) 130 mmol/L 135-145 L K (test code = 8634491970) 4.1 mmol/L 3.5-5.0 Slight hemolysis CL (test code = 1043953597) 101 mmol/L 98-108 CO2 TOTAL (test code = 8056634282) 24 mmol/L 23-31 AGAP (test code = 1126501113) 2-16 BUN (test code = 5261755983) 35 mg/dL 7-23 H Slight hemolysis GLUCOSE (test code = 6441392735) 125 mg/dL 70-110 H CREATININE (test code = 3604161278) 1.30 mg/dL 0.60-1.25 H CALCIUM (test code = 3907682509) 8.0 mg/dL 8.6-10.6 L eGFR (test code = 5879149150) mL/min/1.73m2 SUDHAKAR (test code = SUDHAKAR) Association [...] imaging tests). Lab Interpretation (test code = 74348-0) [facility] 09:56:41* Test Item Value Reference Range Interpretation Comme nts MAGNESIUM (test code = 0110555308) 1.8 mg/dL 1.7-2.4 Slight hemolysis Lab Interpretation (test code = 84664-7) [facility] 09:56:41* Test Item Value Reference Range Interpretation Comme nts PHOSPHORUS (test code = 8882046777) 3.8 mg/dL 2.5-5.0 Slight hemolysis Lab Interpretation (test code = 12729-9) [facility] (NA, K, CL, CO2, GLUCOSE, BUN, CREATININE, CA)2020-11-02 16:07:29* Test Item Value Reference Range Interpretation Comme nts NA (test code = 2166505884) 131 mmol/L 135-145 L K (test code = 9622962050) 3.8 mmol/L 3.5-5.0 CL (test code = 2724184506) 97 mmol/L 98-108 L CO2 TOTAL (test code = 1585467109) 28 mmol/L 23-31 AGAP (test code = 9519563914) 2-16 BUN (test code = 9633040543) 33 mg/dL 7-23 H GLUCOSE (test code = 9969835732) 140 mg/dL 70-110 H CREATININE (test code = 3266206624) 1.29 mg/dL 0.60-1.25 H CALCIUM (test code = 2224896959) 8.4 mg/dL 8.6-10.6 L eGFR (test code = 4047611153) mL/min/1.73m2 SUDHAKAR (test code = SUDHAKAR) Association [...] imaging tests). Lab Interpretation (test code = 10784-2) [facility] 16:07:29* Test Item Value Reference Range Interpretation Comme nts MAGNESIUM (test code = 5781890321) 1.7 mg/dL 1.7-2.4 Lab Interpretation (test cod e = 25794-0) Normal [facility] WITH [id number] 15:54:31* Test Item Value Reference Range Interpretation [...] 34.0 g/dL 31.2-35.0 RDW-SD (test code = 33894-5) 40.8 fL 38.5-51.6 RDW-CV (test code = 788-0) 11.9 % 12.1-15.4 L PLT (test code = 777-3) See_Comment [Automated message] The system which generated this result transmitted reference range: 150 - 328 10*3/?L. The reference range was not used to interpret this result as normal/abnormal. MPV (test code = 74108-2) 10.0 fL 9.8-13.0 NRBC/100 WBC (test code = 5023981192) See_Comment [Automated message] The system which generated this result transmitted reference range: 0.0 - 10.0 /100 WBCs. The reference range was not used to interpret this result as normal/abnormal. NRBC x10^3 (test code = 2352159274) <0.01 See_Comment [Automated message] The system which generated this result transmitted reference range: 10*3/?L. The reference range was not used to interpret this result as normal/abnormal. GRAN MAT (NEUT) % (test code = 770-8) 80.1 % IMM GRAN % (test code = 9889229949) 0.60 % LYMPH % (test code = 736-9) 9.7 % MONO % (test code = 5905-5) 8.4 % EOS % (test code = 713-8) 1.1 % BASO % (test code = 706-2) 0.1 % GRAN MAT x10^3(ANC) (test code = 7378579560) 10.53 10*3/uL 1.99-6.95 H IMM GRAN x10^3 (test code = 4090377681) 0.08 10*3/uL 0.00-0.06 H LYMPH x10^3 (test code = 731-0) 1.27 10*3/uL 1.09-3.23 MONO x10^3 (test code = 742-7) 1.11 10*3/uL 0.36-1.02 H EOS x10^3 (test code = 711-2) 0.14 10*3/uL 0.06-0.53 BASO x10^3 (test code = 704-7) <0.03 0.01-0.09 Lab Interpretation (test code = 36976-1) [facility] [id number] 19:06:23No significant interval change in the multiple dilated small bowel loopssuggestive of ileus. Preliminary Report Dictated by Resident: Brissa Mccatrhy I, Cami Rios MD., have reviewed this [...] reviewed this study and agree with theabove report.[facility] [id number] 13:46:05* Test Item Value Reference Range Interpretation Comme nts MAGNESIUM (test code = 3522658441) 1.7 mg/dL 1.7-2.4 Lab Interpretation (test cod e = 94300-5) [facility]2021-[facility]-23 13:46:05* Test Item Value Reference Range Interpretation Comme nts PHOSPHORUS (test code = 2717848846) 3.4 mg/dL 2.5-5.0 Lab Interpretation (test cod e = 89859-0) Normal [facility]OL[facility] (NA, K, CL, CO2, GLUCOSE, BUN, CREATININE, CA)2020-11-01 08:03:01* Test Item Value Reference Range Interpretation Comme nts NA (test code = 1324145909) 137 mmol/L 135-145 K (test code = 9844747005) 3.6 mmol/L 3.5-5.0 CL (test code = 6483472387) 105 mmol/L 98-108 CO2 TOTAL (test code = 5180711156) 27 mmol/L 23-31 AGAP (test code = 0921330165) 2-16 BUN (test code = 2295478187) 37 mg/dL 7-23 H GLUCOSE (test code = 5763799453) 99 mg/dL 70-110 CREATININE (test code = 4884806688) 1.37 mg/dL 0.60-1.25 H CALCIUM (test code = 4842414564) 7.9 mg/dL 8.6-10.6 L eGFR (test code = 3618160887) mL/min/1.73m2 SUDHAKAR (test code = SUDHAKAR) Association [...] imaging tests). Lab Interpretation (test code = 11171-2) [facility]normal [facility] PEL[facility] WO [id number] 22:24:201. ?Diffuse dilation of the small bowel loops with no definite transitionpoint. No evidence of mechanical obstruction. ?Findings are suggestive ofileus. Possibility of partial obstruction is less likely. Follow-up withabdominal radiograph is recommended. 2. ?Scattered diverticulosis. 3. ?Cardiomegaly. 4. ?Prostatomegaly. 5. ?Lung opacities compatible with known history of Covid 19 pneumonia. Preliminary Report Dictated by Resident: Darline Guerrero MD., have reviewed this study and agree [...] reviewed this study and agree with theabove report.[facility] - To confirm nasogastric tube [...] small and large bowel consistent throughout theabdomen. [facility], Radiant Results Inft User - 10/31/2020 11:58 [...] reviewed this study and agree with the abovereport.[facility] [id number] 16:57:231. ?Abdominal radiographs over progression of NG [...] small and large bowel consistent throughout theabdomen. [facility], Radiant Results Inft User - [...] reviewed this study and agree with the abovereport.[facility] [id number] 16:57:231. ?Abdominal radiographs over progression of NG [...] small and large bowel consistent throughout theabdomen. [facility], Radiant Results Inft User - [...] throughout. Preliminary Report Dictated by Resident: Melania Birch, Anjali Jenkins MD., have reviewed this study and agree with the abovereport.[facility] BASIC METABOLIC PANEL (NA, K, CL, CO2, GLUCOSE, BUN, CREATININE, CA)2020-10-31 10:14:35* Test Item Value Reference Range Interpretation Comme nts NA (test code = 2930627946) 138 mmol/L 135-145 K (test code = 1345145802) 3.9 mmol/L 3.5-5.0 CL (test code = 5143406279) 105 mmol/L 98-108 CO2 TOTAL (test code = 9832657496) 26 mmol/L 23-31 AGAP (test code = 1064312425) 2-16 BUN (test code = 6324029725) 47 mg/dL 7-23 H GLUCOSE (test code = 6395936150) 101 mg/dL 70-110 CREATININE (test code = 1606280406) 1.60 mg/dL 0.60-1.25 H CALCIUM (test code = 5018413914) 8.4 mg/dL 8.6-10.6 L eGFR (test code = 5436330178) mL/min/1.73m2 SUDHAKAR (test code = SUDHAKAR) Association [...] imaging tests). Lab Interpretation (test code = 54053-5) [facility]2021-[facility]-22 10:14:35* Test Item Value Reference Range Interpretation Comme nts MAGNESIUM (test code = 7461930225) 2.0 mg/dL 1.7-2.4 Lab Interpretation (test cod e = 30863-1) Normal [facility] [id number] 16:16:56EXAM: XR KUB HISTORY: for NGT adjustment [...] loops of large and small bowel throughout theabdomen.[facility] HospitalBLOOD CULTURE [id number] 14:01:33* Test Item Value Reference Range Interpretation Comme nts Blood Culture-Aerobic (test code = 27841-2) No organisms isolated No growth Previous preliminary verified result was Culture In Progress on 10/25/2020 at 1201 CDTPrevious preliminary verified result was No growth at 24 hours on 10/26/2020 at 0901 CDTPrevious preliminary verified result was No growth at 48 hours on 10/27/2020 at 09 CDTPrevious preliminary verified result was No growth at 72 hours on 10/28/2020 at 0901 CDT Blood Culture-Anaerobic (test code = 82983-6) No organisms isolated No growth Previous preliminary verified result was Culture In Progress on 10/25/2020 at 1201 CDTPrevious preliminary verified result was No growth at 24 hours on 10/26/2020 at 0901 CDTPrevious preliminary verified result was No growth at 48 hours on 10/27/2020 at 0901 CDTPrevious preliminary verified result was No growth at 72 hours on 10/28/2020 at 0901 CDT Lab Interpretation (test code = 90810-3) Normal [facility] [id number] 14:01:33* Test Item Value Reference Range Interpretation Comme nts Blood Culture-Aerobic (test code = 48001-4) No organisms isolated No growth Previous preliminary verified result was Culture In Progress on 10/25/2020 at 1201 CDTPrevious preliminary verified result was No growth at 24 hours on 10/26/2020 at [facility] CDTPrevious preliminary verified result was No growth at 48 hours on 10/27/2020 at [facility] CDTPrevious preliminary verified result was No growth at 72 hours on 10/28/[address] [place], [place] [address]T Blood Culture-Anaerobic (test code = 76612-6) No organisms isolated No growth Previous preliminary verified result was Culture In Progress on 10/25/2020 at 1201 CDTPrevious preliminary verified result was No growth at 24 hours on 10/26/2020 at [facility] CDTPrevious preliminary verified result was No growth at 48 hours on 10/27/2020 at [facility] CDTPrevious preliminary verified result was No growth at 72 hours on 10/28/[address] [place], [place] [address]T Lab Interpretation (test code = 86585-2) Normal [facility] METABOLIC PANEL (NA, K, CL, CO2, GLUCOSE, BUN, CREATININE, CA)2020-10-30 10:44:39* Test Item Value Reference Range Interpretation Comme nts NA (test code = 7732780600) 140 mmol/L 135-145 K (test code = 6953128872) 4.3 mmol/L 3.5-5.0 CL (test code = 3692088143) 109 mmol/L 98-108 H CO2 TOTAL (test code = 6390525383) 26 mmol/L 23-31 AGAP (test code = 3758257582) 2-16 BUN (test code = 5814513591) 53 mg/dL 7-23 H GLUCOSE (test code = 9009311760) 127 mg/dL 70-110 H CREATININE (test code = 6107582194) 1.89 mg/dL 0.60-1.25 H CALCIUM (test code = 8843428507) 8.4 mg/dL 8.6-10.6 L eGFR (test code = 0081524758) mL/min/1.73m2 SUDHAKAR (test code = SUDHAKAR) Association [...] imaging tests). Lab Interpretation (test code = 77242-3) [facility]normal [facility]2021-[facility] 10:44:39* Test Item Value Reference Range Interpretation Comme nts PHOSPHORUS (test code = 5025584099) 4.6 mg/dL 2.5-5.0 Lab Interpretation (test cod e = 95395-9) Normal [facility] (QUANTITATIVE)2020-10-29 21:41:32* Test Item Value Reference Range Interpretation Comme nts RPR (Quantitative) (test cod e = 54163-1) Nonreactive Nonreactive Lab Interpretation (test cod e = 37845-4) Normal [facility] [id number] 16:14:27FINDINGS / IMPRESSION: No significant interval change [...] of the abdomen and pelvis were obtained. [facility], [facility]iant Results Inft User - 10/29/2020 11:15 [...] reviewed this study and agree with theabove report.[facility] [id number] 15:53:41No significant interval changes in the air [...] reviewed this study and agree with theabove report.[facility] [id number] 15:47:33 FINDINGS / IMPRESSION: Interval removal of the enteric tube. Interval mild improvement of thedistended large bowel loops now measuring 6 cm. Air distended small bowelloops. No abnormal calcificationsor radiopaque calculi identified. Noacute osseous abnormality. Adynamic ileus may be responsible. Preliminary Report Dictated by Resident: Brissa Mccarthy I reviewed this study and agree with minor modifications (no call needed tothe referring physician). Soahil Mandel MD., have reviewed thisstudy and agree with theabove report.EXAM: XR KUB HISTORY: 69 years-old Male presenting with bowel distension COMPARISON: Abdominal plain films dated 10/26/2020, 10/25/2020 TECHNIQUE: Frontal views of the abdomen and pelvis were obtained. [facility], Radiant Results Inft User - 10/29/2020 10:48 [...] minor modifications (no call needed tothe referring physician).Sohail Mandel MD., have reviewed this study and agree with theabove report.[facility]OLIC [facility] (NA, K, CL, CO2, GLUCOSE, BUN, CREATININE, CA)2020-10-29 10:52:11* Test Item Value Reference Range Interpretation Comme nts NA (test code = 5825215428) 143 mmol/L 135-145 K (test code = 4458859184) 4.5 mmol/L 3.5-5.0 Slight hemolysis CL (test code = 4339749726) 112 mmol/L 98-108 H CO2 TOTAL (test code = 5867238394) 24 mmol/L 23-31 AGAP (test code = 7326938037) 2-16 BUN (test code = 6675936631) 48 mg/dL 7-23 H Slight hemolysis GLUCOSE (test code = 8299392898) 131 mg/dL 70-110 H CREATININE (test code = 4125015676) 1.75 mg/dL 0.60-1.25 H CALCIUM (test code = 4193388930) 8.2 mg/dL 8.6-10.6 L eGFR (test code = 1762271426) mL/min/1.73m2 SUDHAKAR (test code = SUDHAKAR) Association [...] imaging tests). Lab Interpretation (test code = 61475-3) [facility]normal [facility] 10:52:11* Test Item Value Reference Range Interpretation Comme nts MAGNESIUM (test code = 5418505670) 2.4 mg/dL 1.7-2.4 Lab Interpretation (test cod e = 30979-8) Normal [facility]2021-[facility]-20 10:52:11* Test Item Value Reference Range Interpretation Comme nts PHOSPHORUS (test code = 2283110604) 4.4 mg/dL 2.5-5.0 Lab Interpretation (test cod e = 05442-7) Normal [facility] [id number] 19:38:51Findings suggestive of early/partial obstruction or ileus. Preliminary Report Dictated by Resident: Tien Robbins MD., have reviewed this study and [...] reviewed this study and agree withthe above report.[facility] ABDOMEN LIMITED 2020-10-28 15:25:43Hypoechoic liver with prominent portal triad predominantly at the leftliver is of unclear clinical significance, could potentially represent asmall amount of periportal edema versus underlying hepatic parenchymaldisease. Recommend correlation with LFTs. IShilpa MD., have reviewed this study and agree with the abovereport.EXAM: US ABDOMEN LIMITED HISTORY: 69 years-old Male with evaluate for cirrhosis . TECHNIQUE: Limited abdominal ultrasound was performed focused on the liver,biliary system, pancreas and spleen. Main portal vein was evaluated withcolor and spectral Doppler imaging. Blindstitch Lapel Padder images were obtained forthe record. COMPARISON: None [...] of the right kidney are u nremarkable. [facility], Radiant Results Inft User - 10/28/2020 10:26 AM CDTEXAM: US ABDOMEN LIMITEDHISTORY: 69 years-old Male with evaluate for cirrhosis .TECHNIQUE: Limited abdominal ultrasound was performed focused on the liver,biliary system, pancreas and spleen. Main portal vein was evaluated withcolor and spectral Doppler imaging. Blindstitch Lapel Padder images were obtained forthe record.COMPARISON: NoneFINDINGS:Limited exam [...] reviewed this study and agree with the abovereport.[facility]2021-[facility] 10:01:54* Test Item Value Reference Range Interpretation Comme nts PHOSPHORUS (test code = 0787805212) 3.4 mg/dL 2.5-5.0 Slight hemolysis Lab Interpretation (test code = 03473-3) Normal [facility] METABOLIC PANEL (NA, K, CL, CO2, GLUCOSE, BUN, CREATININE, CA)2020-10-28 05:12:08* Test Item Value Reference Range Interpretation Comme nts NA (test code = 6562784409) 143 mmol/L 135-145 K (test code = 7172929383) 4.2 mmol/L 3.5-5.0 CL (test code = 3605512325) 112 mmol/L 98-108 H CO2 TOTAL (test code = 5561652230) 25 mmol/L 23-31 AGAP (test code = 7731862485) 2-16 BUN (test code = 0709160190) 51 mg/dL 7-23 H GLUCOSE (test code = 8860177268) 172 mg/dL 70-110 H CREATININE (test code = 2005879596) 1.85 mg/dL 0.60-1.25 H CALCIUM (test code = 5124893500) 7.9 mg/dL 8.6-10.6 L eGFR (test code = 2730072748) mL/min/1.73m2 SUDHAKAR (test code = SUDHAKAR) Association [...] imaging tests). Lab Interpretation (test code = 79530-4) [facility]normal [facility] Hospital[facility] use with Heparin Drip)2020-10-28 05:04:06* Test Item Value Reference Range Interpretation Comme [facility] APTT Patient (test code = 3173-2) See_Comment H [Automated [employer] [place] [employer]] The system which generated this result transmitted reference range: 26 - 36 Seconds. The reference range was not used to interpret this result as normal/abnormal. Lab Interpretation (test code = 15627-1) Abnormal [facility] (for use with Heparin Drip)2020-10-27 21:59:46* Test Item Value Reference Range Interpretation Comme [facility] APTT Patient (test code = 3173-2) See_Comment H [Automated [employer]] The system which generated this result transmitted reference range: 26 - 36 Seconds. The reference range was not used to interpret this result as normal/abnormal. Lab Interpretation (test code = 98216-5) Abnormal [facility] METABOLIC PANEL (NA, K, CL, CO2, GLUCOSE, BUN, CREATININE, CA)2020-10-27 21:53:48* Test Item Value Reference Range Interpretation Comme nts NA (test code = 2351099713) 143 mmol/L 135-145 K (test code = 7588053934) 4.3 mmol/L 3.5-5.0 CL (test code = 8635437695) 110 mmol/L 98-108 H CO2 TOTAL (test code = 9242275282) 26 mmol/L 23-31 AGAP (test code = 5703318906) 2-16 BUN (test code = 1413647025) 54 mg/dL 7-23 H GLUCOSE (test code = 6392772301) 193 mg/dL 70-110 H CREATININE (test code = 2057926733) 1.89 mg/dL 0.60-1.25 H CALCIUM (test code = 7357206313) 8.0 mg/dL 8.6-10.6 L eGFR (test code = 1314010896) mL/min/1.73m2 SUDHAKAR (test code = SUDHAKAR) Association [...] imaging tests). Lab Interpretation (test code = 12948-6) Abnormal [facility] METABOLIC PANEL (NA, K, CL, CO2, GLUCOSE, BUN, CREATININE, CA)2020-10-27 09:26:43* Test Item Value Reference Range Interpretation Comme nts NA (test code = 4200692722) 147 mmol/L 135-145 H K (test code = 4379654218) 4.1 mmol/L 3.5-5.0 CL (test code = 0070236837) 112 mmol/L 98-108 H CO2 TOTAL (test code = 5974466403) 28 mmol/L 23-31 AGAP (test code = 7868507528) 2-16 BUN (test code = 8354272619) 59 mg/dL 7-23 H GLUCOSE (test code = 3617361529) 148 mg/dL 70-110 H CREATININE (test code = 1465745755) 1.94 mg/dL 0.60-1.25 H CALCIUM (test code = 0325689280) 7.8 mg/dL 8.6-10.6 L eGFR (test code = 4199576772) mL/min/1.73m2 SUDHAKAR (test code = SUDHAKAR) Association [...] imaging tests). Lab Interpretation (test code = 29725-2) [facility]normal [facility]2021-[facility]-18 09:26:43* Test Item Value Reference Range Interpretation Comme nts MAGNESIUM (test code = 7582971350) 2.9 mg/dL 1.7-2.4 H Lab Interpretation (test cod e = 27842-6) Abnormal [facility]2021-[facility]-18 09:26:43* Test Item Value Reference Range Interpretation Comme nts PHOSPHORUS (test code = 8960560837) 3.4 mg/dL 2.5-5.0 Lab Interpretation (test cod e = 62629-5) Normal [facility] (for use with Heparin Drip)2020-10-27 09:09:02* Test Item Value Reference Range Interpretation Comme nts APTT Patient (test code = 3173-2) See_Comment H [Automated [employer]] The system which generated this result transmitted reference range: 26 - 36 Seconds. The reference range was not used to interpret this result as normal/abnormal. Lab Interpretation (test code = 84998-3) Abnormal [facility] (for use with Heparin Drip)2020-10-26 20:45:20* Test Item Value Reference Range Interpretation Comme nts APTT Patient (test code = 3173-2) See_Comment H [Automated [employer]] The system which generated this result transmitted reference range: 26 - 36 Seconds. The reference range was not used to interpret this result as normal/abnormal. Lab Interpretation (test code = 81828-5) [facility] (NA, K, CL, CO2, GLUCOSE, BUN, CREATININE, CA)2020-10-26 20:43:18* Test Item Value Reference Range Interpretation Comme nts NA (test code = 7576250047) 144 mmol/L 135-145 K (test code = 5307971952) 4.3 mmol/L 3.5-5.0 CL (test code = 0910571887) 110 mmol/L 98-108 H CO2 TOTAL (test code = 6523226118) 28 mmol/L 23-31 AGAP (test code = 2998497333) 2-16 BUN (test code = 0754433112) 64 mg/dL 7-23 H GLUCOSE (test code = 1712281713) 150 mg/dL 70-110 H CREATININE (test code = 1741020035) 2.12 mg/dL 0.60-1.25 H CALCIUM (test code = 8179018075) 7.6 mg/dL 8.6-10.6 L eGFR (test code = 2771203557) mL/min/1.73m2 SUDHAKAR (test code = SUDHAKAR) Association [...] imaging tests). Lab Interpretation (test code = 02076-2) Abnormal [facility] HospitalCLOSTRIDIUM DIFFICILE [id number] 15:05:11 * Test Item Value Reference Range Interpretation Comme nts Clostridioides (Clostridium) difficile (test code = 18518-1) Negative Negative Lab Interpretation (test cod e = 58232-2) Normal [facility] [facility] [id number] 10:18:28* Test Item Value Reference Range Interpretation [...] 32.8 g/dL 31.2-35.0 RDW-SD (test code = 41182-4) 47.6 fL 38.5-51.6 RDW-CV (test code = 788-0) 13.2 % 12.1-15.4 PLT (test code = 777-3) See_Comment H [Automated messa ge] The system which generated this result transmitted reference range: 150 - 328 10*3/?L. The reference range was not used to interpret this result as normal/abnormal. MPV (test code = 41802-8) 10.5 fL 9.8-13.0 NRBC/100 WBC (test code = 4181711475) See_Comment [Automated me ssage] The system which generated this result transmitted reference range: 0.0 - 10.0 /100 WBCs. The reference range was not used to interpret this result as normal/abnormal. NRBC x10^3 (test code = 8058741314) <0.01 See_Comment [Automated messa ge] The system which generated this result transmitted reference range: 10*3/?L. The reference range was not used to interpret this result as normal/abnormal. GRAN MAT (NEUT) % (test code = 770-8) 81.7 % IMM GRAN % (test code = 0703692310) 0.10 % LYMPH % (test code = 736-9) 12.3 % MONO % (test code = 5905-5) 5.6 % EOS % (test code = 713-8) 0.0 % BASO % (test code = 706-2) 0.3 % GRAN MAT x10^3(ANC) (test code = 6772863813) 5.80 10*3/uL 1.99-6.95 IMM GRAN x10^3 (test code = 8613360089) <0.03 0.00-0.06 LYMPH x10^3 (test code = 731-0) 0.87 10*3/uL 1.09-3.23 L MONO x10^3 (test code = 742-7) 0.40 10*3/uL 0.36-1.02 EOS x10^3 (test code = 711-2) <0.03 0.06-0.53 L BASO x10^3 (test code = 704-7) <0.03 0.01-0.09 Lab Interpretation (test code = 77683-6) [facility] 10:10:29* Test Item Value Reference Range Interpretation Comme nts PHOSPHORUS (test code = 5137828550) 4.8 mg/dL 2.5-5.0 Lab Interpretation (test cod e = 85668-9) Normal [facility]OL[facility] PAN[facility] (NA, K, CL, CO2, GLUCOSE, BUN, CREATININE, CA)2020-10-26 10:10:28* Test Item Value Reference Range Interpretation Comme nts NA (test code = 9753104093) 142 mmol/L 135-145 K (test code = 0325917266) 4.3 mmol/L 3.5-5.0 CL (test code = 5292714594) 109 mmol/L 98-108 H CO2 TOTAL (test code = 9910372951) 24 mmol/L 23-31 AGAP (test code = 7098672462) 2-16 BUN (test code = 8732565495) 70 mg/dL 7-23 H GLUCOSE (test code = 5736247443) 193 mg/dL 70-110 H CREATININE (test code = 1354014542) 2.35 mg/dL 0.60-1.25 H CALCIUM (test code = 7949912124) 7.6 mg/dL 8.6-10.6 L eGFR (test code = 2947446373) mL/min/1.73m2 SUDHAKAR (test code = SUDHAKAR) Association [...] imaging tests). Lab Interpretation (test code = 48687-0) [facility] 10:10:28* Test Item Value Reference Range Interpretation Comme nts MAGNESIUM (test code = 8142435138) 3.0 mg/dL 1.7-2.4 H Lab Interpretation (test cod e = 95889-2) Abnormal [facility]for use with Heparin Drip)2020-10-26 10:01:52* Test Item Value Reference Range Interpretation Comme [facility] APTT Patient (test code = 3173-2) See_Comment H [Automated [place] [employer]] The system which generated this result transmitted reference range: 26 - 36 Seconds. The reference range was not used to interpret this result as normal/abnormal. Lab Interpretation (test code = 96171-2) [facility]normal [facility] HospitalCT HEAD WO [id number] 03:47:47Subacute 1.4 cm left periatrial white matter [...] cm left periatrial white matter infarct. No hemorrhagictransformation.[facility]for use with Heparin Drip)2020-10-26 02:46:57* Test Item Value Reference Range Interpretation Comme [facility] APTT Patient (test code = 3173-2) See_Comment H [Automated [place] [employer]] The system which generated this result transmitted reference range: 26 - 36 Seconds. The reference range was not used to interpret this result as normal/abnormal. Lab Interpretation (test code = 47192-5) Abnormal [facility] METABOLIC PANEL (NA, K, CL, CO2, GLUCOSE, BUN, CREATININE, CA)2020-10-26 00:46:56* Test Item Value Reference Range Interpretation Comme nts NA (test code = 5862253792) 141 mmol/L 135-145 K (test code = 1284716082) 4.4 mmol/L 3.5-5.0 CL (test code = 3535787379) 111 mmol/L 98-108 H CO2 TOTAL (test code = 4685389280) 18 mmol/L 23-31 L AGAP (test code = 6955328227) 2-16 BUN (test code = 9728687444) 75 mg/dL 7-23 H GLUCOSE (test code = 6805375232) 210 mg/dL 70-110 H CREATININE (test code = 9973674402) 2.77 mg/dL 0.60-1.25 H CALCIUM (test code = 9053284000) 7.7 mg/dL 8.6-10.6 L eGFR (test code = 5509797869) mL/min/1.73m2 SUDHAKAR (test code = SUDHAKAR) Association [...] imaging tests). Lab Interpretation (test code = 03281-4) Abnormal [facility] CULTURE [id number] 23:01:12* Test Item Value Reference Range Interpretation Comme nts Blood Culture-Aerobic (test code = 31386-8) No organisms isolated No growth Previous preliminary [...] 1801 CDT Blood Culture-Anaerobic (test code = 45815-2) No organisms isolated No growth Previous preliminary [...] 1801 CDT Lab Interpretation (test code = 93966-1) Normal [facility] CULTURE [id number] 23:01:12* Test Item Value Reference Range Interpretation Comme nts Blood Culture-Aerobic (test code = 78467-5) No organisms isolated No growth Previous preliminary [...] 1801 CDT Blood Culture-Anaerobic (test code = 41183-2) No organisms isolated No growth Previous preliminary [...] 1801 CDT Lab Interpretation (test code = 56674-9) [facility]2021-[facility]-16 20:58:42* Test Item Value Reference Range Interpretation Comme nts MAGNESIUM (test code = 2064878586) 3.3 mg/dL 1.7-2.4 H Slight hemolysis Lab Interpretation (test code = 37905-8) Abnormal [facility] METABOLIC PANEL (NA, K, CL, CO2, GLUCOSE, BUN, CREATININE, CA)2020-10-25 20:58:17* Test Item Value Reference Range Interpretation Comme nts NA (test code = 3324623165) 141 mmol/L 135-145 K (test code = 4609784165) 5.0 mmol/L 3.5-5.0 Slight hemolysis CL (test code = 8582258978) 111 mmol/L 98-108 H CO2 TOTAL (test code = 4339117483) 19 mmol/L 23-31 L AGAP (test code = 4986617637) 2-16 BUN (test code = 4743409853) 78 mg/dL 7-23 H Slight hemolysis GLUCOSE (test code = 2767475555) 134 mg/dL 70-110 H CREATININE (test code = 3682176664) 2.81 mg/dL 0.60-1.25 H CALCIUM (test code = 9984542810) 7.8 mg/dL 8.6-10.6 L eGFR (test code = 4125274898) mL/min/1.73m2 SUDHAKAR (test code = SUDHAKAR) Association [...] imaging tests). Lab Interpretation (test code = 59277-2) [facility]normal [facility] HospitalAb[facility] 1 View - To confirm nasogastric tube [...] Note:Left upper and lower quadrants are within [id number]-rt-fvgq. [facility], Radiant Results Inft User - 10/25/2020 3:38 PM CDTEXAM: XR ABDOMEN 1 VWHISTORY: 69 years-old Male presenting with NGT placement COMPARISON: Abdomen plain film earlier today.TECHNIQUE: Frontal views of the abdomen and pelvis were obtained. Note:Left upper and lower quadrants are within lnsrd-gd-dfbu.IMPRESSIONFINDINGS / IMPRESSION:Esophogastric tube tip projects over the stomach fundus. Side-port projectsover the fundus as well. Redemonstration of partially visualized gaseousdistention of small bowel (dilated up to 4.8 cm in left upper quadrant).Preliminary Report Dictated by Resident: Harpreet Mcadams MD., have reviewed this study andagree with theabove report. [facility] HospitalTROPONIN [id number] 20:19:08* Test Item Value Reference Range Interpretation Comme nts TROPONIN I (test code = 7688926683) 0.044 ng/mL See_Comment H [Automated message] The [...] biotin. ? Lab Interpretation (test code = 64240-5) Abnormal [facility] HospitalD-[id number] 19:54:04* Test Item Value Reference Range Interpretation Comments D-DIMER (test code = 5531024104) See_Comment H [Automated message] The system which [...] a diagnosis. Lab Interpretation (test code = 33800-6) Abnormal [facility] HospitalPROTHROMBIN TIME / [id number] 19:54:04* Test Item Value Reference Range Interpretation Comme [facility] PROTIME PATIENT (test code = 5964-2) See_Comment H [Automated [employer]] The system which generated this result transmitted reference range: 10.1 - 12.6 Seconds. The reference range was not used to interpret this result as normal/abnormal. INR (test code = 6301-6) Normal INR <1.1; Warfarin Therapeutic range 2.0 to 3.0 or 2.5 to 3.5, depending upon the indications. Lab Interpretation (test code = 50057-4) Abnormal [facility] HospitalACTIVATED PARTIAL THRMPLAS [id number] 19:54:04* Test Item Value Reference Range Interpretation Comme [facility] APTT Patient (test code = 3173-2) See_Comment [Automated [employer]] The system which generated this result transmitted reference range: 26 - 36 Seconds. The reference range was not used to interpret this result as normal/abnormal. Lab Interpretation (test code = 93498-7) Normal [facility] HospitalAC PANEL 20 + LACTIC [id number] 19:24:59* Test Item Value Reference Range Interpretation Comme [facility] PH (test code = 2) 7.35-7.45 L PCO2 (test code = 8154739337) See_Comment L [Automated messa ge] The system which generated this result transmitted reference range: 35 - 45 mmHg. The reference range was not used to interpret this result as normal/abnormal. PO2 (test code = 7356908989) See_Comment [Automated messa ge] The system which generated this result transmitted reference range: 80 - 100 mmHg. The reference range was not used to interpret this result as normal/abnormal. HCO3 (test code = 2981721354) See_Comment L [Automated messa ge] The system which generated this result transmitted reference range: 22 - 26 mEq/L. The reference range was not used to interpret this result as normal/abnormal. BE (test code = 6209510669) See_Comment L [Automated messa ge] The system which generated this result transmitted reference range: -3.0 - 3.0 mEq/L. The reference range was not used to interpret this result as normal/abnormal. THB (test code = 0265577440) 14.7 g/dL 13.5-18.0 %O2HB (test code = 9901721885) 95.8 % 94.0-99.0 %COHB ART (test code = 8810709022) 0.4 % 0.0-1.5 %METHB ART (test code = 9015468292) 0.0 % 0.4-1.5 L VOL%O2 ART (test code = 4910482591) 19.9 % 15.0-23.0 NA (test code = 1858576913) 140 mmol/L 135-145 K+ (test code = 8337955697) 4.4 mmol/L 3.5-5.0 AC CA IONZ (test code = 9327798831) 4.70 mg/dL 4.50-5.30 GLUCOSE (test code = 7487613391) 143 mg/dL 70-110 H LACTIC ACID (test code = 7498338965) 1.16 mmol/L 0.50-2.20 Lab Interpretation (test code = 84654-6) Abnormal [facility] HospitalXR [id number] 18:37:15Air distended multiple small and large bowel [...] or ileus. Follow-up imaging is recommended.Preliminary Report Dictated by Resident: Brissa Martinez, Cami Rios MD., have reviewed this study and agree with theabove report.[facility] HospitalAC PANEL 20 + LACTIC [id number] 14:46:01* Test Item Value Reference Range Interpretation Comme nts PH (test code = 2) 7.35-7.45 L PCO2 (test code = 5980358667) See_Comment [Automated messa ge] The system which generated this result transmitted reference range: 35 - 45 mmHg. The reference range was not used to interpret this result as normal/abnormal. PO2 (test code = 4313062771) See_Comment [Automated messa ge] The system which generated this result transmitted reference range: 80 - 100 mmHg. The reference range was not used to interpret this result as normal/abnormal. HCO3 (test code = 7183004571) See_Comment L [Automated messa ge] The system which generated this result transmitted reference range: 22 - 26 mEq/L. The reference range was not used to interpret this result as normal/abnormal. BE (test code = 1868624698) See_Comment L [Automated messa ge] The system which generated this result transmitted reference range: -3.0 - 3.0 mEq/L. The reference range was not used to interpret this result as normal/abnormal. THB (test code = 7102832588) 15.1 g/dL 13.5-18.0 %O2HB (test code = 7086379384) 95.9 % 94.0-99.0 %COHB ART (test code = 3156123757) 0.1 % 0.0-1.5 %METHB ART (test code = 2062209965) 0.0 % 0.4-1.5 L VOL%O2 ART (test code = 3319811209) 20.4 % 15.0-23.0 NA (test code = 0148416809) 139 mmol/L 135-145 K+ (test code = 5231165057) 4.1 mmol/L 3.5-5.0 AC CA IONZ (test code = 1385646162) 4.90 mg/dL 4.50-5.30 GLUCOSE (test code = 1545433256) 152 mg/dL 70-110 H LACTIC ACID (test code = 8754390887) 1.30 mmol/L 0.50-2.20 Lab Interpretation (test code = 24618-1) Abnormal [facility] METABOLIC PANEL (NA, K, CL, CO2, GLUCOSE, BUN, CREATININE, CA)2020-10-25 12:06:43* Test Item Value Reference Range Interpretation Comme nts NA (test code = 3612907900) 143 mmol/L 135-145 K (test code = 5466203941) 4.6 mmol/L 3.5-5.0 CL (test code = 6070437727) 112 mmol/L 98-108 H CO2 TOTAL (test code = 1618495176) 18 mmol/L 23-31 L AGAP (test code = 7449330004) 2-16 BUN (test code = 7670669057) 78 mg/dL 7-23 H GLUCOSE (test code = 7973460291) 117 mg/dL 70-110 H CREATININE (test code = 9722188765) 2.99 mg/dL 0.60-1.25 H CALCIUM (test code = 8147597050) 7.8 mg/dL 8.6-10.6 L eGFR (test code = 7741495082) mL/min/1.73m2 SUDHAKAR (test code = SUDHAKAR) Association [...] imaging tests). Lab Interpretation (test code = 48930-5) Abnormal [facility]MAG[facility]UM2021-[facility] 12:06:43* Test Item Value Reference Range Interpretation Comme nts MAGNESIUM (test code = 4674320845) 3.2 mg/dL 1.7-2.4 H Lab Interpretation (test cod e = 73454-6) Abnormal [facility]PH[facility]2021-[facility]-16 12:06:43* Test Item Value Reference Range Interpretation Comme nts PHOSPHORUS (test code = 4133121444) 5.8 mg/dL 2.5-5.0 H Lab Interpretation (test cod e = 96808-4) Abnormal [facility] HospitalPOCT GLUCOSE (AUTOMATED)2020-10-25 02:25:17* Test Item Value Reference Range Interpretation Comme nts POCT GLU (test code = 9686687434) 110 mg/dL 70-110 Lab Interpretation (test cod e = 64762-1) Normal [facility] HospitalPROCALCITONIN2021-04-15 23:09:36* Test Item Value Reference Range Interpretation Comme nts Procalcitonin (test code = 8757574883) 0.87 ng/mL <0.07 H SUDHAKAR (test code [...] lung abscess/empyema. For further information please refer to:[email or web address] Lab Interpretation (test code = 59022-3) Abnormal [facility] GLUCOSE (AUTOMATED)2020-10-24 21:00:37* Test Item Value Reference Range Interpretation Comme nts POCT GLU (test code = 0772240414) 80 mg/dL 70-110 Lab Interpretation (test cod e = 22848-9) Normal [facility] GLUCOSE (AUTOMATED)2020-10-24 16:49:27* Test Item Value Reference Range Interpretation Comme nts POCT GLU (test code = 4581473042) 99 mg/dL 70-110 Lab Interpretation (test cod e = 90899-0) Normal [facility] HospitalD-[id number] 14:21:04* Test Item Value Reference Range Interpretation Comments D-DIMER (test code = 5866234685) See_Comment H [Automated message] The system which [...] a diagnosis. Lab Interpretation (test code = 43573-3) Abnormal [facility]PH[facility]2021-[facility]-15 14:20:49* Test Item Value Reference Range Interpretation Comme nts PHOSPHORUS (test code = 1386660376) 7.9 mg/dL 2.5-5.0 H Lab Interpretation (test cod e = 24365-1) Abnormal [facility] HospitalHEPATIC FUNCTION PANEL (26107) (ALB,T.PRO,BILI T,BU/BC,ALT,AST,ALK PHOS)2020-10-24 14:20:49* Test Item Value Reference Range Interpretation Comme nts TOTAL BILI (test code = 0431905032) 0.2 mg/dL 0.1-1.1 BILI UNCON (test code = 3558465467) 0.1 mg/dL 0.1-1.1 BILI CONJ (test code = 3059663514) 0.0 mg/dL 0.0-0.3 T PROTEIN (test code = 9119192630) 6.7 g/dL 6.3-8.2 ALBUMIN (test code = 5707508617) 3.3 g/dL 3.5-5.0 L ALK PHOS (test code = 9247274985) 56 U/L 34-122 ALTv (test code = 1742-6) 42 U/L 5-50 AST(SGOT) (test code = 9187226765) 60 U/L 13-40 H Lab Interpretation (test cod e = 82993-9) Abnormal [facility]MAG[facility]UM2021-[facility]-15 14:20:49* Test Item Value Reference Range Interpretation Comme nts MAGNESIUM (test code = 9016161270) 3.2 mg/dL 1.7-2.4 H Lab Interpretation (test cod e = 79712-8) Abnormal [facility]PO[facility]SE (AUTOMATED)2020-10-24 13:31:14* Test Item Value Reference Range Interpretation Comme nts POCT GLU (test code = 4535131703) 87 mg/dL 70-110 Lab Interpretation (test cod e = 14827-6) Normal [facility] HospitalLAB ONLY COVID [id number] 11:17:59COVID DMT InterpretationInterpretation/Recommendations: Molecular NAAT Tests for Active Infection with the SARS-CoV-2 Virus: The current test result is positive for the SARS-CoV-2 virus that causes COVID-19 illness. In redl-ex-erhfjyfu illness, the patient may be considered no [...] COVID-19 testing the patient has had at [facility], including molecular NAAT testing (more commonly known as PCR testing and Rapid ID Now testing) and antibody testing.It does not take into account any testing that a patient has had outside of the [facility] medical record. [facility] LABORATORY SERVICESCOVID RxcrzlsJTOW-ZyX-6 Rapid ID NOW (no units) ? ? Date ? Value ? 10/20/2020 ? Positive (A) ? [facility] (NA, K, CL, CO2, GLUCOSE, BUN, CREATININE, CA) 2020-10-24 11:10:26* Test Item Value Reference Range Interpretation Comme nts NA (test code = 1985893846) 143 mmol/L 135-145 K (test code = 5263738843) 4.3 mmol/L 3.5-5.0 CL (test code = 7720959713) 111 mmol/L 98-108 H CO2 TOTAL (test code = 5616578268) 20 mmol/L 23-31 L AGAP (test code = 3693152197) 2-16 BUN (test code = 5388667083) 77 mg/dL 7-23 H GLUCOSE (test code = 2074781393) 108 mg/dL 70-110 CREATININE (test code = 4436325350) 3.45 mg/dL 0.60-1.25 H CALCIUM (test code = 9147594115) 8.0 mg/dL 8.6-10.6 L eGFR (test code = 2031370611) mL/min/1.73m2 SUDHAKAR (test code = SUDHAKAR) Association [...] imaging tests). Lab Interpretation (test code = 52558-3) Abnormal [facility] GLUCOSE (AUTOMATED)2020-10-24 03:03:11* Test Item Value Reference Range Interpretation Comme nts POCT GLU (test code = 5910682915) 139 mg/dL 70-110 H Lab Interpretation (test cod e = 22902-4) Abnormal [facility] GLUCOSE (AUTOMATED)2020-10-23 22:18:53* Test Item Value Reference Range Interpretation Comme nts POCT GLU (test code = 0153849681) 126 mg/dL 70-110 H Lab Interpretation (test cod e = 35212-3) Abnormal [facility] GLUCOSE (AUTOMATED)2020-10-23 16:23:58* Test Item Value Reference Range Interpretation Comme nts POCT GLU (test code = 9516139362) 133 mg/dL 70-110 H Lab Interpretation (test cod e = 23106-5) Abnormal [facility] HospitalURINALYSIS2021-04-14 16:05:15* Test Item Value Reference Range Interpretation Comme nts APPEARANCE (test code = 2195392363) Hazy Clear A COLOR (test code = 5185786455) Lisa Yellow A PH (test code = 0145392870) 4.8-8.0 SP GRAVITY (test code = 9647488959) 1.003-1.030 GLU U QUAL (test code = 1239874027) Normal Normal BLOOD (test code = 9629008278) 1+ Negative A KETONES (test code = 8848570060) Negative Negative PROTEIN (test code = 2887-8) 100 mg/dL Negative A UROBILIN (test code = 6561446780) Normal Normal BILIRUBIN (test code = 5612594301) Negative Negative NITRITE (test code = 3529605533) Negative Negative LEUK CHANDAN (test code = 5827589530) Negative Negative RBC/HPF (test code = 9044459437) See_Comment [Automated messa ge] The system which generated this result transmitted reference range: 0 - 3 HPF. The reference range was not used to interpret this result as normal/abnormal. WBC/HPF (test code = 3970228731) <1 See_Comment [Automated messa ge] The system which generated this result transmitted reference range: 0 - 5 HPF. The reference range was not used to interpret this result as normal/abnormal. BACTERIA (test code = 0507406306) Negative Negative MUCOUS (test code = 3148022646) Slight Negative LPF A Lab Interpretation (test code = 37984-4) Abnormal [facility] HospitalCREATININE, URINE [id number] 15:45:59* Test Item Value Reference Range Interpretation Comme nts CREAT U (test code = 2222844137) 246.3 mg/dL [facility] HospitalSODIUM, URINE [id number] 15:45:59* Test Item Value Reference Range Interpretation Comme nts NA URINE (test code = 3170632306) 31 mmol/L [facility] HospitalPOCT GLU[facility]SE (AUTOMATED)2020-10-23 13:36:03* Test Item Value Reference Range Interpretation Comme nts POCT GLU (test code = 9910844836) 139 mg/dL 70-110 H Lab Interpretation (test cod e = 89929-8) Abnormal [facility] HospitalVITAMIN D, [id number] 11:36:54* Test Item Value Reference Range Interpretation Comme [facility] VIT D 25OH (test code = 81486-9) 30 ng/mL 25-80 SUDHAKAR (test code = SUDHAKAR) Deficiency: <20 ng/mLInsufficiency : 20-24 ng/mLOptimal: 25-80 ng/mL Lab Interpretation (test code = 14582-2) Normal [facility] HospitalCB WITH [id number] 11:01:57* Test Item Value Reference Range Interpretation [...] 32.0 g/dL 31.2-35.0 RDW-SD (test code = 16564-4) 47.3 fL 38.5-51.6 RDW-CV (test code = 788-0) 13.2 % 12.1-15.4 PLT (test code = 777-3) See_Comment H [Automated [place] [employer]] The system which generated this result transmitted reference range: 150 - 328 10*3/?L. The reference range was not used to interpret this result as normal/abnormal. MPV (test code = 90622-6) 10.1 fL 9.8-13.0 NRBC/100 WBC (test code = 7161653674) See_Comment [Automated Jimmy [employer] ssage] The system which generated this result transmitted reference range: 0.0 - 10.0 /100 WBCs. The reference range was not used to interpret this result as normal/abnormal. NRBC x10^3 (test code = 8354877078) <0.01 See_Comment [Automated [place] [employer]] The system which generated this result transmitted reference range: 10*3/?L. The reference range was not used to interpret this result as normal/abnormal. GRAN MAT (NEUT) % (test code = 770-8) 76.4 % IMM GRAN % (test code = 0330837008) 0.40 % LYMPH % (test code = 736-9) 17.5 % MONO % (test code = 5905-5) 4.5 % EOS % (test code = 713-8) 0.6 % BASO % (test code = 706-2) 0.6 % GRAN MAT x10^3(ANC) (test code = 8453889068) 3.89 10*3/uL 1.99-6.95 IMM GRAN x10^3 (test code = 1822000910) <0.03 0.00-0.06 LYMPH x10^3 (test code = 731-0) 0.89 10*3/uL 1.09-3.23 L MONO x10^3 (test code = 742-7) 0.23 10*3/uL 0.36-1.02 L EOS x10^3 (test code = 711-2) 0.03 10*3/uL 0.06-0.53 L BASO x10^3 (test code = 704-7) 0.03 10*3/uL 0.01-0.09 Lab Interpretation (test code = 37781-7) Abnormal [facility] METABOLIC PANEL (NA, K, CL, CO2, GLUCOSE, BUN, CREATININE, CA)2020-10-23 10:54:10* Test Item Value Reference Range Interpretation Comme nts NA (test code = 0787823228) 140 mmol/L 135-145 K (test code = 8811768664) 4.5 mmol/L 3.5-5.0 CL (test code = 9109941018) 108 mmol/L 98-108 CO2 TOTAL (test code = 0198933802) 20 mmol/L 23-31 L AGAP (test code = 2627267034) 2-16 BUN (test code = 9337974933) 64 mg/dL 7-23 H GLUCOSE (test code = 6891358112) 157 mg/dL 70-110 H CREATININE (test code = 8941924922) 2.93 mg/dL 0.60-1.25 H CALCIUM (test code = 4054501138) 8.1 mg/dL 8.6-10.6 L eGFR (test code = 2928314894) mL/min/1.73m2 SUDHAKAR (test code = SUDHAKAR) Association [...] imaging tests). Lab Interpretation (test code = 08731-0) Abnormal [facility] HospitalMAGNESIUM2021-04-14 10:54:10* Test Item Value Reference Range Interpretation Comme nts MAGNESIUM (test code = 9374691581) 3.2 mg/dL 1.7-2.4 H Lab Interpretation (test cod e = 30232-9) Abnormal [facility] HospitalPHOSPHORUS2021-04-14 10:54:10* Test Item Value Reference Range Interpretation Comme nts PHOSPHORUS (test code = 6465566506) 8.2 mg/dL 2.5-5.0 H Lab Interpretation (test cod e = 23637-3) Abnormal [facility] HospitalPOCT [facility]SE (AUTOMATED)2020-10-23 01:52:56* Test Item Value Reference Range Interpretation Comme nts POCT GLU (test code = 4920289306) 114 mg/dL 70-110 H Lab Interpretation (test cod e = 90965-9) Abnormal [facility] HospitalMR BRAIN WO [id number] 01:31:13Motion degraded exam. 1.4 cm left periatrial [...] orbits are unremarkable. Trace paranasalsinus mucosal thickening. [facility], Radiant Results Inft User - 10/22/2020 8:32 [...] in the bilateralcentrum semiovale and price ra diata.[facility] 22:08:53* Test Item Value Reference Range Interpretation Comme nts POCT GLU (test code = 7050236688) 126 mg/dL 70-110 H Lab Interpretation (test cod e = 16918-8) Abnormal [facility] GLUCOSE (AUTOMATED)2020-10-22 17:47:42* Test Item Value Reference Range Interpretation Comme nts POCT GLU (test code = 6981107215) 102 mg/dL 70-110 Lab Interpretation (test cod e = 48319-9) Normal [facility] GLUCOSE (AUTOMATED)2020-10-22 13:28:14* Test Item Value Reference Range Interpretation Comme nts POCT GLU (test code = 1481811711) 100 mg/dL 70-110 Lab Interpretation (test cod e = 83465-1) Normal [facility] GLUCOSE (AUTOMATED)2020-10-22 01:45:26* Test Item Value Reference Range Interpretation Comme nts POCT GLU (test code = 9839143853) 123 mg/dL 70-110 H Lab Interpretation (test cod e = 77038-6) Abnormal [facility] GLUCOSE (AUTOMATED)2020-10-21 21:50:40* Test Item Value Reference Range Interpretation Comme nts POCT GLU (test code = 1464795606) 92 mg/dL 70-110 Lab Interpretation (test cod e = 27311-1) Normal [facility] GLUCOSE (AUTOMATED)2020-10-21 17:56:48* Test Item Value Reference Range Interpretation Comme nts POCT GLU (test code = 1636905223) 94 mg/dL 70-110 Lab Interpretation (test cod e = 18357-9) [id number] 15:02:37* Test Item Value Reference Range Interpretation Comme nts TROPONIN I (test code = 7995611579) 0.074 ng/mL See_Comment H [Automated message] The [...] biotin. ? Lab Interpretation (test code = 77675-8) [facility]normal [facility] HospitalGLYCOSYLATED HEMOGLOBIN (A1C)2020-10-21 14:56:46* Test Item Value Reference Range Interpretation Comme nts HGB A1C (test code = 4548-4) 6.4 % 4.0-6.0 H Lab Interpretation (test cod e = 78170-0) Abnormal [facility] HospitalC-REACTIVE [id number] 14:21:54* Test Item Value Reference Range Interpretation Comme nts CRP (test code = 2448970203) 11.2 mg/dL <0.8 H Lab Interpretation (test cod e = 59418-9) Abnormal [facility]PO[facility])2020-10-21 13:33:30* Test Item Value Reference Range Interpretation Comme nts POCT GLU (test code = 1982594098) 96 mg/dL 70-110 Lab Interpretation (test cod e = 47774-6) Normal [facility] HospitalUS RETROPERITONEAL YIMONOR3447-20-89 13:33:10 Bilateral normal-appearing kidneys. Preliminary Report Dictated [...] cm. No perirenal collection or hydronephrosis identified. [facility], Radiant Results Inft User - 10/21/2020 8:34 AM CDTEXAM: US RETROPERITONEAL LIMITEDHISTORY: r/o CKD TECHNIQUE: Multiple longitudinal and transverse grayscaleultrasonographic images were obtained of the kidneys. Images obtained byultrasound technologist.COMPARISON: None.FINDINGS: The kidneys demonstrate normal contour, shape and echogenicity. The rightkidney mzgcjyzt58.9 x 4.1 x 3.7 cm and the left kidney measures 12 x 5.9 x5.6 cm. No perirenal collection or hydronephrosis identified.IMPRESSIONBilateral normal-appearing kidneys.Preliminary Report Dictated by Resident: Tien Silvestre MD., have reviewed this study and agree withthe above report. [facility] Metabolic Panel (NA, K, CL, CO2, GLUCOSE, BUN, CREATININE, CA)2020-10-21 08:55:20* Test Item Value Reference Range Interpretation Comme nts NA (test code = 3046363788) 138 mmol/L 135-145 K (test code = 9373848617) 4.6 mmol/L 3.5-5.0 Slight hemolysis CL (test code = 6718269530) 105 mmol/L 98-108 CO2 TOTAL (test code = 8689899472) 24 mmol/L 23-31 AGAP (test code = 4438471699) 2-16 BUN (test code = 5415130211) 40 mg/dL 7-23 H Slight hemolysis GLUCOSE (test code = 9875924237) 106 mg/dL 70-110 CREATININE (test code = 6741205097) 1.59 mg/dL 0.60-1.25 H CALCIUM (test code = 5956036584) 7.5 mg/dL 8.6-10.6 L eGFR (test code = 4112332179) mL/min/1.73m2 SUDHAKAR (test code = SUDHAKAR) Association [...] imaging tests). Lab Interpretation (test code = 41329-2) Abnormal [facility] HospitalMagnesium Kzzxg8086-37-67 08:55:20* Test Item Value Reference Range Interpretation Comme nts MAGNESIUM (test code = 9106820794) 2.6 mg/dL 1.7-2.4 H Lab Interpretation (test cod e = 65842-3) Abnormal [facility] HospitalCREATININE, URINE [id number] 08:38:57* Test Item Value Reference Range Interpretation Comme nts CREAT U (test code = 1687796585) 159.6 mg/dL [facility] HospitalSODIUM, URINE [id number] 08:38:57* Test Item Value Reference Range Interpretation Comme nts NA URINE (test code = 8112694415) 46 mmol/L [facility] HospitalUREA NITROGEN, URINE [id number] 08:38:57 * Test Item Value Reference Range Interpretation Comme nts UREA N UR (test code = 5634031065) 1385 mg/dL [facility] HospitalLEGIONELLA URINARY ANTIGEN [id number] 07:50:23* Test Item Value Reference Range Interpretation Comme nts Legionella Urinary Antigen (test code = 5829635395) Negative Negative SUDHAKAR (test code = SUDHAKAR) [...] the test. Lab Interpretation (test code = 44317-7) Normal [facility] HospitalPNEUMOCOCCAL [id number] 07:50:03* Test Item Value Reference Range Interpretation Comme nts S. pneumoniae antigen (test code = 6852432042) Negative Negative Lab Interpretation (test cod e = 58526-3) Normal [facility] HospitalHIV 1/2 AG-AB WITH [id number] 06:12:28* Test Item Value Reference Range Interpretation Comme nts HIV Semi-quantitative (test code = 32522-3) Negative Negative SUDHAKAR (test code = SUDHAKAR) Non-reactive for HIV-1 antigen and HIV-1/HIV-2 antibodies. ?No laboratory evidence of HIV infection. ?Repeat in 2-4 weeks if acute HIV infection is suspected. [facility] HospitalVITAMIN B12, [id number] 05:03:12* Test Item Value Reference Range Interpretation Comme nts VIT B12 (test code = 6706506128) >1000 240-930 H SUDHAKAR (test code = SUDHAKAR) Biotin has been reported to cause a positive bias, interpret results relative to patient's use of biotin. Lab Interpretation (test code = 91376-4) Abnormal [facility] HospitalFERRITIN [id number] 04:54:00* Test Item Value Reference Range Interpretation Comme nts FERRITIN (test code = 8479278442) 943.0 ng/mL 18.0-464.0 H SUDHAKAR (test code = SUDHAKAR) Biotin has been reported to cause a negative bias, interpret results relative to patient's use of biotin. Lab Interpretation (test code = 36500-8) Abnormal [facility] HospitalINTACT PTH CALCIUM [id number] 04:15:28* Test Item Value Reference Range Interpretation Comme nts PTH-INTACT (test code = 8301781516) 160.5 pg/mL 12.0-88.0 H PTH-CA Interpretation (test code = 6765356163) Further clinical data needed for interpretation. CALCIUM (test code = 0967342876) 7.9 mg/dL 8.6-10.6 L Lab Interpretation (test code = 47440-0) Abnormal [facility] HospitalPROCALCITONIN2021-04-12 04:14:02* Test Item Value Reference Range Interpretation Comme nts Procalcitonin (test code = 3423798215) 0.42 ng/mL <0.07 H SUDHAKAR (test code [...] lung abscess/empyema. For further information please refer to:[email or web address] Lab Interpretation (test code = 11755-9) Abnormal [facility] HospitalTROPONIN [id number] 03:47:02* Test Item Value Reference Range Interpretation Comme nts TROPONIN I (test code = 8369053120) 0.085 ng/mL See_Comment H [Automated message] The [...] biotin. ? Lab Interpretation (test code = 89225-4) Abnormal [facility] HospitalETHANOL2021-04-12 03:36:45* Test Item Value Reference Range Interpretation Comme nts ALCOHOL (test code = 0338535704) <10 mg/dL SUDHAKAR (test code = SUDHAKAR) Toxic Greater than or equal to 80 mg/dL. NOTE: Whole blood values are approximately 10% to 15% lower than serum and plasma. [facility] HospitalD-QVWWH3684-34-69 03:32:58* Test Item Value Reference Range Interpretation Comments D-DIMER (test code = 8173244031) See_Comment H [Automated message] The system which [...] a diagnosis. Lab Interpretation (test code = 97005-8) Abnormal [facility] HospitalLACTATE [id number] 03:31:58* Test Item Value Reference Range Interpretation Comme nts LDH (test code = 0309668890) 913 U/L 300-600 H Lab Interpretation (test cod e = 43588-5) Abnormal [facility] HospitalPHOSPHORUS2021-04-12 03:31:58* Test Item Value Reference Range Interpretation Comme nts PHOSPHORUS (test code = 3218387775) 5.9 mg/dL 2.5-5.0 H Lab Interpretation (test cod e = 65825-4) Abnormal [facility] HospitalLIPID PANEL (79109)(TOTAL CHOLESTEROL, TRIGLYCERIDES, HDL)2020-10-21 03:31:58* Test Item Value Reference Range Interpretation Comme nts CHOL (test code = 4407400389) 222 mg/dL 120-200 H HDL (test code = 9175961294) 21 mg/dL >40 L HDLC RATIO (test code = 9696566642) See_Comment H [Automated messa ge] The system which generated this result transmitted reference range: <=5.0. The reference range was not used to interpret this result as normal/abnormal. TRIG (test code = 4619097445) 169 mg/dL 30-170 LDL CHOL (test code = 16122-6) 167 mg/dL See_Comment H [Automated messa ge] The system which generated this result transmitted reference range: <=160. The reference range was not used to interpret this result as normal/abnormal. VLDL (test code = 4778678315) 34 mg/dL 5-60 Lab Interpretation (test code = 35082-5) Abnormal [facility] HospitalLactic Acid Whole Cjndo5609-51-01 03:17:20* Test Item Value Reference Range Interpretation Comme nts LACTIC ACID (test code = 0558339260) 1.93 mmol/L 0.50-2.20 QUES Lab Interpretation (test cod e = 71638-8) Normal [facility] 1 Lirf4520-48-68 02:34:14Right lower lobe patchy airspace opacity likely [...] abnormality. [facility], Radiant Results Inft User - :35 PM CDTEXAM: XR CHEST 1 VWCLINICAL INDICATION: AMS, hypoxia COMPARISON: NoneFINDINGS:The lungs a re well-expanded with a patchy airspace opacity at the rightlung base which appears suspicious for pneumonia. No pleural effusion orpneumothorax.The cardiac silhouette is normal in size. No acute osseous abnormality. IMPRESSIONRight lower lobe patchy airspace opacity likely represents pneumonia in theappropriate clinical setting.Preliminary Report Dictated by Resident: Todd Tello, Jhoan Dominguez MD., have reviewed this study and agree with theabove report. [facility] HospitalElectroencephalogram (EEG) - Duration of test: 20-60 mins; Release to patient: Tlntnlonl2980-28-80 00:00:00Date and Time of Procedure: 10/21/2020, 10:07:00-10:30:00 [...] Khadar Pelletier Rai, MD Date of interpretation: 10/21/2020[facility] Powzbjuqhw0397-21-61 22:55:26* Test Item Value Reference Range Interpretation Comme nts APPEARANCE (test code = 7784797804) Hazy Clear A COLOR (test code = 5970440939) Yellow Yellow PH (test code = 0580681590) 4.8-8.0 SP GRAVITY (test code = 7613647672) 1.003-1.030 H GLU U QUAL (test code = 5407015508) Normal Normal BLOOD (test code = 3656473915) 1+ Negative A KETONES (test code = 4526158450) Negative Negative PROTEIN (test code = 2887-8) 100 mg/dL Negative A UROBILIN (test code = 3292535322) Normal Normal BILIRUBIN (test code = 9728269329) Negative Negative NITRITE (test code = 2287010145) Negative Negative LEUK CHANDAN (test code = 5805301543) Negative Negative RBC/HPF (test code = 3092773707) See_Comment [Automated [employer]] The system which generated this result transmitted reference range: 0 - 3 HPF. The reference range was not used to interpret this result as normal/abnormal. WBC/HPF (test code = 3435693089) See_Comment [[employer]] The system which generated this result transmitted reference range: 0 - 5 HPF. The reference range was not used to interpret this result as normal/abnormal. BACTERIA (test code = 2200850396) Few Negative A MUCOUS (test code = 1753825094) Moderate Negative LPF A SQ EPITH (test code = 7135106573) HPF Lab Interpretation (test code = 92934-8) Abnormal [facility] HospitalCT ANGIOGRAM [id number] 22:32:04Multiple areas of moderate to high-grade stenosis in the distal leftcervical vertebral artery. There are several areas of moderate stenosis ofthe left intracerebral vertebral artery. Mild to moderatestenosis in the right middle cerebral artery and mildstenosis of left middle cerebral artery. No evidence for aneurysm or occlusion in the [place]. Ground[place] opacities in the bilateral [...] anterior cerebral arteries. There are areas of smfz-eb-wmezqzsh stenosis in the right middle cerebralartery. Mild stenosis in the left middle cerebral artery. Normal posteriorcerebral arteries. ?There are multiple areas of moderate stenosis of theleft intracerebral vertebral artery. Right vertebral artery and basilarartery are normal. [facility], Radiant Results Inft User - [...] anterior cerebral arteries. There are areas of rcrt-mo-edwognhc stenosis in the right middle cerebralartery. Mild [...] evidence for aneurysm or occlusion in the [place] opacities in the bilateral upper lobes and partially visualizedright lower lobe consistent with a multifocal infectious/inflammatorypneumonitis. Correlate clinically.RL 4728Electronically signed by Nikko Jeong 10/20/2020 5:32 PMUnB[facility] StationCT ANGIOGRAM [id number] 22:32:04Multiple areas of moderate to high-grade stenosis in the distal leftcervical vertebral artery. There are several areas of moderate stenosis ofthe left intracerebral vertebral artery. Mild to moderatestenosis in the right middle cerebral artery and mildstenosis of left middle cerebral artery. No evidence for aneurysm or occlusion in the [place]. [place] opacities in the bilateral [...] anterior cerebral arteries. There are areas of lmxx-yx-huvmthhd stenosis in the right middle cerebralartery. Mild stenosis in the left middle cerebral artery. Normal posteriorcerebral arteries. ?There are multiple areas of moderate stenosis of theleft intracerebral vertebral artery. Right vertebral artery and basilarartery are normal. [facility], Radiant Results Inft User - 10/20/2020 5:33 [...] anterior cerebral arteries. There are areas of ilqt-se-fygqyvul stenosis in the right middle cerebralartery. Mild [...] evidence for aneurysm or occlusion in the [place] opacities in the bilateral upper lobes and partially visualizedright lower lobe consistent with a multifocal infectious/inflammatorypneumonitis. Correlate clinically.RL 4728Electronically signed by Nikko Jeong 10/20/2020 5:32 PMUnB[facility] Scott & [facility] – College StationCT Head W/O Gxiapmxg2051-76-05 21:46:26No acute intracranial abnormality. Generalized cerebral atrophy [...] microvascular ischemic disease.Old right cerebellar infarct.RL 4728 [facility] HospitalTHYROID STIMULATING [id number] 21:29:59* Test Item Value Reference Range Interpretation Comme nts TSH (test code = 3420335543) See_Comment [Automated [employer]] The system which generated this result transmitted reference range: 0.45 - 4.70 mIU/L. The reference range was not used to interpret this result as normal/abnormal. Lab Interpretation (test code = 51833-2) Normal [facility] HospitalTroponin [id number] 21:11:38* Test Item Value Reference Range Interpretation Comme [facility] TROPONIN I (test code = 7136558576) 0.079 ng/mL See_Comment H [Automated message] The [...] biotin. ? Lab Interpretation (test code = 91125-7) Abnormal [facility] HospitalaPTT2021-04-11 21:09:17* Test Item Value Reference Range Interpretation Comme [facility] APTT Patient (test code = 3173-2) See_Comment [Automated message] The system which generated this result transmitted reference range: 23 - 38 Seconds. The reference range was not used to interpret this result as normal/abnormal. SUDHAKAR (test code = SUDHAKAR) The [facility] patient population mean normal value for aPTT is 30 seconds. Lab Interpretation (test code = 88978-6) Normal [facility] HospitalN-TERMINAL LHA-[id number] 21:08:22* Test Item Value Reference Range Interpretation Comme [facility] NT-proBNP (test code = 1638153126) 117 pg/mL See_Comment [Automated message] The system which generated this result transmitted reference range: <=125. The reference range was not used to interpret this result as normal/abnormal. SUDHAKAR (test code = SUDHAKAR) Biotin has been reported to cause a negative bias, interpret results relative to patient's use of biotin. Lab Interpretation (test code = 51052-9) Normal [facility] HospitalProthrombin Time (PT) / [id number] 21:06:42 * Test Item Value Reference Range [...] the indications. Lab Interpretation (test code = 73573-6) Normal [facility] HospitalMAGNESIUM2021-04-11 20:59:59* Test Item Value Reference Range Interpretation Comme nts MAGNESIUM (test code = 3038232449) 2.8 mg/dL 1.7-2.4 H Lab Interpretation (test cod e = 44660-6) Abnormal [facility] HospitalBasi Metabolic Panel (NA, K, CL, CO2, GLUCOSE, BUN, CREATININE, CA)2020-10-20 20:59:38* Test Item Value Reference Range Interpretation Comme nts NA (test code = 5508572528) 137 mmol/L 135-145 K (test code = 8767450746) 4.8 mmol/L 3.5-5.0 CL (test code = 3840649916) 100 mmol/L 98-108 CO2 TOTAL (test code = 4551197137) 28 mmol/L 23-31 AGAP (test code = 8367546279) 2-16 BUN (test code = 6731296261) 43 mg/dL 7-23 H GLUCOSE (test code = 6826800676) 128 mg/dL 70-110 H CREATININE (test code = 9816774350) 1.75 mg/dL 0.60-1.25 H CALCIUM (test code = 3902550445) 8.5 mg/dL 8.6-10.6 L eGFR (test code = 6337993337) mL/min/1.73m2 SUDHAKAR (test code = SUDHAKAR) Association [...] imaging tests). Lab Interpretation (test code = 62085-1) Abnormal [facility] HospitalHepatic Function Panel (ALB, T.PRO, BILI T, BU/BC, ALT, AST, ALK PHOS)2020-10-20 20:59:38* Test Item Value Reference Range Interpretation Comme nts TOTAL BILI (test code = 4650237463) 0.7 mg/dL 0.1-1.1 BILI UNCON (test code = 0169601175) 0.4 mg/dL 0.1-1.1 BILI CONJ (test code = 5378127066) 0.0 mg/dL 0.0-0.3 T PROTEIN (test code = 4112342157) 7.9 g/dL 6.3-8.2 ALBUMIN (test code = 9687958763) 4.4 g/dL 3.5-5.0 ALK PHOS (test code = 7382013837) 68 U/L 34-122 ALTv (test code = 1742-6) 66 U/L 5-50 H AST(SGOT) (test code = 3499208511) 73 U/L 13-40 H Lab Interpretation (test cod e = 03853-2) Abnormal [facility] HospitalLipase Lptds3015-84-66 20:59:18* Test Item Value Reference Range Interpretation Comme nts LIPASE (test code = 7399385502) 453 U/L 0-220 H Lab Interpretation (test cod e = 62687-3) Abnormal [facility] HospitalCOVID-19 (ID NOW RAPID TESTING)2020-10-20 20:54:56* Test Item Value Reference Range Interpretation Comme nts SARS-CoV-2 Rapid ID NOW (test code = 80998-9) Positive Not Detected A SDUHAKAR (test code = SUDHAKAR) ID NOW COVID-19 As say is an isothermal nucleic acid amplification test intended for the qualitative detection of nucleic acid from SARS-CoV-2 viral RNA in nasopharyngeal ([employer]) specimens. It is used under Emergency Use [...] clinically indicated. Lab Interpretation (test code = 98814-5) Abnormal [facility] HospitalCBC with Gusoutyachfg0040-50-43 20:54:01* Test Item Value Reference Range Interpretation Comme nts WBC (test code = 6690-2) See_Comment L [Automated messa ge] The system which generated this result transmitted reference range: 4.20 - 10.70 10*3/?L. The reference range was not used to interpret this result as normal/abnormal. RBC (test code = 789-8) See_Comment [Automated [employer]] The system which generated this result [...] 33.6 g/dL 31.2-35.0 RDW-SD (test code = 45484-6) 43.6 fL 38.5-51.6 RDW-CV (test code = 788-0) 12.6 % 12.1-15.4 PLT (test code = 777-3) See_Comment [Automated [employer]] The system which generated this result transmitted reference range: 150 - 328 10*3/?L. The reference range was not used to interpret this result as normal/abnormal. MPV (test code = 13160-7) 10.4 fL 9.8-13.0 NRBC/100 WBC (test code = 6149447620) See_Comment [Automated Jimmy [employer] ssage] The system which generated this result transmitted reference range: 0.0 - 10.0 /100 WBCs. The reference range was not used to interpret this result as normal/abnormal. NRBC x10^3 (test code = 0193013459) <0.01 See_Comment [Automated [employer]] The system which generated this result transmitted reference range: 10*3/?L. The reference range was not used to interpret this result as normal/abnormal. GRAN MAT (NEUT) % (test code = 770-8) 66.3 % IMM GRAN % (test code = 8418052600) 0.30 % LYMPH % (test code = 736-9) 23.1 % MONO % (test code = 5905-5) 9.8 % EOS % (test code = 713-8) 0.0 % BASO % (test code = 706-2) 0.5 % GRAN MAT x10^3(ANC) (test code = 6611542387) 2.64 10*3/uL 1.99-6.95 IMM GRAN x10^3 (test code = 0842579004) <0.03 0.00-0.06 LYMPH x10^3 (test code = 731-0) 0.92 10*3/uL 1.09-3.23 L MONO x10^3 (test code = 742-7) 0.39 10*3/uL 0.36-1.02 EOS x10^3 (test code = 711-2) <0.03 0.06-0.53 L BASO x10^3 (test code = 704-7) <0.03 0.01-0.09 Lab Interpretation (test code = 34072-5) Abnormal [facility] HospitalLactic Acid Whole Toyqt7337-94-78 20:34:23* Test Item Value Reference Range Interpretation Comme nts LACTIC ACID (test code = 2378278144) 2.30 mmol/L 0.50-2.20 H Lab Interpretation (test cod e = 33598-0) Abnormal [facility] HospitalPOCT GLUCOSE (AUTOMATED)2020-10-20 20:25:25* Test Item Value Reference Range Interpretation Comme nts POCT GLU (test code = 6596691919) 131 mg/dL 70-110 H Lab Interpretation (test cod e = 15112-2) Abnormal [facility] History and Physical Notes Date/Time Note Provider Source 2024-03-17 01:35:00 Jeremy Foster MD: PERFORM, MODIFYPina Christopher DO: MODIFYEvent Display: History and PhysicalAuthored Date: [id number] and Physical Primary Team Name: Stroke ATeam Contact Info:PCP Contact info:Family contact info: Code Status: None Specified=FULL CODE Chief Complaint: 74Y/M BIB life flight ascode stroke,LSN 0400,new onset of slurred speech,lt side weakness,lt facial droop,GCS 15,H/O previous stroke with rt side weakness,PMH:-[place],HTN,Afib on eliqis History of Present Illness: Mr. Abraham Carrington ( 1950) no other MRN found is a 73-year-old male with a prior history of stroke last year with residual right-sided weakness, [place], atrial fibrillation, and hypertension presented as a code stroke for new left hand company controller weakness and slurred speech and left facial droop. Known normal per patient was 7 PM yesterday when he went to bed and woke up at 5 AM not feeling well, unable to open pill bottle with the left hand. On arrival patient's blood pressure was 185/120, blood glucose 143, GCS 15, NIHSS 5 for slight left facial droop, no drift but has left hand company controller weakness, decreased BTT on L eye, and decreased sensation on left upper extremity, severe dysarthria. CT head showed Wedge-shaped area of low-density with loss of quick-white matter differentiation in the right precentral gyrus indicating a small recent infarct. CTA showing Small partially occlusive calcified embolic thrombus in a proximal M3 branch of the anterior division of the right MCA along the insula and severe stenosis along left P1-P2 segment. Not TNK candidate due to recent anticoagulation use and no thrombectomy due to complete occlusion on CTA.Not a TNK candidate due to last Eliquis dose this morning. Reportedly takes only 1 pill of the 5 mg Eliquis daily, and also takes warfarin and aspirin as well. Review of Systems: Review of SystemsGen: Fever (-) Chills (-) Fatigue(-)HEENT: Cough (-) Sore Throat (-) Rhinorrhea (-)CV: Chest Pain (-) Palpitations (-) Edema (-)Pulm: Shortness of Breath (-) Wheezing (-) Orthopnea (-)GI: Abdominal Pain (-) Nausea (-) Vomiting (-) Constipation(-) Diarrhea (-): Frequency (-) Incontinence (-) Dysuria (-)Neuro: SEE HPIMSK: Joint Pain (-) Joint Swelling (-)Skin: Rash (-) Itching (-)Endo: Easy bruising (-) Excessive Thirst (-)Psych: Depression (-) Anxiety (-) Problem List/Past Medical History: Ongoing No qualifying data Procedure/Surgical History: unknown Family History: unknown Social History: unknown Allergies: No active allergies Home Medications: No active home medications need to obtain med rec Physical Exam: Vitals and Measurements T: 98 F (Oral) HR: 72 (Apical) RR: 26 BP: 174/79 SpO2: 97% GENERAL: Awake, alert in NADHEENT: - Normocephalic and atraumaticLUNGS - Chest wall rising symmetrically with no increased work of breathingCV - RRRABDOMEN - Soft, nondistended NEURO:Mental Status: AA&[id number]: speech is severely dysarthric. Naming, repetition, fluency, and comprehension intact.Cranial Nerves: PERRL 3 mm/brisk. EOMI, decreased BTT in L eye, slight LFDMotor: AG w/o drift throughout L hand company controller weakness.Tone: is normal and bulk is normalSensation- Decresaed to light touch in LUECoordination: FTN intact in RUEGait- deferred Pre-Morbid MRS1-No significant disability and can perform usual duties NIH Stroke Scale (NIHSS) 1a. Level of Consciousness; 0-alert 1-drowsy 2-stupor 3-coma 1b. LOC Questions month and age; 0-both 1-one 2-neither 1c. LOC Commands open/close eyes, company controller/release non-paretic hand; 0-both 1-one 2-neither 2. Best Gaze; 0-nl 1-partial 2-forced gaze 13. Visual García; 0-No visual loss. 1-Partial hemianopia 2-Complete 3-Bilateral 14. Facial Palsy; 0-none 1-minor 2-partial 3-complete 5. Motor - R arm; 0-No drift 1-Drift 2-Some antigravity 3-No antigravity 4-No movement 6. Motor - R leg; 0-No drift 1-Drift 2-Some antigravity 3-No antigravity 4-No movement 7. Motor - L arm; 0-No drift 1-Drift 2-Some antigravity 3-No antigravity 4-No movement 8. Motor - L leg; 0-No drift 1-Drift 2-Some antigravity 3-No antigravity 4-No movement 9. Limb Ataxia; 0 absent 1 - 1limb 2 - 2 limbs 110. Sensory; 0-nl 1-partial loss 2-dense loss 11. Best Language; 0-nl 1-mild/mod 2-severe 3-mute 2 12. Dysarthria; 0-nl 1-mild/mod 2-severe x-untestable 13. Extinction and Inattention (formerly Neglect); 0-none 1-partial 2-complete 5Total Pertinent Labs: Hct: 41.8 % (03/13/24 06:31:00)Hgb: 13.8 g/dL (03/13/24 06:31:00)MCH: 31.5 pg (03/13/24:31:00)MCHC: 33 g/dL (03/13/24:31:00)MCV: 95.4 fL (03/13/24:31:00)MPV: 9.1 fL (03/13/24:31:00)Platelet: 205 10 3 /uL (03/13/24:31:00)RBC: 4.38 10 6 /ul (03/13/24:31:00)RDW - SD: 47.9 fL High (03/13/24:31:00)WBC: 7.13 10 3 /uL (03/13/24:31:00) AGAP: 9.1 mEq/L Low (03/13/24:31:00)Chloride Lvl: 108 mEq/L High (03/13/24 06:31:00)CO2: 26.1 mEq/L (03/13/24:31:00)Potassium Lvl: 4.2 mEq/L (03/13/24:31:00)Sodium Lvl: 139 mEq/L (03/13/24 06:31:00)BUN: 14 mg/dL (03/13/24:31:00)Calcium Lvl: 8.3 mg/dL (03/13/24 06:31:00)Creatinine Lvl: 1.51 mg/dL High (03/13/24 06:31:00)eGFR: 36 mL/min/1.73m2 (03/13/24:31:00)Glucose Lvl: 168 mg/dL High (03/13/24 06:31:00) Pertinent Imaging: (03/13/2024 06:48 CDT Brain Stroke wo contrast CT)IMPRESSION:1. Wedge-shaped area of low-density with loss of quick-white matter differentiation in the right precentral gyrus indicates a small recent infarct.2. Focal extra-axial calcification along the right insula is suggestive of a calcified thrombus (from proximal embolism).3. Chronic infarct involving the left basal ganglia.4. Old infarcts in the inferior right cerebellar and left occipital lobe. [1] (03/13/2024 06:48 CDT Brain/Neck STROKE CTA)IMPRESSION: * Small partially occlusive calcified embolic thrombus in a proximal M3 branch of the anterior division of the right MCA along the insula. * Short segment severe stenosis at the left P1-P2 junction. This could represent a nonocclusive thrombus. * No significant atheromatous stenosis in the carotid bulbs. [2] Assessment/Plan: Mr. Abraham Carrington ( 1950) no other MRN found is a 73-year-old male with a prior history of stroke last year with right-sided weakness, [place], atrial fibrillation, and hypertension presented as a code stroke for new left hand company controller weakness and slurred speech and left facial droop. Known normal per patient was 7 PM yesterday when he went to bed and woke up at 5 AM not feeling well, unable to open pill bottle with the left hand. On arrival patient's blood pressure was 185/120, blood glucose 143, GCS 15, NIHSS 5 for slight left facial droop, no drift but has left hand company controller weakness, decreased BTT on L eye, and decreased sensation on left upper extremity, severe dysarthria. CT head showed Wedge-shaped area of low-density with loss of quick-white matter differentiation in the right precentral gyrus indicating a small recent infarct. CTA showing Small partially occlusive calcified embolic thrombus in a proximal M3 branch of the anterior division of the right MCA along the insula and severe stenosis along left P1-P2 segment. Not TNK candidate due to recent anticoagulation use and no thrombectomy due to complete occlusion on CTA. Admitted to stroke team for further management and workup. Will need optimization of the anticoagulation regimen. CNSAcute Ischemic Stroke Cerebral infarction due to embolism of right middle cerebral artery Acuity: Acute Current Suspected Etiology: Pending Workup Continue Evaluation: -Admit to:Stroke Unit -Continue Statin - hold any AC/AP for now until coags return as patient reported using both warfarin and eliquis at home -Blood pressure control, goal of SYS -MRI/ECHO/A1C/Lipid panel pending -Hyperglycemia management per SSI to maintain glucose 140-180mg/dL. -PT/OT/ST therapies and recommendations when able Dysarthria -NPO until cleared by speech -ST -Advance diet as tolerated RESP No acute concerns CV Essential hypertension Hypertensive Emergency - BP control, goal SBP - Titrate oral agents History of [place]- trops and EKG pending-Resume home aspirin when able Hyperlipidemia, unspecified - Statin for goal LDL Chronic atrial fibrillation - BB for rate control -Need to optimize anticoagulation regimen, pending coagulation labs RENAL CKD Stage 3 (GFR 30-59) - Gentle hydration - Avoid nephrotoxic agents - mIVF Electrolyte abnormalities- Replete - Monitor labs ENDO A1c pending HEME No acute concernsCoags pending ID No acute concernsUA pendingchest x-ray negative Nutrition Protein-Calorie Malnutrition - Dietitian consult Obesity BMI > 40 Obesity BMI 35 with Hypertension and or DM - Dietitian consult Prophylaxis DVT: heldGI: Bowel regimen: dpcusate Diet: NPO Code Status: Full Code Dispo: pending THE FOLLOWING WERE PRESENT ON ADMISSION:ACCOUNT CLERK - Acute Ischemic StrokeRenal - CKDHeme- warfarin and eliquis use ACUTE STROKE BENCHMARKS: TIME PT LAST SEEN NORMAL 7 PM 03/12 EMS PRE-NOTIFICATION CODE STROKE ACTIVATION 6:08 AM 03/13 ARRIVAL TIME 6:26 AM 03/13 TIME OF STROKE TEAM EVALUATION 6:26 AM 03/13 CT HEAD READ TIME 6:48 AM 03/13 If not a candidate for IV tPA, why?Recent Eliquis and warfarin use Delays in this process:(None) Discussed With on-call stroke fellow Pina Christopher DONeurology PGy-3 Acute ischemic stroke (I63.9) Disposition NEUROLOGY ATTENDING ATTESTATION NOTE I have seen and examined the patient on 03/13/2024. I have reviewed the above note and agree with the history, exam, assessment and plan. See below for additions and/or exceptions and my findings. I have personally viewed the patient's radiographic studies, laboratory tests, and medications. 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 also with calcific appearing emboli in R insulaCTA head and neck without large vessel occlusion but near m2-m3 junction in R insula has poor opacification distally comparatively. mild plaque with calcium in R ICA, R supraclinoid ICA with severe calcification. diffuse ICAD.woke up with severe dysarthria, left lower facial droop, left hand weakness.took eliquis yesterday morning, coumadin?? hasn't checked inr recently.deferred tnk d/t oow and on eliquis.IAT not a candidate d/t low nihss and distal calcific emboli, no proximal large vessel occlusion unclear but patient reports taking both eliquis and coumadin. we will need to contact outside pcp vs portfolio lead to figure out why. pending TTE, unclear if he has valvular afib. Exam: mod-severe dysarthria, left hand company controller weakness, hand drop, no drift in LUE able to extend and flex arm well, shoulder abduction weakness. Impression:1. concern for R MCA infarct given acute onset L hand weakness, facial droop and dysarthria, possible VF deficit. per neuroimaging review, possible ESUS vs calcific emboli (from distal vs proximal ICA) Plan: Unspecified atrial fibrillation (I48.91) - hold eliquis for now, continue aspirin, f/u MRI brain Acute kidney failure, unspecified (N17.9) - avoid nephrotoxic agents, monitor. Atherosclerotic heart disease of [place] coronary artery without angina pectoris (I25.10) - continue aspirin, statin. Cerebral atherosclerosis (I67.2) - aspirin, statin. Cerebral infarction due to embolism of right middle cerebral artery (I63.411) - Plan of care: stroke unit monitoring, cardiac telemetry, stat MRI brain to investigate stroke, TTE to r/o cardiac source of stroke, PT OT ST evaluations, continue antiplatelet therapy with aspirin 325mg daily, high dose statin, SBP goal permissive Essential (primary) hypertension (I10) - restart coreg, permissive htn today. Hypertensive crisis, unspecified (I16.9) - see above. Type 2 diabetes mellitus without complications (E11.9) - ISS dvt ppx: will start heparin sq, will dc when restarting eliquis or warfarin for afib.GI ppx: docusatePT OT score: pendingdispo: pending evaluation, possibly IPR vs HH. Jeremy Foster MDVascular Neurology[1] Brain Stroke wo contrast CT; Javed Justice MD 03/13/2024 06:48 CDT [2] Brain/Neck STROKE CTA; Javed Justice MD 03/13/2024 06:48 CDTMJeremy tavera MDElectronically Signed: 03/13/24 11:03 [facility] Notes Date/Time Note Provider Source 2024-03-13 11:30:00 EXAM: MRI BRAIN WITH OUT CONTRAST DATE: 03/13/2024 INDICATION: - R ischemic stroke. COMPARISON: CT brain and CTA brain/neck 03/13/2024. TECHNIQUE: Multiplanar, multisequence MRI of the brain without contrast. IV contrast: None. UT SECTION: Neuro FINDINGS: There is diffusion restriction within the right precentral gyrus and right lateral frontal region consistent with acute/subacute ischemic infarct. Prior left occipital lobe infarct with focal area of diffusion restriction (series 201, image 64) which may represent a more recent component. Encephalomalacia in the right inferior cerebellum and left basal ganglia. The left basal ganglia infarct shows corresponding hypointensity on gradient echo images that may represent chronic blood products. Intrinsic T1 hyperintensity seen in this region that may represent laminar necrosis and/or component of petechial hemorrhages. Nonspecific supratentorial white matter FLAIR hyperintensities are noted that could represent sequela of chronic ischemic microvascular disease. The major intracranial flow voids appear unremarkable. IMPRESSION: 1. Right MCA territory acute/subacute infarct with involvement of the right lateral frontal region and precentral gyrus. 2. A relatively poor infarct in the left occipital region with adjoining focus of restricted diffusion that may represent a more recent component of ischemia. 3. Left basal ganglia old infarct. Corresponding susceptibility and intrinsic T1 hyperintensity that may represent petechial hemorrhages, chronic blood products and/are laminar necrosis. 4. Right cerebellar encephalomalacia/gliosis from prior vascular insult. 5. Presumed sequela of supratentorial white matter chronic ischemic microvascular disease. Critical finding of acute stroke was communicated to and acknowledged by Dougie Koenig MD via telephone at 03/13/2024 13:45 by Brandy Uribe RES. [facility] 2024-03-13 07:15:07 EXAM: XR CHEST 1 VIE W DATE: 03/13/2024 7:15 INDICATION: - L sided weakness COMPARISON: None TECHNIQUE: AP chest FINDINGS: Lines and tubes: None. Lungs and Pleura: Lung volumes are slightly low and there is mild bronchovascular crowding. No harvinder consolidation or other pulmonary or pleural based abnormality is identified. Heart and mediastinum: Unremarkable for acute abnormality. Chest wall: Unremarkable. Bones: No acute bony abnormality is identified. IMPRESSION: No acute abnormality. [facility] 2024-03-13 06:30:00 EXAM: CT BRAIN WITHO UT CONTRAST DATE: 03/13/2024 INDICATION: - L side weakness and slurred speech. COMPARISON: Same day CTA head and neck TECHNIQUE: Axial CT images of the brain were obtained. Sagittal and coronal reformats. IV contrast: None DLP: Refer to CT protocol form FINDINGS: Subtle loss of quick-white matter differentiation involving the right precentral gyrus (series 903 image 20-22). ASPECTS: 8 Laterality: right Caudate: normal Internal capsule: normal Lenticular: normal Insula: normal M1: normal M2: abnormal M3: normal M4: abnormal M5: normal M6: normal Focal calcification along the right insula (series 903 image 13) is suggestive of a calcified embolus. There is no hemorrhage, mass lesion or other acute intracranial abnormality. Intracranial atherosclerosis. Chronic appearing lacunar infarct involving the left insula (series 903 image 14). Chronic encephalomalacia involving the right cerebellar tonsil and the left occipital lobe. Periventricular white matter hypodensities suggesting chronic microvascular ischemic change. The skull base, calvarium, and included facial bones are unremarkable. The paranasal sinuses are predominantly clear. IMPRESSION: 1. Wedge-shaped area of low-density with loss of quick-white matter differentiation in the right precentral gyrus indicates a small recent infarct. 2. Focal extra-axial calcification along the right insula is suggestive of a calcified thrombus (from proximal embolism). 3. Chronic infarct involving the left basal ganglia. 4. Old infarcts in the inferior right cerebellar and left occipital lobe. UT SECTION: Neuro Significant finding of concern for acute ischemia was communicated to and acknowledged by Dr. Tomlin via telephone at 03/13/2024 7:01 by Laurel Wilson RES. [facility] 2024-03-13 06:30:00 EXAM: CTA BRAIN EXAM: CTA NECK DATE: 03/13/2024 6:30 INDICATION: - r/o Stroke COMPARISON: Contemporaneous noncontrast head CT. TECHNIQUE: Rapid acquisition spiral CT images of the brain and neck were obtained between the aortic arch and the cranial vertex during intravenous infusion of iodinated contrast for the purposes of CT angiography. 3-D CT angiographic images are created using MIP technique at the acquisition workstation. The source images are also presented for interpretation. Viz.ai was used in the care of this patient. Viz[employer]ai was used in the care of this patient. IV contrast: Refer to the technologist notes. FINDINGS: NECK CTA: Aortic arch: Common origin of the left common carotid artery and brachiocephalic artery. Minimal atheromatous calcification at the origin of the left subclavian artery. No origin stenosis is identified. The vertebral artery origins are patent bilaterally. Carotid arteries: The cervical common carotid arteries and cervical internal carotid arteries have a normal course, caliber, and contour. There are areas of calcification at the carotid bifurcations. No hemodynamically significant stenosis of the carotid bifurcations or internal carotid arteries is present by NASCET criteria. Prominent tortuosity of the internal carotid arteries. There is no evidence of vascular injury. Vertebral arteries: The vertebral arteries have a normal course, caliber and contour. The soft tissues of the neck and other incidental structures are normal. BRAIN CTA: No focal calcification is seen along the mid right insula and this indicates a calcified embolus in the proximal M3 branch of the anterior division of the right MCA (series 4 image 60). Distal to this, the branch is opacified with contrast. This is suggestive of partial occlusion. Focal short segment severe stenosis is seen in the left P1 segment at the P1 and P2 junction (series 904 image 117). No other large or medium vessel occlusion identified. The deep cerebral veins and major venous sinuses are normal. The brain parenchyma and other incidental structures are unremarkable. IMPRESSION: * Small partially occlusive calcified embolic thrombus in a proximal M3 branch of the anterior division of the right MCA along the insula. * Short segment severe stenosis at the left P1-P2 junction. This could represent a nonocclusive thrombus. * No significant atheromatous stenosis in the carotid bulbs. (All qualitative and quantitative assessments of carotid bifurcation and proximal internal carotid artery stenosis are made referencing the distal internal carotid artery {NASCET criteria}.) [facility] 2023-07-22 10:07:19 Addended by: MARCOS GIBSON RN on: 07/22/2023 10:07 AM Modules accepted: Orders [facility] 2023-07-22 09:58:[address] Shay's recommendations with patient's caregiver. She would greatly appreciate if patient could get off warfarin since INR checks have been difficult since she is primary transportation. Will send a Rx to [facility] pharmacy for the Eliquis to see if any financial assistance can be provided. For now, patient will continue warfarin and will have INR checked after appointment for 07/29/23. [facility] 2023-07-21 21:33:30 Addended by: ROCIO SHAY on: 07/21/2023 09:33 PM Modules accepted: Orders [facility] IM-CARDIOVASCULAR DISEASE STAFF [facility] 2023-07-21 21:28:11 Noted. We will officially take over the management of the warfarin. Please see when they come to do the INR check to [facility], if they can come to the office and we can get the [employer] paperwork completed so that the [id number] INR can be approved if the insurance [...] can send the prescription of Eliquis to [facility] to see it will be more cost [...] is to be between 2 and 3. [facility] 2023-07-21 10:55:49 Addended by: MARCOS GIBSON RN on: 07/21/2023 10:55 AM Modules accepted: Orders [facility] 2023-07-21 10:48:02 Returned call to Ms. Martin NP. She states she has been having trouble managing INR and requests that Dr. Shay take over management. Discussed this with patient's friend/primary contact, Ms. Boykin. She states the main concern is that she is Mr. Carrington's primary transportation and she works maritime officer. It will be difficult for her to take him to [place] for blood work, however, she is agreeable to try. Orders placed for INR to be done at [facility] lab. She verbalized understanding that for the time being the INR needs to be drawn at [facility]. Patient's current warfarin dose 7.5 mg on / and 5 mg every other day of the week. Ms. Boykin states that she will plan to take him to have INR checked on Wednesday next week. [facility] 2023-07-20 16:34:08 Patient has underlying atrial fibrillation [...] INR check to be done in the [facility] lab until the [id number] INR testing is approved through his insurance [...] hence I refused to give warfarin refills. ICAL DEVICE SALES REPRESENTATIVE IM-CARDIOVASCULAR DISEASE STAFF [facility] 2023-07-15 15:54:11 Abraham Carrington Jr. is a 72 year old male Pt PCP, Brianna Salazar NP calling she wants to speak to the Dr. Shay nurse about his visit. She wants to speak about pt Coumadin. She has been having issues with the pt. Etienne [facility] 2023-07-14 09:05:57 Received more medical records from Dr. Reveles office will put in Dr. Quinn [place]WR[place] folder for review. Montelongo MA [facility] 2023-07-02 15:21:25 Received medical records from Dr. Reveles office will put into Dr. Quinn LAWRENCE folder for review. ICAL DEVICE SALES REPRESENTATIVE Ursula Montelongo MA [facility] 2023-01-27 14:55:00 Formatting of this [...] in no apparent distress. Bhumika Gold RN [facility] 2023-01-27 11:01:36 Formatting of this [...] "oh I feel fine". Destinee Mead RN [facility]
[2024-04-28 12:07] LABS: Sqamous Epithelial None Seen /HPF (None Seen); Urine Bacteria None Seen /HPF (<20); Urine Bilirubin NEGATIVE (Negative); Urine Blood Negative (Negative); Urine Clarity Clear (Clear); Urine Color Light-Yellow (Yellow); Urine Culture Reflex Order NOT NEEDED; Urine Glucose NEGATIVE (Negative); Urine Ketones NEGATIVE (Negative); Urine Micro Reflex YN NO BILL MICROSCOPIC; Urine Mucus Slight /HPF (None Seen); Urine Nitrite NEGATIVE (Negative); Urine Protein TRACE (Negative); Urine RBC <5 /HPF (None Seen); Urine Urobilinogen Normal (Normal); Urine WBC <5 /HPF (<5)
[2024-04-28 13:20] VITALS: BMI 30.5
[2024-04-28] MEDS ORDERED: ACETAMINOPHEN 325 MG TABLET PO PRN (15:40)
[2024-04-28] MEDS: LIDOCAINE 4% PATCH TOP SCH (16:34)
[2024-04-28] MEDS: carvediloL 12.5 MG TAB PO SCH (18:03)
[2024-04-28] MEDS: AMLODIPINE 5 MG TAB PO SCH (21:00)
--- NOTE | 2024-04-28 21:40 | HP ---
Date of Admission: 04/28/2024 Time Of Service: 1 p.m. Chief Complaint: "I am back for therapy after my bowel problem." History Of Present Illness: Mr. Carrington is a 73-year-old, right-handed, patient with hypertension, prior stroke, diabetes mellitus type 2, atrial fibrillation, coronary artery disease, renal insufficiency, myocardial infarction, who originally presented to [facility] per code stroke. He was sent to [facility] after he was evaluated and treated for [facility] for inpatient rehab. After about 7 days out of 22 approved days, he was diagnosed with bowel ob struction and then transferred to the acute floor. He was medically treated and the bowel obstructio n addressed and was again returned to inpatient rehabilitation. He was discharged to [facility] to await termination. Eventually did improve admission to the inpatient rehabilitation and is now returning to finish his rehabilitation prior to going home. While at [facility], he did have continued management of his right MCA stroke, chronic atrial fibrillation, diabetes mellitus, hy pertension, dyslipidemia, depression. He did receive some physical, occupational, and speech therapy , nutrition management, medication management, and management of his oxygenation and daily activities . Prior to his stroke and issues of bowel, he lived independently in a single-story home with 2 step s to enter. 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 Due to his str santos with left hemiparesis and recent bowel issues with surgery, he now requires minimum assistance fo r bed mobilization, moderate assistance for transfers and ksu-ij-rsykx. As he is now medically clear ed for inpatient rehabilitation, he will have aggressive physical, occupational, and speech therapy t o have him return home and reduce his risk of rehospitalization and to help him return his prior leve l of functioning. Past Medical History: As noted. Allergies: NO KNOWN DRUG ALLERGIES. Medications: Tylenol 325 mg every 6 hours as needed, Norvasc 5 mg at bedtime, Eliquis 5 mg twice sera ly, Lipitor 80 mg at bedtime, Coreg 12.5 mg twice daily, Catapres 0.2 mg every seventh day transderma l, Cardura 2 mg at bedtime, lidocaine patch apply 1 topically daily, Cozaar 50 mg twice daily, melato john 3 mg at bedtime, Senokot-S 2 tablets at bedtime, Zoloft 50 mg daily. Laboratory Studies: He has pending blood work. Current blood glucose 115. Urinalysis, trace protei n, otherwise normal. X-ray/imaging: A brain CT scan on 03/13/2024 shows wedge-shaped area of low density in the white mat ter and quick matter in the right precentral gyrus indicating a small recent infarct. There is calcif ied thrombus from likely thromboembolism in the right insula. Chest x-ray on 03/13 shows no abnormal ities. CT angiogram on 03/13 shows small partially occluded calcified embolus in the proximal M3 bra nch of the anterior divisions of the right MCA along the insula. Family History: Noncontributory. Social History: The patient lives in a single family home one-story. Denies any recent alcohol, tob acco, or IV drug use. Review of Systems: Does report some coarse left-sided weakness from a stroke. Some mild abdominal pain. Some right kne e pain and will have a pain patch on there. In terms of the face, there is little bit of loss of liq uid in the left corner of mouth from the drooping face after stroke. Some left leg weakness also is noted. Current Level Of Functioning: Setup assistance for eating, oral hygiene. Moderate assistance for to ileting, showering, upper body dressing, and lower body dressing along with donning and doffing footw ear. For rolling mkhp-kn-cqkji, sit to lying, lying to sitting on side of bed, moderate assistance. For ebv-ki-dzpvi and transfer from bed to chair to toilet, moderate assistance. He will be ambulate d with a walker and gait belt. Physical Examination: Vital Signs: Blood pressure 146/76, pulse 61, respiratory rate 18, temperature 97.6, oxygen saturati on 98%. General: Mr. Carrington is sitting in a chair beside bed. HEENT: He is normocephalic, atraumatic. Sclerae anicteric. Oropharynx pink, moist. Heart: Irregularly irregular. Abdomen: Soft. Extremities: Show trace edema, more on the left than the right upper and lower extremities. Coordin ation slow, but intact. Strength, he has around 2 to 3 proximally and distally left upper extremity and lower extremities, slightly stronger around 3 to 4. The right upper and lower extremity with str ength around at least 4+ out of 5 proximally and distally. Decreased sensation in left upper and low er extremity compared to the right. In terms of cranial nerves, he has a decrease of left nasolabial fold, decrease to light, touch, temperature in the left compared to the right side. Rehab And Medical Assessment And Plan: Mr. Carrington is admitted to the inpatient rehabilitation unit w ith impairment category 01, stroke. Impairment group code is 01.1, left body involvement, right brai n. Etiologic diagnosis, right MCA infarct. His comorbidities are atrial fibrillation, decreased mob ility, decreased physical functioning, depression, diabetes mellitus, dyslipidemia, hypertension, lef t hemiparesis from his stroke, and small bowel obstruction. Plan: 1.He will have physical, occupational, and speech therapy for 3.5 hours, 5 of 7 days. 2.We will continue Senokot to help decrease the risk of additional bowel obstruction. We will use Z oloft for depression, melatonin for insomnia, Cozaar for hypertension, lidocaine patch to the right k nee for osteoarthritic type pain, Cardura 2 mg daily, clonidine patch 0.2 mg every seventh day, Coreg 12.5 mg twice daily, Norvasc for his hypertension, Lipitor for dyslipidemia, Tylenol for pain. Comorbidities That Are Impacting Rehabilitation: Mr. Carrington has significant elevation in blood press ure and requiring 4 antihypertensive medications. Hold parameters will be put in place if the patien t's systolic is less than 120 and may have additional clonidine if systolic is greater than 170. Of course at risk of stroke, he does have Eliquis for his atrial fibrillation and stroke risk reduction along with DVT risk reduction. Lipitor will be continued of course for his risk of atherosclerosis. He does have high risk of falling given the left-sided weakness. Family is instructed to be very ca reful with transfers after his discharge which is planned to be home. They will be encouraged family training as he does therapy to help them safely assist him with transfers, mobilization, and all act ivities of daily living. Also, there is some depression. His antidepressant may be adjusted appropr iately. Rehab Specific Plan: Mr. Carrington will have 3.5 hours, 5 of 7 days therapy to help him improve his lisa lity to transfer safely from bed to chair to a walker to a wheelchair and to toilet and in and out of shower. Occupational therapy to help with his donning and doffing of clothes, upper and lower body along with footwear, and to perform activities of daily living. Speech Therapy will help him with si tuation awareness, try to improve his ability to focus, to problem solve, and to maintain good safety awareness. Mr. Carrington and family have a good understanding of the process of admission to the inpatient rehabili tation facility and how he will benefit from physical, occupational, and speech therapy. He will hav e 24 hours a day, 7 days a week skilled rehabilitation and nursing, daily physician evaluation and ma nagement, and social science manager evaluation and management for discharge planning. If need be, the Hosp italist Service will be consulted to assist with his care. Barriers To Discharge: Given his stroke and weakness on the left side, he is at high risk of falling . Also has risk of aspiration and pneumonia. If he does have a trend to go backwards, he may have t o extend his stay or potentially go to assisted. He also had a small bowel obstruction and wi ll work with stool softeners, laxatives, appropriate increased hydration, and proper fiber content to reduce the risk of another small bowel obstruction episode. Length Of Stay: About 14 days. Disposition: Home with family and continue therapy via Home Health. Prognosis: Good. Rehab Specific Goals: 1.Become independent with upper and lower body dressing and donning and doffing footwear. 2.Independently mobilize a wheelchair 250 feet. 3.If possible, independently mobilize a rolling walker to ambulate more than household distances and a good distance maybe up to 250 feet. 4.Independently negotiate 5 steps with right-sided handrail. 5.Independently perform cognitive functioning. The above goals were reviewed with Mr. Carrington and family and they are in agreement. By signing this document, I acknowledge I have personally performed a full physical examination on Mr Purvi Carrington no later than 24 hours after his admission to the inpatient rehabilitation facility and dete rmined that he is able to tolerate the above course of treatment at an intensive level for a reasonab le period of time. A detailed individualized plan of care for him will be completed by hospital day 4 based on the preadmission screen, history and physical, and therapy evaluations. PAUL Voice ID: [id number]
[2024-04-28] MEDS: DOXAZOSIN 2 MG TAB PO SCH (21:42)
[2024-04-28] MEDS: LOSARTAN POTASSIUM 50 MG TABLET PO SCH (21:43)
[2024-04-28] MEDS: APIXABAN 5 MG TABLET PO SCH (21:43)
[2024-04-28] MEDS: ATORVASTATIN 80 MG TAB PO SCH (21:43)
[2024-04-29 05:59] LABS: Absolute Eosinophils 0.2 K/uL (0-0.5); Absolute Monocytes 0.6 K/uL (0.1-1.3); Basophils % 0.4 % (0-1.3); Eosinophils % 2.8 % (0-4.4); Hematocrit 35.1 % (39.6-49.0); Hemoglobin 11.9 g/dL (13.6-17.9); MCH 32.5 pg (27.0-35.0); MCV 95.7 fL (80-100); MPV 7.4 fL (7.6-11.3); Monocytes % 9.6 % (3.3-12.3); Neutrophils % 52.2 % (41.7-73.7); Nucleated Red Blood Cells % 0.1 % (0-0); Platelets 230 thou/uL (152-406); RBC Red Blood Cell Count 3.67 M/uL (4.33-5.43); Red Cell Distribution Width 13.6 % (12.1-15.2)
[2024-04-29 06:20] LABS: Albumin 2.8 g/dL (3.4-5.0); Anion Gap 8.3 mEq/L (5.0-15.0); Magnesium 1.5 mg/dL (1.6-2.4); Potassium 3.3 mEq/L (3.5-5.1); Prealbumin 14.2 mg/dL (20-40)
[2024-04-29] MEDS ORDERED: LIDOCAINE 4% PATCH TOP SCH (08:00)
[2024-04-29] MEDS: CLONIDINE 0.2 MG/PATCH TD SCH (08:00)
[2024-04-29] MEDS: SERTRALINE HCL 50 MG TAB PO SCH (08:54)
[2024-04-29] MEDS: ACETAMINOPHEN 500 MG TAB PO PRN (13:29)
[2024-04-29] MEDS: POTASSIUM 25 MEQ EFFERV TAB PO ONE (17:04)
[2024-04-29] MEDS: MAGNESIUM OXIDE 400 MG TAB PO ONE (17:05)
[2024-04-29] MEDS: ENSURE ENLIVE 237 ML CAN PO SCH (19:49)
[2024-04-29] MEDS: MAGNESIUM OXIDE 400 MG TAB PO SCH (19:49)
[2024-04-30 05:45] LABS: Anion Gap 5.8 mEq/L (5.0-15.0); Magnesium 1.8 mg/dL (1.6-2.4); Potassium 3.8 mEq/L (3.5-5.1)
[2024-04-30] MEDS ORDERED: POTASSIUM 25 MEQ EFFERV TAB PO SCH (08:00)
[2024-04-30] MEDS: POTASSIUM CL SA 10 MEQ TAB PO SCH (08:58)
[2024-04-30] MEDS: LOPERAMIDE HCL 2 MG CAPSULE PO PRN (08:59)
--- NOTE | 2024-05-01 22:54 | PN ---
Date of Progress Note: 05/01/2024 Time Of Service: 1:15 p.m. Subjective: Mr. Carrington is resting in his room. Family at bedside. Said his left-sided strength in the upper and lower extremity is not significantly changed from his prior inpatient rehabilitation ad mission, after which he actually had to go back to the acute care floor before now returning, but he is feeling hopeful and optimistic about his improvement. Objective: Denies any fevers, chills, any significant myalgias, arthralgias, rash, or other complain ts. Physical Examination: Vital Signs: Blood pressure is 127/70, pulse 66, respiratory rate of 16, temperature 97.6, oxygen sa turation 97%. General: Mr. Carrington again is sitting in a chair. Family at bedside. HEENT: He appears normocephalic, atraumatic. Sclerae anicteric. Oropharynx pink and moist. Neck: Supple. Chest: Clear. Heart: Regular. Extremities: Left upper and lower extremity weakness, mild to moderate, and left nasolabial fold dec rease still present. Decreased light touch temperature in the left compared to right upper and lower extremities. Laboratory Studies: White blood cell count 5.7, hemoglobin 11.9, platelets 230. Sodium 141, potassi um 3.8, chloride 111, carbon dioxide 28, BUN 12, creatinine 1.32, glucose 104, calcium 8.9, magnesium 1.8. Urinalysis shows trace protein, otherwise unremarkable. X-ray/imaging: No x-rays or imaging. Medications: Tylenol 500 mg every 6 hours as needed, Norvasc 5 mg at bedtime, Eliquis 5 mg twice sera ly, Lipitor 80 mg at bedtime, Coreg 12.5 mg twice daily, clonidine patch apply 0.2 mg every seventh d ay, Cardura 2 mg at bedtime, lidocaine patch apply topically daily, Imodium 2 mg every 4 hours as nee ded, Cozaar 50 mg twice daily, magnesium oxide 400 mg twice daily, melatonin 3 mg at bedtime, Ensure Enlive 237 mL twice daily, potassium 10 mEq daily, Senokot-S 2 at bedtime, Zoloft 50 mg daily, tramad ol 50 mg every 6 hours as needed. Progress Made With Physical, Occupational, And Speech Therapy: Today with physical therapy, he was a ble to do wwmghl-zy-eon transfers with moderate assistance, required truncal control and left lower e xtremity elevation. Multiple mil-wv-vdgke transfers done with maximum assistance. He ambulated 60 f eet, 80 feet, 120 feet, and 90 feet twice with a rolling walker and moderate assistance. Regarding o ccupational therapy, minimum assistance for sjh-ah-yzjmj transfers, use of grab bar, did have some pa in in the deltoid muscle as he tried to mobilize. With his speech, did work on improving short-term memory, but only was able to recall 1 of 4 unrelated pictures after 3 minutes on first attempt and 3 of 4 recall on the second and third attempts. He did respond to cause and effect situations with 100 % accuracy, min assist. Hospital Course: Mr. Carrington is a 73-year-old patient in the rehabilitation unit with a right MCA CVA with left upper and lower extremity weakness. He has some cognitive impairment. Comorbid condition s includes decreased mobility, decreased physical functioning, hypertension. He had a small bowel ob struction requiring him to return to the acute care unit and of course decreased mobility, decreased physical functioning. Please note, his hemoglobin A1c on 03/17/2024 is 6.1, and he is not formally d iagnosed with diabetes mellitus and his fasting blood sugars have been largely within normal range. Blood sugar 139 on 03/30/2024 at 12:16 around after lunch time. Plan: We will continue all medications as indicated. Continue with physical, occupational, and spee ch therapy for 3.5 hours, 5 of 7 days. Continue with Eliquis for DVT prophylaxis. Continue with Nor vasc for blood pressure control, Lipitor for dyslipidemia, Coreg for heart rate control, clonidine patch on board, Caio continued for his blood pressure management, Zoloft, Ultram , Senokot, potassium. LB/MODL Voice ID: [id number] Report ID: [id number]
[2024-05-02] MEDS: GABAPENTIN 100 MG CAP PO SCH (10:18)
[2024-05-02] MEDS: SERTRALINE HCL 50 MG TAB PO ONE (14:35)
[2024-05-02] MEDS: DOCUSATE NA/SENNA CONC 1 TAB PO PRN (19:56)
--- NOTE | 2024-05-02 21:43 | PN ---
Date of Progress Note: 05/02/2024 Time Of Service: 1:10 p.m. Subjective: Mr. Carrington is sitting in a chair. Speech pathologist is working with him. He is somewh at emotional. Did have some crying while he was being attended to. He still reports significant wea kness in the left upper and lower extremities, decrease of left nasolabial fold. Objective: No fevers, chills. Mild myalgias and arthralgias. No rashes and mild depression. Physical Examination: Vital Signs: Blood pressure is 125/60, pulse 73, respiratory rate 16, temperature 97.6, oxygen satur ation 97%. General: Mr. Carrington is sitting in a chair with speech pathologist working with them. HEENT: He does appear normocephalic, atraumatic. Sclerae anicteric. Oropharynx moist. Neck: Supple. Chest: Clear. Heart: Regular. Extremities: Show no significant edema or cyanosis. Neuro: He is alert and oriented to person and situation. Does have a depressed mood, left nasolabia l fold decrease, and again weakness noted in the left upper and lower extremity around 4/5 proximally and distally. Laboratory Studies: No new laboratory studies. X-ray/imaging: No new x-rays or imaging. Medications: Medications have been reviewed. His antidepressant Zoloft was increased to 100 mg nic y from 50 mg daily. All other medications were continued, unchanged, and have been reviewed. Progress Made With Physical, Occupational, And Speech Therapy: Today with physical therapy, he did a mbulate 40 feet, 90 feet, 125 feet, and 140 feet with minimum assistance on a rolling walker. Supine -to-sit transfers with minimum assistance, siy-dx-oovuu transfers with maximum assistance. With occu pational therapy, minimum to partial assistance for bathing and washing and drying buttocks. Did hav e improved core strength, dynamic standing, and sitting balance. With his speech, used space retriev al and did improve recall of 4 unrelated pictures after 3 minutes and then after 5 minutes, improved from only 3-minute delay on a previous session. Convergent naming for concrete concepts demonstrated 100% accuracy and no cues being required. Assessment: Mr. Carrington is a 73-year-old patient in rehabilitation unit with a right MCA stroke and l eft-sided paresis. He has depression, decreased mobility, decreased physical functioning, and hypert ension. He has had small bowel obstruction which is improved. He has had some mildly elevated blood sugars and no clear diagnosis of diabetes mellitus. His blood sugars fasting are most often in the normal range. Plan: He will continue with physical, occupational, and speech therapy for 3.5 hours, 5 of 7 days. Continue with Eliquis for DVT prophylaxis, Norvasc for blood pressure control, Lipitor for dyslipidem ia, Cozaar also added for blood pressure control, Zoloft again increased for his depression, Senokot for constipation, Ultram for pain, and he has potassium replacement on board. TALAT/CLAUDE Voice ID: [id number] Report ID: [id number]
[2024-05-03] MEDS: SERTRALINE HCL 50 MG TAB PO SCH (07:55)
[2024-05-03] MEDS: TRAMADOL HCL 50 MG TAB PO PRN (11:57)
[2024-05-03] MEDS ORDERED: SERTRALINE HCL 50 MG TAB PO ONE (14:00)
--- NOTE | 2024-05-03 14:57 | RAD REPORT ---
Exam:Knee Right 2 View HISTORY: Right knee pain FINDINGS: No fracture or dislocation seen Small joint effusion. Mild to moderate osteoarthritis lateral compartment consisting of joint space narrowing and osteophyt es. Soft tissue swelling present.
[2024-05-03] MEDS: LOSARTAN POTASSIUM 50 MG TABLET PO SCH (19:17)
[2024-05-03] MEDS: CRANBERRY FRUIT EXTRACT 200 MG CAP PO SCH (19:18)
[2024-05-04 06:45] LABS: Absolute Eosinophils 0.2 K/uL (0-0.5); Absolute Lymphocytes (CBC) 1.8 K/uL (0.7-4.9); Absolute Monocytes 0.5 K/uL (0.1-1.3); Absolute Neutrophil 2.6 K/uL (1.8-8.0); Basophils % 0.4 % (0-1.3); Eosinophils % 3.6 % (0-4.4); Hematocrit 33.7 % (39.6-49.0); Hemoglobin 11.2 g/dL (13.6-17.9); Lymphocytes % 35.3 % (15.3-44.8); MCH 32.4 pg (27.0-35.0); MCHC 33.3 g/dL (32.0-36.0); MPV 7.8 fL (7.6-11.3); Monocytes % 10.4 % (3.3-12.3); Neutrophils % 50.3 % (41.7-73.7); Platelets 202 thou/uL (152-406); RBC Red Blood Cell Count 3.47 M/uL (4.33-5.43); Red Cell Distribution Width 13.7 % (12.1-15.2)
[2024-05-04 08:32] LABS: Albumin 2.8 g/dL (3.4-5.0); Anion Gap 8.9 mEq/L (5.0-15.0); Potassium 3.9 mEq/L (3.5-5.1); Prealbumin 15.3 mg/dL (20-40)
[2024-05-04] MEDS: GABAPENTIN 300 MG CAP PO SCH (19:42)
--- NOTE | 2024-05-04 21:13 | PN ---
Date of Progress Note: 05/04/2024 Time Of Service: 1:15 p.m. Subjective: Mr. Carrington is in the gym working with therapist. He does have some ongoing pain in the right knee and left ankle. He did have an adjustment made to his pain medication regimen including t he gabapentin, took pain patches on the right knee. An x-ray was done on the right knee that shows s ome degenerative joint disease with moderate osteoarthritis and joint space narrowing with osteophyte s and soft tissue swelling was present. No fractures identified. Review of Systems: Mild myalgias, arthralgias and pain in the right knee and ankle. Also, some mood swings and mild dep ression. Physical Examination: Vital Signs: Blood pressure 143/70, pulse 55, respiratory rate 17, temperature 97.9, oxygen saturati on 96%. General: Mr. Carrington again is in the gym, lying on the low table, working on the lower extremities. HEENT: He appears normocephalic, atraumatic. Sclerae anicteric. Oropharynx moist. Neck: Supple. Chest: Clear. Extremities: No significant edema, cyanosis, or clubbing. Neurological: Left nasolabial fold decreased. He has ycus-nv-lhitpsew weakness of left upper and lo wer extremity. Decreased sensation in left compared to right side. Laboratory Studies: White blood cell count 5.2, hemoglobin 11.2, platelets 202. Sodium 143, potassi um 3.9, chloride 111, carbon dioxide 27, BUN 17, creatinine 1.21, glucose 92, calcium 8.6. Magnesium 2.0. Prealbumin 15.3. X-ray And Imaging: Again, mentioned above. Progress Made With Physical, Occupational, And Speech Therapy: With his physical therapy today, he w as able to perform ambulation with a rolling walker 200 feet twice, another 250 feet with minimum ass istance. Mobilized wheelchair 125 feet twice with standby assistance. Supine to sit transfers with contact guard assistance. Did wwx-hx-udssf transfers on multiple surfaces, did require maximum lizet tance. With occupational therapy, maximum assistance for lws-as-kngsi and minimum assistance for whe elchair to edge of bed transfer. Did have 5 pounds ankle weights while doing semisupine activities o n the mat to improve his kiv-xj-xmhwu transfers. With speech organizational thinking, use divergent naming task with 100% accuracy and minimum assistance. Problem-solving skills used during a negation task with 80% accuracy. Assessment: Mr. Carrington is a 73-year-old patient in rehabilitation unit with a right middle cerebral artery cerebrovascular accident, left-sided weakness of upper and lower extremities. Does have some degenerative joint disease in the right knee and some pain in the left ankle as well. His medication regimen has been adjusted so that gabapentin is 300 mg twice daily. He has 2 lidocaine patches on t he right knee. He has tramadol, which will be scheduled 50 mg in the morning to begin prior to his t herapy. Blood pressure addressed with his Cardura. Clonidine patch is in place as well. He has Cor eg. Lipitor 80 mg at bedtime for dyslipidemia, Eliquis 5 mg twice daily for stroke and DVT risk redu ction and will continue with Zoloft for depression, potassium replacement also on board. Comorbidities That Are Impacting Rehabilitation: Pain in the right knee, which is somewhat making it difficult for him to stand, transfer, and mobilize. The patient will continue his current regimen o f medications as well. LB/MODL Voice ID: [id number] Report ID: [id number]
[2024-05-05] MEDS: TRAMADOL HCL 50 MG TAB PO SCH (08:17)
[2024-05-05] MEDS: LIDOCAINE 4% PATCH TOP SCH (08:18)
--- NOTE | 2024-05-05 13:28 | P.RH.PN ---
Estimated Length of Stay: 23 Expected Discharge Date: 05/18/24 Discharge Disposition Plan: Home Family Support: Yes [facility] Goal: Mobility, Transfers, Self Care Vital Signs: Last Vital Signs Temp 97 F 05/05/24 06:31 Pulse 53 05/05/24 06:31 Resp 16 05/05/24 08:17 BP 134/65 05/05/24 06:31 Pulse Ox 96 05/05/24 08:17 Laboratory: Laboratory Last Values WBC 5.20 thou/uL (4.3-10.9) 05/04/24 05:15 RBC 3.47 M/uL (4.33-5.43) L 05/04/24 05:15 Hgb 11.2 g/dL (13.6-17.9) L 05/04/24 05:15 Hct 33.7 % (39.6-49.0) L 05/04/24 05:15 MCV 97.0 fL (80-100) 05/04/24 05:15 MCH 32.4 pg (27.0-35.0) 05/04/24 05:15 MCHC 33.3 g/dL (32.0-36.0) 05/04/24 05:15 RDW 13.7 % (12.1-15.2) 05/04/24 05:15 Plt Count 202 thou/uL (152-406) 05/04/24 05:15 MPV 7.8 fL (7.6-11.3) 05/04/24 05:15 Neutrophils % 50.3 % (41.7-73.7) 05/04/24 05:15 Lymphocytes % 35.3 % (15.3-44.8) 05/04/24 05:15 Monocytes % 10.4 % (3.3-12.3) 05/04/24 05:15 Eosinophils % 3.6 % (0-4.4) 05/04/24 05:15 Basophils % 0.4 % (0-1.3) 05/04/24 05:15 Absolute Neutrophils 2.6 K/uL (1.8-8.0) 05/04/24 05:15 Absolute Lymphocytes 1.8 K/uL (0.7-4.9) 05/04/24 05:15 Absolute Monocytes 0.5 K/uL (0.1-1.3) 05/04/24 05:15 Absolute Eosinophils 0.2 K/uL (0-0.5) 05/04/24 05:15 Absolute Basophils 0.0 K/uL (0-0.5) 05/04/24 05:15 Sodium 143 mEq/L (136-145) 05/04/24 05:15 Potassium 3.9 mEq/L (3.5-5.1) 05/04/24 05:15 Chloride 111 mEq/L (98-107) H 05/04/24 05:15 Carbon Dioxide 27 mEq/L (21-32) 05/04/24 05:15 Anion Gap 8.9 mEq/L (5.0-15.0) 05/04/24 05:15 BUN 17 mg/dL (7-18) 05/04/24 05:15 Creatinine 1.21 mg/dL (0.70-1.30) 05/04/24 05:15 Est GFR (CKD-EPI) 64 ml/min (=/>90) L 05/04/24 05:15 Glucose 92 mg/dL (74-106) 05/04/24 05:15 POC Glucose 115 mg/dL (65-120) 04/28/24 12:22 Calcium 8.6 mg/dL (8.5-10.1) 05/04/24 05:15 Magnesium 2.0 mg/dL (1.6-2.4) 05/04/24 05:15 Albumin 2.8 g/dL (3.4-5.0) L 05/04/24 05:15 Prealbumin 15.3 mg/dL (20-40) L 05/04/24 05:15 Urine Color Light-yellow (Yellow) 04/28/24 11:35 Urine Clarity Clear (Clear) 04/28/24 11:35 Urine pH 6.0 (5.0-7.0) 04/28/24 11:35 Ur Specific [place] 1.020 (1.005-1.030) 04/28/24 11:35 Glucose (UA)(Auto) Negative (Negative) 04/28/24 11:35 Urine Ketones Negative (Negative) 04/28/24 11:35 Urine Blood Negative (Negative) 04/28/24 11:35 Urine Nitrite Negative (Negative) 04/28/24 11:35 Urine Bilirubin Negative (Negative) 04/28/24 11:35 Urine Urobilinogen Normal (Normal) 04/28/24 11:35 Ur Leukocyte Esterase Negative Miguelina/uL (Negative) 04/28/24 11:35 Urine RBC <5 /HPF (None Seen) 04/28/24 11:35 Urine WBC <5 /HPF (<5) 04/28/24 11:35 Ur Squamous Epith Cells None seen /HPF (None Seen) 04/28/24 11:35 Urine Bacteria None seen /HPF (<20) 04/28/24 11:35 Urine Mucus Slight /HPF (None Seen) 04/28/24 11:35 Urine Culture Reflexed Not needed 04/28/24 11:35 Urine Total Protein Trace (Negative) H 04/28/24 11:35 Weight: 237 lb 14.4 oz Wound Present: No Closed Surgical Incision Present: No Negative Pressure Wound Therapy Present: No Physician Update: Labs reviewed and are stable. Still has poor balance, left leg weakness and DJD in the left knee. MOCA 18/30, 3/4 STG and 1/4 LTG with speech. Poor working and STM. Mood is better. Bed mobility CGA, max lizet with transfers. He may lean to the left with getting out of a chair. Platform walker 250' with min assist. He will likely be discharged home and may require moderate assistance due to the home being older with narrow ledezma ways. No OT LTG, met 3/5 STG including upper and lower body dressing and standing along with toileting. Summary: Patient's care plan and extermination inspector goals have been reviewed and revised as necessary. Please see the Rehabilitation Signature page for all necessary signatures.
--- NOTE | 2024-05-08 10:28 | P.CNS ---
Date of Consult: 05/08/24 Allergies No Known Allergies Allergy (Verified 04/29/24 16:41) Home Medications: Amlodipine [Norvasc*] 5 mg PO BEDTIME 04/04/24 Atorvastatin Calcium [Lipitor] 80 mg PO BEDTIME 04/04/24 carvediloL [Coreg*] 12.5 mg PO Q12H 04/04/24 Apixaban [Eliquis] 5 mg PO BID 90 Days #180 tab 04/07/24 Clonidine Patch [Catapres-Tts 2*] 0.2 mg TD EVERY 7TH DAY 56 Days #8 patch 04/07/24 Doxazosin [Cardura*] 2 mg PO BEDTIME 60 Days #60 tab 04/07/24 Losartan Potassium [Cozaar*] 50 mg PO BID 30 Days #60 tab 04/07/24 Sertraline [Zoloft*] 50 mg PO DAILY 60 Days #60 tab 04/07/24 - Past Medical/Surgical History Diabetic: Yes -: htn -: hld -: shaista -: afib -: dm -: cad -: CKD Stage III followed by Dr. Cabrales -: obesity -: cva -: mi - Social History Alcohol use: No CD- Drugs: No Caffeine use: Yes Place of Residence: Home Review of Systems 10-point ROS is otherwise unremarkable Physical Examination Temp Pulse Resp BP Pulse Ox 97.9 F 50 17 146/70 H 95 05/08/24 08:00 05/08/24 08:00 05/08/24 08:38 05/08/24 08:00 05/08/24 08:38 General: Alert, In no apparent distress, Oriented x3 Cardiovascular: No edema, Abnormal pulses (0/4 dp and pt pulses bilateral) Capillary refill: <2 Seconds Musculoskeletal: No clubbing, No swelling, No contractures, No erythema, No tenderness, No warmth Integumentary: No rashes, No breakdown, No significant lesion, No tenderness/swelling, No erythema, No warmth, No cyanosis, Other (Thickened hypertrophic nails with subungual debris x 10) Neurological: Abnormal sensation - Problems (1) Generalized atherosclerosis Current Visit: No Status: Acute (2) 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
--- NOTE | 2024-05-08 22:22 | PN ---
Date of Progress Note: 05/08/2024 Time Of Service: 1:10 p.m. Subjective: Mr. Carrington is in the room working with speech therapist. He is able to communicate. No significant new complaints. Still has significant weakness in the left upper more than lower extrem ity and left nasolabial fold decrease as well as some emotional lability which is somewhat improved. Review of Systems: No significant myalgias, arthralgias, rash, headache, weight change. Physical Examination: Vital Signs: Blood pressure 124/58, pulse 61, respiratory rate 16, temperature 97.9, oxygen saturati on 95%. General: Again, Mr. Carrington is sitting in a chair. Neurologic: He does have the left nasolabial fold decrease with moderate excursion on smiling, dense paresis of the left distal and proximal upper extremity. Moderate weakness in the left lower extrem ity. Intact strength on the right side which are all unchanged. Laboratory Studies: No new laboratory studies. X-ray/imaging: No new x-rays or imaging. Consultation: He was seen by Dr. Desai in Podiatry Service and had debridement of the toe nails at [facility]. Progress Made With Physical, Occupational, And Speech Therapy: Today with physical therapy, supine t o sit transfers done independently. Multiple qau-uu-ajldv transfers done with maximum assistance. A mbulated 350 feet with a rolling walker, another 250 feet twice with contact guard assistance. With occupational therapy, min to mod assist for supine to sit transfers. He was dependent for toilet hyg iene. With his speech, short-term recall was addressed. He recalled 3 of 4 unrelated words after 5 minutes on first attempt and 4 of 4 after 5 minutes on the second and third attempt. Assessment: Mr. Carrington is a 73-year-old patient in rehabilitation unit with a right MCA stroke and d ense paresis of the left upper more than lower extremity. He has dysarthria, dysphagia. He does hav e decreased mobility, decreased physical functioning, dyslipidemia, hypertension, prostate hypertroph y, neuropathic pain, depression. Plan: 1.Continue with all therapy as noted, physical, occupational, and speech. 2.Continue with all medications as noted. He will likely require continued therapy after discharge and potentially will require additional help for performing some ordinary activities of daily living. However, his left lower extremity strength is improving very well. He is ambulating very well, but again has dense paresis of his left upper extremity along with the left facial drooping. All medica tions will be continued after his discharge. PAUL Voice ID: [id number] Report ID: [id number]
--- NOTE | 2024-05-10 00:49 | PN ---
Date of Progress Note: 05/09/2024 Time Of Service: 1 p.m. Subjective: Mr. Carrington is sitting in a chair. Family is at bedside. Today, he did feel much better about his therapy. However, he still has significant weakness in the left upper extremity, more pro ximal about 1 to 2/5, distally 0/5 in the left upper extremity. He is stronger in the left leg. Sti ll have some knee pain on the right. He is able to smile more and communicate more effectively. Objective: No fevers, chills. Again, mild myalgias, arthralgias and pain in the knees. Laboratory Studies: No new laboratory studies. X-ray/imaging: No new x-rays or imaging. Medications: Medications have been reviewed and are unchanged. Progress Made With Physical, Occupational, And Speech Therapy: Today with his physical therapy, nate iple vgc-cf-zlapn transfers from a wheelchair done with maximum assistance. Continue to push or exte nd to the left requiring maximum assistance to redirect. He did, however, ambulate with a rolling wa lker, 350 feet once and 250 feet twice with contact guard assistance. With his occupational therapy, he was able to pull himself in a standing position using grab bars, but had difficulty pushing himse lf further straight into the standing position. He did improve his triceps strength with sit-to-javier d transfers and worked with upper and lower body dressing and toilet hygiene with supervision. With speech, demonstrated organizational thinking skills with conversion divergent naming with 85% accurac y. Three items were sequenced to improve executive functioning skills with 90% accuracy and minimum assistance. Mr. Carrington is a 73-year-old patient in rehabilitation unit with a left hemispheric stroke producing d ense paresis of the right upper extremity more than lower extremity. He has dysarthria dysphagia, de creased mobility, decreased physical functioning dyslipidemia, hypertension, prostate hypertrophy, ne uropathy, depression. Plan: 1.Continue with physical, occupational, and speech therapy for 3.5 hours, 5 of 7 days. 2.His comorbid conditions which have been mentioned are continued to be managed by his list of medic ations, which do include gabapentin 300 mg twice daily, Cardura 2 mg at bedtime, clonidine 0.2 mg pat ch every seventh day, Coreg 12.5 mg twice daily, Lipitor 80 mg at bedtime, Eliquis 5 mg twice daily, Norvasc 5 mg at bedtime, Tylenol 500 mg every 6 hours as needed. He has 2 lidocaine patches in the k nees, Cozaar 50 mg twice daily, magnesium oxide 400 mg twice daily, melatonin 3 mg at bedtime, Ensure Enlive 240 mL twice daily, potassium 10 mEq twice daily, Senokot-S 2 at bedtime, Zoloft 100 mg daily , tramadol 50 mg every 6 hours as needed. TALAT/CLAUDE Voice ID: [id number] Report ID: [id number]
--- NOTE | 2024-05-10 21:37 | PN ---
Date of Progress Note: 05/10/2024 Time Of Service: 1 p.m. Subjective: Mr. Carrington is resting in room. Speech pathologist at bedside, smiling, more happy about therapy so far. Feels that he is making some progress, but still has dense weakness in the left upp er extremity. Objective: Mild depression, but that is improving. No significant arthralgias, myalgias. There is still pain in both knees. Laboratory Studies: No new laboratory studies. X-ray/imaging: No new x-rays or imaging. Medications: Medications have been reviewed and are unchanged. Physical Examination: Vital Signs: Blood pressure 147/70, pulse is 59, respiratory rate 16, temperature 97.8, oxygen satur ation 97%. General: Again, Mr. Carrington is sitting in a chair with speech pathologist. He still has the decrease d left nasolabial fold, dense paresis of the left upper extremity, more weakness distally and proxima lly, very little with any movement noted in the wrist extension and flexion, finger extension and fle xion. Proximally, he has 1 to 2 in terms of biceps and deltoid. Left lower extremity around 3 proxi uriel and distally. Progress Made With Physical, Occupational, And Speech Therapy: With physical therapy today, he did a mbulate 500 feet with a rolling walker and another 250 feet twice with standby assistance. He was ab le to be independent getting his left upper extremity on and off platform, did better with that initi al step. Wheelchair mobilization of 250 feet was done independently. Cph-ox-hiogd transfers were do ne independently. With his occupational therapy, did complete table top activities in a standing pos ition, grab bars, and contact guard assistance. He was making however slow progress in terms of stat ic dynamic standing balance. Did improve, but still requires much work. Regarding speech, he is very motivated noted by speech pathologist. He used visual imagery for delay ed recall of 4 related pictures for time increments of 7 and 15 minutes, he did that independently. Visual scanning task completed with double space letters with 100% accuracy. Word retrieval skills u sed for phoneme and category specific words with 90% accuracy. Assessment: Mr. Carrington is a 73-year-old patient in the rehabilitation unit with right hemispheric st roke producing dense paresis of left upper more than lower extremity. He has decreased mobility, dec reased physical functioning, hypertension, prostate hypertrophy, and neuropathic pain. Plan: 1.Continue with physical, occupational, and speech therapy as indicated. 2.Continue with all comorbid condition medications including his gabapentin, Cardura, clonidine, and Eliquis for atrial fibrillation, Coreg for heart rate control, Lipitor for dyslipidemia, Tylenol for pain, melatonin for insomnia, potassium replacement on board. He has Ensure Enlive for his malnutri tion, Zoloft for depression, tramadol also for pain. Comorbidities That Are Impacting Rehabilitation: His significant stroke makes it difficult for him t o easily be able to go home. He will have significant help required and his family participating in family training and will be very helpful with that. However, he is mobilizing very well as noted by his distances both wheelchair and with a rolling walker and should continue aggressive therapy to joe angel. TALAT/CLAUDE Voice ID: [id number] Report ID: [id number]
[2024-05-11 07:33] LABS: Absolute Eosinophils 0.3 K/uL (0-0.5); Absolute Lymphocytes (CBC) 2.1 K/uL (0.7-4.9); Absolute Monocytes 0.6 K/uL (0.1-1.3); Absolute Neutrophil 3.2 K/uL (1.8-8.0); Basophils % 0.4 % (0-1.3); Eosinophils % 4.6 % (0-4.4); Hematocrit 33.4 % (39.6-49.0); Hemoglobin 11.1 g/dL (13.6-17.9); Lymphocytes % 33.8 % (15.3-44.8); MCH 32.4 pg (27.0-35.0); MCHC 33.4 g/dL (32.0-36.0); MPV 7.8 fL (7.6-11.3); Monocytes % 9.3 % (3.3-12.3); Neutrophils % 51.9 % (41.7-73.7); Platelets 203 thou/uL (152-406); RBC Red Blood Cell Count 3.44 M/uL (4.33-5.43); Red Cell Distribution Width 13.7 % (12.1-15.2)
[2024-05-11 07:46] LABS: Albumin 2.8 g/dL (3.4-5.0); Anion Gap 6.6 mEq/L (5.0-15.0); Magnesium 2.1 mg/dL (1.6-2.4); Potassium 4.6 mEq/L (3.5-5.1); Prealbumin 14.6 mg/dL (20-40)
--- NOTE | 2024-05-11 23:31 | PN ---
Date of Progress Note: 05/11/2024 Time Of Service: 1:10 p.m. Subjective: Mr. Carrington is ambulating down the hallway, doing very well. He is happy with his progre ss. He is able to use the left leg much better. Still has dense paresis of left upper extremity. Objective: He denies any significant fevers, chills, myalgias, arthralgias, or rash. Psychiatric is sues are better active and no genitourinary complaints. The therapist did note that he has some diff iculty with flexing the right knee beyond 90 degrees and doing so actually will help his dqo-vo-udfyo transfers. Decision was made to add the CPM Device to the right leg while in bed to begin with an 8 0-degree range of motion and work up to 120 degrees and while in bed, the CPM will be place. Physical Examination: Vital Signs: Blood pressure 137/62, pulse of 61, respiratory rate 16, temperature 97.2, oxygen satur ation 94%. General: Again, Mr. Carrington is standing and ambulating, he has dense paresis of left upper extremity, more strength to the left lower extremity. He is able to ambulate with a platform walker with the l eft arm holding on strong with the right arm. He has no new deficits. Laboratory Studies: White blood cell count 6.2, hemoglobin 11.1, platelets 203. Sodium 139, potassi um 4.6, chloride 107, carbon dioxide 30, his BUN is 19, creatinine did increase from 1.21 to 1.35. O oliva 7 days, he will be encouraged hydration. Glucose 100, calcium 8.8, magnesium 2.1, albumin 2.8, p realbumin 14.6. X-ray/imaging: No new x-rays or imaging. Medications: Medications have been reviewed and remained unchanged. Progress Made With Physical, Occupational, And Speech Therapy: With physical therapy today, he ambul ated 600 feet and 500 feet twice with the platform walker and was able to do it virtually independent ly. Had good standing balance. Uar-vi-lwqcx done independently. Multiple sit and transfers from [facility], however, did require up to maximum assistance. With occupational therapy, did oral and fac e washing with independence at sink, from contact guard to standby assistance to pull self into stand ing position with grab bars. He worked with speech today, used word retrieval and short-term memory skills, state Halloween related words and did recall words over 10 minutes. He did 10 of 10 words. Assessment: Mr. Carrington is a 73-year-old patient in the rehabilitation unit with MCA stroke in the [facility] and affecting left upper extremity with dense paresis there. Some dysarthria, dysphagia, and wea kness of the left lower extremity. He has arthritic changes in the right knee and decreased range of motion. His comorbidities are decreased mobility, decreased physical functioning, dyslipidemia, hyp ertension, he has depression, electrolyte abnormalities are being addressed. Plan: 1.We will continue with physical, occupational, and speech therapy. 2.He will have CPM applied to the right knee when in bed as noted. We will continue with management of his comorbid conditions including tramadol for pain, Zoloft for depression, Senokot for constipat ion, potassium replacement on board, Ensure Enlive for malnutrition, melatonin for insomnia, magnesiu m oxide for muscle spasms, gabapentin for neuropathic pain, clonidine patch and carvedilol along with Norvasc for blood pressure management. LB/MODL Voice ID: [id number] Report ID: [id number]
--- NOTE | 2024-05-12 13:27 | P.RH.PN ---
Estimated Length of Stay: 23 Expected Discharge Date: 05/18/24 Discharge Disposition Plan: Home Family Support: Yes [facility] Goal: Mobility, Transfers, Self Care Vital Signs: Last Vital Signs Temp 97.6 F 05/12/24 07:20 Pulse 66 05/12/24 08:52 Resp 15 05/12/24 07:20 BP 129/70 05/12/24 08:52 Pulse Ox 96 05/12/24 07:20 Laboratory: Laboratory Last Values WBC 6.20 thou/uL (4.3-10.9) 05/11/24 05:25 RBC 3.44 M/uL (4.33-5.43) L 05/11/24 05:25 Hgb 11.1 g/dL (13.6-17.9) L 05/11/24 05:25 Hct 33.4 % (39.6-49.0) L 05/11/24 05:25 MCV 97.0 fL (80-100) 05/11/24 05:25 MCH 32.4 pg (27.0-35.0) 05/11/24 05:25 MCHC 33.4 g/dL (32.0-36.0) 05/11/24 05:25 RDW 13.7 % (12.1-15.2) 05/11/24 05:25 Plt Count 203 thou/uL (152-406) 05/11/24 05:25 MPV 7.8 fL (7.6-11.3) 05/11/24 05:25 Neutrophils % 51.9 % (41.7-73.7) 05/11/24 05:25 Lymphocytes % 33.8 % (15.3-44.8) 05/11/24 05:25 Monocytes % 9.3 % (3.3-12.3) 05/11/24 05:25 Eosinophils % 4.6 % (0-4.4) H 05/11/24 05:25 Basophils % 0.4 % (0-1.3) 05/11/24 05:25 Absolute Neutrophils 3.2 K/uL (1.8-8.0) 05/11/24 05:25 Absolute Lymphocytes 2.1 K/uL (0.7-4.9) 05/11/24 05:25 Absolute Monocytes 0.6 K/uL (0.1-1.3) 05/11/24 05:25 Absolute Eosinophils 0.3 K/uL (0-0.5) 05/11/24 05:25 Absolute Basophils 0.0 K/uL (0-0.5) 05/11/24 05:25 Sodium 139 mEq/L (136-145) 05/11/24 05:25 Potassium 4.6 mEq/L (3.5-5.1) 05/11/24 05:25 Chloride 107 mEq/L (98-107) 05/11/24 05:25 Carbon Dioxide 30 mEq/L (21-32) 05/11/24 05:25 Anion Gap 6.6 mEq/L (5.0-15.0) 05/11/24 05:25 BUN 19 mg/dL (7-18) H 05/11/24 05:25 Creatinine 1.35 mg/dL (0.70-1.30) H 05/11/24 05:25 Est GFR (CKD-EPI) 56 ml/min (=/>90) L 05/11/24 05:25 Glucose 100 mg/dL (74-106) 05/11/24 05:25 POC Glucose 115 mg/dL (65-120) 04/28/24 12:22 Calcium 8.8 mg/dL (8.5-10.1) 05/11/24 05:25 Magnesium 2.1 mg/dL (1.6-2.4) 05/11/24 05:25 Albumin 2.8 g/dL (3.4-5.0) L 05/11/24 05:25 Prealbumin 14.6 mg/dL (20-40) L 05/11/24 05:25 Urine Color Light-yellow (Yellow) 04/28/24 11:35 Urine Clarity Clear (Clear) 04/28/24 11:35 Urine pH 6.0 (5.0-7.0) 04/28/24 11:35 Ur Specific [place] 1.020 (1.005-1.030) 04/28/24 11:35 Glucose (UA)(Auto) Negative (Negative) 04/28/24 11:35 Urine Ketones Negative (Negative) 04/28/24 11:35 Urine Blood Negative (Negative) 04/28/24 11:35 Urine Nitrite Negative (Negative) 04/28/24 11:35 Urine Bilirubin Negative (Negative) 04/28/24 11:35 Urine Urobilinogen Normal (Normal) 04/28/24 11:35 Ur Leukocyte Esterase Negative Miguelina/uL (Negative) 04/28/24 11:35 Urine RBC <5 /HPF (None Seen) 04/28/24 11:35 Urine WBC <5 /HPF (<5) 04/28/24 11:35 Ur Squamous Epith Cells None seen /HPF (None Seen) 04/28/24 11:35 Urine Bacteria None seen /HPF (<20) 04/28/24 11:35 Urine Mucus Slight /HPF (None Seen) 04/28/24 11:35 Urine Culture Reflexed Not needed 04/28/24 11:35 Urine Total Protein Trace (Negative) H 04/28/24 11:35 Weight: 237 lb 14.4 oz Wound Present: No Closed Surgical Incision Present: No Negative Pressure Wound Therapy Present: No Physician Update: Labs reviewed and are stable. Will start a CPM on the right knee to increase the range of motion to help with his STS. Doing well with speech. Improved problem solving and memory. Independent with bed mobility, min assist with transfers, platform walker 250'. Max assist with tub transfer bench. He is at supervision with grab bars. Summary: Patient's care plan and [facility] goals have been reviewed and revised as necessary. Please see the Rehabilitation Signature page for all necessary signatures.
[2024-05-12] MEDS: MELATONIN 3 MG TABLET PO PRN (20:17)
--- NOTE | 2024-05-15 22:15 | PN ---
Date of Progress Note: 05/15/2024 Time Of Service: 1:20 p.m. Subjective: Mr. Carrington is resting in his room. Speech pathologist at bedside. He is doing well. H e feels he is improving. However, he still has dense paresis of the left upper extremity, more dista lly than proximally, actually no movement noted with wrist extension and flexion on the left and fing er extension and flexion on the left. He does have around 2/5 in the left biceps, triceps, and shoul jennifer. Lower extremity somewhat stronger around 3+ on the left. Objective: Reports improved mood. Review of Systems: No fevers, chills. No nausea, vomiting. No rash. No other positives on systems review. Physical Examination: Vital Signs: Blood pressure 145/72, pulse 56, respiratory rate 17, temperature 98.0, oxygen saturati on 95%. General: Mr. Carrington is sitting in a chair beside bed. HEENT: Normocephalic, atraumatic. Sclerae anicteric. Oropharynx pink, moist. Neck: Supple. Chest: Clear. Neuro: His left nasolabial fold is decreased. He has left upper extremity dense paresis and left lo wer extremity again significant paresis, but stronger around 3/5. Decreased light touch and temperat ure on the left compared to the right side. Laboratory Studies: No new laboratory studies. X-ray/imaging: No new x-rays or imaging. Progress Made With Physical, Occupational, And Speech Therapy: Today with physical therapy, the jax ent did use CPM at 80 degrees to help him to improve his range of motion in the left knee, where ther e is arthritis. Did multiple xfr-no-keino transfers with moderate assistance. In terms of his occup ational therapy, did do fvm-be-ktnut transfers, focused on pushing up and shifting his weight forward and up. The patient is making significant improvement in the proximal upper extremity and again the distal left lower extremity. He also ambulated 250 feet with a rolling walker and then 500 feet ind ependently with a rolling walker. Mghzcx-cq-pdj transfer was done independently. Vim-xc-yrcij trans fers from wheelchair with moderate assistance. With speech, improved delayed recall to recall of wor ds without pictures and decreasing cues. He recalled 2 of 3 unrelated words after 3 minutes on first attempt and 3 of 3 after 3 minutes and 5 minutes. Assessment: Mr. Carrington is a 73-year-old patient with stroke affecting his right brain and left body. He has dense paresis of left lower extremity and less so in the left lower extremity. He has dysar thria and dysphagia. He has arthritic changes in the right knee and he has somewhat mild limitation there due to the pain. He has a CPM to help him with range of motion there. He has decreased mobili ty, decreased physical functioning, dyslipidemia, hypertension, depression, and electrolyte abnormali ties. Plan: 1.He will continue with physical, occupational, and speech therapy for 3.5 hours, 5 of 7 days. 2.Continue with CPM. We recommended to try to get to 120 degrees of flexion in right knee. Continu e with all comorbid condition medications including Zoloft for depression, Senokot for constipation, potassium replacement on board, Ensure for malnutrition, melatonin for insomnia, magnesium oxide for muscle spasms, gabapentin for neuropathic pain, carvedilol and Norvasc for blood pressure management. TALAT/CLAUDE Voice ID: [id number] Report ID: [id number]
--- NOTE | 2024-05-18 01:12 | PN ---
Date of Progress Note: 05/17/2024 Time Of Service: 1:20 p.m. Subjective: Mr. Carrington is sitting in a chair beside the bed. He is in a better mood today than pedro luist karen, and his left arm shows some slight improvement more proximally and no real improvement distall y. Improving strength in the left lower extremity. Objective: No fevers, chills, nausea, vomiting. No myalgias, arthralgias. Does report that the rig ht lateral knee and just below the right lateral knee he has some soreness as that leg is doing more work due to the weakness in the left lower extremity from his stroke. Physical Examination: Vital Signs: Blood pressure 125/65, pulse 65, respiratory rate 17, temperature 98.0, oxygen saturati on 95%. General: Mr. Carrington again is sitting in a chair. HEENT: He has decreased left nasolabial fold, which is stable. Neuromuscular: He has dense paresis of left upper extremity more distally than proximally. He is ab le to do about 2 to 3 biceps and the left deltoid. Otherwise, his wrist extension and flexion, finge r extension and flexion are 0/5. Laboratory Studies: No new laboratory studies. X-ray/imaging: No new x-rays or imaging. Progress Made With Physical, Occupational, And Speech Therapy: With physical therapy today, supine-t o-sit transfers done independently. Multiple [id number] transfers with wheelchair done moderate to minimum assistance. He ambulated with a platform walker, rolling walker 600 feet, and three times o f 750 feet with supervision. He did display some improved stability as noted. Wheelchair mobilizati on 350 feet independently. With his occupational therapy, minimum assistance for bathing. Assistanc e needed for washing and drying right upper extremity and buttocks. With speech, completed date and preparation for discharge. The patient declined on the BIMS from a 15 to 13, and needed a cue for 1 of 3 words. The MoCA test improved from 18 to 23, indicating showing some improvement in delayed rec all, attention, and language. Assessment: Mr. Carrington is a 73-year-old patient with right hemispheric stroke, producing paresis of left upper more than lower extremity and some dysarthria, dysphagia, and left facial drooping. His c omorbidities include decreased mobility, decreased physical functioning, hypertension, dyslipidemia, depression. Plan: 1.He will continue with physical, occupational, and speech therapy 3.5 hours, 5/7 days. 2.He will be discharged home to continue therapy with Home Health. He has his comorbid condition me dications, including gabapentin, carvedilol, Norvasc, potassium replacement, Ensure for malnutrition, Zoloft for depression, Senokot for constipation, melatonin for insomnia. Comorbidities That Are Impacting Rehabilitation: Of course, his stroke is a big issue. He has right knee decreased range of motion, which was on the CPM, but only able to get about 80 towards 90 degre es, and there is significant stiffness limiting further motion. He would require more consistent wor k with that and should follow up with orthopedic surgeon to see what other interventions are possible to allow him to have more range of motion of the right knee and that may assist him to transfer more independently. TALAT/CLAUDE Voice ID: [id number] Report ID: [id number]
[2024-05-18 06:38] LABS: Absolute Eosinophils 0.2 K/uL (0-0.5); Absolute Lymphocytes (CBC) 2.1 K/uL (0.7-4.9); Absolute Monocytes 0.5 K/uL (0.1-1.3); Absolute Neutrophil 2.9 K/uL (1.8-8.0); Basophils % 0.6 % (0-1.3); Hematocrit 34.3 % (39.6-49.0); Hemoglobin 11.6 g/dL (13.6-17.9); Lymphocytes % 36.1 % (15.3-44.8); MCH 32.2 pg (27.0-35.0); MCHC 33.8 g/dL (32.0-36.0); MCV 95.3 fL (80-100); MPV 7.5 fL (7.6-11.3); Monocytes % 8.7 % (3.3-12.3); Neutrophils % 50.6 % (41.7-73.7); Nucleated Red Blood Cells % 0.1 % (0-0); Platelets 222 thou/uL (152-406); Red Cell Distribution Width 13.9 % (12.1-15.2)
[2024-05-18 06:48] VITALS: BP 144/71; TEMP 97.2
[2024-05-18 07:01] LABS: Albumin 2.9 g/dL (3.4-5.0); Prealbumin 15.9 mg/dL (20-40)
== END 2024-05-18 15:05 | disposition home health service (06) | DRG 57 ==
LOC: 5TH 10:40
PROVIDERS: ADMIT Psychiatry & Neurology Neurology with Special Qualifications in Child Neurology; ATTEND Psychiatry & Neurology Neurology with Special Qualifications in Child Neurology
PROC: 0HBRXZZ Excision of Toe Nail, External Approach (ICD-10-PCS; principal; 2024-05-08)
PROC: 0HBRXZZ Excision of Toe Nail, External Approach (ICD-10-PCS; 2024-05-08)
PROC: 0HBRXZZ Excision of Toe Nail, External Approach (ICD-10-PCS; 2024-05-08)
PROC: 0HBRXZZ Excision of Toe Nail, External Approach (ICD-10-PCS; 2024-05-08)
PROC: 0HBRXZZ Excision of Toe Nail, External Approach (ICD-10-PCS; 2024-05-08)
PROC: 0HBRXZZ Excision of Toe Nail, External Approach (ICD-10-PCS; 2024-05-08)
PROC: 0HBRXZZ Excision of Toe Nail, External Approach (ICD-10-PCS; 2024-05-08)
PROC: 0HBRXZZ Excision of Toe Nail, External Approach (ICD-10-PCS; 2024-05-08)
PROC: 0HBRXZZ Excision of Toe Nail, External Approach (ICD-10-PCS; 2024-05-08)
PROC: 0HBRXZZ Excision of Toe Nail, External Approach (ICD-10-PCS; 2024-05-08)
DX: I69.354 Hemiplegia and hemiparesis following cerebral infarction affecting left non-dominant side (principal); I48.19 Other persistent atrial fibrillation; K56.609 Unspecified intestinal obstruction, unspecified as to partial versus complete obstruction; I69.322 Dysarthria following cerebral infarction; I69.391 Dysphagia following cerebral infarction; I69.392 Facial weakness following cerebral infarction; B35.1 Tinea unguium; I12.9 Hypertensive chronic kidney disease with stage 1 through stage 4 chronic kidney disease, or unspecified chronic kidney disease; N18.30 Chronic kidney disease, stage 3 unspecified; I70.91 Generalized atherosclerosis; E78.5 Hyperlipidemia, unspecified; F32.A Depression, unspecified; I25.10 Atherosclerotic heart disease of native coronary artery without angina pectoris; E11.22 Type 2 diabetes mellitus with diabetic chronic kidney disease; N40.0 Benign prostatic hyperplasia without lower urinary tract symptoms; G62.9 Polyneuropathy, unspecified; G47.00 Insomnia, unspecified; I25.2 Old myocardial infarction; Z79.01 Long term (current) use of anticoagulants
CPT/HCPCS: 36415; 80048; 81001; 82040; 82947; 83735; 84134; 85025; 87077; 87086; 87088; 87186; 92523; 97110; 97112; 97116; 97129; 97140; 97161; 97165; 97530; 97542

== ENCOUNTER 2024-05-31 09:57 | Emergency (ER) | payer OTHER ==
--- OUTSIDE RECORDS SUMMARY | 2024-05-31 10:04 | XMS REPORT | Continuity of Care Document ---
Author Name Unknown Address [address] [facility] [place] [address] [facility] thconnect Address [address] [facility] [place] [address] Care Team Providers Care Senior Medical Technologist Name Role Phone PCP, PATIENT DOES NOT HAVE A Primary Care Physic kevin Unavailable DIMITRIS PERALES Attending Clinician Unavailable DAMIEN HOWARD Attending Clinician Unavailable Damien Howard Attending Clinician ROCIO SHAY K.HPurvi Attending Clinician Unavailnatacha Shay MD, Rocio K.H. Attending Clinician [phone] Doctor Unassigned, Coral Attending Clinician U navailable GLEN REYNOLDS S Attending Clinician Unavailable Glen Moncada S Attending Clinician [phone] _[facility]_Seiter_S Attending Clinician Unavailable Eula Mac RN Attending Clinician Unavailable Chester Alonzo Attending Clinician [phone] LYUDMILA PEDRO Attending Clinician Unavailable Breana Rabago DO Attending Clinician [phone] Erick CHAN, Johan Avendano Attending Clinician [phone] Luci CHAN, Edwin Attending Clinician [phone] Nereyda Lewis MD Attending Clinician [phone] Emmett CHAN, Josue Avendano Attending Clinician Lyudmila Pedro MD Attending Clinician [phone] Ulysses CHAN, Siena Benjamin Attending Clinician [phone] Chirag CHAN, Jayme Brooks Attending Clinician [phone] JEREMY FOSTER Admitting Clinician Unavailable Jeremy Foster Admitting Clinician [facility]_S Admitting Clinician Unavailable JAYME PINEDA Admitting Clinician UnavailJayme Mondragon MD Admitting Clinician [phone] Payers Payer Name Policy Type Policy Number Effective Date Expirati on Date Source [facility] [id number] 2023 00:00:00 [facility] MED[facility] ADV HMO [id number] 2023 00:00:00 [facility] (MEDICARE REPLACEMENT/ADVANTA GE - PPO) [id number] Problems Condition Name Condition Details Condition Category Status Onset Date Resolution Date Last Treatment Date Treating Clinician Comments Source STROKE STROKE Active 03/13/2024 [facility] Diagnosis Active 03-13 00:00: 00 2024-03-13 07:44:00 Marciano HICKS BILLING JHOAN BILLING Active 03/13/2024 [facility] Diagnosis Active 03-13 00:00: 00 2024-03-13 07:46:00 Marciano Reese ACUTE ISCHEMIC STROKE ACUTE ISCHEMIC STROKE Active 03/13/2024 [facility] Diagnosis Active 03-13 00:00: 00 2024-03-21 22:00:00 Marciano Reese Atrial fibrillati on Atrial Fibrillati on Problem Active 11-11 00:00: 00 [facility] Gastroesop hageal reflux disease Gastroesop hageal Reflux Disease Problem Active 11-11 00:00: 00 [facility] History of cerebrovas cular accident History of Cerebrovas cular Accident Problem Active 11-11 00:00: 00 [facility] History of fall History of Fall Problem Active - 00:00: 00 [facility] History of SARS-CoV-2 History of SARS-CoV-2 Problem Active 11-11 00:00: 00 [facility] COVID-19 virus infection COVID-19 virus infection Disease Active 10-21 00:00: 00 Overview: Formattin g of this note is different from the original. SARS-CoV- 2 Rapid ID NOW (no units) Date Value 1 Positive (A) [facility] Delirium Delirium Disease Active 10-21 00:00: 00 [facility] Fever due to COVID-19 Fever due to COVID-19 Disease Active 10-21 00:00: 00 [facility] History of stroke History of stroke Disease Active 10-21 00:00: 00 Overview: Formattin g of this note might be different from the original. ?? 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 [facility] Demand ischemia Demand ischemia Disease Active 10-21 00:00: 00 [facility] YAMILETH (acute kidney injury) YAMILETH (acute kidney injury) Disease Active 10-20 00:00: 00 Overview: Formattin g of this note is different from the original. CREATININ E (mg/dL) Date Value 1 1.59 (H) 1 1.75 (H) Serum creatinin e: 1.59 mg/dL (H) 10/21/20 0316Estim ated creatinin e clearance : 55 mL/min (A) [facility] Pneumonia due to COVID-19 virus Pneumonia due to COVID-19 virus Disease Active 10-20 00:00: 00 [facility] Coronary arterioscl erosis (disorder) Coronary arterioscl erosis (disorder) Active Problem 03/19/2024 [facility] Problem Active 2024-03-19 04:24:59 Marciano Reese Hypertensi ve disorder, systemic arterial (disorder) Hypertensi ve disorder, systemic arterial (disorder) Active Problem 03/19/2024 [facility] Problem Active 2024-03-19 04:24:59 Marciano Reese CEREBRAL INFARCTION , UNSPECIFIE D CEREBRAL INFARCTION , UNSPECIFIE D Active [facility] Diagnosis Active 2024-03-21 22:00:00 Marciano Reese Allergies, Adverse Reactions, Alerts Allergy Name Allergy Type Status Severity Reaction(s) Onset Date Inactive Date Treating Clinician Comments Source NO KNOWN ALLERGIE S Drug Class Active [facility] Social History Social Habit Start Date Stop Date Quantity Comments Source History of tobacco use Passive smoker [facility] Sexual orientation [facility] Exposure to SARS-CoV-2 (event) Not sure [facility] History of Social function 2023-06-30 00:00:00 2023-06-30 00:00:00 [facility] Tobacco use and exposure 2023-06-30 00:00:00 2023-06-30 00:00:00 Smokeless tobacco non-user [facility] Alcohol intake 2023-06-30 00:00:00 2023-06-30 00:00:00 .29 /d [facility] Sex Ass[birth year] At 1950 00:00:00 1950 00:00:00 [facility] Smoking Status Start Date Stop Date Source Tobacco smoking status Pauladayan jollyjackie Reese Ex-smoker 2023-06-30 00:00:00 2023-06-30 00:00:00 [facility] Medications Ordered Medication Name Filled Medication Name [...] thromboemb olism in paroxysmal atrial fibrillati on [facility] warfarin 5 mg tablet 2022-07 08:52: 10 Yes [id number] 5mg Take 1 tablet by mouth. 1.5tabs on Mondays 1tab 6x/week [facility] metFORMIN 500 mg 24 hr tablet 2022-07 08:52: 10 Yes [id number] 500mg Take 1 tablet by mouth daily with breakfast. [facility] cloNIDine 0.1 mg tablet 2022-07 08:52: 10 Yes [id number] .1mg Take 1 tablet by mouth in the morning and 1 tablet in the evening. [facility] losartan-hy drochloroth iazide 100-25 mg per tablet 2022-07 08:52: 10 Yes [id number] 1{tbl} Take 1 tablet by mouth in the morning. [facility] hydralAZINE (APRESOLINE ) injection 10 mg 01-27 17:15: 00 01-27 18:20 :00 No 10mg 10 mg, Slow IV Push, ONCE, 1 dose, On Wed01/27/23 at 1215, SAÚL [facility] cloNIDine (CATAPRES) tablet 0.1 mg 01-27 17:15: 00 01-27 18:19 :00 No .1mg 0.1 mg, Oral, ONCE, 1 dose, On Wed01/27/23 at 1215, STAT [facility] aspirin 81 mg chewable tablet 11-09 00:00: 00 Yes [id number] 81mg Take 1 tablet by mouth daily. [facility] diltiazem XR 180 mg 24 hr capsule 11-09 00:00: 00 Yes [id number] 180mg Take 1 capsule by mouth daily. [facility] aspirin 81 mg chewable tablet 11-08 19:01: 15 11-08 00:00 :00 No 81mg Take 81 mg by mouth daily. [facility] diltiazem XR (DILT-XR) capsule 180 mg 11-08 14:00: 00 Yes 180mg 180 mg, Oral, DAILY, First dose (after last modificati on) on Wed11/08/20 at 0900, Until Discontinu ed, Routine [facility] foLIC acid (FOLATE) tablet 1 mg 11-08 14:00: 00 Yes 1mg 1 mg, Oral, DAILY, First dose (after last modificati on) on Wed11/08/20 at 0900, Until Discontinu ed, Routine [facility] aspirin chewable tablet 81 mg 11-08 14:00: 00 Yes 81mg 81 mg, Oral, DAILY, First dose (after last modificati on) on Wed11/08/20 at 0900, Until Discontinu ed, Routine [facility] lactated ringers IV infusion 1,000 mL 11-08 13:30: 00 11-08 13:54 :00 No 1000mL at 200 mL/hr, 1,000 mL, Intravenou s, ONCE, 1 dose, Wed11/08/20 at 0830, Routine [facility] atorvastati n (LIPITOR) tablet 80 mg 11-08 02:00: 00 Yes 80mg 80 mg, Oral, QHS, First dose (after last modificati on) on Wed11/07/20 at 2100, Until Discontinu ed, Routine [facility] apixaban (ELIQUIS) tablet 5 mg 11-08 01:00: 00 Yes 5mg 5 mg, Oral, BID, First dose (after last modificati on) on Wed11/07/20 at 2000, Until Discontinu ed, Routine [facility] atorvastati n 80 mg tablet 11-08 00:00: 00 Yes [id number] 80mg Take 1 tablet by mouth at bedtime. [facility] carvediloL 25 mg tablet 11-08 00:00: 00 Yes [id number] 25mg Take 1 tablet by mouth every 12 (twelve) hours. [facility] hydrALAZINE 100 mg tablet 11-08 00:00: 00 Yes [id number] 100mg Take 1 tablet by mouth every 8 (eight) hours. [facility] pantoprazol e 40 mg EC tablet 11-08 00:00: 00 Yes [id number] 40mg Take 1 tablet by mouth 2 (two) times daily. [facility] apixaban 5 mg tablet 11-08 00:00: 00 07-22 00:00 :00 No [id number] 5mg Take 1 tablet by mouth 2 (two) times daily. Indication s: prevention of thromboemb olism in paroxysmal atrial fibrillati on [facility] hydrALAZINE (APRESOLINE ) tablet 100 mg 11-07 19:00: 00 Yes 100mg 100 mg, Oral, Q8H, First dose (after last modificati on) on Wed11/07/20 at 1400, Until Discontinu ed, Routine [facility] lactated ringers IV infusion 1,500 mL 11-07 14:00: 00 11-07 14:51 :00 No 1500mL at 150 mL/hr, 1,500 mL, Intravenou s, ONCE, 1 dose, Wed11/07/20 at 0900, Routine [facility] polyethylen e glycol 3350 powder 17 g 11-06 14:00: 00 Yes 17g 17 g, Oral, DAILY, First dose (after last modificati on) on Wed11/06/20 at 0900, Until Discontinu ed, Routine [facility] atorvastati n (LIPITOR) tablet 80 mg 11-06 02:00: 00 11-07 16:40 :03 No 80mg 80 mg, Enteral, QHS, First dose (after last modificati on) on Wed11/05/20 at 2100, Until Discontinu ed, Routine [facility] amino acids 4.25%-elect rolytes-aicha cium-dextro se 5% (CLINIMIX-E 4.25%/D5W SULF FREE) IV infusion 1,992 mL 11-05 22:00: 00 11-05 21:39 :00 No 1992mL at 83 mL/hr, 1,992 mL, IV Infusion, TPNCONTINU OUS, 1 dose, First dose (after last reorder) on Wed11/05/20 at 1700, Routine [facility] fat emulsion (INTRALIPID ) 20 % infusion 250 mL 11-05 22:00: 00 11-05 21:39 :00 No 250mL at 11 mL/hr, IV Infusion, TPNCONTINU OUS, 1 dose, First dose (after last reorder) on Wed11/05/20 at 1700, Routine [facility] hydrALAZINE (APRESOLINE ) tablet 100 mg 11-05 19:00: 00 11-07 16:40 :03 No 100mg 100 mg, Enteral, Q8H, First dose (after last modificati on) on Wed11/05/20 at 1400, Until Discontinu ed, Routine [facility] diltiazem (CARDIZEM) tablet 60 mg 11-05 17:00: 00 11-07 16:40 :02 No 60mg 60 mg, Enteral, Q6H, First dose (after last modificati on) on Wed11/05/20 at 1200, Until Discontinu ed, Routine [facility] magnesium sulfate in water 2 gram/50 mL (4 %) infusion 2 g 11-05 16:15: 00 11-05 15:23 :00 No 2g 2 g, IV Piggyback, ONCE, 1 dose, Wed11/05/20 at 1115, Routine [facility] KCL (POTASSIUM CHLORIDE) 40 mEq in NaCl 0.9% (NS) piggyback 11-05 16:15: 00 11-05 17:14 :00 No 40meq 40 mEq, IV Piggyback, ONCE, 1 dose, Wed11/05/20 at 1115, 250 mL [facility] foLIC acid (FOLATE) tablet 1 mg 11-05 14:00: 00 11-07 16:40 :03 No 1mg 1 mg, Enteral, DAILY, First dose (after last modificati on) on Wed11/05/20 at 0900, Until Discontinu ed, Routine [facility] aspirin chewable tablet 81 mg 11-05 14:00: 00 11-07 16:40 :03 No 81mg 81 mg, Enteral, DAILY, First dose (after last modificati on) on Wed11/05/20 at 0900, Until Discontinu ed, Routine [facility] apixaban (ELIQUIS) tablet 5 mg 11-05 13:00: 00 11-07 16:40 :03 No 5mg 5 mg, Enteral, BID, First dose (after last modificati on) on Wed11/05/20 at 0800, Until Discontinu ed, Routine [facility] fat emulsion (INTRALIPID ) 20 % infusion 250 mL 11-04 22:00: 00 11-04 22:00 :00 No 250mL at 11 mL/hr, IV Infusion, TPNCONTINU OUS, 1 dose, First dose (after last reorder) on Wed11/04/20 at 1700, Routine [facility] amino acids 4.25%-elect rolytes-aicha cium-dextro se 5% (CLINIMIX-E 4.25%/D5W SULF FREE) IV infusion 1,992 mL 11-04 22:00: 00 11-04 22:00 :00 No 1992mL at 83 mL/hr, 1,992 mL, IV Infusion, TPNCONTINU OUS, 1 dose, First dose (after last reorder) on Wed11/04/20 at 1700, Routine [facility] metoprolol (LOPRESSOR) injection 5 mg 11-04 15:51: 22 Yes 5mg 5 mg, Slow IV Push, PRN, Starting Wed11/04/20 at 1051, Until Discontinu ed, Routine, For HR > 110, please notify team w/ administra tion. [facility] melatonin (MELATIN) tablet 3 mg 11-04 02:00: 00 Yes 3mg 3 mg, Oral, QHS, First dose on Wed11/03/20 at 2100, Until Discontinu ed, Routine [facility] fat emulsion (INTRALIPID ) 20 % infusion 250 mL 11-03 22:00: 00 11-03 21:56 :00 No 250mL at 11 mL/hr, IV Infusion, TPNCONTINU OUS, 1 dose, First dose (after last reorder) on Wed11/03/20 at 1700, Routine [facility] amino acids 4.25%-elect rolytes-aicha cium-dextro se 5% (CLINIMIX-E 4.25%/D5W SULF FREE) IV infusion 2,000 mL 11-03 22:00: 00 11-03 22:17 :00 No 2000mL at 83 mL/hr, 2,000 mL, IV Infusion, TPNCONTINU OUS, 1 dose, First dose (after last reorder) on Wed11/03/20 at 1700, Routine [facility] pantoprazol e (PROTONIX) 40 mg in NaCl 0.9% (NS) 100 mL MINI-BAG 11-03 01:00: 00 11-08 18:02 :26 No 40mg 40 mg, IV Piggyback, Q12H, First dose on 11/02/20 at 2000, Until Discontinu ed, 100 [facility] (INTR[facility]IPID ) 20 % infusion 250 mL 11-02 22:00: 00 11-02 20:20 :00 No 250mL at 11 mL/hr, IV Infusion, TPNCONTINU OUS, 1 dose, First dose (after last reorder) on 11/02/20 at 1700, Routine [facility] amino acids 4.25%-elect rolytes-aicha cium-dextro se 5% (CLINIMIX-E 4.25%/D5W SULF FREE) IV infusion 2,000 mL 11-02 22:00: 00 11-02 20:21 :00 No 2000mL at 83 mL/hr, 2,000 mL, IV Infusion, TPNCONTINU OUS, 1 dose, First dose on 11/02/20 at 1700, Routine [facility] hydrALAZINE (APRESOLINE ) tablet 100 mg 11-02 19:00: 00 11-05 11:42 :47 No 100mg 100 mg, Oral, Q8H, First dose (after last modificati on) on 11/02/20 at 1400, Until Discontinu ed, Routine [facility] amino acid 4.25%-detro se 5% (CLINIMIX 4.25%/D5W SULFIT FREE) IV infusion 2,000 mL 11-01 22:00: 00 11-02 23:11 :00 No 2000mL at 83 mL/hr, 2,000 mL, IV Infusion, TPNCONTINU OUS, 1 dose, First dose on Wed11/01/20 at 1700, Routine [facility] fat emulsion (INTRALIPID ) 20 % infusion 250 mL 11-01 22:00: 00 11-01 23:10 :00 No 250mL at 11 mL/hr, IV Infusion, TPNCONTINU OUS, 1 dose, First dose on Wed11/01/20 at 1700, Routine [facility] hydrALAZINE (APRESOLINE ) tablet 50 mg 11-01 19:00: 00 11-02 12:52 :42 No 50mg 50 mg, Oral, Q8H, First dose (after last modificati on) on Wed11/01/20 at 1400, Until Discontinu ed, Routine [facility] magnesium sulfate in water 2 gram/50 mL (4 %) infusion 2 g 11-01 15:45: 00 11-01 15:29 :00 No 2g 2 g, IV Piggyback, ONCE, 1 dose, Wed11/01/20 at 1045, Routine [facility] KCL (POTASSIUM CHLORIDE) 40 mEq in NaCl 0.9% (NS) 250 mL piggyback 11-01 13:00: 00 11-01 14:09 :00 No 40meq 40 mEq, IV Piggyback, Q4H, 1 dose, First dose on Wed11/01/20 at 0800, 250 mL [facility] hydrALAZINE (APRESOLINE ) tablet 20 mg 11-01 03:00: 00 11-01 15:37 :30 No 20mg 20 mg, Oral, Q8H, First dose (after last modificati on) on Wed10/31/20 at 2200, Until Discontinu ed, Routine [facility] lactated ringers IV infusion 1,000 mL 10-31 13:30: 00 10-31 15:09 :00 No 1000mL at 75 mL/hr, 1,000 mL, Intravenou s, ONCE, 1 dose, Wed10/31/20 at 0830, Routine [facility] hydrALAZINE (APRESOLINE ) tablet 10 mg 10-30 19:00: 00 10-31 20:51 :57 No 10mg 10 mg, Oral, Q8H, First dose on Wed10/30/20 at 1400, Until Discontinu ed, Routine [facility] diltiazem (CARDIZEM) tablet 60 mg 10-30 17:00: 00 11-05 11:42 :47 No 60mg 60 mg, Oral, Q6H, First dose (after last modificati on) on Wed10/30/20 at 1200, Until Discontinu ed, Routine [facility] diltiazem (CARDIZEM) tablet 30 mg 10-30 14:45: 00 10-30 14:14 :00 No 30mg 30 mg, Oral, ONCE, 1 dose, Wed10/30/20 at 0945, Routine [facility] lisinopriL (PRINIVIL,Z ESTRIL) tablet 10 mg 10-30 14:00: 00 10-30 15:10 :13 No 10mg 10 mg, Oral, DAILY, First dose on Wed10/30/20 at 0900, Until Discontinu ed, Routine [facility] lactated ringers IV infusion 1,000 mL 10-30 13:00: 00 10-30 12:53 :00 No 1000mL at 150 mL/hr, 1,000 mL, Intravenou s, ONCE, 1 dose, Wed10/30/20 at 0800, Routine [facility] thiamine (VITAMIN B1) tablet 500 mg 10-29 19:00: 00 Yes 500mg 500 mg, Oral, TID, First dose on Wed10/29/20 at 1400, Until Discontinu ed, Routine [facility] chlorthalid one (HYGROTON) tablet 25 mg 10-29 16:45: 00 11-05 11:42 :47 No 25mg 25 mg, Oral, DAILY, First dose on Wed10/29/20 at 1145, Until Discontinu ed, Routine [facility] chlorthalid one (HYGROTON) tablet 25 mg 10-28 22:00: 00 10-28 22:48 :00 No 25mg 25 mg, Oral, ONCE, 1 dose, Wed10/28/20 at 1700, Routine [facility] apixaban (ELIQUIS) tablet 5 mg 10-28 17:00: 00 11-05 11:42 :47 No 5mg 5 mg, Oral, BID, First dose on Wed10/28/20 at 1200, Until Discontinu ed, Routine [facility] diltiazem (CARDIZEM) tablet 60 mg 10-28 17:00: 00 10-30 12:14 :18 No 60mg 60 mg, Oral, Q6H, First dose (after last modificati on) on Wed10/28/20 at 1200, Until Discontinu ed, Routine [facility] foLIC acid (FOLATE) tablet 1 mg 10-28 14:00: 00 11-05 11:42 :47 No 1mg 1 mg, Oral, DAILY, First dose (after last modificati on) on Wed10/28/20 at 0900, Until Discontinu ed, Routine [facility] aspirin chewable tablet 81 mg 10-28 14:00: 00 11-05 11:42 :47 No 81mg 81 mg, Oral, DAILY, First dose (after last modificati on) on Wed10/28/20 at 0900, Until Discontinu ed, Routine [facility] thiamine (VITAMIN B1) tablet 100 mg 10-28 14:00: 00 10-29 14:50 :39 No 100mg 100 mg, Oral, DAILY, First dose (after last modificati on) on Wed10/28/20 at 0900, Until Discontinu ed, Routine [facility] atorvastati n (LIPITOR) tablet 80 mg 10-28 02:00: 00 11-05 11:42 :47 No 80mg 80 mg, Oral, QHS, First dose (after last modificati on) on Wed10/27/20 at 2100, Until Discontinu ed, Routine [facility] carvediloL (COREG) tablet 25 mg 10-28 01:00: 00 Yes 25mg 25 mg, Oral, Q12H, First dose (after last modificati on) on Tiline 10/27/20 at 2000, Until Discontinu ed, Routine [facility] NaCl 0.45% (1/2NS) IV infusion 1,000 mL 10-27 22:00: 00 10-28 12:24 :48 No 1000mL at 125 mL/hr, 1,000 mL, IV Infusion, CONTINUOUS , Starting 10/27/20 at 1715, Until 10/28/20 at 0724, SAÚL [facility] diltiazem (CARDIZEM) tablet 30 mg 10-27 17:00: 00 10-28 12:26 :09 No 30mg 30 mg, Oral, Q6H, First dose on Tiline 10/27/20 at 1200, Until Discontinu ed, Routine [facility] D5W IV infusion 1,000 mL 10-27 11:45: 00 10-28 12:24 :48 No 1000mL at 150 mL/hr, IV Infusion, CONTINUOUS , Starting Tiline 10/27/20 at 0645, Until 10/28/20 at 0724, Routine [facility] thiamine (VITAMIN B1) tablet 100 mg 10-26 14:00: 00 10-27 14:34 :23 No 100mg 100 mg, Enteral, DAILY, First dose (after last modificati on) on [facility] 10/26/20 at 0900, Until Discontinu ed, Routine [facility] foLIC acid (FOLATE) tablet 1 mg 10-26 14:00: 00 10-27 14:34 :23 No 1mg 1 mg, Enteral, DAILY, First dose (after last modificati on) on 10/26/20 at 0900, Until Discontinu ed, Routine [facility] aspirin chewable tablet 81 mg 10-26 14:00: 00 10-27 14:34 :23 No 81mg 81 mg, Enteral, DAILY, First dose (after last modificati on) on Wed10/26/20 at 0900, Until Discontinu ed, Routine [facility] amLODIPine (NORVASC) tablet 10 mg 10-26 14:00: 00 10-27 14:12 :20 No 10mg 10 mg, Enteral, DAILY, First dose (after last modificati on) on Wed10/26/20 at 0900, Until Discontinu ed, Routine [facility] lactated ringers IV infusion 1,000 mL 10-26 12:45: 00 10-27 11:34 :58 No 1000mL at 100 mL/hr, 1,000 mL, IV Infusion, CONTINUOUS , Starting Wed10/26/20 at 0745, Until Wed10/27/20 at 0634, Routine [facility] sodium bicarbonate 150 mEq in D5W 1,000 mL IV Solution 10-26 02:15: 00 10-26 11:40 :16 No IV Infusion, CONTINUOUS , Starting Wed10/25/20 at 2115, Until Wed10/26/20 at 0640, 1,000 mL, at 100 mL/hr [facility] atorvastati n (LIPITOR) tablet 80 mg 10-26 02:00: 00 10-27 14:34 :23 No 80mg 80 mg, Enteral, QHS, First dose (after last modificati on) on Wed10/25/20 at 2100, Until Discontinu ed, Routine [facility] carvediloL (COREG) tablet 25 mg 10-25 22:00: 00 10-27 11:53 :09 No 25mg 25 mg, Oral, BID MEALS, First dose on Wed10/25/20 at 1700, Until Discontinu ed, Routine [facility] sodium bicarbonate 150 mEq in D5W 1,000 mL IV Solution 10-25 20:00: 00 10-26 02:07 :46 No IV Infusion, CONTINUOUS , Starting Wed10/25/20 at 1500, Until Wed10/25/20 at 2107, 1,000 mL, at 150 mL/hr [facility] heparin 25,000 Units/250 mL (Premixed Bag) in [...] Rang e, Dosing and Testing: &nbs p;FOR [place], [facility], AND [facility] ONLY &nbs p; - aPTT [...] ADJUST INITIAL BOLUS OR INITIAL INFUSION RATE.
[facility] metoprolol (LOPRESSOR) injection 5 mg 10-25 19:00: 00 10-25 17:56 :00 No 5mg 5 mg, IV Push, ONCE, 1 dose, Wed10/25/20 at 1400, Routine [facility] NaCl 0.9% (NS) injection 10 mL 10-25 18:54: 32 Yes 10mL 10 mL, Slow IV Push, PRN, Starting Wed10/25/20 at 1354, Until Discontinu ed, Routine, line paul gonzales [facility] lidocaine 1% (PF) (XYLOCAINE) injection 5 mL 10-25 18:54: 32 Yes 5mL 5 mL, Subcutaneo us, PRN, Starting Wed10/25/20 at 1354, Until Discontinu ed, Routine, Local anesthesia [facility] heparin (1,000 unit/mL, 10 mL vial) for Rebolusing 10-25 18:53: 54 10-28 16:35 :01 No 3000U FOR REBOLUSING , Starting Wed10/25/20 at 1353, Until Wed10/28/20 at 1135, Routine
Dosing based on aPTT testing parameters (refer to continuous heparin drip order).
[facility] metoprolol (LOPRESSOR) injection 5 mg 10-25 17:48: 00 10-26 04:32 :00 No 5mg 5 mg, IV Push, PRN, 2 doses, Starting Wed10/25/20 at 1248, Until Wed10/25/20 at 2332, Routine, As directed by physician verbally [facility] NaCl 0.9% (NS) bolus infusion 500 mL 10-25 17:30: 00 10-25 17:23 :00 No 500mL at 999 mL/hr, 500 mL, IV Piggyback, ONCE, 1 dose, Wed10/25/20 at 1230, STAT [facility] amLODIPine (NORVASC) tablet 5 mg 10-25 17:30: 00 10-25 17:24 :00 No 5mg 5 mg, Oral, ONCE, 1 dose, Wed10/25/20 at 1230, Routine [facility] dexamethaso ne (DECADRON PHOSPHATE) 6 mg in NaCl 0.9% (NS) 50 mL piggyback 10-25 17:00: 00 10-30 13:39 :54 No 6mg 6 mg, IV Piggyback, QNOON, First dose on Wed10/25/20 at 1200, Until Discontinu ed, 50 mL [facility] Saline Bubble Study 10-25 15:00: 00 Yes [id number] 6mL 6 mL, Injection, SEE-INSTRU CTIONS, 2 doses, Starting Wed10/25/20 at 1000, Until Discontinu ed, Routine [facility] enoxaparin (LOVENOX) injection 30 mg 10-25 14:00: 00 10-25 19:01 :45 No 30mg 30 mg, Subcutaneo us, DAILY, First dose (after last modificati on) on Wed10/25/20 at 0900, Until Discontinu ed, Routine [facility] amLODIPine (NORVASC) tablet 5 mg 10-25 14:00: 00 10-25 16:16 :43 No 5mg 5 mg, Oral, DAILY, First dose on Wed10/25/20 at 0900, Until Discontinu ed, Routine [facility] thiamine (VITAMIN B1) tablet 100 mg 10-25 14:00: 00 10-25 20:13 :07 No 100mg 100 mg, Oral, DAILY, First dose on Wed10/25/20 at 0900, Until Discontinu ed, Routine [facility] carvediloL (COREG) tablet 12.5 mg 10-24 22:00: 00 10-25 19:51 :30 No 12.5mg 12.5 mg, Oral, BID MEALS, First dose (after last modificati on) on Wed10/24/20 at 1700, Until Discontinu ed, Routine [facility] enoxaparin (LOVENOX) injection 30 mg 10-24 14:00: 00 10-24 15:21 :44 No 30mg 30 mg, Subcutaneo us, DAILY, First dose (after last modificati on) on Wed10/24/20 at 0900, Until Discontinu ed, Routine [facility] NaCl 0.9% (NS) IV infusion 1,000 mL 10-24 13:45: 00 10-24 17:53 :52 No 1000mL at 150 mL/hr, IV Infusion, CONTINUOUS , Starting Wed10/24/20 at 0845, Until Wed10/24/20 at 1253, Routine [facility] atorvastati n (LIPITOR) tablet 80 mg 10-24 02:00: 00 10-25 20:13 :07 No 80mg 80 mg, Oral, QHS, First dose (after last modificati on) on Wed10/23/20 at 2100, Until Discontinu ed, Routine [facility] albuterol (VENTOLIN) inhaler 1 Puff 10-23 21:29: 55 Yes 1{puff} 1 Puff, Inhalation , Q4HPRN, Starting Wed10/23/20 at 1629, Until Discontinu ed, Routine, Wheezing, Shortness of Breath
Is this order for a patient with suspected or confirmed COVID-19 infection? Yes [facility] NaCl 0.9% (NS) bolus infusion 2,000 mL 10-23 17:15: 00 10-23 16:45 :00 No 2000mL at 150 mL/hr, 2,000 mL, IV Piggyback, ONCE, 1 dose, Wed10/23/20 at 1215, STAT [facility] thiamine (VITAMIN B1) 500 mg in NaCl 0.9% (NS) piggyback 10-23 01:00: 00 10-23 16:45 :00 No 500mg IV Piggyback, Q12H, 2 doses, First dose on Wed10/22/20 at 2000, Last dose on Wed10/23/20 at 0800, 50 mL [facility] NaCl 0.9% (NS) bolus infusion 500 mL 10-22 15:30: 00 10-22 17:50 :00 No 500mL at 75 mL/hr, 500 mL, IV Piggyback, ONCE, 1 dose, Wed10/22/20 at 1030, Routine [facility] azithromyci n (ZITHROMAX) tablet 250 mg 10-22 02:30: 00 10-25 02:23 :00 No 250mg 250 mg, Oral, Q24H, 4 doses, First dose on Wed10/21/20 at 2130, Last dose on Wed10/24/20 at 2130, SAÚL
Re ason for Anti-Infec tive: Empiric Therapy for Suspected Infection< br>Empiric Therapy Site: Respirator y
Durat ion of therapy: 72 hours [facility] melatonin (MELATIN) tablet 3 mg 10-22 02:00: 00 11-03 17:40 :22 No 3mg 3 mg, Oral, QHS, First dose on Wed10/21/20 at 2100, Until Discontinu ed, Routine [facility] albuterol (VENTOLIN) inhaler 2 Puff 10-21 23:00: 00 11-06 13:04 :44 No 2{puff} 2 Puff, Inhalation , Q6H, First dose (after last modificati on) on Wed10/21/20 at 1800, Until Discontinu ed, Routine
Is this order for a patient with suspected or confirmed COVID-19 infection? Yes [facility] carvediloL (COREG) tablet 6.25 mg 10-21 22:00: 00 10-24 18:24 :35 No 6.25mg 6.25 mg, Oral, BID MEALS, First dose on Wed10/21/20 at 1700, Until Discontinu ed, Routine [facility] foLIC acid (FOLATE) tablet 1 mg 10-21 14:00: 00 10-25 20:13 :07 No 1mg 1 mg, Oral, DAILY, First dose on Wed10/21/20 at 0900, Until Discontinu ed, Routine [facility] aspirin chewable tablet 81 mg 10-21 14:00: 00 10-25 20:13 :07 No 81mg 81 mg, Oral, DAILY, First dose on Wed10/21/20 at 0900, Until Discontinu ed, Routine [facility] enoxaparin (LOVENOX) injection 40 mg 10-21 14:00: 00 10-24 12:40 :40 No 40mg 40 mg, Subcutaneo us, DAILY, First dose on Wed10/21/20 at 0900, Until Discontinu ed, Routine [facility] thiamine (VITAMIN B1) tablet 100 mg 10-21 14:00: 00 10-22 14:25 :06 No 100mg 100 mg, Oral, DAILY, First dose on Wed10/21/20 at 0900, Until Discontinu ed, Routine [facility] NaCl 0.9% (NS) bolus infusion 1,000 mL 10-21 13:30: 00 10-21 13:24 :00 No 1000mL at 125 mL/hr, 1,000 mL, IV Piggyback, ONCE, 1 dose, Wed10/21/20 at 0830, Routine [facility] famotidine (PEPCID AC) tablet 20 mg 10-21 13:00: 00 11-02 14:09 :56 No 20mg 20 mg, Oral, BID, First dose on Wed10/21/20 at 0800, Until Discontinu ed, Routine [facility] atorvastati n (LIPITOR) tablet 20 mg 10-21 05:15: 00 10-23 12:07 :21 No 20mg 20 mg, Oral, QHS, First dose on Wed10/21/20 at 0015, Until Discontinu ed, Routine [facility] oxazepam (SERAX) capsule 15 mg 10-21 05:13: 30 10-30 14:20 :24 No 15mg 15 mg, Oral, Q4HPRN, Starting Wed10/21/20 at 0013, Until Wed10/30/20 at 0920, Routine, Only while awake for DBP equal to or greater than 100, HR equal to or greater than 100. [facility] ipratropium (ATROVENT HFA) inhaler 1 Puff 10-21 05:00: 00 Yes 1{puff} 1 Puff, Inhalation , Q6H, First dose on Wed10/21/20 at 0000, Until Discontinu ed, Routine
Is this order for a patient with suspected or confirmed COVID-19 infection? Yes [facility] albuterol (VENTOLIN) inhaler 2 Puff 10-21 05:00: 00 10-21 20:45 :46 No 2{puff} 2 Puff, Inhalation , Q4H, First dose on 10/21/20 at 0000, Until Discontinu ed, Routine
Is this order for a patient with suspected or confirmed COVID-19 infection? Yes [facility] NaCl 0.9% (NS) bolus infusion 500 mL 10-21 04:15: 00 10-21 06:00 :00 No 500mL at 999 mL/hr, 500 mL, IV Piggyback, ONCE, 1 dose, 10/20/20 at 2315, STAT [facility] azithromyci n (ZITHROMAX) tablet 500 mg 10-21 02:45: 00 10-21 03:32 :00 No 500mg 500 mg, Oral, ONCE, 1 dose, 10/20/20 at 2145, SAÚL
Re ason for Anti-Infec tive: Empiric Therapy for Suspected Infection< br>Empiric Therapy Site: Respirator y
Durat ion of therapy: 72 hours [facility] acetaminoph en (TYLENOL) tablet 650 mg 10-21 02:22: 07 Yes 650mg 650 mg, Oral, Q6HPRN, Starting 10/20/20 at 2122, Until Discontinu ed, Routine, Pain (scale 1-3) [facility] vancomycin 1500 mg in NS 500 mL IV Piggyback RTU 1,500 mg 10-20 23:00: 00 10-21 00:48 :00 No 15mg/kg 1,500 mg (rounded from 1,531.5 mg = 15 mg/kg ?102.1 kg), IV Piggyback, ONCE, 1 dose, 10/20/20 at 1800
Re ason for Anti-Infec tive: Empiric Therapy for Suspected Infection< br>Empiric Therapy Site: Respirator y
Durat ion of therapy: 72 hours [facility] piperacilli n-tazobacta m (ZOSYN) 3.375 g in NaCl 0.9% (NS) 100 mL MINI-BAG 10-20 23:00: 00 10-20 22:42 :00 No 3.375g 3.375 g, IV Piggyback, ONCE, 1 dose, Tiline 10/20/20 at 1800, 100 mL
Reas on for Anti-Infec tive: Empiric Therapy for Suspected Infection< br>Empiric Therapy Site: Respirator y
Durat ion of therapy: 72 hours [facility] acetaminoph en (TYLENOL) tablet 650 mg 10-20 22:30: 00 10-20 21:23 :00 No 650mg 650 mg, Oral, ONCE, 1 dose, Tiline 10/20/20 at 1730, SAÚL [facility] aspirin chewable tablet 324 mg 10-20 22:30: 00 10-20 21:22 :00 No 324mg 324 mg, Oral, ONCE, 1 dose, Tiline 10/20/20 at 1730, Routine [facility] iohexol (OMNIPAQUE 350 BULK-75 mL) injection 100 mL 10-20 21:30: 00 10-20 21:16 :00 No [id number] 100mL 100 mL, Intravenou s, ONCE, 1 dose, Tiline 10/20/20 at 1630, Routine [facility] aspirin 81 mg tablet,zoey yed release Take 1 tablet every day by oral route. aspirin 81 mg tablet,zoey yed release Take 1 tablet every day by oral route. No 1 Q1D aspirin 81 mg tablet,del ayed release Take 1 tablet every day by oral route. [facility] diltiazem ER 180 mg capsule,24 hr,extended release Take 1 capsule every day by oral route. diltiazem ER 180 mg capsule,24 hr,extended release Take 1 capsule every day by oral route. No 1capsul e(s) Q1D diltiazem ER 180 mg capsule,24 hr,extende d release Take 1 capsule every day by oral route. [facility] Vital Signs Vital Name Observation Time Observation Value Comments [facility] Systolic blood pressure 2023-06-30 14:53:00 159 mm[Hg] [facility] Diastolic blood pressure 2023-06-30 14:53:00 75 mm[Hg] [facility] Heart rate 2023-06-30 14:53:00 58 /min [facility] Oxygen saturation in Arterial blood by Pulse oximetry 2023-06-30 14:53:00 98 /min [facility] Respiratory rate 2023-06-30 14:52:00 18 /min [facility] Body height 2023-06-30 14:52:00 182.9 cm [facility] Body weight 2023-06-30 14:52:00 119.069 kg [facility] BMI 2023-06-30 14:52:00 35.60 kg/m2 [facility] Systolic blood pressure 2023-01-27 19:45:00 162 mm[Hg] [facility] Diastolic blood pressure 2023-01-27 19:45:00 89 mm[Hg] [facility] Heart rate 2023-01-27 19:45:00 62 /min [facility] Respiratory rate 2023-01-27 19:45:00 22 /min [facility] Oxygen saturation in Arterial blood by Pulse oximetry 2023-01-27 19:45:00 100 /min [facility] Body temperature 2023-01-27 16:04:00 37.22 Lucy [facility] Body weight 2023-01-27 16:04:00 118.389 kg [facility] BMI 2023-01-27 16:04:00 35.40 kg/m2 [facility] BP Diastolic 2020-11-11 00:00:00 70 mm[Hg] [facility] Height 2020-11-11 00:00:00 72 [in_i] [facility] BMI (Body Mass Index) 2020-11-11 00:00:00 30.5 kg/m2 [facility] BP Systolic 2020-11-11 00:00:00 134 mm[Hg] [facility] Body Weight 2020-11-11 00:00:00 3600 [oz_av] [facility] Heart rate 2020-11-08 17:59:00 61 /min [facility] Respiratory rate 2020-11-08 17:59:00 16 /min [facility] Oxygen saturation in Arterial blood by Pulse oximetry 2020-11-08 17:59:00 98 /min [facility] Systolic blood pressure 2020-11-08 16:29:00 150 mm[Hg] [facility] Diastolic blood pressure 2020-11-08 16:29:00 66 mm[Hg] [facility] Body temperature 2020-11-08 16:29:00 36.5 Lucy [facility] Body weight 2020-10-21 18:00:00 102.1 kg [facility] BMI 2020-10-21 18:00:00 30.53 kg/m2 [facility] Body height 2020-10-21 06:07:00 182.9 cm [facility] Temperature Oral (F) 2024-03-17 00:18:20 98.2 F [facility] Systolic (mm Hg) 2024-03-16 23:00:00 [facility] Diastolic (mm Hg) 2024-03-16 23:00:00 [facility] Temperature Oral (F) 2024-03-16 16:19:30 98.4 F [facility] Height 2024-03-13 18:21:00 6 [ft_i] [facility] Weight 2024-03-13 18:21:00 [facility] BMI Calculated 2024-03-13 18:21:00 [facility] Heart Rate 2024-03-13 11:26:00 [facility] Procedures Procedure Date / Time Performed Performing Clinician Source EXTERNAL PROVIDER - [facility] 2023-07-13 06:01:00 Doctor Unassigned, [place] EXTERNAL PROVIDER - [facility] 2023-07-02 06:01:00 Doctor Unassigned, [place] [facility] AUTHORIZATION TO RELEASE PHI TO [facility] 2023-06-30 06:01:00 Doctor Unassigned, [place] [facility] REFERRAL- REQUEST/RESPONSE 2023-06-24 06:01:00 Doctor Unassigned, [place] [facility] HB ECG ROUTINE & RHYTHM STRIP 2023-01-27 17:56:07 Glen Reynolds [facility] BASIC METABOLIC PANEL (NA, K , CL, CO2, GLUCOSE, BUN, CREATININE, CA) 2023-01-27 17:39:00 Glen Reynolds [facility] CBC WITH DIFF 2023-01-27 17:39:00 Glen Reynolds [facility] NOTICE OF PRIVACY PRACTICES 2023-01-27 15:49:12 Doctor Unassigned, [place] [facility] CONSENT/REFUSAL FOR DIAGNOSI S AND TREATMENT 2023-01-27 15:47:19 Doctor Unassigned, [place] [facility] AUTHORIZATION FOR RELEASE OF PHI 2021-03-12 05:01:00 Doctor Unassigned, [place] [facility] MAGNESIUM 2020-11-08 09:02:00 Mohinder Churchill [facility] BASIC METABOLIC PANEL (NA, K , CL, CO2, GLUCOSE, BUN, CREATININE, CA) 2020-11-08 09:02:00 Mohinder Churchill [facility] POCT GLUCOSE (AUTOMATED) 2020-11-07 17:09:00 Johan Suarez [facility] POCT GLUCOSE (AUTOMATED) 2020-11-07 11:05:00 Johan Suarez [facility] PHOSPHORUS 2020-11-07 10:26:00 Mohinder Churchill [facility] BASIC METABOLIC PANEL (NA, K , CL, CO2, GLUCOSE, BUN, CREATININE, CA) 2020-11-07 10:26:00 Johan Dixon [facility] POCT GLUCOSE (AUTOMATED) 2020-11-07 05:06:00 Johan Suarez [facility] PHOSPHORUS 2020-11-06 09:13:00 Mohinder Churchill [facility] MAGNESIUM 2020-11-06 09:13:00 Emily Amanda [facility] BASIC METABOLIC PANEL (NA, K , CL, CO2, GLUCOSE, BUN, CREATININE, CA) 2020-11-06 09:13:00 Emily Amanda [facility] XR KUB 2020-11-05 12:55:00 Emily Amanda [facility] PHOSPHORUS 2020-11-05 10:31:00 Mohinder Churchill [facility] MAGNESIUM 2020-11-05 10:31:00 Emily Amanda [facility] BASIC METABOLIC PANEL (NA, K , CL, CO2, GLUCOSE, BUN, CREATININE, CA) 2020-11-05 10:31:00 Emily Amanda [facility] BASIC METABOLIC PANEL (NA, K , CL, CO2, GLUCOSE, BUN, CREATININE, CA) 2020-11-04 17:57:00 Johan Dixon [facility] XR KUB 2020-11-04 11:02:00 Emily Amanda [facility] PHOSPHORUS 2020-11-03 08:57:00 Mohinder Churchill [facility] MAGNESIUM 2020-11-03 08:57:00 Mohinder Churchill [facility] BASIC METABOLIC PANEL (NA, K , CL, CO2, GLUCOSE, BUN, CREATININE, CA) 2020-11-03 08:57:00 Mohinder Churchill [facility] XR KUB 2020-11-02 16:45:00 Mohinder Churchill [facility] MAGNESIUM 2020-11-02 15:42:00 Mohinder Churchill [facility] BASIC METABOLIC PANEL (NA, K , CL, CO2, GLUCOSE, BUN, CREATININE, CA) 2020-11-02 15:42:00 Mohinder Churchill [facility] CBC WITH DIFF 2020-11-02 15:42:00 Mohinder Churchill [facility] XR KUB 2020-11-01 10:43:36 Emily Amanda [facility] PHOSPHORUS 2020-11-01 07:32:00 Emily Amanda [facility] MAGNESIUM 2020-11-01 07:32:00 Emily Amanda [facility] BASIC METABOLIC PANEL (NA, K , CL, CO2, GLUCOSE, BUN, CREATININE, CA) 2020-11-01 07:32:00 Mohinder Churchill [facility] XR KUB 2020-10-31 11:41:00 Mohinder Churchill [facility] MAGNESIUM 2020-10-31 09:26:00 [facility]OLIC PANEL (NA, K , CL, CO2, GLUCOSE, BUN, CREATININE, CA) 2020-10-31 09:26:00 Mohinder Churchill [facility] CT ABDOMEN PELVIS WO CONTRAST 2020-10-30 21:53:45 Emily Amanda [facility] XR KUB 2020-10-30 15:19:23 Mohinder Churchill [facility] XR KUB 2020-10-30 11:10:00 Awilda Manning [facility] PHOSPHORUS 2020-10-30 09:39:00 Mohinder Churchill [facility] BASIC METABOLIC PANEL (NA, K , CL, CO2, GLUCOSE, BUN, CREATININE, CA) 2020-10-30 09:39:00 [facility] XR KUB 2020-10-30 07:25:00 [facility] XR KUB 2020-10-30 02:57:41 [facility] XR ABDOMEN 1 VW 2020-10-30 00:01:27 [facility] XR KUB 2020-10-29 10:55:00 Emily Amanda [facility] PHOSPHORUS 2020-10-29 09:55:00 Mohinder Churchill [facility] MAGNESIUM 2020-10-29 09:55:00 Emily Amanda [facility] BASIC METABOLIC PANEL (NA, K , CL, CO2, GLUCOSE, BUN, CREATININE, CA) 2020-10-29 09:55:00 Emily Amanda [facility] XR KUB 2020-10-28 19:20:00 Emily Amanda [facility] PHOSPHORUS 2020-10-28 09:32:00 Mohinder Churchill [facility] BASIC METABOLIC PANEL (NA, K , CL, CO2, GLUCOSE, BUN, CREATININE, CA) 2020-10-28 04:48:00 Emily Amanda [facility] ACTIVATED PARTIAL THRMPLAS JESUS 2020-10-28 04:48:00 Mohinder Churchill [facility] BASIC METABOLIC PANEL (NA, K , CL, CO2, GLUCOSE, BUN, CREATININE, CA) 2020-10-27 21:31:00 Emily Amanda [facility] ACTIVATED PARTIAL THRMPLAS JESUS 2020-10-27 21:31:00 Mohinder Churchill [facility] US ABDOMEN LIMITED 2020-10-27 18:28:31 Mohinder Churchill [facility] XR KUB 2020-10-27 14:45:00 Eimly Amanda [facility] PHOSPHORUS 2020-10-27 08:45:00 Mohinder Churchill [facility] MAGNESIUM 2020-10-27 08:45:00 Mohinder Churchill [facility] BASIC METABOLIC PANEL (NA, K , CL, CO2, GLUCOSE, BUN, CREATININE, CA) 2020-10-27 08:45:00 Mohinder Churchill [facility] ACTIVATED PARTIAL THRMPLAS JESUS 2020-10-27 08:45:00 Mohinder Churchill [facility] EXTRA TUBE LAV 2020-10-27 08:45:00 Josue Christine [facility] BASIC METABOLIC PANEL (NA, K , CL, CO2, GLUCOSE, BUN, CREATININE, CA) 2020-10-26 20:23:00 Mohinder Churchill [facility] ACTIVATED PARTIAL THRMPLAS JESUS 2020-10-26 20:23:00 Mohinder Churchill [facility] XR KUB 2020-10-26 10:38:00 Emily Amanda [facility] PHOSPHORUS 2020-10-26 09:11:00 Mohinder Churchill [facility] MAGNESIUM 2020-10-26 09:11:00 Mohinder Churchill [facility] BASIC METABOLIC PANEL (NA, K , CL, CO2, GLUCOSE, BUN, CREATININE, CA) 2020-10-26 09:11:00 Mohinder Churchill [facility] CBC WITH DIFF 2020-10-26 09:11:00 Mohinder Churchill [facility] ACTIVATED PARTIAL THRMPLAS JESUS 2020-10-26 09:11:00 Mohinder Churchill [facility] CT HEAD WO CONTRAST 2020-10-26 02:57:00 Alexx Allred [facility] ACTIVATED PARTIAL THRMPLAS JESUS 2020-10-26 02:16:00 Mohinder Churchill [facility] BASIC METABOLIC PANEL (NA, K , CL, CO2, GLUCOSE, BUN, CREATININE, CA) 2020-10-25 23:29:00 Pinky Montalvo [facility] CLOSTRIDIUM DIFFICILE TOXIN 2020-10-25 21:34:00 Emily Amanda [facility] MAGNESIUM 2020-10-25 19:20:00 Mohinder Churchill [facility] TROPONIN I 2020-10-25 19:20:00 Mohinder Churchill [facility] BASIC METABOLIC PANEL (NA, K , CL, CO2, GLUCOSE, BUN, CREATININE, CA) 2020-10-25 19:20:00 Mohinder Churchill [facility] PROTHROMBIN TIME / INR 2020-10-25 19:20:00 Mohinder Churchill [facility] D-DIMER 2020-10-25 19:20:00 Mohinder Churchill [facility] ACTIVATED PARTIAL THRMPLAS JESUS 2020-10-25 19:20:00 Mohinder Churchill [facility] AC PANEL 20 + LACTIC ACID 2020-10-25 19:17:00 Mohinder Churchill [facility] XR ABDOMEN 1 VW 2020-10-25 19:03:25 Mohinder Churchill [facility] HB ECG ROUTINE & RHYTHM STRIP 2020-10-25 17:59:59 Mohinder Churchill [facility] TRANSTHORACIC ECHO (TTE) COMPLETE 2020-10-25 14:58:00 Mohinder Churchill [facility] AC PANEL 20 + LACTIC ACID 2020-10-25 14:36:00 Emily Amanda [facility] XR KUB 2020-10-25 13:47:35 Mohinder Churchill [facility] BLOOD CULTURE SCREEN 2020-10-25 13:39:00 Emily Amanda [facility] BLOOD CULTURE SCREEN 2020-10-25 13:30:00 Emily Amanda [facility] PHOSPHORUS 2020-10-25 10:50:00 Mohinder Churchill [facility] MAGNESIUM 2020-10-25 10:50:00 Mohinder Churchill [facility] BASIC METABOLIC PANEL (NA, K , CL, CO2, GLUCOSE, BUN, CREATININE, CA) 2020-10-25 10:50:00 Mohinder Churchill [facility] POCT GLUCOSE (AUTOMATED) 2020-10-25 02:05:[address] [facility] RPR (QUANTITATIVE) 2020-10-24 21:46:00 [facility] PROCALCITONIN 2020-10-24 21:46:00 [facility] PO[facility]SE (AUTOMATED) 2020-10-24 20:47:[address] [facility] POCT GLUCOSE (AUTOMATED) 2020-10-24 16:48:[address] [facility] D-DIMER 2020-10-24 14:03:00 [facility] POCT GLUCOSE (AUTOMATED) 2020-10-24 13:29:00 Johan Suarez [facility] PHOSPHORUS 2020-10-24 10:31:00 Mohinder Churchill [facility] MAGNESIUM 2020-10-24 10:31:00 Emily Amanda [facility] HEPATIC FUNCTION PANEL (22671) (ALB,T.PRO,BILI T,BU/BC,ALT,AST,ALK PHOS) 2020-10-24 10:31:00 [facility] BASIC METABOLIC PANEL (NA, K , CL, CO2, GLUCOSE, BUN, CREATININE, CA) 2020-10-24 10:31:00 Emily Amanda [facility] POCT GLUCOSE (AUTOMATED) 2020-10-24 03:01:[address] [facility] POCT GLUCOSE (AUTOMATED) 2020-10-23 22:16:[address] [facility] POCT GLUCOSE (AUTOMATED) 2020-10-23 16:23:[address] [facility] URINALYSIS 2020-10-23 13:42:00 [facility] CREAT[facility]INE, URINE RANDOM 2020-10-23 13:42:00 Churchill, [facility] SODIUM, URINE RANDOM 2020-10-23 13:42:00 Mohinder Churchill [facility] POCT GLUCOSE (AUTOMATED) 2020-10-23 13:35:00 Johan Suarez [facility] PHOSPHORUS 2020-10-23 10:12:00 Mohinder Churchill [facility] MAGNESIUM 2020-10-23 10:12:00 Mohinder Churchill [facility] BASIC METABOLIC PANEL (NA, K , CL, CO2, GLUCOSE, BUN, CREATININE, CA) 2020-10-23 10:12:00 Mohinder Churchill [facility] CBC WITH DIFF 2020-10-23 10:12:00 Mohinder Churchill [facility] VITAMIN D, 25-OH 2020-10-23 10:12:00 Yung Perea [facility] POCT GLUCOSE (AUTOMATED) 2020-10-23 01:33:00 Johan Suarez [facility] MR BRAIN WO CONTRAST 2020-10-22 23:55:22 Edwin Verma [facility] POCT GLUCOSE (AUTOMATED) 2020-10-22 22:07:00 Johan Suarez [facility] POCT GLUCOSE (AUTOMATED) 2020-10-22 17:27:00 Johan Suarez [facility] POCT GLUCOSE (AUTOMATED) 2020-10-22 13:27:00 Johan Suarez [facility] POCT GLUCOSE (AUTOMATED) 2020-10-22 01:25:00 Johan Saurez [facility] POCT GLUCOSE (AUTOMATED) 2020-10-21 21:48:00 Johan Suarez [facility] HB ECG ROUTINE & RHYTHM STRIP 2020-10-21 18:55:20 Mohinder Churchill [facility] POCT GLUCOSE (AUTOMATED) 2020-10-21 17:49:00 Johan Suarez [facility] POCT GLUCOSE (AUTOMATED) 2020-10-21 13:13:00 Johan Suarez [facility] MAGNESIUM 2020-10-21 08:16:00 Keyshawn De La Vega [facility] TROPONIN I 2020-10-21 08:16:00 Churchill, Mohinder [facility] BASIC METABOLIC PANEL (NA, K , CL, CO2, GLUCOSE, BUN, CREATININE, CA) 2020-10-21 08:16:00 Arabella Sinha [facility] GLYCOSYLATED HEMOGLOBIN (A1C) 2020-10-21 08:16:00 Arabella Sinha [facility] [facility] ANT[facility] TST 2020-10-21 06:41:00 Arabella Sinha [facility] CREATININE, URINE RANDOM 2020-10-21 06:41:00 Arabella Sinha [facility] UREA NITROGEN, URINE RANDOM 2020-10-21 06:41:00 Arabella Sinha [facility] SODIUM, URINE RANDOM 2020-10-21 06:41:00 Arabella Sinha [facility] PNEUMOCOCCAL ANTIGEN 2020-10-21 06:40:00 Arabella Sinha [facility] US RETROPERITONEAL LIMITED 2020-10-21 04:27:53 Arabella Sinha [facility] PHOSPHORUS 2020-10-21 02:55:00 Arabella Sinha [facility] LACTATE DEHYDROGENASE 2020-10-21 02:55:00 Arabella Sinha [facility] FERRITIN SERUM 2020-10-21 02:55:00 Arabella Sinha [facility] VITAMIN B12, LEVEL 2020-10-21 02:55:00 Arabella Sinha [facility] C-REACTIVE PROTEIN 2020-10-21 02:55:00 Arabella Sinha [facility] TROPONIN I 2020-10-21 02:55:00 Arabella Sinha [facility] LIPID PANEL (04254)(TOTAL CHOLESTEROL, TRIGLYCERIDES, HDL) 2020-10-21 02:55:00 Arabella Sinha [facility] INTACT PTH CALCIUM GROUP 2020-10-21 02:55:00 Arabella Sinha [facility] ETHANOL 2020-10-21 02:55:00 Arabella Sinha [facility] D-DIMER 2020-10-21 02:55:00 Arabella Sinha [facility] PROCALCITONIN 2020-10-21 02:55:00 Chirageren Monroechristian [facility] HIV 1/2 AG-AB WITH REFLEX 2020-10-21 02:55:00 Arabella FerchristianKeyshawn [facility] LACTIC ACID WHOLE BLOOD 2020-10-21 02:54:00 Arabella Sinha [facility] ELECTROENCEPHALOGRAM 2020-10-21 00:00:00 Arabella Sinha [facility] URINALYSIS 2020-10-20 22:11:00 Breana Rabago [facility] BLOOD CULTURE SCREEN 2020-10-20 22:10:00 Breana Rabago [facility] BLOOD CULTURE SCREEN 2020-10-20 21:40:00 Breana Rabago [facility] CT ANGIOGRAM HEAD 2020-10-20 21:26:51 Breana Rabago [facility] CT ANGIOGRAM NECK 2020-10-20 21:26:51 Breana Rabago [facility] CT HEAD WO CONTRAST 2020-10-20 21:09:59 Breana Rabago [facility] XR CHEST 1 VW 2020-10-20 20:51:03 Breana Rabago [facility] COVID-19 (ID NOW RAPID TESTING) 2020-10-20 20:30:00 Breana Rabago [facility] LAB ONLY COVID INTERPRETATION 2020-10-20 20:30:00 Breana Rabago [facility] LIPASE 2020-10-20 20:27:00 Breana Rabago [facility] MAGNESIUM 2020-10-20 20:27:00 Breana Rabago [facility] TROPONIN I 2020-10-20 20:27:00 Breana Rabago [facility] THYROID STIMULATING HORMONE 2020-10-20 20:27:00 Breana Rabago [facility] HEPATIC FUNCTION PANEL (91232) (ALB,T.PRO,BILI T,BU/BC,ALT,AST,ALK PHOS) 2020-10-20 20:27:00 Breana Rabago [facility] BASIC METABOLIC PANEL (NA, K , CL, CO2, GLUCOSE, BUN, CREATININE, CA) 2020-10-20 20:27:00 Breana Rabago [facility] CBC WITH DIFF 2020-10-20 20:27:00 Breana Rabago [facility] PROTHROMBIN TIME / INR 2020-10-20 20:27:00 Breana Rabago [facility] ACTIVATED PARTIAL THRMPLAS JESUS 2020-10-20 20:27:00 Breana Rabago [facility] N-TERMINAL PRO-BNP 2020-10-20 20:27:00 Breana Rabago [facility] LACTIC ACID WHOLE BLOOD 2020-10-20 20:26:00 Breana Rabago [facility] HB ECG ROUTINE & RHYTHM STRIP 2020-10-20 20:23:07 Breana Rabago [facility] POCT GLUCOSE (AUTOMATED) 2020-10-20 20:22:00 Breana Rabago [facility] NOTICE OF PRIVACY PRACTICES 2020-10-20 20:16:40 Doctor Unassigned, [place] [facility] CONSENT/REFUSAL FOR DIAGNOSI S AND TREATMENT 2020-10-20 20:12:50 Doctor Unassigned, [place] [facility] HOSPITAL ADMISSION 2020-10-20 05:01:00 Doctor Unassigned, [place] [facility] Encounters Start Date/Time End Date/Time Encounter Type Admission Type Attending [facility] Care Facility Care Department Encounter ID Source 2024-04-11 09:30:00 2024-04-11 09:30:00 Outpatient DIMITRIS PERALES [facility] [id number] [facility] 2024-03-13 07:18:00 2024-03-16 20:35:00 Inpatient DAMIEN SANTAMARIA [facility] [id number] [address] [place] [address] 2024-03-13 06:26:00 2024-03-16 20:35:00 Outpatient Damien Howard [facility] [id number] 2023-08-31 10:00:00 2023-08-31 10:00:00 Outpatient ROCIO CHANDLER [facility] [id number] [facility] 2023-07-29 08:30:00 2023-07-29 08:30:00 Outpatient R ROCIO SHAY [facility] [id number] [facility] 2023-07-15 00:00:00 2023-07-15 00:00:00 Telephone Rocio Shay [facility] 1.2.840.114 350.1.13.10 4.2.7.2.686 [id number] [facility] 2023-07-13 00:00:00 2023-07-13 00:00:00 Orders Only Doctor Unassigned, [place] 1.2.840.114 350.1.13.10 4.2.7.2.686 [id number] [id number] [facility] 2023-07-02 00:00:00 2023-07-02 00:00:00 Telephone Rocio Shay [facility] 1.2.840.114 350.1.13.10 4.2.7.2.686 [id number] [facility] 2023-07-02 00:00:00 2023-07-02 00:00:00 Orders Only Doctor Unassigned, Cor[place] [facility] 1.2.840.114 350.1.13.10 4.2.7.2.686 [id number] [facility] 2023-06-30 09:00:00 2023-06-30 11:24:26 Outpatient R ROCIO SHAY [facility] [id number] [facility] 2023-06-30 09:00:00 2023-06-30 11:24:26 Office Visit Rocio Shay [facility] 1.2.840.114 350.1.13.10 4.2.7.2.686 [id number] [facility] 2023-06-30 00:00:00 2023-06-30 00:00:00 Orders Only Doctor Unassigned, Cor[place] [facility] 1.2.840.114 350.1.13.10 4.2.7.2.686 [id number] [facility] 2023-06-24 00:00:00 2023-06-24 00:00:00 Orders Only Doctor Unassigned, Cor[place] [facility] 1.2.840.114 350.1.13.10 4.2.7.2.686 [id number] [id number] [facility] 2023-01-27 11:05:00 2023-01-27 15:00:00 Emergency X [facility] ERT [id number] [facility] 2023-01-27 11:05:00 2023-01-27 15:00:00 Emergency [place] 1.2.840.114 350.1.13.10 4.2.7.2.686 [id number] [facility] 2023-01-27 00:00:00 2023-01-27 00:00:00 Orders Only Doctor Unassigned, [place] [facility] 1.2.840.114 350.1.13.10 4.2.7.2.686 [id number] [facility] 2021-03-12 00:00:00 2021-03-12 00:00:00 Orders Only Doctor Unassigned, [place] [facility] 1.2.840.114 350.1.13.10 4.2.7.2.686 [id number] [id number] [facility] 2020-11-19 11:54:00 2020-11-19 11:54:00 Outpatient [facility] PRIV [id number] [facility] 2020-11-14 01:14:00 2020-11-14 01:14:00 Outpatient [facility] PRIV PRIV [id number] [facility] 2020-11-13 09:32:00 2020-11-13 09:32:00 Outpatient [facility] PRIV PRIV [id number] [facility] 2020-11-11 11:21:00 2020-11-11 11:21:00 Outpatient [facility] PRIV PRIV [id number] [facility] 2020-11-11 00:00:00 2020-11-11 00:00:00 Chester Alonzo PA: [address], [address], [place] [address] , Ph. [facility] - [facility] [id number] [facility] 2020-11-11 00:00:00 2020-11-11 00:00:00 Transition of Care Eula Mac [place] ..840.114 350.1.13.10 4.2.7.2.686 [id number] [facility] 2020-11-11 00:00:00 2020-11-11 00:00:00 Outpatient Chester Alonzo PRIV PRIV [id number] 2020-11-10 05:58:00 2020-11-10 05:58:00 Outpatient [facility] PRIV PRIV [id number] [facility] 2020-10-20 15:10:00 2020-11-08 16:30:00 Inpatient [facility]ILA [facility] [id number] [facility] 2020-10-20 15:10:00 2020-11-08 16:30:00 Hospital Encounter Breana Rabago, Johan Verma, Edwin [facility], Nereyda Christine, Josue Pedro, Lyudmila Arora, Jayme CernaBoubacar [facility] [id number] 350.1.13.10 4.2.7.2.686 [id number] [facility] 2020-11-08 11:09:00 2020-11-08 11:09:00 Outpatient [facility] PRIV PRIV [id number] [facility] 2020-11-06 04:37:00 2020-11-06 04:37:00 Outpatient [facility] PRIV PRIV [id number] [facility] Results Test Description Test Time Test Comments Results Result Co mments Source [facility]2024-09-05 16:18:00* Test Item Value Reference Range Interpretation Comme nts Glucose POC (test code = Glucose POC) 116 70-99 [facility]-08 05:18:00* Test Item Value Reference Range Interpretation Comme nts WBC (test code = WBC) 7.53 3.92-10.07 [facility]ta[facility]TKDNWWORV4759-72-20 12:13:00* Test Item Value Reference Range Interpretation Comme nts Magnesium Lvl (test code = M agnesium Lvl) 1.92 1.60-2.60 [facility]2024-09-02 21:36:00* Test Item Value Reference Range Interpretation Comme nts Gluc POC Comment 2 (test cod e = Gluc POC Comment 2) Sent to lab [place] 93391024-09-02 18:20:41* Test Item Value Reference Range Interpretation [...] at 03/13/2024 13:45 by Brandy Uribe RES. [facility]CyexpntDFUPIFSOI3892-17-40 13:11:00* Test Item Value Reference Range Interpretation Comme nts ALANINE AMINOTRANSFERASE (te st code = ALANINE AMINOTRANSFERASE) 26 7-40 [facility] CenterYqfktomHPMGZHOPM7380-44-21 12:49:00* Test Item Value Reference Range Interpretation Comme nts Chol (test code = Chol) 175 [facility] CenterGwqjuwdJKDSHDEJKQ8478-54-64 12:49:00* Test Item Value Reference Range Interpretation Comme nts PT (test code = PT) 16.1 s 12.0-14.7 [facility] AND GVBXO1182-43-96 12:43:00* Test Item Value Reference Range Interpretation Comme nts UA Glucose (test code = UA Glucose) 50mg/dl [facility] CenterYkvyzvtOWDKKJOTB8537-60-24 12:43:00* Test Item Value Reference Range Interpretation Comme nts U Amph Scr (test code = U Amph Scr) Negative (03/13/24 7:43 AM) [place] 93391024-09-02 12:31:52* Test Item Value Reference Range Interpretation [...] the distal internal carotid artery {NASCET criteria}.) [facility] LfdlijqAQZDLL0526-01-83 12:24:49* Test Item Value Reference Range Interpretation [...] bony abnormality is identified.IMPRESSION: No acute abnormality. [facility]FatxfwdNLSLZQ6995-56-30 11:48:45* Test Item Value Reference Range Interpretation Comme [facility] RADRPT (test code = RADRPT) EXAM: CT [...] via telephone at 03/13/2024 7:01 by Laurel Wilson, WENDY. [facility]villeCifbrgyZRPNFDLXD2811-15-40 11:31:00* Test Item Value Reference Range Interpretation Comme nts Total CK (test code = Total CK) 389 62-302 [facility] HVG1972-36-55 14:35:05The bowel contains gas from one end to the other but is not distended orabnormal.. Preliminary Report Dictated by Resident: Brissa Mccarthy I reviewed the study and have major modifications. Sohail Mandel MD., have reviewed this study and agree with theabove report.EXAM: XR KUB HISTORY: 69 years-old Male presenting with abdominal distension COMPARISON: Multiple abdomen radiographs with themost recent date11/04/2020 TECHNIQUE: Frontal views of the [...] imaging and likely represent a chronic process. [facility], Radiant Results Inft User - 11/08/2020 9:36 AM CDTEXAM: XR KUBHISTORY: 69 years-old Male presenting with abdominal distension COMPARISON: Multiple abdomen radiographs with the most recent date11/04/2020TECHNIQUE: Frontal views ofthe abdomen and pelvis were obtained.FINDINGS:The enteric feeding tube terminates at the gastric body. Small bowel loopscontain air but are not distended or obstructed. No abnormal calcificationsor radiopaque stones identified within the field of view. Corticated bonefragments adjacent to the rightfemur lesser trochanter are unchangedcompared to the prior imaging and likely represent a chronic process.IMPRESSIONThe bowel contains gas from one end to the other but is not distended orabnormal..Preliminary Report Dictated by Resident: Brissa Martinez reviewed the study and have major modifications.Sohail Mandel MD., have reviewed this study and agree with theabove report.[facility] (NA, K, CL, CO2, GLUCOSE, BUN, CREATININE, CA)2020-11-08 09:48:12* Test Item Value Reference Range Interpretation Comme nts NA (test code = 1105221215) 133 mmol/L 135-145 L K (test code = 5459518581) 4.4 mmol/L 3.5-5.0 CL (test code = 0074655345) 102 mmol/L 98-108 CO2 TOTAL (test code = 1518571201) 23 mmol/L 23-31 AGAP (test code = 0926578385) 2-16 BUN (test code = 1772406712) 36 mg/dL 7-23 H GLUCOSE (test code = 6407721211) 119 mg/dL 70-110 H CREATININE (test code = 6498621936) 1.79 mg/dL 0.60-1.25 H CALCIUM (test code = 2691379032) 8.4 mg/dL 8.6-10.6 L eGFR (test code = 0178291833) mL/min/1.73m2 SUDHAKAR (test code = SUDHAKAR) Association [...] imaging tests). Lab Interpretation (test code = 72137-8) Abnormal [facility]20[facility]-30 09:43:44* Test Item Value Reference Range Interpretation Comme nts MAGNESIUM (test code = 7034107631) 2.0 mg/dL 1.7-2.4 Lab Interpretation (test cod e = 72963-7) Normal [facility])2020-11-07 17:33:56* Test Item Value Reference Range Interpretation Comme nts POCT GLU (test code = 5158549285) 148 mg/dL 70-110 H Lab Interpretation (test cod e = 08064-0) Abnormal [facility] [id number] 15:09:34Interval mild improvement of the air distended [...] distended small bowel loops. No acute osseousabnormality. [facility], Radiant Results Inft User - 11/07/2020 10:10 [...] reviewed this study and agree with theabove report.[facility] QPP8290-90-78 14:53:53 Findings suggestive of persistent adynamic ileus. [...] Surgical clipprojects over the left lower quadrant. [facility], Radiant Results Inft User - 11/07/2020 9:55 [...] reviewed this study and agree with theabove report.[facility] VKZEBHQVUY5664-26-97 11:31:50* Test Item Value Reference Range Interpretation Comme nts PHOSPHORUS (test code = 7990127567) 3.6 mg/dL 2.5-5.0 Lab Interpretation (test cod e = 70349-4) Normal [facility] (NA, K, CL, CO2, GLUCOSE, BUN, CREATININE, CA)2020-11-07 11:31:50* Test Item Value Reference Range Interpretation Comme nts NA (test code = 9728128528) 133 mmol/L 135-145 L K (test code = 3460309400) 5.1 mmol/L 3.5-5.0 H CL (test code = 1612167040) 99 mmol/L 98-108 CO2 TOTAL (test code = 2496840966) 26 mmol/L 23-31 AGAP (test code = 3282390127) 2-16 BUN (test code = 4230258265) 33 mg/dL 7-23 H GLUCOSE (test code = 1143045388) 116 mg/dL 70-110 H CREATININE (test code = 2472127887) 1.62 mg/dL 0.60-1.25 H CALCIUM (test code = 9227647684) 8.5 mg/dL 8.6-10.6 L eGFR (test code = 1808739378) mL/min/1.73m2 SUDHAKAR (test code = SUDHAKAR) Association [...] imaging tests). Lab Interpretation (test code = 49959-1) Abnormal [facility] GLUCOSE (AUTOMATED)2020-11-07 11:06:50* Test Item Value Reference Range Interpretation Comme [facility] POCT GLU (test code = 5622962576) 121 mg/dL 70-110 H Lab Interpretation (test cod e = 28398-7) Abnormal [facility] GLUCOSE (AUTOMATED)2020-11-07 05:06:49* Test Item Value Reference Range Interpretation Comme [facility] POCT GLU (test code = 8131664458) 131 mg/dL 70-110 H Lab Interpretation (test cod e = 93138-1) Abnormal [facility] METABOLIC PANEL (NA, K, CL, CO2, GLUCOSE, BUN, CREATININE, CA)2020-11-06 09:58:59* Test Item Value Reference Range Interpretation Comme [facility] NA (test code = 8645357983) 132 mmol/L 135-145 L K (test code = 9618975449) 4.7 mmol/L 3.5-5.0 CL (test code = 5760913875) 100 mmol/L 98-108 CO2 TOTAL (test code = 1595996169) 26 mmol/L 23-31 AGAP (test code = 7147797212) 2-16 BUN (test code = 3045781275) 32 mg/dL 7-23 H GLUCOSE (test code = 3408681736) 119 mg/dL 70-110 H CREATININE (test code = 6612863449) 1.30 mg/dL 0.60-1.25 H CALCIUM (test code = 0763925746) 8.3 mg/dL 8.6-10.6 L eGFR (test code = 9648939818) mL/min/1.73m2 SUDHAKAR (test code = SUDHAKAR) Association [...] imaging tests). Lab Interpretation (test code = 53497-2) Abnormal [facility]2021-04-28 09:56:27* Test Item Value Reference Range Interpretation Comme nts PHOSPHORUS (test code = 8497236325) 3.8 mg/dL 2.5-5.0 Lab Interpretation (test cod e = 64171-3) Normal [facility]2021-04-28 09:56:27* Test Item Value Reference Range Interpretation Comme nts MAGNESIUM (test code = 5797178872) 2.2 mg/dL 1.7-2.4 Lab Interpretation (test cod e = 42172-9) Normal [facility] (NA, K, CL, CO2, GLUCOSE, BUN, CREATININE, CA)2020-11-05 12:21:23* Test Item Value Reference Range Interpretation Comme nts NA (test code = 4437659014) 133 mmol/L 135-145 L K (test code = 0462564185) 3.6 mmol/L 3.5-5.0 CL (test code = 5682940080) 99 mmol/L 98-108 CO2 TOTAL (test code = 4198513584) 25 mmol/L 23-31 AGAP (test code = 4480413885) 2-16 BUN (test code = 5151348255) 33 mg/dL 7-23 H GLUCOSE (test code = 9536522896) 119 mg/dL 70-110 H CREATININE (test code = 0981785233) 1.34 mg/dL 0.60-1.25 H CALCIUM (test code = 6743145311) 8.1 mg/dL 8.6-10.6 L eGFR (test code = 3198672728) mL/min/1.73m2 SUDHAKAR (test code = SUDHAKAR) Association [...] imaging tests). Lab Interpretation (test code = 23453-5) Abnormal [facility]2021-04-27 12:21:23* Test Item Value Reference Range Interpretation Comme nts MAGNESIUM (test code = 5839639883) 1.9 mg/dL 1.7-2.4 Lab Interpretation (test cod e = 83908-8) Normal [facility]2021-04-27 11:14:14* Test Item Value Reference Range Interpretation Comme nts PHOSPHORUS (test code = 8323906798) 3.6 mg/dL 2.5-5.0 Lab Interpretation (test cod e = 94526-5) Normal [facility] (NA, K, CL, CO2, GLUCOSE, BUN, CREATININE, CA)2020-11-04 18:25:44* Test Item Value Reference Range Interpretation Comme nts NA (test code = 5409914122) 132 mmol/L 135-145 L K (test code = 2335148695) 3.9 mmol/L 3.5-5.0 CL (test code = 2418003813) 98 mmol/L 98-108 CO2 TOTAL (test code = 8887579883) 28 mmol/L 23-31 AGAP (test code = 9257679641) 2-16 BUN (test code = 6358111820) 35 mg/dL 7-23 H GLUCOSE (test code = 4515139593) 122 mg/dL 70-110 H CREATININE (test code = 5544823099) 1.37 mg/dL 0.60-1.25 H CALCIUM (test code = 4271111100) 8.5 mg/dL 8.6-10.6 L eGFR (test code = 1702979844) mL/min/1.73m2 SUDHAKAR (test code = SUDHAKAR) Association [...] imaging tests). Lab Interpretation (test code = 84681-8) Abnormal [facility] [id number] 15:45:29FINDINGS / IMPRESSION: An enteric feeding tube [...] recent earlier today TECHNIQUE: Single abdominal view. [facility], Radiant Results Inft User - [...] reviewed this study and agree with theabove report.[facility] EBH2063-08-43 15:36:27Findings consistent with generalized adynamic ileus. Preliminary [...] reviewed this study and agree with theabove report.[facility] (NA, K, CL, CO2, GLUCOSE, BUN, CREATININE, CA)2020-11-03 09:56:41* Test Item Value Reference Range Interpretation Comme nts NA (test code = 1065811476) 130 mmol/L 135-145 L K (test code = 2971212298) 4.1 mmol/L 3.5-5.0 Slight hemolysis CL (test code = 7758853776) 101 mmol/L 98-108 CO2 TOTAL (test code = 5317048570) 24 mmol/L 23-31 AGAP (test code = 6662908325) 2-16 BUN (test code = 8127365696) 35 mg/dL 7-23 H Slight hemolysis GLUCOSE (test code = 0113320746) 125 mg/dL 70-110 H CREATININE (test code = 8311101664) 1.30 mg/dL 0.60-1.25 H CALCIUM (test code = 8696145637) 8.0 mg/dL 8.6-10.6 L eGFR (test code = 4777410657) mL/min/1.73m2 SUDHAKAR (test code = SUDHAKAR) Association [...] imaging tests). Lab Interpretation (test code = 85052-5) Abnormal [facility]2021-04-25 09:56:41* Test Item Value Reference Range Interpretation Comme nts MAGNESIUM (test code = 0215653723) 1.8 mg/dL 1.7-2.4 Slight hemolysis Lab Interpretation (test code = 89897-9) Normal [facility]2021-04-25 09:56:41* Test Item Value Reference Range Interpretation Comme nts PHOSPHORUS (test code = 3258701967) 3.8 mg/dL 2.5-5.0 Slight hemolysis Lab Interpretation (test code = 69211-1) Normal [facility] (NA, K, CL, CO2, GLUCOSE, BUN, CREATININE, CA)2020-11-02 16:07:29* Test Item Value Reference Range Interpretation Comme nts NA (test code = 9596951052) 131 mmol/L 135-145 L K (test code = 3386227037) 3.8 mmol/L 3.5-5.0 CL (test code = 2408555580) 97 mmol/L 98-108 L CO2 TOTAL (test code = 0281276620) 28 mmol/L 23-31 AGAP (test code = 5228948470) 2-16 BUN (test code = 3273758828) 33 mg/dL 7-23 H GLUCOSE (test code = 6869941093) 140 mg/dL 70-110 H CREATININE (test code = 8234690836) 1.29 mg/dL 0.60-1.25 H CALCIUM (test code = 2212030250) 8.4 mg/dL 8.6-10.6 L eGFR (test code = 7266401262) mL/min/1.73m2 SUDHAKAR (test code = SUDHAKAR) Association [...] imaging tests). Lab Interpretation (test code = 50192-3) Abnormal [facility]2021-[facility]-24 16:07:29* Test Item Value Reference Range Interpretation Comme nts MAGNESIUM (test code = 8571081699) 1.7 mg/dL 1.7-2.4 Lab Interpretation (test cod e = 79197-7) Normal [facility] WITH SHMS1707-45-21 15:54:31* Test Item Value Reference Range Interpretation [...] 34.0 g/dL 31.2-35.0 RDW-SD (test code = 36112-3) 40.8 fL 38.5-51.6 RDW-CV (test code = 788-0) 11.9 % 12.1-15.4 L PLT (test code = 777-3) See_Comment [Automated message] The system which generated this result transmitted reference range: 150 - 328 10*3/?L. The reference range was not used to interpret this result as normal/abnormal. MPV (test code = 73456-0) 10.0 fL 9.8-13.0 NRBC/100 WBC (test code = 0530277796) See_Comment [Automated message] The system which generated this result transmitted reference range: 0.0 - 10.0 /100 WBCs. The reference range was not used to interpret this result as normal/abnormal. NRBC x10^3 (test code = 8400829437) <0.01 See_Comment [Automated message] The system which generated this result transmitted reference range: 10*3/?L. The reference range was not used to interpret this result as normal/abnormal. GRAN MAT (NEUT) % (test code = 770-8) 80.1 % IMM GRAN % (test code = 8498359832) 0.60 % LYMPH % (test code = 736-9) 9.7 % MONO % (test code = 5905-5) 8.4 % EOS % (test code = 713-8) 1.1 % BASO % (test code = 706-2) 0.1 % GRAN MAT x10^3(ANC) (test code = 7781358845) 10.53 10*3/uL 1.99-6.95 H IMM GRAN x10^3 (test code = 3686854089) 0.08 10*3/uL 0.00-0.06 H LYMPH x10^3 (test code = 731-0) 1.27 10*3/uL 1.09-3.23 MONO x10^3 (test code = 742-7) 1.11 10*3/uL 0.36-1.02 H EOS x10^3 (test code = 711-2) 0.14 10*3/uL 0.06-0.53 BASO x10^3 (test code = 704-7) <0.03 0.01-0.09 Lab Interpretation (test code = 49855-9) [id number] 19:06:23No significant interval change in the multiple [...] reviewed this study and agree with theabove report.[facility] [id number] 13:46:05* Test Item Value Reference Range Interpretation Comme nts MAGNESIUM (test code = 0224888872) 1.7 mg/dL 1.7-2.4 Lab Interpretation (test cod e = 37454-2) [facility] [facility] 13:46:05* Test Item Value Reference Range Interpretation Comme nts PHOSPHORUS (test code = 1793253635) 3.4 mg/dL 2.5-5.0 Lab Interpretation (test cod e = 56521-9) [facility] (NA, K, CL, CO2, GLUCOSE, BUN, CREATININE, CA)2020-11-01 08:03:01* Test Item Value Reference Range Interpretation Comme nts NA (test code = 6211020915) 137 mmol/L 135-145 K (test code = 9000916143) 3.6 mmol/L 3.5-5.0 CL (test code = 4465977386) 105 mmol/L 98-108 CO2 TOTAL (test code = 1033415808) 27 mmol/L 23-31 AGAP (test code = 6936773703) 2-16 BUN (test code = 4838341836) 37 mg/dL 7-23 H GLUCOSE (test code = 4167617173) 99 mg/dL 70-110 CREATININE (test code = 8289012297) 1.37 mg/dL 0.60-1.25 H CALCIUM (test code = 5267917845) 7.9 mg/dL 8.6-10.6 L eGFR (test code = 4064060735) mL/min/1.73m2 SUDHAKAR (test code = SUDHAKAR) Association [...] imaging tests). Lab Interpretation (test code = 41816-8) Abnormal [facility] HospitalCT [facility]BDOMEN PELVIS WO [id number] 22:24:201. ?Diffuse dilation of the small bowel [...] reviewed this study and agree with theabove report.[facility] HospitalAb[facility] 1 View - To confirm nasogastric [...] reviewed this study and agree with the abovereport.[facility] HospitalXR [id number] 16:57:231. ?Abdominal radiographs over progression of NG [...] small and large bowel consistent throughout theabdomen. [facility], Radiant Results Inft User - [...] reviewed this study and agree with the abovereport.[facility]XR [id number] 16:57:231. ?Abdominal radiographs over progression of NG [...] small and large bowel consistent throughout theabdomen. [facility], Radiant Results Inft User - [...] bowel throughout. Preliminary Report Dictated by Resident: Anajli Sarah MD., have reviewed this study and agree with the abovereport.[facility] BASIC METABOLIC PANEL (NA, K, CL, CO2, GLUCOSE, BUN, CREATININE, CA)2020-10-31 10:14:35* Test Item Value Reference Range Interpretation Comme nts NA (test code = 1188442896) 138 mmol/L 135-145 K (test code = 7319909878) 3.9 mmol/L 3.5-5.0 CL (test code = 5356136100) 105 mmol/L 98-108 CO2 TOTAL (test code = 1382906450) 26 mmol/L 23-31 AGAP (test code = 0898771711) 2-16 BUN (test code = 1712934026) 47 mg/dL 7-23 H GLUCOSE (test code = 9994475109) 101 mg/dL 70-110 CREATININE (test code = 0822380118) 1.60 mg/dL 0.60-1.25 H CALCIUM (test code = 1575634552) 8.4 mg/dL 8.6-10.6 L eGFR (test code = 0324508502) mL/min/1.73m2 SUDHAKAR (test code = SUDHAKAR) Association [...] imaging tests). Lab Interpretation (test code = 36451-6) Abnormal [facility]MAGNESIUM2021-04-22 10:14:35* Test Item Value Reference Range Interpretation Comme nts MAGNESIUM (test code = 2696126362) 2.0 mg/dL 1.7-2.4 Lab Interpretation (test cod e = 94994-1) Normal [facility]XR [id number] 16:16:56EXAM: XR KUB HISTORY: for NGT adjustment [...] loops of large and small bowel throughout theabdomen.[facility] HospitalBLOOD CULTURE [id number] 14:01:33* Test Item Value Reference Range Interpretation Comme nts Blood Culture-Aerobic (test code = 30332-1) No organisms isolated No growth Previous preliminary verified result was Culture In Progress on 10/25/2020 at 1201 CDTPrevious preliminary verified result was No growth at 24 hours on 10/26/2020 at 0901 CDTPrevious preliminary verified result was No growth at 48 hours on 10/27/2020 at 09 CDTPrevious preliminary verified result was No growth at 72 hours on 10/28/2020 at 09 CDT Blood Culture-Anaerobic (test code = 04041-1) No organisms isolated No growth Previous preliminary verified result was Culture In Progress on 10/25/2020 at 1201 CDTPrevious preliminary verified result was No growth at 24 hours on 10/26/2020 at 0901 CDTPrevious preliminary verified result was No growth at 48 hours on 10/27/2020 at 09 CDTPrevious preliminary verified result was No growth at 72 hours on 10/28/[address] [place], [place] [address]T Lab Interpretation (test code = 43632-9) Normal [facility] HospitalBLOOD CULTURE [id number] 14:01:33* Test Item Value Reference Range Interpretation Comme nts Blood Culture-Aerobic (test code = 76779-0) No organisms isolated No growth Previous preliminary verified result was Culture In Progress on 10/25/2020 at 1201 CDTPrevious preliminary verified result was No growth at 24 hours on 10/26/[address] [facility] CDTPrevious preliminary verified result was No growth at 48 hours on 10/27/[address] [facility] CDTPrevious preliminary verified result was No growth at 72 hours on 10/28/[address] [place], [place] [address]T Blood Culture-Anaerobic (test code = 36053-4) No organisms isolated No growth Previous preliminary verified result was Culture In Progress on 10/25/2020 at 1201 CDTPrevious preliminary verified result was No growth at 24 hours on 10/26/[address] [facility] CDTPrevious preliminary verified result was No growth at 48 hours on 10/27/[address] [facility] CDTPrevious preliminary verified result was No growth at 72 hours on 10/28/[address] [facility] CDT Lab Interpretation (test code = 67101-2) Normal [facility] HospitalBAS[facility] MET[facility]OLIC PANEL (NA, K, CL, CO2, GLUCOSE, BUN, CREATININE, CA)2020-10-30 10:44:39* Test Item Value Reference Range Interpretation Comme nts NA (test code = 8321796408) 140 mmol/L 135-145 K (test code = 1762098659) 4.3 mmol/L 3.5-5.0 CL (test code = 6223347233) 109 mmol/L 98-108 H CO2 TOTAL (test code = 2452089150) 26 mmol/L 23-31 AGAP (test code = 8282360139) 2-16 BUN (test code = 0602751131) 53 mg/dL 7-23 H GLUCOSE (test code = 3646618921) 127 mg/dL 70-110 H CREATININE (test code = 2997294008) 1.89 mg/dL 0.60-1.25 H CALCIUM (test code = 7713177985) 8.4 mg/dL 8.6-10.6 L eGFR (test code = 8834438603) mL/min/1.73m2 SUDHAKAR (test code = SUDHAKAR) Association [...] imaging tests). Lab Interpretation (test code = 97741-6) Abnormal [facility]PH[facility]US2021-04-21 10:44:39* Test Item Value Reference Range Interpretation Comme nts PHOSPHORUS (test code = 1584071009) 4.6 mg/dL 2.5-5.0 Lab Interpretation (test cod e = 34625-8) Normal [facility] HospitalRPR (QUANTITATIVE)2020-10-29 21:41:32* Test Item Value Reference Range Interpretation Comme nts RPR (Quantitative) (test cod e = 17846-0) Nonreactive Nonreactive Lab Interpretation (test cod e = 10268-4) Normal [facility]XR [id number] 16:14:27FINDINGS / IMPRESSION: No significant interval change [...] [facility], Radiant Results Inft User - 10/29/2020 11:15 [...] reviewed this study and agree with theabove report.[facility]XR [id number] 15:53:41No significant interval changes in the air distended large and small bowelloops. Adynamic ileus is suspected. Preliminary Report Dictated by Resident: Brissa Mccatrhy I reviewed this study and agree. Sohail [...] reviewed this study and agree with theabove report.[facility]XR [id number] 15:47:33 FINDINGS / IMPRESSION: Interval removal of [...] of the abdomen and pelvis were obtained. [facility], Radiant Results Inft User - [...] reviewed this study and agree with theabove report.[facility] HospitalBASIC METABOLIC PANEL (NA, K, CL, CO2, GLUCOSE, BUN, CREATININE, CA)2020-10-29 10:52:11* Test Item Value Reference Range Interpretation Comme nts NA (test code = 7730047113) 143 mmol/L 135-145 K (test code = 0059274730) 4.5 mmol/L 3.5-5.0 Slight hemolysis CL (test code = 3965929209) 112 mmol/L 98-108 H CO2 TOTAL (test code = 4339686254) 24 mmol/L 23-31 AGAP (test code = 0305186121) 2-16 BUN (test code = 3678568234) 48 mg/dL 7-23 H Slight hemolysis GLUCOSE (test code = 3013306028) 131 mg/dL 70-110 H CREATININE (test code = 0685896248) 1.75 mg/dL 0.60-1.25 H CALCIUM (test code = 9860405803) 8.2 mg/dL 8.6-10.6 L eGFR (test code = 0860190074) mL/min/1.73m2 SUDHAKAR (test code = SUDHAKAR) Association [...] imaging tests). Lab Interpretation (test code = 02209-7) Abnormal [facility] HospitalMAGNESIUM2021-04-20 10:52:11* Test Item Value Reference Range Interpretation Comme nts MAGNESIUM (test code = 9079517145) 2.4 mg/dL 1.7-2.4 Lab Interpretation (test cod e = 26062-6) Normal [facility]PH[facility]US2021-04-20 10:52:11* Test Item Value Reference Range Interpretation Comme nts PHOSPHORUS (test code = 3369124276) 4.4 mg/dL 2.5-5.0 Lab Interpretation (test cod e = 69015-3) Normal [facility] [id number] 19:38:51Findings suggestive of early/partial obstruction or ileus. [...] reviewed this study and agree withthe above report.[facility] ABDOMEN LIMITED 2020-10-28 15:25:43Hypoechoic liver [...] was evaluated withcolor and spectral Doppler imaging. Instruction[employer] Leader images were obtained forthe record. COMPARISON: None [...] of the right kidney are u nremarkable. [facility], Radiant Results Inft User - 10/28/2020 10:26 AM CDTEXAM: US ABDOMEN LIMITEDHISTORY: 69 years-old Male with evaluate for cirrhosis .TECHNIQUE: Limited abdominal ultrasound was performed focused on the liver,biliary system, pancreas and spleen. Main portal vein was evaluated withcolor and spectral Doppler imaging. [employer] images were obtained forthe record.COMPARISON: NoneFINDINGS:Limited exam [...] reviewed this study and agree with the abovereport.[facility] HospitalPHOSPHORUS2021-04-19 10:01:54* Test Item Value Reference Range Interpretation Comme nts PHOSPHORUS (test code = 2390836628) 3.4 mg/dL 2.5-5.0 Slight hemolysis Lab Interpretation (test code = 18762-0) [facility] (NA, K, CL, CO2, GLUCOSE, BUN, CREATININE, CA)2020-10-28 05:12:08* Test Item Value Reference Range Interpretation Comme nts NA (test code = 1264935491) 143 mmol/L 135-145 K (test code = 6351540505) 4.2 mmol/L 3.5-5.0 CL (test code = 9151394880) 112 mmol/L 98-108 H CO2 TOTAL (test code = 2478389015) 25 mmol/L 23-31 AGAP (test code = 9739256401) 2-16 BUN (test code = 6359151275) 51 mg/dL 7-23 H GLUCOSE (test code = 8496620293) 172 mg/dL 70-110 H CREATININE (test code = 9918765050) 1.85 mg/dL 0.60-1.25 H CALCIUM (test code = 3919185550) 7.9 mg/dL 8.6-10.6 L eGFR (test code = 5466370249) mL/min/1.73m2 SUDHAKAR (test code = SUDHAKAR) Association [...] imaging tests). Lab Interpretation (test code = 24451-8) Abnormal [facility] HospitalaPT (for use with Heparin Drip)2020-10-28 05:04:06* Test Item Value Reference Range Interpretation Comme [facility] APTT Patient (test code = 3173-2) See_Comment H [Automated [employer]] The system which generated this result transmitted reference range: 26 - 36 Seconds. The reference range was not used to interpret this result as normal/abnormal. Lab Interpretation (test code = 27342-4) Abnormal [facility] HospitalaPTT (for use with Heparin Drip)2020-10-27 21:59:46* Test Item Value Reference Range Interpretation Comme [facility] APTT Patient (test code = 3173-2) See_Comment H [Automated [employer]] The system which generated this result transmitted reference range: 26 - 36 Seconds. The reference range was not used to interpret this result as normal/abnormal. Lab Interpretation (test code = 90044-4) Abnormal [facility] METABOLIC PANEL (NA, K, CL, CO2, GLUCOSE, BUN, CREATININE, CA)2020-10-27 21:53:48* Test Item Value Reference Range Interpretation Comme nts NA (test code = 8632251513) 143 mmol/L 135-145 K (test code = 2933986293) 4.3 mmol/L 3.5-5.0 CL (test code = 8744449063) 110 mmol/L 98-108 H CO2 TOTAL (test code = 2438206048) 26 mmol/L 23-31 AGAP (test code = 7120802067) 2-16 BUN (test code = 4590415606) 54 mg/dL 7-23 H GLUCOSE (test code = 9662437776) 193 mg/dL 70-110 H CREATININE (test code = 6076603442) 1.89 mg/dL 0.60-1.25 H CALCIUM (test code = 3795749804) 8.0 mg/dL 8.6-10.6 L eGFR (test code = 9715211883) mL/min/1.73m2 SUDHAKAR (test code = SUDHAKAR) Association [...] imaging tests). Lab Interpretation (test code = 44413-0) Abnormal [facility] METABOLIC PANEL (NA, K, CL, CO2, GLUCOSE, BUN, CREATININE, CA)2020-10-27 09:26:43* Test Item Value Reference Range Interpretation Comme nts NA (test code = 4254106948) 147 mmol/L 135-145 H K (test code = 3453762860) 4.1 mmol/L 3.5-5.0 CL (test code = 1523931273) 112 mmol/L 98-108 H CO2 TOTAL (test code = 4120789390) 28 mmol/L 23-31 AGAP (test code = 9493639096) 2-16 BUN (test code = 0364348591) 59 mg/dL 7-23 H GLUCOSE (test code = 1776841266) 148 mg/dL 70-110 H CREATININE (test code = 0442432089) 1.94 mg/dL 0.60-1.25 H CALCIUM (test code = 1098460988) 7.8 mg/dL 8.6-10.6 L eGFR (test code = 5152998851) mL/min/1.73m2 SUDHAKAR (test code = SUDHAKAR) Association [...] imaging tests). Lab Interpretation (test code = 87188-9) Abnormal [facility]MAGNESIUM2021-04-18 09:26:43* Test Item Value Reference Range Interpretation Comme nts MAGNESIUM (test code = 3316714398) 2.9 mg/dL 1.7-2.4 H Lab Interpretation (test cod e = 39260-7) Abnormal [facility]PH[facility]US2021-04-18 09:26:43* Test Item Value Reference Range Interpretation Comme nts PHOSPHORUS (test code = 0195694978) 3.4 mg/dL 2.5-5.0 Lab Interpretation (test cod e = 64274-5) Normal [facility] HospitalaPTT (for use with Heparin Drip)2020-10-27 09:09:02* Test Item Value Reference Range Interpretation Comme nts APTT Patient (test code = 3173-2) See_Comment H [Automated [employer] [employer]] The system which generated this result transmitted reference range: 26 - 36 Seconds. The reference range was not used to interpret this result as normal/abnormal. Lab Interpretation (test code = 79557-4) Abnormal [facility] HospitalaPTT (for use with Heparin Drip)2020-10-26 20:45:20* Test Item Value Reference Range Interpretation Comme nts APTT Patient (test code = 3173-2) See_Comment H [Automated [employer]] The system which generated this result transmitted reference range: 26 - 36 Seconds. The reference range was not used to interpret this result as normal/abnormal. Lab Interpretation (test code = 32865-2) Abnormal [facility] HospitalBASI METABOLIC PANEL (NA, K, CL, CO2, GLUCOSE, BUN, CREATININE, CA)2020-10-26 20:43:18* Test Item Value Reference Range Interpretation Comme nts NA (test code = 5421900380) 144 mmol/L 135-145 K (test code = 2028266133) 4.3 mmol/L 3.5-5.0 CL (test code = 9894171339) 110 mmol/L 98-108 H CO2 TOTAL (test code = 6839276294) 28 mmol/L 23-31 AGAP (test code = 1562208736) 2-16 BUN (test code = 6589961843) 64 mg/dL 7-23 H GLUCOSE (test code = 0342486981) 150 mg/dL 70-110 H CREATININE (test code = 3055746292) 2.12 mg/dL 0.60-1.25 H CALCIUM (test code = 0696866861) 7.6 mg/dL 8.6-10.6 L eGFR (test code = 3926283658) mL/min/1.73m2 SUDHAKAR (test code = SUDHAKAR) Association [...] imaging tests). Lab Interpretation (test code = 61793-8) Abnormal [facility] HospitalCLOSTRIDIUM DIFFICILE [id number] 15:05:11 * Test Item Value Reference Range Interpretation Comme nts Clostridioides (Clostridium) difficile (test code = 69811-1) Negative Negative Lab Interpretation (test cod e = 85953-4) Normal [facility] HospitalCB WITH [id number] 10:18:28* Test Item Value Reference Range Interpretation [...] 32.8 g/dL 31.2-35.0 RDW-SD (test code = 19249-3) 47.6 fL 38.5-51.6 RDW-CV (test code = 788-0) 13.2 % 12.1-15.4 PLT (test code = 777-3) See_Comment H [Automated messa ge] The system which generated this result transmitted reference range: 150 - 328 10*3/?L. The reference range was not used to interpret this result as normal/abnormal. MPV (test code = 68824-8) 10.5 fL 9.8-13.0 NRBC/100 WBC (test code = 1797187825) See_Comment [Automated me ssage] The system which generated this result transmitted reference range: 0.0 - 10.0 /100 WBCs. The reference range was not used to interpret this result as normal/abnormal. NRBC x10^3 (test code = 4902871402) <0.01 See_Comment [Automated messa ge] The system which generated this result transmitted reference range: 10*3/?L. The reference range was not used to interpret this result as normal/abnormal. GRAN MAT (NEUT) % (test code = 770-8) 81.7 % IMM GRAN % (test code = 9360848528) 0.10 % LYMPH % (test code = 736-9) 12.3 % MONO % (test code = 5905-5) 5.6 % EOS % (test code = 713-8) 0.0 % BASO % (test code = 706-2) 0.3 % GRAN MAT x10^3(ANC) (test code = 4708465829) 5.80 10*3/uL 1.99-6.95 IMM GRAN x10^3 (test code = 4141559976) <0.03 0.00-0.06 LYMPH x10^3 (test code = 731-0) 0.87 10*3/uL 1.09-3.23 L MONO x10^3 (test code = 742-7) 0.40 10*3/uL 0.36-1.02 EOS x10^3 (test code = 711-2) <0.03 0.06-0.53 L BASO x10^3 (test code = 704-7) <0.03 0.01-0.09 Lab Interpretation (test code = 27714-9) Abnormal [facility]PH[facility]US2021-04-17 10:10:29* Test Item Value Reference Range Interpretation Comme nts PHOSPHORUS (test code = 8795062516) 4.8 mg/dL 2.5-5.0 Lab Interpretation (test cod e = 33911-4) Normal [facility] HospitalBASI METABOLIC PANEL (NA, K, CL, CO2, GLUCOSE, BUN, CREATININE, CA)2020-10-26 10:10:28* Test Item Value Reference Range Interpretation Comme nts NA (test code = 6972260449) 142 mmol/L 135-145 K (test code = 1093970141) 4.3 mmol/L 3.5-5.0 CL (test code = 1299104361) 109 mmol/L 98-108 H CO2 TOTAL (test code = 7237644382) 24 mmol/L 23-31 AGAP (test code = 1150482144) 2-16 BUN (test code = 5787966915) 70 mg/dL 7-23 H GLUCOSE (test code = 5002142202) 193 mg/dL 70-110 H CREATININE (test code = 4650481717) 2.35 mg/dL 0.60-1.25 H CALCIUM (test code = 5989751378) 7.6 mg/dL 8.6-10.6 L eGFR (test code = 2433716447) mL/min/1.73m2 SUDHAKAR (test code = SUDHAKAR) Association [...] imaging tests). Lab Interpretation (test code = 05772-2) Abnormal [facility]MAG[facility]ESIUM2021-04-17 10:10:28* Test Item Value Reference Range Interpretation Comme nts MAGNESIUM (test code = 9723632584) 3.0 mg/dL 1.7-2.4 H Lab Interpretation (test cod e = 64171-0) Abnormal [facility] HospitalaPTT (for use with Heparin Drip)2020-10-26 10:01:52* Test Item Value Reference Range Interpretation Comme [facility] APTT Patient (test code = 3173-2) See_Comment H [Automated [employer]] The system which generated this result transmitted reference range: 26 - 36 Seconds. The reference range was not used to interpret this result as normal/abnormal. Lab Interpretation (test code = 71610-2) Abnormal [facility] HospitalCT HEAD WO [id number] 03:47:47Subacute 1.4 cm left periatrial white matter [...] cm left periatrial white matter infarct. No hemorrhagictransformation.[facility] HospitalaPTT (for use with Heparin Drip)2020-10-26 02:46:57* Test Item Value Reference Range Interpretation Comme nts APTT Patient (test code = 3173-2) See_Comment H [Automated messa ge] The system which generated this result transmitted reference range: 26 - 36 Seconds. The reference range was not used to interpret this result as normal/abnormal. Lab Interpretation (test code = 97290-5) Abnormal [facility] METABOLIC PANEL (NA, K, CL, CO2, GLUCOSE, BUN, CREATININE, CA)2020-10-26 00:46:56* Test Item Value Reference Range Interpretation Comme [facility] NA (test code = 0320756428) 141 mmol/L 135-145 K (test code = 9312896031) 4.4 mmol/L 3.5-5.0 CL (test code = 8980971577) 111 mmol/L 98-108 H CO2 TOTAL (test code = 0644510593) 18 mmol/L 23-31 L AGAP (test code = 0903677540) 2-16 BUN (test code = 6929287095) 75 mg/dL 7-23 H GLUCOSE (test code = 3736584357) 210 mg/dL 70-110 H CREATININE (test code = 0681914832) 2.77 mg/dL 0.60-1.25 H CALCIUM (test code = 8367307513) 7.7 mg/dL 8.6-10.6 L eGFR (test code = 2197468998) mL/min/1.73m2 SUDHAKAR (test code = SUDHAKAR) Association [...] imaging tests). Lab Interpretation (test code = 14988-0) Abnormal [facility] CULTURE [id number] 23:01:12* Test Item Value Reference Range Interpretation Comme [facility] Blood Culture-Aerobic (test code = 19284-2) No organisms isolated No growth Previous preliminary [...] 1801 CDT Blood Culture-Anaerobic (test code = 11152-6) No organisms isolated No growth Previous preliminary [...] 1801 CDT Lab Interpretation (test code = 03894-8) Normal [facility] CULTURE [id number] 23:01:12* Test Item Value Reference Range Interpretation Comme nts Blood Culture-Aerobic (test code = 56007-2) No organisms isolated No growth Previous preliminary [...] 1801 CDT Blood Culture-Anaerobic (test code = 63913-0) No organisms isolated No growth Previous preliminary [...] 1801 CDT Lab Interpretation (test code = 32508-2) Normal [facility]MAGNESIUM2021-04-16 20:58:42* Test Item Value Reference Range Interpretation Comme nts MAGNESIUM (test code = 4136567130) 3.3 mg/dL 1.7-2.4 H Slight hemolysis Lab Interpretation (test code = 70618-7) Abnormal [facility] METABOLIC PANEL (NA, K, CL, CO2, GLUCOSE, BUN, CREATININE, CA)2020-10-25 20:58:17* Test Item Value Reference Range Interpretation Comme nts NA (test code = 8119560475) 141 mmol/L 135-145 K (test code = 5975840778) 5.0 mmol/L 3.5-5.0 Slight hemolysis CL (test code = 9933777016) 111 mmol/L 98-108 H CO2 TOTAL (test code = 6376980469) 19 mmol/L 23-31 L AGAP (test code = 9650949030) 2-16 BUN (test code = 9032707261) 78 mg/dL 7-23 H Slight hemolysis GLUCOSE (test code = 5281519107) 134 mg/dL 70-110 H CREATININE (test code = 2189965584) 2.81 mg/dL 0.60-1.25 H CALCIUM (test code = 8882508492) 7.8 mg/dL 8.6-10.6 L eGFR (test code = 9342892663) mL/min/1.73m2 SUDHAKAR (test code = SUDHAKAR) Association [...] imaging tests). Lab Interpretation (test code = 59212-8) Abnormal [facility] HospitalAb[facility] 1 View - To confirm nasogastric [...] Note:Left upper and lower quadrants are within [id number]. [facility], Radiant Results Inft User - 10/25/2020 3:38 PM CDTEXAM: XR ABDOMEN 1 VWHISTORY: 69 years-old Male presenting with NGT placement COMPARISON: Abdomen plain film earlier today.TECHNIQUE: Frontal views of the abdomen and pelvis were obtained. Note:Left upper and lower quadrants are within [id number].IMPRESSIONFINDINGS / IMPRESSION:Esophogastric tube tip projects over the stomach fundus. Side-port projectsover the fundus as well. Redemonstration of partially visualized gaseousdistention of small bowel (dilated up to 4.8 cm in left upper quadrant).Preliminary Report Dictated by Resident: Brissa Martinez, Harpreet Santiago MD., have reviewed this study andagree with theabove report. [facility] HospitalTROPONIN [id number] 20:19:08* Test Item Value Reference Range Interpretation Comme nts TROPONIN I (test code = 0996814498) 0.044 ng/mL See_Comment H [Automated message] The [...] biotin. ? Lab Interpretation (test code = 72707-0) Abnormal [facility] HospitalD-[id number] 19:54:04* Test Item Value Reference Range Interpretation Comments D-DIMER (test code = 5073743824) See_Comment H [Automated message] The system which [...] a diagnosis. Lab Interpretation (test code = 10177-0) Abnormal [facility] HospitalPROTHROMBIN TIME / [id number] 19:54:04* Test Item Value Reference Range Interpretation Comme [facility] PROTIME PATIENT (test code = 5964-2) See_Comment H [Automated [employer]] The system which generated this result transmitted reference range: 10.1 - 12.6 Seconds. The reference range was not used to interpret this result as normal/abnormal. INR (test code = 6301-6) Normal INR <1.1; Warfarin Therapeutic range 2.0 to 3.0 or 2.5 to 3.5, depending upon the indications. Lab Interpretation (test code = 51422-0) [facility]normal [facility] THRMPLAS [id number] 19:54:04* Test Item Value Reference Range Interpretation Comme [facility] APTT Patient (test code = 3173-2) See_Comment [Automated [employer] dineout] The system which generated this result transmitted reference range: 26 - 36 Seconds. The reference range was not used to interpret this result as normal/abnormal. Lab Interpretation (test code = 46721-3) Normal [facility] 20 + LACTIC [id number] 19:24:59* Test Item Value Reference Range Interpretation Comme [facility] PH (test code = 2) 7.35-7.45 L PCO2 (test code = 8438229135) See_Comment L [Automated messa ge] The system which generated this result transmitted reference range: 35 - 45 mmHg. The reference range was not used to interpret this result as normal/abnormal. PO2 (test code = 3074224303) See_Comment [Automated messa ge] The system which generated this result transmitted reference range: 80 - 100 mmHg. The reference range was not used to interpret this result as normal/abnormal. HCO3 (test code = 3873034892) See_Comment L [Automated messa ge] The system which generated this result transmitted reference range: 22 - 26 mEq/L. The reference range was not used to interpret this result as normal/abnormal. BE (test code = 2391797219) See_Comment L [Automated messa ge] The system which generated this result transmitted reference range: -3.0 - 3.0 mEq/L. The reference range was not used to interpret this result as normal/abnormal. THB (test code = 4500932239) 14.7 g/dL 13.5-18.0 %O2HB (test code = 8817353731) 95.8 % 94.0-99.0 %COHB ART (test code = 2290251901) 0.4 % 0.0-1.5 %METHB ART (test code = 1680944130) 0.0 % 0.4-1.5 L VOL%O2 ART (test code = 2320989633) 19.9 % 15.0-23.0 NA (test code = 6671953363) 140 mmol/L 135-145 K+ (test code = 2538999181) 4.4 mmol/L 3.5-5.0 AC CA IONZ (test code = 7180693069) 4.70 mg/dL 4.50-5.30 GLUCOSE (test code = 9501302534) 143 mg/dL 70-110 H LACTIC ACID (test code = 6548605155) 1.16 mmol/L 0.50-2.20 Lab Interpretation (test code = 76094-8) [facility]normal [facility] HospitalXR [id number] 18:37:15Air distended multiple small and large bowel [...] reviewed this study and agree with theabove report.[facility] + LACTIC [id number] 14:46:01* Test Item Value Reference Range Interpretation Comme nts PH (test code = 2) 7.35-7.45 L PCO2 (test code = 6619035023) See_Comment [Automated messa ge] The system which generated this result transmitted reference range: 35 - 45 mmHg. The reference range was not used to interpret this result as normal/abnormal. PO2 (test code = 9636992866) See_Comment [Automated messa ge] The system which generated this result transmitted reference range: 80 - 100 mmHg. The reference range was not used to interpret this result as normal/abnormal. HCO3 (test code = 0870519029) See_Comment L [Automated messa ge] The system which generated this result transmitted reference range: 22 - 26 mEq/L. The reference range was not used to interpret this result as normal/abnormal. BE (test code = 6532602669) See_Comment L [Automated messa ge] The system which generated this result transmitted reference range: -3.0 - 3.0 mEq/L. The reference range was not used to interpret this result as normal/abnormal. THB (test code = 0229677494) 15.1 g/dL 13.5-18.0 %O2HB (test code = 2172184520) 95.9 % 94.0-99.0 %COHB ART (test code = 3020305087) 0.1 % 0.0-1.5 %METHB ART (test code = 6252252823) 0.0 % 0.4-1.5 L VOL%O2 ART (test code = 5423917823) 20.4 % 15.0-23.0 NA (test code = 3458662318) 139 mmol/L 135-145 K+ (test code = 9542776099) 4.1 mmol/L 3.5-5.0 AC CA IONZ (test code = 1486717782) 4.90 mg/dL 4.50-5.30 GLUCOSE (test code = 8664511235) 152 mg/dL 70-110 H LACTIC ACID (test code = 7513174591) 1.30 mmol/L 0.50-2.20 Lab Interpretation (test code = 35855-6) Abnormal [facility] METABOLIC PANEL (NA, K, CL, CO2, GLUCOSE, BUN, CREATININE, CA)2020-10-25 12:06:43* Test Item Value Reference Range Interpretation Comme nts NA (test code = 3970568084) 143 mmol/L 135-145 K (test code = 3465037641) 4.6 mmol/L 3.5-5.0 CL (test code = 3965655330) 112 mmol/L 98-108 H CO2 TOTAL (test code = 6277017261) 18 mmol/L 23-31 L AGAP (test code = 2862385690) 2-16 BUN (test code = 4462679061) 78 mg/dL 7-23 H GLUCOSE (test code = 1287598859) 117 mg/dL 70-110 H CREATININE (test code = 6027832987) 2.99 mg/dL 0.60-1.25 H CALCIUM (test code = 9210682905) 7.8 mg/dL 8.6-10.6 L eGFR (test code = 0205355790) mL/min/1.73m2 SUDHAKAR (test code = SUDHAKAR) Association [...] imaging tests). Lab Interpretation (test code = 22312-7) [facility]normal [facility]MAGNESIUM2021-[facility]-16 12:06:43* Test Item Value Reference Range Interpretation Comme nts MAGNESIUM (test code = 9396040730) 3.2 mg/dL 1.7-2.4 H Lab Interpretation (test cod e = 31919-8) Abnormal [facility] HospitalPHOSPHORUS2021-04-16 12:06:43* Test Item Value Reference Range Interpretation Comme nts PHOSPHORUS (test code = 6241603143) 5.8 mg/dL 2.5-5.0 H Lab Interpretation (test cod e = 79875-4) Abnormal [facility]PO[facility] GLU[facility]SE (AUTOMATED)2020-10-25 02:25:17* Test Item Value Reference Range Interpretation Comme nts POCT GLU (test code = 1626239989) 110 mg/dL 70-110 Lab Interpretation (test cod e = 08485-0) Normal [facility] HospitalPROCALCITONIN2021-04-15 23:09:36* Test Item Value Reference Range Interpretation Jovanny pena Procalcitonin (test code = 0492435240) 0.87 ng/mL <0.07 H SUDHAKAR (test code [...] lung abscess/empyema. For further information please refer to:[email or web address] Lab Interpretation (test code = 10958-1) Abnormal [facility] GLUCOSE (AUTOMATED)2020-10-24 21:00:37* Test Item Value Reference Range Interpretation Comme nts POCT GLU (test code = 7573527580) 80 mg/dL 70-110 Lab Interpretation (test cod e = 20903-9) Normal [facility] GLUCOSE (AUTOMATED)2020-10-24 16:49:27* Test Item Value Reference Range Interpretation Comme [facility] POCT GLU (test code = 1443585351) 99 mg/dL 70-110 Lab Interpretation (test cod e = 34311-1) Normal [facility] HospitalD-[id number] 14:21:04* Test Item Value Reference Range Interpretation Comments D-DIMER (test code = 6564325987) See_Comment H [Automated message] The system which [...] a diagnosis. Lab Interpretation (test code = 10915-4) Abnormal [facility] HospitalPHOSPHORUS2021-04-15 14:20:49* Test Item Value Reference Range Interpretation Comme nts PHOSPHORUS (test code = 8205704104) 7.9 mg/dL 2.5-5.0 H Lab Interpretation (test cod e = 13570-7) Abnormal [facility] HospitalHEPATIC FUNCTION PANEL (40564) (ALB,T.PRO,BILI T,BU/BC,ALT,AST,ALK PHOS)2020-10-24 14:20:49* Test Item Value Reference Range Interpretation Comme nts TOTAL BILI (test code = 1843368812) 0.2 mg/dL 0.1-1.1 BILI UNCON (test code = 0513230027) 0.1 mg/dL 0.1-1.1 BILI CONJ (test code = 1118456166) 0.0 mg/dL 0.0-0.3 T PROTEIN (test code = 5108019567) 6.7 g/dL 6.3-8.2 ALBUMIN (test code = 2210730325) 3.3 g/dL 3.5-5.0 L ALK PHOS (test code = 7875194404) 56 U/L 34-122 ALTv (test code = 1742-6) 42 U/L 5-50 AST(SGOT) (test code = 9981815442) 60 U/L 13-40 H Lab Interpretation (test cod e = 37884-5) Abnormal [facility]MAGNESIUM2021-04-15 14:20:49* Test Item Value Reference Range Interpretation Comme nts MAGNESIUM (test code = 7873764696) 3.2 mg/dL 1.7-2.4 H Lab Interpretation (test cod e = 00570-6) Abnormal [facility]POCT [facility]SE (AUTOMATED)2020-10-24 13:31:14* Test Item Value Reference Range Interpretation Comme nts POCT GLU (test code = 7861872060) 87 mg/dL 70-110 Lab Interpretation (test cod e = 15371-1) Normal [facility] HospitalLAB ONLY COVID [id number] 11:17:59COVID DMT InterpretationInterpretation/Recommendations: Molecular NAAT Tests for Active Infection with the SARS-CoV-2 Virus: The current test result is positive for the SARS-CoV-2 virus that causes COVID-19 illness. In bylc-yt-lkvhaelg illness, the patient may be considered no [...] COVID-19 testing the patient has had at [facility], including molecular NAAT testing (more commonly known as PCR testing and Rapid ID Now testing) and antibody testing.It does not take into account any testing that a patient has had outside of the [facility] medical record. [facility] LABORATORY SERVICESCOVID JqyjesrSWDA-UdI-6 Rapid ID NOW (no units) ? ? Date ? Value ? 10/20/2020 ? Positive (A) ? [facility] (NA, K, CL, CO2, GLUCOSE, BUN, CREATININE, CA) 2020-10-24 11:10:26* Test Item Value Reference Range Interpretation Comme nts NA (test code = 0287348804) 143 mmol/L 135-145 K (test code = 4686248852) 4.3 mmol/L 3.5-5.0 CL (test code = 7662504936) 111 mmol/L 98-108 H CO2 TOTAL (test code = 1732077513) 20 mmol/L 23-31 L AGAP (test code = 5499747963) 2-16 BUN (test code = 2361541464) 77 mg/dL 7-23 H GLUCOSE (test code = 2119320223) 108 mg/dL 70-110 CREATININE (test code = 3167765610) 3.45 mg/dL 0.60-1.25 H CALCIUM (test code = 8480013298) 8.0 mg/dL 8.6-10.6 L eGFR (test code = 0242412429) mL/min/1.73m2 SUDHAKAR (test code = SUDHAKAR) Association [...] imaging tests). Lab Interpretation (test code = 61830-8) Abnormal [facility] GLUCOSE (AUTOMATED)2020-10-24 03:03:11* Test Item Value Reference Range Interpretation Comme nts POCT GLU (test code = 1206179557) 139 mg/dL 70-110 H Lab Interpretation (test cod e = 82152-3) Abnormal [facility] GLUCOSE (AUTOMATED)2020-10-23 22:18:53* Test Item Value Reference Range Interpretation Comme nts POCT GLU (test code = 4672943526) 126 mg/dL 70-110 H Lab Interpretation (test cod e = 78089-4) Abnormal [facility] GLUCOSE (AUTOMATED)2020-10-23 16:23:58* Test Item Value Reference Range Interpretation Comme nts POCT GLU (test code = 0475059795) 133 mg/dL 70-110 H Lab Interpretation (test cod e = 04045-8) Abnormal [facility] HospitalURINALYSIS2021-04-14 16:05:15* Test Item Value Reference Range Interpretation Comme nts APPEARANCE (test code = 9440517721) Hazy Clear A COLOR (test code = 2598282200) Lisa Yellow A PH (test code = 4673764898) 4.8-8.0 SP GRAVITY (test code = 9903480500) 1.003-1.030 GLU U QUAL (test code = 7229468191) Normal Normal BLOOD (test code = 7953931939) 1+ Negative A KETONES (test code = 5090957599) Negative Negative PROTEIN (test code = 2887-8) 100 mg/dL Negative A UROBILIN (test code = 3092495279) Normal Normal BILIRUBIN (test code = 2519458259) Negative Negative NITRITE (test code = 0983194805) Negative Negative LEUK CHANDAN (test code = 4982463219) Negative Negative RBC/HPF (test code = 4589325744) See_Comment [Automated messa ge] The system which generated this result transmitted reference range: 0 - 3 HPF. The reference range was not used to interpret this result as normal/abnormal. WBC/HPF (test code = 1454857544) <1 See_Comment [Automated messa ge] The system which generated this result transmitted reference range: 0 - 5 HPF. The reference range was not used to interpret this result as normal/abnormal. BACTERIA (test code = 8275043017) Negative Negative MUCOUS (test code = 6426865767) Slight Negative LPF A Lab Interpretation (test code = 53324-4) Abnormal [facility] HospitalCREATININE, URINE [id number] 15:45:59* Test Item Value Reference Range Interpretation Comme [facility] CREAT U (test code = 6543853698) 246.3 mg/dL [facility] HospitalSODIUM, URINE [id number] 15:45:59* Test Item Value Reference Range Interpretation Comme [facility] NA URINE (test code = 8092704076) 31 mmol/L [facility] HospitalPOCT GLUCOSE (AUTOMATED)2020-10-23 13:36:03* Test Item Value Reference Range Interpretation Comme [facility] POCT GLU (test code = 8363007222) 139 mg/dL 70-110 H Lab Interpretation (test cod e = 25955-0) Abnormal [facility] HospitalVITAMIN D, [id number] 11:36:54* Test Item Value Reference Range Interpretation Comme [facility] VIT D 25OH (test code = 12995-7) 30 ng/mL 25-80 SUDHAKAR (test code = SUDHAKAR) Deficiency: <20 ng/mLInsufficiency : 20-24 ng/mLOptimal: 25-80 ng/mL Lab Interpretation (test code = 62794-3) Normal [facility] HospitalCB WITH [id number] 11:01:57* Test Item Value Reference Range Interpretation Comme [facility] WBC (test code = 6690-2) See_Comment [Automated [...] 32.0 g/dL 31.2-35.0 RDW-SD (test code = 82665-2) 47.3 fL 38.5-51.6 RDW-CV (test code = 788-0) 13.2 % 12.1-15.4 PLT (test code = 777-3) See_Comment H [Automated messa ge] The system which generated this result transmitted reference range: 150 - 328 10*3/?L. The reference range was not used to interpret this result as normal/abnormal. MPV (test code = 93394-7) 10.1 fL 9.8-13.0 NRBC/100 WBC (test code = 7299175209) See_Comment [Automated [employer] ssage] The system which generated this result transmitted reference range: 0.0 - 10.0 /100 WBCs. The reference range was not used to interpret this result as normal/abnormal. NRBC x10^3 (test code = 6242691122) <0.01 See_Comment [Automated messa ge] The system which generated this result transmitted reference range: 10*3/?L. The reference range was not used to interpret this result as normal/abnormal. GRAN MAT (NEUT) % (test code = 770-8) 76.4 % IMM GRAN % (test code = 8554404181) 0.40 % LYMPH % (test code = 736-9) 17.5 % MONO % (test code = 5905-5) 4.5 % EOS % (test code = 713-8) 0.6 % BASO % (test code = 706-2) 0.6 % GRAN MAT x10^3(ANC) (test code = 4584592752) 3.89 10*3/uL 1.99-6.95 IMM GRAN x10^3 (test code = 6651777870) <0.03 0.00-0.06 LYMPH x10^3 (test code = 731-0) 0.89 10*3/uL 1.09-3.23 L MONO x10^3 (test code = 742-7) 0.23 10*3/uL 0.36-1.02 L EOS x10^3 (test code = 711-2) 0.03 10*3/uL 0.06-0.53 L BASO x10^3 (test code = 704-7) 0.03 10*3/uL 0.01-0.09 Lab Interpretation (test code = 99170-4) Abnormal [facility] METABOLIC PANEL (NA, K, CL, CO2, GLUCOSE, BUN, CREATININE, CA)2020-10-23 10:54:10* Test Item Value Reference Range Interpretation Comme nts NA (test code = 7610733223) 140 mmol/L 135-145 K (test code = 7637073130) 4.5 mmol/L 3.5-5.0 CL (test code = 7904265685) 108 mmol/L 98-108 CO2 TOTAL (test code = 9842109410) 20 mmol/L 23-31 L AGAP (test code = 2992284361) 2-16 BUN (test code = 6685540961) 64 mg/dL 7-23 H GLUCOSE (test code = 4366200473) 157 mg/dL 70-110 H CREATININE (test code = 5321275056) 2.93 mg/dL 0.60-1.25 H CALCIUM (test code = 7703789602) 8.1 mg/dL 8.6-10.6 L eGFR (test code = 7089641573) mL/min/1.73m2 SUDHAKAR (test code = SUDHAKAR) Association [...] imaging tests). Lab Interpretation (test code = 88639-1) Abnormal [facility] HospitalMAGNESIUM2021-04-14 10:54:10* Test Item Value Reference Range Interpretation Comme nts MAGNESIUM (test code = 6858321334) 3.2 mg/dL 1.7-2.4 H Lab Interpretation (test cod e = 84385-8) Abnormal [facility] HospitalPHOSPHORUS2021-04-14 10:54:10* Test Item Value Reference Range Interpretation Comme nts PHOSPHORUS (test code = 3061661769) 8.2 mg/dL 2.5-5.0 H Lab Interpretation (test cod e = 37616-0) Abnormal [facility] HospitalPOCT GLUCOSE (AUTOMATED)2020-10-23 01:52:56* Test Item Value Reference Range Interpretation Comme nts POCT GLU (test code = 5764042367) 114 mg/dL 70-110 H Lab Interpretation (test cod e = 73878-4) Abnormal [facility] HospitalMR BRAIN WO [id number] 01:31:13Motion degraded exam. 1.4 cm left periatrial [...] in the bilateralcentrum semiovale and price ra diata.[facility] GLUCOSE (AUTOMATED)2020-10-22 22:08:53* Test Item Value Reference Range Interpretation Comme nts POCT GLU (test code = 2560723033) 126 mg/dL 70-110 H Lab Interpretation (test cod e = 78241-9) Abnormal [facility] GLUCOSE (AUTOMATED)2020-10-22 17:47:42* Test Item Value Reference Range Interpretation Comme nts POCT GLU (test code = 1604198721) 102 mg/dL 70-110 Lab Interpretation (test cod e = 67854-9) Normal [facility] GLUCOSE (AUTOMATED)2020-10-22 13:28:14* Test Item Value Reference Range Interpretation Comme nts POCT GLU (test code = 3571892136) 100 mg/dL 70-110 Lab Interpretation (test cod e = 86323-1) Normal [facility] GLUCOSE (AUTOMATED)2020-10-22 01:45:26* Test Item Value Reference Range Interpretation Comme nts POCT GLU (test code = 8595884328) 123 mg/dL 70-110 H Lab Interpretation (test cod e = 71812-6) Abnormal [facility] GLUCOSE (AUTOMATED)2020-10-21 21:50:40* Test Item Value Reference Range Interpretation Comme nts POCT GLU (test code = 1429188684) 92 mg/dL 70-110 Lab Interpretation (test cod e = 28378-5) Normal [facility] GLUCOSE (AUTOMATED)2020-10-21 17:56:48* Test Item Value Reference Range Interpretation Comme nts POCT GLU (test code = 4487886136) 94 mg/dL 70-110 Lab Interpretation (test cod e = 49961-6) [id number] 15:02:37* Test Item Value Reference Range Interpretation Comme nts TROPONIN I (test code = 8598461305) 0.074 ng/mL See_Comment H [Automated message] The [...] biotin. ? Lab Interpretation (test code = 18459-6) Abnormal [facility] HospitalGLYCOSYLATED HEMOGLOBIN (A1C)2020-10-21 14:56:46* Test Item Value Reference Range Interpretation Comme [facility] HGB A1C (test code = 4548-4) 6.4 % 4.0-6.0 H Lab Interpretation (test cod e = 35840-2) Abnormal [facility] HospitalC-REACTIVE [id number] 14:21:54* Test Item Value Reference Range Interpretation Comme [facility] CRP (test code = 8759109896) 11.2 mg/dL <0.8 H Lab Interpretation (test cod e = 85147-4) Abnormal [facility] HospitalPOCT GLUCOSE (AUTOMATED)2020-10-21 13:33:30* Test Item Value Reference Range Interpretation Comme [facility] POCT GLU (test code = 7231091785) 96 mg/dL 70-110 Lab Interpretation (test cod e = 14595-9) Normal [facility] HospitalUS RETROPERITONEAL [id number] 13:33:10 Bilateral normal-appearing kidneys. Preliminary Report Dictated [...] cm. No perirenal collection or hydronephrosis identified. [facility], Radiant Results Inft User - 10/21/2020 8:34 AM CDTEXAM: US RETROPERITONEAL LIMITEDHISTORY: r/o CKD TECHNIQUE: Multiple longitudinal and transverse grayscaleultrasonographic images were obtained of the kidneys. Images obtained byultrasound technologist.COMPARISON: None.FINDINGS: The kidneys demonstrate normal contour, shape and echogenicity. The rightkidney debwsies11.9 x 4.1 x 3.7 cm and the left kidney measures 12 x 5.9 x5.6 cm. No perirenal collection or hydronephrosis identified.IMPRESSIONBilateral normal-appearing kidneys.Preliminary Report Dictated by Resident: Tien Silvestre MD., have reviewed this study and agree withthe above report. [facility] Metabolic Panel (NA, K, CL, CO2, GLUCOSE, BUN, CREATININE, CA)2020-10-21 08:55:20* Test Item Value Reference Range Interpretation Comme nts NA (test code = 1263308401) 138 mmol/L 135-145 K (test code = 7904271394) 4.6 mmol/L 3.5-5.0 Slight hemolysis CL (test code = 0835114166) 105 mmol/L 98-108 CO2 TOTAL (test code = 2561877474) 24 mmol/L 23-31 AGAP (test code = 2722928855) 2-16 BUN (test code = 6433758941) 40 mg/dL 7-23 H Slight hemolysis GLUCOSE (test code = 3191197759) 106 mg/dL 70-110 CREATININE (test code = 9086739774) 1.59 mg/dL 0.60-1.25 H CALCIUM (test code = 1381234618) 7.5 mg/dL 8.6-10.6 L eGFR (test code = 2739749563) mL/min/1.73m2 SUDHAKAR (test code = SUDHAKAR) Association [...] imaging tests). Lab Interpretation (test code = 53880-2) Abnormal [facility] HospitalMagnesium [id number] 08:55:20* Test Item Value Reference Range Interpretation Comme nts MAGNESIUM (test code = 4230244609) 2.6 mg/dL 1.7-2.4 H Lab Interpretation (test cod e = 80935-9) Abnormal [facility] HospitalCREATININE, URINE [id number] 08:38:57* Test Item Value Reference Range Interpretation Comme nts CREAT U (test code = 7523731675) 159.6 mg/dL [facility] HospitalSODIUM, URINE [id number] 08:38:57* Test Item Value Reference Range Interpretation Comme nts NA URINE (test code = 5287328017) 46 mmol/L [facility] HospitalUREA NITROGEN, URINE [id number] 08:38:57 * Test Item Value Reference Range Interpretation Comme nts UREA N UR (test code = 5743235702) 1385 mg/dL [facility] HospitalLEGIONELLA URINARY ANTIGEN [id number] 07:50:23* Test Item Value Reference Range Interpretation Comme nts Legionella Urinary Antigen (test code = 6780830819) Negative Negative SUDHAKAR (test code = SUDHAKAR) [...] the test. Lab Interpretation (test code = 61450-1) Normal [facility] HospitalPNEUMOCOCCAL [id number] 07:50:03* Test Item Value Reference Range Interpretation Comme nts S. pneumoniae antigen (test code = 4243881032) Negative Negative Lab Interpretation (test cod e = 35118-0) Normal [facility] HospitalHIV 1/2 AG-AB WITH [id number] 06:12:28* Test Item Value Reference Range Interpretation Comme nts HIV Semi-quantitative (test code = 11136-7) Negative Negative SUDHAKAR (test code = SUDHAKAR) Non-reactive for HIV-1 antigen and HIV-1/HIV-2 antibodies. ?No laboratory evidence of HIV infection. ?Repeat in 2-4 weeks if acute HIV infection is suspected. [facility] HospitalVITAMIN B12, [id number] 05:03:12* Test Item Value Reference Range Interpretation Comme nts VIT B12 (test code = 2897414292) >1000 240-930 H SUDHAKAR (test code = SUDHAKAR) Biotin has been reported to cause a positive bias, interpret results relative to patient's use of biotin. Lab Interpretation (test code = 88802-8) Abnormal [facility] HospitalFERRITIN [id number] 04:54:00* Test Item Value Reference Range Interpretation Comme nts FERRITIN (test code = 8406664052) 943.0 ng/mL 18.0-464.0 H SUDHAKAR (test code = SUDHAKAR) Biotin has been reported to cause a negative bias, interpret results relative to patient's use of biotin. Lab Interpretation (test code = 71527-1) Abnormal [facility] HospitalINTACT PTH CALCIUM [id number] 04:15:28* Test Item Value Reference Range Interpretation Comme nts PTH-INTACT (test code = 0935256698) 160.5 pg/mL 12.0-88.0 H PTH-CA Interpretation (test code = 8386109182) Further clinical data needed for interpretation. CALCIUM (test code = 4173387086) 7.9 mg/dL 8.6-10.6 L Lab Interpretation (test code = 30866-5) Abnormal [facility] HospitalPROCALCITONIN2021-04-12 04:14:02* Test Item Value Reference Range Interpretation Comme nts Procalcitonin (test code = 3680159525) 0.42 ng/mL <0.07 H SUDHAKAR (test code [...] lung abscess/empyema. For further information please refer to:[email or web address] Lab Interpretation (test code = 37953-8) Abnormal [facility] [id number] 03:47:02* Test Item Value Reference Range Interpretation Comme nts TROPONIN I (test code = 9960399553) 0.085 ng/mL See_Comment H [Automated message] The [...] biotin. ? Lab Interpretation (test code = 53167-9) Abnormal [facility] HospitalETHANOL2021-04-12 03:36:45* Test Item Value Reference Range Interpretation Comme nts ALCOHOL (test code = 7938596674) <10 mg/dL SUDHAKAR (test code = SUDHAKAR) Toxic Greater than or equal to 80 mg/dL. NOTE: Whole blood values are approximately 10% to 15% lower than serum and plasma. [facility] HospitalD-[id number] 03:32:58* Test Item Value Reference Range Interpretation Comments D-DIMER (test code = 3177263682) See_Comment H [Automated message] The system which [...] a diagnosis. Lab Interpretation (test code = 93920-8) [facility]normal [facility] HospitalLACTATE [id number] 03:31:58* Test Item Value Reference Range Interpretation Comme nts LDH (test code = 9335631438) 913 U/L 300-600 H Lab Interpretation (test cod e = 88603-7) Abnormal [facility] HospitalPHOSPHORUS2021-04-12 03:31:58* Test Item Value Reference Range Interpretation Comme nts PHOSPHORUS (test code = 2899637712) 5.9 mg/dL 2.5-5.0 H Lab Interpretation (test cod e = 78930-6) Abnormal [facility] HospitalLIPID PANEL (01176)(TOTAL CHOLESTEROL, TRIGLYCERIDES, HDL)2020-10-21 03:31:58* Test Item Value Reference Range Interpretation Comme nts CHOL (test code = 5315435261) 222 mg/dL 120-200 H HDL (test code = 8317322781) 21 mg/dL >40 L HDLC RATIO (test code = 8866365844) See_Comment H [Automated messa ge] The system which generated this result transmitted reference range: <=5.0. The reference range was not used to interpret this result as normal/abnormal. TRIG (test code = 9427226022) 169 mg/dL 30-170 LDL CHOL (test code = 87651-6) 167 mg/dL See_Comment H [Automated messa ge] The system which generated this result transmitted reference range: <=160. The reference range was not used to interpret this result as normal/abnormal. VLDL (test code = 8671101136) 34 mg/dL 5-60 Lab Interpretation (test code = 73235-0) Abnormal [facility] HospitalLactic Acid Whole Raica6446-12-14 03:17:20* Test Item Value Reference Range Interpretation Comme nts LACTIC ACID (test code = 8151029296) 1.93 mmol/L 0.50-2.20 QUES Lab Interpretation (test cod e = 07302-6) Normal [facility] HospitalChes 1 [id number] 02:34:14Right lower lobe patchy airspace opacity likely [...] this study and agree with theabove report. [facility] HospitalElectroencephalogram (EEG) - Duration of test: 20-60 mins; Release to patient: [id number] 00:00:00Date and Time of Procedure: 10/21/2020, 10:07:00-10:30:00 [...] Khadar Pelletier Rai, MD Date of interpretation: 10/21/2020[facility] Qilsffvysm7034-11-41 22:55:26* Test Item Value Reference Range Interpretation Comme nts APPEARANCE (test code = 6107134066) Hazy Clear A COLOR (test code = 9948751380) Yellow Yellow PH (test code = 8891509962) 4.8-8.0 SP GRAVITY (test code = 3410146876) 1.003-1.030 H GLU U QUAL (test code = 9334620903) Normal Normal BLOOD (test code = 6130788670) 1+ Negative A KETONES (test code = 0962809195) Negative Negative PROTEIN (test code = 2887-8) 100 mg/dL Negative A UROBILIN (test code = 9458466782) Normal Normal BILIRUBIN (test code = 0537503342) Negative Negative NITRITE (test code = 7331943810) Negative Negative LEUK CHANDAN (test code = 8959916490) Negative Negative RBC/HPF (test code = 8511277128) See_Comment [Automated [employer]] The system which generated this result transmitted reference range: 0 - 3 HPF. The reference range was not used to interpret this result as normal/abnormal. WBC/HPF (test code = 1483491986) See_Comment [Automated [place]] The system which generated this result transmitted reference range: 0 - 5 HPF. The reference range was not used to interpret this result as normal/abnormal. BACTERIA (test code = 4092381565) Few Negative A MUCOUS (test code = 2663279088) Moderate Negative LPF A SQ EPITH (test code = 8423251850) HPF Lab Interpretation (test code = 49924-5) Abnormal [facility] HospitalCT ANGIOGRAM [id number] 22:32:04Multiple areas of moderate to high-grade stenosis in the distal leftcervical vertebral artery. There are several areas of moderate stenosis ofthe left intracerebral vertebral artery. Mild to moderatestenosis in the right middle cerebral artery and mildstenosis of left middle cerebral artery. No evidence for aneurysm or occlusion in the [facility] [place]. Groundglass opacities in the bilateral [...] anterior cerebral arteries. There are areas of weig-fn-dmxotllv stenosis in the right middle cerebralartery. Mild stenosis in the left middle cerebral artery. Normal posteriorcerebral arteries. ?There are multiple areas of moderate stenosis of theleft intracerebral vertebral artery. Right vertebral artery and basilarartery are normal. [facility], Radiant Results Inft User - [...] anterior cerebral arteries. There are areas of pkxy-cg-zplskwqc stenosis in the right middle cerebralartery. Mild [...] evidence for aneurysm or occlusion in the [facility] [place].Groundglass opacities in the bilateral upper lobes and partially visualizedright lower lobe consistent with a multifocal infectious/inflammatorypneumonitis. Correlate clinically.RL 4728Electronically signed by Nikko Jeong 10/20/2020 5:32 PMUnHouston Methodist HospitalCT ANGIOGRAM [id number] 22:32:04Multiple areas of moderate to high-grade stenosis in the distal leftcervical vertebral artery. There are several areas of moderate stenosis ofthe left intracerebral vertebral artery. Mild to moderatestenosis in the right middle cerebral artery and mildstenosis of left middle cerebral artery. No evidence for aneurysm or occlusion in the [facility] [place]. Groundglass opacities in the bilateral [...] anterior cerebral arteries. There are areas of bfud-mv-tjaxviui stenosis in the right middle cerebralartery. Mild [...] anterior cerebral arteries. There are areas of whzw-qc-kiyizzum stenosis in the right middle cerebralartery. Mild [...] evidence for aneurysm or occlusion in the [facility] [place].Groundglass opacities in the bilateral upper lobes and partially visualizedright lower lobe consistent with a multifocal infectious/inflammatorypneumonitis. Correlate clinically.RL 4728Electronically signed by Nikko Jeong 10/20/2020 5:32 PMUnHouston Methodist HospitalCT Head W/O Cjjamjlg2814-94-48 21:46:26No acute intracranial abnormality. Generalized cerebral atrophy [...] microvascular ischemic disease.Old right cerebellar infarct.RL 4728 [facility] HospitalTHYROID STIMULATING [id number] 21:29:59* Test Item Value Reference Range Interpretation Comme nts TSH (test code = 8403567887) See_Comment [Automated [employer] dineout] The system which generated this result transmitted reference range: 0.45 - 4.70 mIU/L. The reference range was not used to interpret this result as normal/abnormal. Lab Interpretation (test code = 99486-1) Normal [facility] HospitalTroponin [id number] 21:11:38* Test Item Value Reference Range Interpretation Comme [facility] TROPONIN I (test code = 9475228441) 0.079 ng/mL See_Comment H [Automated message] The [...] biotin. ? Lab Interpretation (test code = 53970-4) Abnormal [facility] HospitalaPTT2021-04-11 21:09:17* Test Item Value Reference Range Interpretation Comme nts APTT Patient (test code = 3173-2) See_Comment [Automated message] The system which generated this result transmitted reference range: 23 - 38 Seconds. The reference range was not used to interpret this result as normal/abnormal. SUDHAKAR (test code = SUDHAKAR) The [facility] patient population mean normal value for aPTT is 30 seconds. Lab Interpretation (test code = 71060-2) Normal [facility] HospitalN-TERMINAL MUO-[id number] 21:08:22* Test Item Value Reference Range Interpretation Comme nts NT-proBNP (test code = 5488829105) 117 pg/mL See_Comment [Automated message] The system which generated this result transmitted reference range: <=125. The reference range was not used to interpret this result as normal/abnormal. SUDHAKAR (test code = SUDHAKAR) Biotin has been reported to cause a negative bias, interpret results relative to patient's use of biotin. Lab Interpretation (test code = 36991-4) Normal [facility] HospitalProthrombin Time (PT) / [id number] 21:06:42 * Test Item Value Reference Range [...] the indications. Lab Interpretation (test code = 59220-0) Normal [facility] HospitalMAGNESIUM2021-04-11 20:59:59* Test Item Value Reference Range Interpretation Comme nts MAGNESIUM (test code = 2995129085) 2.8 mg/dL 1.7-2.4 H Lab Interpretation (test cod e = 37124-7) Abnormal [facility] HospitalBab[facility] Metabolic Panel (NA, K, CL, CO2, GLUCOSE, BUN, CREATININE, CA)2020-10-20 20:59:38* Test Item Value Reference Range Interpretation Comme nts NA (test code = 0002053041) 137 mmol/L 135-145 K (test code = 7840102702) 4.8 mmol/L 3.5-5.0 CL (test code = 9380031413) 100 mmol/L 98-108 CO2 TOTAL (test code = 6623167828) 28 mmol/L 23-31 AGAP (test code = 8889754712) 2-16 BUN (test code = 5415408436) 43 mg/dL 7-23 H GLUCOSE (test code = 3199128394) 128 mg/dL 70-110 H CREATININE (test code = 5185222014) 1.75 mg/dL 0.60-1.25 H CALCIUM (test code = 8019289214) 8.5 mg/dL 8.6-10.6 L eGFR (test code = 7698147650) mL/min/1.73m2 SUDHAKAR (test code = SUDHAKAR) Association [...] imaging tests). Lab Interpretation (test code = 94444-1) Abnormal [facility] HospitalHepatic Function Panel (ALB, T.PRO, BILI T, BU/BC, ALT, AST, ALK PHOS)2020-10-20 20:59:38* Test Item Value Reference Range Interpretation Comme nts TOTAL BILI (test code = 6856103549) 0.7 mg/dL 0.1-1.1 BILI UNCON (test code = 9242405520) 0.4 mg/dL 0.1-1.1 BILI CONJ (test code = 4856610366) 0.0 mg/dL 0.0-0.3 T PROTEIN (test code = 8915925519) 7.9 g/dL 6.3-8.2 ALBUMIN (test code = 8707150780) 4.4 g/dL 3.5-5.0 ALK PHOS (test code = 6603096809) 68 U/L 34-122 ALTv (test code = 1742-6) 66 U/L 5-50 H AST(SGOT) (test code = 3194400981) 73 U/L 13-40 H Lab Interpretation (test cod e = 27457-6) Abnormal [facility] HospitalLipase Vimfe6361-05-05 20:59:18* Test Item Value Reference Range Interpretation Comme nts LIPASE (test code = 9909902928) 453 U/L 0-220 H Lab Interpretation (test cod e = 33553-5) Abnormal [facility] HospitalCOVID-19 (ID NOW RAPID TESTING)2020-10-20 20:54:56* Test Item Value Reference Range Interpretation Comme nts SARS-CoV-2 Rapid ID NOW (test code = 63940-9) Positive Not Detected A SUDHAKAR (test code = SUDHAKAR) ID NOW COVID-19 As say is an isothermal nucleic acid amplification test intended for the qualitative detection of nucleic acid from SARS-CoV-2 viral RNA in nasopharyngeal (OFFSET PRINTING OPERATOR) specimens. It is used under Emergency Use [...] clinically indicated. Lab Interpretation (test code = 35163-1) Abnormal [facility] HospitalCB with Hiewqilxcowf1000-67-24 20:54:01* Test Item Value Reference Range Interpretation Comme nts WBC (test code = 6690-2) See_Comment L [Automated messa ge] The system which generated this result transmitted reference range: 4.20 - 10.70 10*3/?L. The reference range was not used to interpret this result as normal/abnormal. RBC (test code = 789-8) See_Comment [Automated Mobly[employer] ge] The system which generated this result [...] 33.6 g/dL 31.2-35.0 RDW-SD (test code = 65209-0) 43.6 fL 38.5-51.6 RDW-CV (test code = 788-0) 12.6 % 12.1-15.4 PLT (test code = 777-3) See_Comment [Automated Moblya ge] The system which generated this result transmitted reference range: 150 - 328 10*3/?L. The reference range was not used to interpret this result as normal/abnormal. MPV (test code = 42977-4) 10.4 fL 9.8-13.0 NRBC/100 WBC (test code = 9515723922) See_Comment [Automated [employer] ss[employer]] The system which generated this result transmitted reference range: 0.0 - 10.0 /100 WBCs. The reference range was not used to interpret this result as normal/abnormal. NRBC x10^3 (test code = 4897080875) <0.01 See_Comment [Automated [employer]ly[employer] ge] The system which generated this result transmitted reference range: 10*3/?L. The reference range was not used to interpret this result as normal/abnormal. GRAN MAT (NEUT) % (test code = 770-8) 66.3 % IMM GRAN % (test code = 9392197299) 0.30 % LYMPH % (test code = 736-9) 23.1 % MONO % (test code = 5905-5) 9.8 % EOS % (test code = 713-8) 0.0 % BASO % (test code = 706-2) 0.5 % GRAN MAT x10^3(ANC) (test code = 2386375469) 2.64 10*3/uL 1.99-6.95 IMM GRAN x10^3 (test code = 7423001251) <0.03 0.00-0.06 LYMPH x10^3 (test code = 731-0) 0.92 10*3/uL 1.09-3.23 L MONO x10^3 (test code = 742-7) 0.39 10*3/uL 0.36-1.02 EOS x10^3 (test code = 711-2) <0.03 0.06-0.53 L BASO x10^3 (test code = 704-7) <0.03 0.01-0.09 Lab Interpretation (test code = 15180-1) Abnormal [facility] HospitalLactic Acid Whole Vkuom9650-21-53 20:34:23* Test Item Value Reference Range Interpretation Comme nts LACTIC ACID (test code = 9420533103) 2.30 mmol/L 0.50-2.20 H Lab Interpretation (test cod e = 30810-1) Abnormal [facility] HospitalPOCT GLUCOSE (AUTOMATED)2020-10-20 20:25:25* Test Item Value Reference Range Interpretation Comme nts POCT GLU (test code = 0961703567) 131 mg/dL 70-110 H Lab Interpretation (test cod e = 33563-9) Abnormal [facility] History and Physical Notes Date/Time Note Provider Source 2024-03-17 01:35:00 Jeremy Foster MD: PERFORM, MODIFYPina Christopher DO: MODIFYEvent Display: History and PhysicalAuthored Date: [id number] and Physical Primary Team Name: Stroke ATeam Contact Info:PCP Contact info:Family contact info: Code Status: None Specified=FULL CODE Chief Complaint: 74Y/M BIB life flight ascode stroke,LSN 0400,new onset of slurred speech,lt side weakness,lt facial droop,GCS 15,H/O previous stroke with rt side weakness,PMH:-CO,HTN,Afib on eliqis History of Present Illness: Mr. 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 Naming, repetition, fluency, and comprehension intact.Cranial Nerves: PERRL 3 mm/brisk. EOMI, decreased BTT in L eye, slight LFDMotor: AG w/o drift throughout L hand franchise field consultant weakness.Tone: is normal and bulk is normalSensation- Decresaed to light touch in LUECoordination: FTN intact in RUEGait- deferred Pre-Morbid MRS1-No significant disability and can perform usual duties NIH Stroke Scale (NIHSS) 1a. Level of Consciousness; 0-alert 1-drowsy 2-stupor 3-coma 1b. LOC Questions month and age; 0-both 1-one 2-neither 1c. LOC Commands open/close eyes, franchise field consultant/release non-paretic hand; 0-both 1-one 2-neither 2. 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 also with calcific appearing emboli [...] will need to contact outside pcp vs pencil maker to figure out why. pending TTE, unclear if he has valvular afib. 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 Atherosclerotic heart disease of [place] coronary artery without angina pectoris (I25.10) - [...] 06:48 CDTMJeremy tavera MDElectronically Signed: 03/13/24 11:03 [facility] Notes Date/Time Note Provider Source 2024-03-13 11:30:00 [...] at 03/13/2024 13:45 by Brandy Uribe RES. [facility] 2024-03-13 07:15:07 EXAM: XR CHEST 1 VIE [...] abnormality is identified. IMPRESSION: No acute abnormality. [facility] 2024-03-13 06:30:00 EXAM: CT BRAIN WITHO UT [...] at 03/13/2024 7:01 by Laurel Wilson RES. [facility] 2024-03-13 06:30:00 EXAM: CTA BRAIN EXAM: CTA [...] the distal internal carotid artery {NASCET criteria}.) [facility] 2023-07-22 10:07:19 Addended by: MARCOS GIBSON RN on: 07/22/2023 10:07 AM Modules accepted: Orders [facility] 2023-07-22 09:58:[address] Shay's recommendations with patient's caregiver. She would greatly appreciate if patient could get off warfarin since INR checks have been difficult since she is primary transportation. Will send a Rx to [facility] pharmacy for the Eliquis to see if any financial assistance can be provided. For now, patient will continue warfarin and will have INR checked after appointment for 07/29/23. [facility] 2023-07-21 21:33:30 Addended by: ROCIO SHAY on: 07/21/2023 09:33 PM Modules accepted: Orders [facility] IM-CARDIOVASCULAR DISEASE STAFF [facility] 2023-07-21 21:28:11 Noted. We will officially take over the management of the warfarin. Please see when they come to do the INR check to [facility], if they can come to the office and we can get the [employer] paperwork completed so that the jmtsa-bm-sdly INR can be approved if the insurance [...] can send the prescription of Eliquis to [facility] to see it will be more [...] is to be between 2 and 3. [facility] 2023-07-21 10:55:49 Addended by: MARCOS GIBSON RN on: 07/21/2023 10:55 AM Modules accepted: Orders [facility] 2023-07-21 10:48:02 Returned call to Ms. Martin NP. She states she has been having trouble managing INR and requests that Dr. Shay take over management. Discussed this with patient's friend/primary contact, Ms. Boykin. She states the main concern is that she is Mr. Carrington's primary transportation and she works registered phlebotomist part time. It will be difficult for her to take him to [place] for blood work, however, she is agreeable to try. Orders placed for INR to be done at [facility] lab. She verbalized understanding that for the time being the INR needs to be drawn at [facility]. Patient's current warfarin dose 7.5 mg on / and 5 mg every other day of the week. Ms. Boykin states that she will plan to take him to have INR checked on Wednesday next week. [facility] 2023-07-20 16:34:08 Patient has underlying atrial fibrillation [...] INR check to be done in the [facility] lab until the rgyos-fi-czat INR testing is approved through his insurance [...] hence I refused to give warfarin refills. [facility] INVESTIGATOR IM-CARDIOVASCULAR DISEASE STAFF [facility] 2023-07-15 15:54:11 Abraham Carrington Jr. is a 72 year old male Pt PCP, Brianna Salazar NP calling she wants to speak to the Dr. Shay nurse about his visit. She wants to speak about pt Coumadin. She has been having issues with the pt. Etienne [facility] 2023-07-14 09:05:57 Received more medical records from Dr. Reveles office will put in Dr. Quinn LAWRENCE folder for review. Montelongo MA [facility] 2023-07-02 15:21:25 Received medical records from Dr. Reveles office will put into Dr. Quinn LAWRENCE folder for review. Montelongo MA [facility] 2023-01-27 14:55:00 Formatting of this [...] in no apparent distress. Bhumika Gold RN [facility] 2023-01-27 11:01:36 Formatting of this [...] "oh I feel fine". Destinee Mead RN [facility]
--- NOTE | 2024-05-31 10:28 | RAD REPORT ---
EXAM: CT brain without contrast HISTORY: STROKE ALERT COMPARISON: None TECHNIQUE: Multiple contiguous axial images were obtained and a CT of the brain without contrast. Sag ittal and coronal reformats were performed. One or more of the following dose reduction techniques were used: Automated exposure control, adjust ment of the mA and/or kV according to patient size, and/or iterative reconstruction. FINDINGS: No evidence of hydrocephalus, intracranial hemorrhage, or extra-axial fluid collection. There is gliosis in the distribution of the right MCA compatible with old infarct. Small old lacunar infarcts also suspected in anterior left basal ganglia. Small old infarcts also suspected in both cerebellar hemispheres, with gliosis is noted. No evidence of midline shift or areas of brain edema. The calvarium is intact. The visualized paranasal sinuses and mastoid air cells are essentially clear . IMPRESSION: No evidence of acute intracranial abnormality. Multiple areas of gliosis noted compatible with old infarcts. The findings were communicated with Dr. Gaetano MD at 05/31/2024 10:26 AM by telephone.
[2024-05-31 10:57] LABS: Absolute Eosinophils 0.2 K/uL (0-0.5); Absolute Lymphocytes (CBC) 1.1 K/uL (0.7-4.9); Absolute Monocytes 0.5 K/uL (0.1-1.3); Absolute Neutrophil 2.7 K/uL (1.8-8.0); Basophils % 0.4 % (0-1.3); Eosinophils % 4.6 % (0-4.4); Hemoglobin 12.6 g/dL (13.6-17.9); Lymphocytes % 24.6 % (15.3-44.8); MCH 31.6 pg (27.0-35.0); MCHC 32.4 g/dL (32.0-36.0); MCV 97.5 fL (80-100); MPV 7.5 fL (7.6-11.3); Monocytes % 11.1 % (3.3-12.3); Neutrophils % 59.3 % (41.7-73.7); Nucleated Red Blood Cells % 0.1 % (0-0); Platelets 203 thou/uL (152-406); Red Cell Distribution Width 14.3 % (12.1-15.2)
[2024-05-31 11:00] LABS: PT Prothrombin Time 19.5 SECONDS (9.4-12.5); PTT, Activated Partial Thromb 34.5 SECONDS (24.3-36.9); Protime INR 1.77
[2024-05-31] MEDS ORDERED: NA CHLORIDE 0.9% 500 ML ONE (11:00)
--- NOTE | 2024-05-31 11:00 | RAD REPORT ---
EXAMINATION: CTA HEAD CLINICAL INDICATION: left weakness, slurred speech, CVA 1 month ago TECHNIQUE: Axial CT images were obtained through the head after intravenous contrast utilizing angiog raphic protocol with 3D post-processing (maximum intensity projection images, volume rendered images and/or shaded surface rendered images). One or more of the following dose reduction technique s were used: Automated exposure control, adjustment of the mA and/or kV according to patient size, and/or iterative reconstruction. Unless otherwise specified, incidental findings do not require dedic ated imaging follow-up. COMPARISON: No prior exam. FINDINGS: ICA: The petrous, cavernous, and supraclinoid segments of the bilateral internal carotid arteries are normal. The ophthalmic artery origins are visualized and normal. The posterior communicating arteries are patent. CLIFFORD: Anterior cerebral arteries are normal bilaterally. The anterior communicating artery is patent. MCA: Middle cerebral arteries are normal bilaterally. ELECTION SUPERVISOR: Posterior cerebral arteries are normal bilaterally. Vertebrobasilar: The right vertebral artery is dominant. Distal left vertebral artery is quite diminu tive in size. Basilar artery appears unremarkable. 3D images confirm these findings. IMPRESSION: No significant flow abnormality is identified.
--- NOTE | 2024-05-31 11:03 | RAD REPORT ---
EXAMINATION: CTA NECK CLINICAL INDICATION: weakness, slurred speech TECHNIQUE: Axial CT images were obtained from the aortic arch to the skull base after intravenous con trast utilizing angiographic protocol with 3D post-processing (maximum intensity projection images, volume rendered images and/or shaded surface rendered images). One or more of the following dose redu ction techniques were used: Automated exposure control, adjustment of the mA and/or kV according to patient size, and/or iterative reconstruction. Unless otherwise specified, incidental findings do not require dedicated imaging follow-up. COMPARISON: No prior exam. FINDINGS: AORTA: The imaged aortic arch is normal. CCA: The common carotid arteries are patent and normal in caliber. ICA/ECA: Atherosclerotic plaquing is seen involving both carotid bulbs, greater on the left. Findings result in 50-60% stenosis of the left carotid bulb. VERTEBRAL: The cervical vertebral arteries are patent. The vertebral arteries are codominant. SOFT TISSUE: No significant neck soft tissue abnormalities. The visualized lung apices are clear. 3D images confirm these findings. IMPRESSION: Moderate left carotid bulb stenosis is present as detailed. NASCET criteria used. Mild 0-49% stenosis Moderate 50-69% stenosis Severe 70-99% stenosis
--- NOTE | 2024-05-31 11:08 | RAD REPORT ---
EXAMINATION: ONE VIEW CHEST XR CLINICAL INDICATION: slurred speech TECHNIQUE: Frontal chest projection is submitted. Examination is limited by patient positioning and t echnique. COMPARISON: No prior exam. FINDINGS: The lungs are well inflated and clear. The heart is upper limit of normal in size. No displaced fract ures identified. IMPRESSION: No acute intrathoracic abnormalities.
[2024-05-31 11:12] LABS: Anion Gap 7.7 mEq/L (5.0-15.0); Magnesium 1.7 mg/dL (1.6-2.4); Potassium 3.7 mEq/L (3.5-5.1); Troponin High Sensitivity 27.1 pg/mL (<58.9)
[2024-05-31 11:28] LABS: Sqamous Epithelial None Seen /HPF (None Seen); Urine Bacteria None Seen /HPF (<20); Urine Bilirubin NEGATIVE (Negative); Urine Blood Trace (Negative); Urine Clarity Clear (Clear); Urine Color Light-Yellow (Yellow); Urine Culture Reflex Order NOT NEEDED; Urine Glucose NEGATIVE (Negative); Urine Ketones NEGATIVE (Negative); Urine Microscopic Reflex YN ORDER UMIC; Urine Mucus Slight /HPF (None Seen); Urine Nitrite NEGATIVE (Negative); Urine Protein TRACE (Negative); Urine RBC <5 /HPF (None Seen); Urine Urobilinogen Normal (Normal); Urine WBC <5 /HPF (<5); Urine pH 5.5 (5.0-7.0)
--- NOTE | 2024-05-31 13:52 | ER ---
Nurse's Notes [facility] Name: J Luis Carrington Jr Age: 73 yrs Sex: Male : 1950 Arrival Date: 05/31/2024 Time: 09:57 Bed 4 Private MD: Diagnosis: Weakness;Other cerebral infarction-subacute Presentation: 05/31 10:07 Chief complaint: Patient states: L sided facial droop worse than usual noticed ll1 yesterday by family. Elevated BP today, and weaker than usual. Coronavirus screen: Client denies travel out of the [place] in the last 14 days. At this time, the client does not indicate any symptoms associated with coronavirus-19. Ebola Screen: Patient denies travel to an Ebola-affected area in the 21 days before illness onset. Initial Sepsis Screen: Does the patient meet any 2 criteria? No. Patient's initial sepsis screen is negative. Does the patient have a suspected source of infection? No. Patient's initial sepsis screen is negative. Risk Assessment: Do you want to hurt yourself or someone else? Patient reports no desire to harm self or others. Onset of symptoms was May 30, 2024. 10:07 Method Of Arrival: Ambulatory ll1 10:07 Acuity: ADRIANE 2 ll1 Triage Assessment: 10:07 General: Appears uncomfortable, Behavior is calm, cooperative, appropriate for age. ll1 Pain: Denies pain. Neuro: Reports weakness family states L sided facial droop is more pronounced. Historical: - PMHx: 10:00 stroke; Hypertensive disorder; ll1 - Immunization history:: Adult Immunizations up to date. - Infectious Disease History:: Denies. - Family history:: not pertinent. - Hospitalizations: : The patient was recently seen at [facility]. - Social history:: Smoking status: Patient denies any tobacco usage or history of. Screenin:36 [facility] ED Fall Risk Assessment (Adult) History of falling in the last 3 months, ko1 including since admission No falls in past 3 months (0 pts) Confusion or Disorientation No (0 pts) Intoxicated or Sedated No (0 pts) Impaired Gait Yes (1 pt) Mobility Assist Device Used Yes (1 pt) Altered Elimination No (0 pt) Score/Fall Risk Level 0 - 2 = Low Risk Oriented to surroundings, Maintained a safe environment, Educated pt \\T\\ family on fall prevention, incl call for assistance when getting out of bed, Assessed \\T\\ reinforced patient's understanding of fall precautions, Provided non-skid footwear, Hourly rounding (assess needs \\T\\ fall precautionary measures) done. Abuse screen: Denies threats or abuse. Denies injuries from another. Nutritional screening: No deficits noted. Tuberculosis screening: No symptoms or risk factors identified. 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 Cardiovascular: Patient's skin is warm and dry. Respiratory: Airway is patent Respiratory effort is even, unlabored, Respiratory pattern is regular, symmetrical. GI: Abdomen is round non-distended, Abd is soft and non tender X 4 quads. : No signs and/or symptoms were reported regarding the genitourinary system. EENT: No signs and/or symptoms were reported regarding the EENT system. Derm: Skin is intact, Skin is pink, warm \\T\\ dry. Musculoskeletal: Range of motion: limited in left arm and left leg. 10:00 General: Appears in no apparent distress. uncomfortable, Behavior is calm, cooperative. rs5 10:01 Pain: Denies pain. rs5 11:12 Reassessment: Patient and/or family updated on plan of care and expected duration. Pain rs5 level reassessed. Patient is alert, oriented x 3, equal unlabored respirations, skin warm/dry/pink. 12:16 Reassessment: Patient and/or family updated on plan of care and expected duration. Pain rs5 level reassessed. Patient is alert, oriented x 3, equal unlabored respirations, skin warm/dry/pink. 13:20 Reassessment: Patient and/or family updated on plan of care and expected duration. Pain rs5 level reassessed. Patient is alert, oriented x 3, equal unlabored respirations, skin warm/dry/pink. 13:40 Reassessment: to bedside, pt states "I don't want to be hospitalized, I think I want to rs5 go home " provider notified . 14:01 Reassessment: Patient and/or family updated on plan of care and expected duration. Pain rs5 level reassessed. Patient is alert, oriented x 3, equal unlabored respirations, skin warm/dry/pink. Vital Signs: 10:07 BP 125 / 77; Pulse 60; Resp 18; Temp 98; Pulse Ox 97% ; ko1 10:07 BP 125 / 77; Pulse 60; Resp 17; Temp 97.4; Pulse Ox 98% on R/A; Weight 113.4 kg; Height ll1 6 ft. 2 in. ; Pain 0/10; 11:36 BP 141 / 80; Pulse 56; Resp 15; Pulse Ox 97% ; ko1 12:29 BP 141 / 72; Pulse 48; Resp 19; Pulse Ox 95% ; ko1 13:14 BP 144 / 80; Pulse 52; Resp 16; Pulse Ox 99% ; ko1 14:08 BP 155 / 85; Pulse 50; Resp 17; Pulse Ox 99% ; ko1 10:07 Body Mass Index 32.10 (113.40 kg, 187.96 cm) ll1 10:07 Pain Scale: Adult ll1 NIH Stroke Scale Scores: 10:05 NIHSS Score: 4 rs5 10:30 NIHSS Score: 4 rs5 11:02 NIHSS Score: 4 rs5 11:08 NIHSS Score: 7 rn 12:05 NIHSS Score: 4 rs5 ED Course: 10:00 Patient arrived in ED. ll1 10:00 Arm band placed on Patient placed in an exam room, on a stretcher. ll1 10:00 No provider procedures requiring assistance completed. rs5 10:02 Franko Mejia, RN is Primary Nurse. rs5 10:05 Inserted saline lock: 20 gauge in right antecubital area, using aseptic technique. rs5 Blood collected. Flushed with 10 mL NS. 10:06 Sushant Diaz MD is Attending Physician. rn 10:09 Triage completed. ll1 10:25 CT Stroke Brain w/o Contrast In Process Unspecified. EDMS 10:38 CT Head Angio In Process Unspecified. EDMS 10:40 CT Neck Angio In Process Unspecified. EDMS 11:03 Stroke CXR 1 View In Process Unspecified. EDMS 11:36 Patient has correct armband on for positive identification. Bed in low position. Call ko1 light in reach. Side rails up X 1. Provided Education on: labs. Client placed on continuous cardiac and pulse oximetry monitoring. NIBP monitoring applied. pastoral assistant on. Door closed. Noise minimized. Lights dimmed. Warm blanket given. Pillow given. 14:08 IV discontinued, intact, bleeding controlled, No redness/swelling at site. Pressure ko1 dressing applied. Administered Medications: 10:40 Drug: NS 0.9% IV 500 ml 500 ml IV at 1 bolus once; to be given as a bolus over 30 rs5 minutes Volume: 500 ml; Route: IV; Rate: 1 bolus; Site: right antecubital; 11:12 Follow up: Response: No adverse reaction; IV Status: Completed infusion; IV Intake: rs5 500ml Medication: 11:36 VIS not applicable for this client. ko1 Intake: 11:12 IV: 500ml; Total: 500ml. rs5 Outcome: 13:51 Discharge ordered by . rn 14:08 Discharged to home via wheelchair, with family, [facility] 14:08 Condition: stable 14:08 Discharge instructions given to patient, family, Instructed on discharge instructions, follow up and referral plans. Demonstrated understanding of instructions, follow-up care, 14:24 Patient left the ED. ko1 NIH Stroke Scale - NIH Stroke Score Date: 05/31/2024 Time: 10:05 Total Score = 4 10. Dysarthria (speech clarity - read or repeat words) - 1(Mild to Moderate) 11. Extinction and Inattention (visual/tactile/auditory/spatial/personal) - 0(No abnormality) 1a. Level of Consciousness (LOC) - 0(Alert) 1b. Level of Consciousness (LOC) (Month \\T\\ Age) - 0(Both) 1c. LOC Commands (Open \\T\\ Closes Eyes/Manager Icu) - 0(Both) 2. Best Gaze (Lateral Gaze Paresis) - 0(Normal) 3. Visual Field Loss - 0(No visual loss) 4. Facial Palsy - 0(Normal) 5a. Left Arm: Motor (10-second hold) - 2(Drift, some effort against gravity) 5b. Right Arm: Motor (10-second hold) - 0(No drift) 6a. Left Leg: Motor (5-second hold - always test supine) - 1(Drift) 6b. Right Leg: Motor (5-second hold - always test supine) - 0(No drift) 7. Limb Ataxia (finger/nose \\T\\ heel/villegas - test with eyes open) - 0(Absent) 8. Sensory Loss (pinprick arms/legs/face) - 0(Normal) 9. Best Language: Aphasia (description/naming/reading) - 0(No aphasia) Initials: rs5 NIH Stroke Scale - NIH Stroke Score Date: 05/31/2024 Time: 10:30 Total Score = 4 10. Dysarthria (speech clarity - read or repeat words) - 1(Mild to Moderate) 11. Extinction and Inattention (visual/tactile/auditory/spatial/personal) - 0(No abnormality) 1a. Level of Consciousness (LOC) - 0(Alert) 1b. Level of Consciousness (LOC) (Month \\T\\ Age) - 0(Both) 1c. LOC Commands (Open \\T\\ Closes Eyes/Manager Icu) - 0(Both) 2. Best Gaze (Lateral Gaze Paresis) - 0(Normal) 3. Visual Field Loss - 0(No visual loss) 4. Facial Palsy - 0(Normal) 5a. Left Arm: Motor (10-second hold) - 2(Drift, some effort against gravity) 5b. Right Arm: Motor (10-second hold) - 0(No drift) 6a. Left Leg: Motor (5-second hold - always test supine) - 1(Drift) 6b. Right Leg: Motor (5-second hold - always test supine) - 0(No drift) 7. Limb Ataxia (finger/nose \\T\\ heel/villegas - test with eyes open) - 0(Absent) 8. Sensory Loss (pinprick arms/legs/face) - 0(Normal) 9. Best Language: Aphasia (description/naming/reading) - 0(No aphasia) Initials: rs5 NIH Stroke Scale - NIH Stroke Score Date: 05/31/2024 Time: 11:02 Total Score = 4 10. Dysarthria (speech clarity - read or repeat words) - 1(Mild to Moderate) 11. Extinction and Inattention (visual/tactile/auditory/spatial/personal) - 0(No abnormality) 1a. Level of Consciousness (LOC) - 0(Alert) 1b. Level of Consciousness (LOC) (Month \\T\\ Age) - 0(Both) 1c. LOC Commands (Open \\T\\ Closes Eyes/Manager Icu) - 0(Both) 2. Best Gaze (Lateral Gaze Paresis) - 0(Normal) 3. Visual Field Loss - 0(No visual loss) 4. Facial Palsy - 0(Normal) 5a. Left Arm: Motor (10-second hold) - 2(Drift, some effort against gravity) 5b. Right Arm: Motor (10-second hold) - 0(No drift) 6a. Left Leg: Motor (5-second hold - always test supine) - 1(Drift) 6b. Right Leg: Motor (5-second hold - always test supine) - 0(No drift) 7. Limb Ataxia (finger/nose \\T\\ heel/villegas - test with eyes open) - 0(Absent) 8. Sensory Loss (pinprick arms/legs/face) - 0(Normal) 9. Best Language: Aphasia (description/naming/reading) - 0(No aphasia) Initials: rs5 NIH Stroke Scale - NIH Stroke Score Date: 05/31/2024 Time: 11:08 Total Score = 7 10. Dysarthria (speech clarity - read or repeat words) - 1(Mild to Moderate) 11. Extinction and Inattention (visual/tactile/auditory/spatial/personal) - 0(No abnormality) 1a. Level of Consciousness (LOC) - 0(Alert) 1b. Level of Consciousness (LOC) (Month \\T\\ Age) - 0(Both) 1c. LOC Commands (Open \\T\\ Closes Eyes/Manager Icu) - 0(Both) 2. Best Gaze (Lateral Gaze Paresis) - 0(Normal) 3. Visual Field Loss - 0(No visual loss) 4. Facial Palsy - 1(Minor Paralysis) 5a. Left Arm: Motor (10-second hold) - 3(No effort against gravity) 5b. Right Arm: Motor (10-second hold) - 0(No drift) 6a. Left Leg: Motor (5-second hold - always test supine) - 2(Drift, some effort against gravity) 6b. Right Leg: Motor (5-second hold - always test supine) - 0(No drift) 7. Limb Ataxia (finger/nose \\T\\ heel/villegas - test with eyes open) - 0(Absent) 8. Sensory Loss (pinprick arms/legs/face) - 0(Normal) 9. Best Language: Aphasia (description/naming/reading) - 0(No aphasia) Initials: rn NIH Stroke Scale - NIH Stroke Score Date: 05/31/2024 Time: 12:05 Total Score = 4 10. Dysarthria (speech clarity - read or repeat words) - 1(Mild to Moderate) 11. Extinction and Inattention (visual/tactile/auditory/spatial/personal) - 0(No abnormality) 1a. Level of Consciousness (LOC) - 0(Alert) 1b. Level of Consciousness (LOC) (Month \\T\\ Age) - 0(Both) 1c. LOC Commands (Open \\T\\ Closes Eyes/Manager Icu) - 0(Both) 2. Best Gaze (Lateral Gaze Paresis) - 0(Normal) 3. Visual Field Loss - 0(No visual loss) 4. Facial Palsy - 0(Normal) 5a. Left Arm: Motor (10-second hold) - 2(Drift, some effort against gravity) 5b. Right Arm: Motor (10-second hold) - 0(No drift) 6a. Left Leg: Motor (5-second hold - always test supine) - 1(Drift) 6b. Right Leg: Motor (5-second hold - always test supine) - 0(No drift) 7. Limb Ataxia (finger/nose \\T\\ heel/villegas - test with eyes open) - 0(Absent) 8. Sensory Loss (pinprick arms/legs/face) - 0(Normal) 9. Best Language: Aphasia (description/naming/reading) - 0(No aphasia) Initials: rs5 Signatures: Dispatcher [employer] Sushant Philip MD MD rn Lewis, Lynsay, RN RN ll1 Ana Patel RN RN ko1 Franko Mejia RN RN rs5
--- NOTE | 2024-05-31 13:52 | EDPHYS ---
Physician Documentation [facility] Name: J Luis Carrington Jr Age: 73 yrs Sex: Male : 1950 Arrival Date: 05/31/2024 Time: 09:57 Bed 4 Private MD: ED Physician Sushant Diaz HPI: 05/31 11:08 This 73 yrs old Black Male presents to ER via Ambulatory with complaints of High Blood rn Pressure. 11:08 The patient has elevated blood pressure and discovered this at home. Onset: The rn symptoms/episode began/occurred at an unknown time. Modifying factors:. Associated signs and symptoms: Pertinent positives: weakness, Pertinent negatives: chest pain, headache. Severity of symptoms: At its worst the blood pressure was moderate, in the emergency department the blood pressure is improved. The patient has experienced similar episodes in the past. The patient has been recently been admitted at [facility]. Family reports noticed yesterday increased weakness of left side of body and left facial droop. Reports diagnosed with a stroke about a month ago, was admitted and worked up, has been at home with physical therapy and taking all the medication prescribed. His stroke at that time was a left-sided weakness with facial droop. The facial droop had improved and seem to return yesterday. No fall or head injury. Now requiring much more assistance to perform activity and stand.. Historical: - PMHx: 10:00 stroke; Hypertensive disorder; ll1 - Immunization history:: Adult Immunizations up to date. - Infectious Disease History:: Denies. - Family history:: not pertinent. - Hospitalizations: : The patient was recently seen at [facility]. - Social history:: Smoking status: Patient denies any tobacco usage or history of. ROS: 11:08 Constitutional: Negative for fever, chills, and weight loss, ENT: Negative for injury, rn pain, and discharge, Neck: Negative for injury, pain, and swelling, Cardiovascular: Negative for chest pain, palpitations, and edema, Respiratory: Negative for shortness of breath, cough, wheezing, and pleuritic chest pain, Abdomen/GI: Negative for abdominal pain, nausea, vomiting, diarrhea, and constipation, Back: Negative for injury and pain, MS/Extremity: Negative for injury and deformity, Skin: Negative for injury, rash, and discoloration, Neuro: Positive for left-sided weakness and left facial droop Exam: 11:08 Constitutional: This is a well developed, well nourished patient who is awake, alert, rn and in no acute distress. Head/Face: Normocephalic, atraumatic. ENT: Dry mucous membranes Cardiovascular: Regular rate and rhythm. No pulse deficits. Respiratory: No increased work of breathing, no retractions or nasal flaring. Abdomen/GI: Soft, nontender MS/ Extremity: Pulses equal, no cyanosis. Neuro: Awake and alert, GCS 15, oriented to person, place, time, and situation. Cranial nerves II-XII grossly intact. Left-sided weakness with arm weaker than leg. Normal sensation. Mild left lower facial droop with forehead sparing. Vital Signs: 10:07 BP 125 / 77; Pulse 60; Resp 18; Temp 98; Pulse Ox 97% ; ko1 10:07 BP 125 / 77; Pulse 60; Resp 17; Temp 97.4; Pulse Ox 98% on R/A; Weight 113.4 kg; Height ll1 6 ft. 2 in. ; Pain 0/10; 11:36 BP 141 / 80; Pulse 56; Resp 15; Pulse Ox 97% ; ko1 12:29 BP 141 / 72; Pulse 48; Resp 19; Pulse Ox 95% ; ko1 13:14 BP 144 / 80; Pulse 52; Resp 16; Pulse Ox 99% ; ko1 14:08 BP 155 / 85; Pulse 50; Resp 17; Pulse Ox 99% ; ko1 10:07 Body Mass Index 32.10 (113.40 kg, 187.96 cm) ll1 10:07 Pain Scale: Adult ll1 NIH Stroke Scale Scores: 10:05 NIHSS Score: 4 rs5 10:30 NIHSS Score: 4 rs5 11:02 NIHSS Score: 4 rs5 11:08 NIHSS Score: 7 rn 12:05 NIHSS Score: 4 rs5 MDM: 10:06 Medical Screening Exam initiated rn 13:49 Differential diagnosis: hypertensive crisis, Malignant HTN, CVA, intracerebral rn hemorrhage. Data reviewed: vital signs, nurses notes, lab test result(s), EKG, radiologic studies, CT scan, and as a result, I will discharge patient. Counseling: I had a detailed discussion with the patient and/or guardian regarding the historical points, exam findings, and any diagnostic results supporting the discharge/admit diagnosis, lab results, radiology results, the need for outpatient follow up, to return to the emergency department if symptoms worsen or persist or if there are any questions or concerns that arise at home. Special discussion: I discussed with the patient/guardian in detail that at this point there is no indication for admission to the hospital. It is understood, however, that if the symptoms persist or worsen the patient needs to return immediately for re-evaluation. ED course: No acute findings on workup today. Possible continuation of subacute stroke versus reactivation given identical symptoms. No acute findings in CT head or angiograms. Labs unremarkable. No sign of infection or UTI. Already has recent workup and physical therapy organized at home. Will discharge home with return precautions.. 05/31 10:16 Order name: Basic Metabolic Panel; Complete Time: : rn 05/31 10:16 Order name: CBC with Diff; Complete Time: rn 05/31 10:16 Order name: High Sensitivity Troponin; Complete Time: rn 05/31 10:16 Order name: Magnesium; Complete Time: rn 05/31 10:16 Order name: Protime (+inr); Complete Time: : rn 05/31 10:16 Order name: Ptt, Activated; Complete Time: : rn 05/31 10:18 Order name: Urinalysis w/ reflexes; Complete Time: 11: rn 05/31 12:45 Order name: CREATININE WHOLE BLOOD; Complete Time: 13:27 EDMS 05/31 10:16 Order name: CT Head Angio; Complete Time: : rn 05/31 10:16 Order name: CT Neck Angio; Complete Time: : rn 05/31 10:16 Order name: CT Stroke Brain w/o Contrast; Complete Time: : rn 05/31 10:16 Order name: Stroke CXR 1 View; Complete Time: : rn 05/31 10:16 Order name: Accucheck; Complete Time: : rn 05/31 10:16 Order name: Cardiac monitoring; Complete Time: : rn 05/31 10:16 Order name: EKG - Nurse/Tech; Complete Time: : rn 05/31 10:16 Order name: IV Saline Lock; Complete Time: rn 05/31 10:16 Order name: Labs collected and sent; Complete Time: 10:52 rn 05/31 10:16 Order name: NPO; Complete Time: 10:52 rn 05/31 10:16 Order name: O2 Per Protocol; Complete Time: 10:52 rn 05/31 10:16 Order name: O2 Sat Monitoring; Complete Time: 10:52 rn 05/31 10:16 Order name: Stroke Swallow Screen; Complete Time: 10:52 rn Administered Medications: 10:40 Drug: NS 0.9% IV 500 ml 500 ml IV at 1 bolus once; to be given as a bolus over 30 rs5 minutes Volume: 500 ml; Route: IV; Rate: 1 bolus; Site: right antecubital; 11:12 Follow up: Response: No adverse reaction; IV Status: Completed infusion; IV Intake: rs5 500ml Disposition Summary: 05/31/24 13:51 Discharge Ordered Notes: Location: Home rn Problem: an ongoing problem rn Symptoms: have improved rn Condition: Stable rn Diagnosis - Weakness rn - Other cerebral infarction - subacute rn Followup: rn - With: Private Physician - When: As needed - Reason: Recheck today's complaints, Re-evaluation by your physician Discharge Instructions: - Discharge Summary Sheet rn - Ischemic Stroke rn - Physical Therapy After a Stroke rn Forms: - Medication Reconciliation Form rn - Antibiotic finance intern - Prescription Opioid Use rn - Patient Portal Instructions rn - Leadership Thank You Letter rn NIH Stroke Scale - NIH Stroke Score Date: 05/31/2024 Time: 10:05 Total Score = 4 10. Dysarthria (speech clarity - read or repeat words) - 1(Mild to Moderate) 11. Extinction and Inattention (visual/tactile/auditory/spatial/personal) - 0(No abnormality) 1a. Level of Consciousness (LOC) - 0(Alert) 1b. Level of Consciousness (LOC) (Month \T\ Age) - 0(Both) 1c. LOC Commands (Open \T\ Closes Eyes/Home Health Clinical Liaison) - 0(Both) 2. Best Gaze (Lateral Gaze Paresis) - 0(Normal) 3. Visual Field Loss - 0(No visual loss) 4. Facial Palsy - 0(Normal) 5a. Left Arm: Motor (10-second hold) - 2(Drift, some effort against gravity) 5b. Right Arm: Motor (10-second hold) - 0(No drift) 6a. Left Leg: Motor (5-second hold - always test supine) - 1(Drift) 6b. Right Leg: Motor (5-second hold - always test supine) - 0(No drift) 7. Limb Ataxia (finger/nose \T\ heel/villegas - test with eyes open) - 0(Absent) 8. Sensory Loss (pinprick arms/legs/face) - 0(Normal) 9. Best Language: Aphasia (description/naming/reading) - 0(No aphasia) Initials: rs5 NIH Stroke Scale - NIH Stroke Score Date: 05/31/2024 Time: 10:30 Total Score = 4 10. Dysarthria (speech clarity - read or repeat words) - 1(Mild to Moderate) 11. Extinction and Inattention (visual/tactile/auditory/spatial/personal) - 0(No abnormality) 1a. Level of Consciousness (LOC) - 0(Alert) 1b. Level of Consciousness (LOC) (Month \T\ Age) - 0(Both) 1c. LOC Commands (Open \T\ Closes Eyes/Home Health Clinical Liaison) - 0(Both) 2. Best Gaze (Lateral Gaze Paresis) - 0(Normal) 3. Visual Field Loss - 0(No visual loss) 4. Facial Palsy - 0(Normal) 5a. Left Arm: Motor (10-second hold) - 2(Drift, some effort against gravity) 5b. Right Arm: Motor (10-second hold) - 0(No drift) 6a. Left Leg: Motor (5-second hold - always test supine) - 1(Drift) 6b. Right Leg: Motor (5-second hold - always test supine) - 0(No drift) 7. Limb Ataxia (finger/nose \T\ heel/villegas - test with eyes open) - 0(Absent) 8. Sensory Loss (pinprick arms/legs/face) - 0(Normal) 9. Best Language: Aphasia (description/naming/reading) - 0(No aphasia) Initials: rs5 NIH Stroke Scale - NIH Stroke Score Date: 05/31/2024 Time: 11:02 Total Score = 4 10. Dysarthria (speech clarity - read or repeat words) - 1(Mild to Moderate) 11. Extinction and Inattention (visual/tactile/auditory/spatial/personal) - 0(No abnormality) 1a. Level of Consciousness (LOC) - 0(Alert) 1b. Level of Consciousness (LOC) (Month \T\ Age) - 0(Both) 1c. LOC Commands (Open \T\ Closes Eyes/Home Health Clinical Liaison) - 0(Both) 2. Best Gaze (Lateral Gaze Paresis) - 0(Normal) 3. Visual Field Loss - 0(No visual loss) 4. Facial Palsy - 0(Normal) 5a. Left Arm: Motor (10-second hold) - 2(Drift, some effort against gravity) 5b. Right Arm: Motor (10-second hold) - 0(No drift) 6a. Left Leg: Motor (5-second hold - always test supine) - 1(Drift) 6b. Right Leg: Motor (5-second hold - always test supine) - 0(No drift) 7. Limb Ataxia (finger/nose \T\ heel/villegas - test with eyes open) - 0(Absent) 8. Sensory Loss (pinprick arms/legs/face) - 0(Normal) 9. Best Language: Aphasia (description/naming/reading) - 0(No aphasia) Initials: rs5 NIH Stroke Scale - NIH Stroke Score Date: 05/31/2024 Time: 11:08 Total Score = 7 10. Dysarthria (speech clarity - read or repeat words) - 1(Mild to Moderate) 11. Extinction and Inattention (visual/tactile/auditory/spatial/personal) - 0(No abnormality) 1a. Level of Consciousness (LOC) - 0(Alert) 1b. Level of Consciousness (LOC) (Month \T\ Age) - 0(Both) 1c. LOC Commands (Open \T\ Closes Eyes/Home Health Clinical Liaison) - 0(Both) 2. Best Gaze (Lateral Gaze Paresis) - 0(Normal) 3. Visual Field Loss - 0(No visual loss) 4. Facial Palsy - 1(Minor Paralysis) 5a. Left Arm: Motor (10-second hold) - 3(No effort against gravity) 5b. Right Arm: Motor (10-second hold) - 0(No drift) 6a. Left Leg: Motor (5-second hold - always test supine) - 2(Drift, some effort against gravity) 6b. Right Leg: Motor (5-second hold - always test supine) - 0(No drift) 7. Limb Ataxia (finger/nose \T\ heel/villegas - test with eyes open) - 0(Absent) 8. Sensory Loss (pinprick arms/legs/face) - 0(Normal) 9. Best Language: Aphasia (description/naming/reading) - 0(No aphasia) Initials: juwan NIH Stroke Scale - NIH Stroke Score Date: 05/31/2024 Time: 12:05 Total Score = 4 10. Dysarthria (speech clarity - read or repeat words) - 1(Mild to Moderate) 11. Extinction and Inattention (visual/tactile/auditory/spatial/personal) - 0(No abnormality) 1a. Level of Consciousness (LOC) - 0(Alert) 1b. Level of Consciousness (LOC) (Month \T\ Age) - 0(Both) 1c. LOC Commands (Open \T\ Closes Eyes/Home Health Clinical Liaison) - 0(Both) 2. Best Gaze (Lateral Gaze Paresis) - 0(Normal) 3. Visual Field Loss - 0(No visual loss) 4. Facial Palsy - 0(Normal) 5a. Left Arm: Motor (10-second hold) - 2(Drift, some effort against gravity) 5b. Right Arm: Motor (10-second hold) - 0(No drift) 6a. Left Leg: Motor (5-second hold - always test supine) - 1(Drift) 6b. Right Leg: Motor (5-second hold - always test supine) - 0(No drift) 7. Limb Ataxia (finger/nose \T\ heel/villegas - test with eyes open) - 0(Absent) 8. Sensory Loss (pinprick arms/legs/face) - 0(Normal) 9. Best Language: Aphasia (description/naming/reading) - 0(No aphasia) Initials: rs5 Signatures: Dispatcher [employer] EDMS Sushant Diaz MD MD rn Lewis, Lynsay, RN RN ll1 Franko Mejia RN RN rs5 Corrections: (The following items were deleted from the chart) 10:16 10:16 BASIC METABOLIC PANEL+C.LAB.BRZ ordered. EDMS EDMS 10:16 10:16 CBC+H.LAB.BRZ ordered. EDMS EDMS 10:16 10:16 Troponin High Sensitivity+C.LAB.BRZ ordered. EDMS EDMS 10:16 10:16 MAGNESIUM+C.LAB.BRZ ordered. EDMS EDMS 10:16 10:16 PROTIME (+INR)+COAG.LAB.BRZ ordered. EDMS EDMS 10:16 10:16 PTT, ACTIVATED+COAG.LAB.BRZ ordered. EDMS EDMS 10:16 10:16 Head Angio+CT.RAD.BRZ ordered. EDMS EDMS 10:16 10:16 Neck Angio+CT.RAD.BRZ ordered. EDMS EDMS 10:17 10:17 CT-STROKE BRAIN W/O CONTRAST+CT.RAD.BRZ ordered. EDMS EDMS 10:17 10:17 Chest Single View+RAD.RAD.BRZ ordered. EDMS EDMS
[2024-05-31 14:43] VITALS: TEMP 97.4
[2024-05-31 14:57] VITALS: O2SAT 99
[2024-05-31 14:58] VITALS: BP 155/85
--- NOTE | 2024-06-01 11:01 | EKG ---
Test Date: 2024-05-31 Test Time: 10:44:16 Technology Auditor: ELIEL MEASUREMENT RESULTS: Intervals: Rate: 57 PA: 194 QRSD: 104 QT: 470 QTc: 457 [place]: P: 75 PA: 194 QRS: 46 T: 59 INTERPRETIVE STATEMENTS: Sinus bradycardia Nonspecific T wave abnormality Abnormal ECG Compared to ECG 03/30/2024 11:55:15 T-wave abnormality now present Atrial fibrillation no longer present Ventricular premature complex(es) no longer present ST (T wave) deviation no longer present Electronically Signed On 06-01-24 11:00:44 QUALITY CONTROL TECH [employer] MATERIALS by Isreal Alegria
== END 2024-05-31 14:24 | disposition home or self-care (01) ==
LOC: ER 09:57
DX: I63.89 Other cerebral infarction (principal); R29.704 NIHSS score 4; I10 Essential (primary) hypertension
CPT/HCPCS: 93005; 85025; 81001; 80048; 36415; 83735; 85610; 82565; 85730; 84484; 70496; 70498; 70450; 71045; Q9967 ×2; J7040